=== PATIENT | female | born 1955 | race Caucasian/White ===

== ENCOUNTER 2016-10-09 13:02 | Emergency (ER) | payer MEDICARE, MEDICAID ==
[2016-10-09 13:54] VITALS: BP 120/84
--- NOTE | 2016-10-09 14:07 | RAD ---
HISTORY: Left middle finger pain, trauma COMPARISONS: None VIEWS: 3, Frontal, lateral, and oblique views of the third digit of the left hand FINDINGS: BONE DENSITY: Normal. BONES: There is no displaced fracture. 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 SOFT TISSUES: Unremarkable. OTHER FINDINGS: None. IMPRESSION: NO ACUTE OSSEOUS INJURY. IF SYMPTOMS PERSIST, RECOMMEND REPEAT IMAGING.
--- NOTE | 2016-10-09 15:47 | UC ---
Upper Extremity HPI - HPI Summary HPI Summary: 61 y/o female with c/o L middle finger swelling, decreased movement since sat/ sun. Patient states woke up with finger swelling, redness. concerned about dislocation, patient denies ever losing ROM. seen in wound care for non- healing wound R foot. Patient also states dropped pruning lina on L foot, + bleeding (on plavix) with subsequent bruising. No other complaints. multiple medications listed in chart, multiple co-morbidities including DM II - History of Current Complaint Chief Complaint: UCLowerExtremity Stated Complaint: LEFT MIDDLE FINGER PAIN Time Seen by Provider: 10/09/16 13:41 Hx Obtained From: Patient Hx Last Menstrual Period: menapause Onset/Duration: Sudden Onset, Lasting Days Severity Initially: Mild Severity Currently: Moderate Pain Intensity: 6 Pain Scale Used: 0-10 Numeric Location Of Pain: Is Discrete @ - L middle finger, base of L great toe Aggravating Factor(s): Movement, Flexion, Extension Alleviating Factor(s): Rest Associated Signs And Symptoms: Positive: Swelling, Redness, Bruising - Allergies/Home Medications Allergies/Adverse Reactions: Allergies Allergy/AdvReac Type Severity Reaction Status Date / Time Rosuvastatin [From Crestor] Allergy Muscle Ache Verified 10/09/16 13:54 PMH/Surg Hx/FS Hx/Imm Hx Previously Healthy: No - DM, multiple co-morbidities - Surgical History Surgical History: Yes Surgery Procedure, Year, and Place: CORNEA TRANSPLANT,C SECTION, BILATERAL CARPAL TUNNEL AND TRIGGER FINGER RELEASE,HEART CATH - Family History Known Family History: Positive: Diabetes - Social History Alcohol Use: None Substance Use Type: Prescribed Substance Use Comment - Amount & Last Used: currently using vicoden Smoking Status (MU): Never Smoked Tobacco - Immunization History Most Recent Influenza Vaccination: utd Most Recent Tetanus Shot: utd Review of Systems Skin: Rash Musculoskeletal: Arthralgia, Decreased ROM, Edema, Myalgia All Other Systems Reviewed And Are Negative: Yes Physical Exam Triage Information Reviewed: Yes Appearance: Well-Appearing, No Pain Distress, Well-Nourished Vital Signs: Initial Vital Signs Temp 98.4 F 10/09/16 13:44 Pulse 97 10/09/16 13:44 Resp 16 10/09/16 13:44 BP 120/84 10/09/16 13:44 Pulse Ox 98 10/09/16 13:44 Eye Exam: Normal Musculoskeletal: Positive: ROM Limited @ - decreased ROM due to diffuse mild swelling in L middle finger, full ROM DIP joint, decreased ROM PIP, MCP due to swelling, no pain with AROM, PROM of any finger joint. small laceration noted dorsal apsect of middle finger between MCP, PIP joint., Edema @ - L finger, minimal., Other: - L great toe with 1cm superficial healing laceration. no active bleeding minimal ecchymosis noted at great toe. Neurological Exam: Normal - sensation grossly intact L hand Skin: Positive: Other - mild to minimal erythema at base of L middle finger no lymphangitic spread noted. Upper Extremity Course/Dx - Course Course Of Treatment: x-ray negative, finger, toe wounds cleansed, dressing with anitibiotic ointment applied, ABX rx given, patient to follow up at wound care center on or sooner if symptoms worsen or redness spreads. - Differential Dx/Diagnosis Differential Diagnosis/HQI/PQRI: Bursitis, Laceration, Strain, Sprain Provider Diagnoses: cellulitis L middle finger Discharge - Discharge Plan Condition: Good Disposition: HOME Prescriptions: Cephalexin CAP* [Keflex CAP*] 500 mg PO QID #28 cap Fluconazole [Diflucan 150 MG (NF)] 150 mg PO ONCE #1 tab Patient Education Materials: Cephalexin (By mouth), Cellulitis (ED) Referrals: Christy Westbrook MD [Primary Care Provider] - Additional Instructions: - Follow up with primary physician for evaluation within 3-5 days - Take antibiotics as directed - Return for fever, chills, increasing redness - Motrin/ Tylenol as needed for pain
== END 2016-10-09 14:37 | disposition home or self-care (01) ==
LOC: UCCORT 13:02
DX: L03.012 Cellulitis of left finger (principal); E11.9 Type 2 diabetes mellitus without complications
CPT/HCPCS: 73140; 99212; G0463

== ENCOUNTER → 2018-01-03 13:17 | Emergency (ER) | payer MEDICARE, MEDICAID ==
--- OUTSIDE RECORDS SUMMARY | 2018-01-03 13:48 | XMS REPORT ---
:1955 External Reference #:[id number] Author Organization [facility] Address [address] [place] [address] Phone [phone] Care Team Providers Name Role Phone Sage Miles MD Care Team Information Reuse Technician Unavailable Janelle Farrell MD Primary Care Physician Unavailable Payers Type Date Identification Numbers Payment Provider Subscriber Medicare Primary Policy Number: [id number] Medicare Di Carvalho PayID: [id number] [address] [place] [address] Medigap Part B Policy Number: [id number] Medicaid Di Carvalho PayID: [id number] [address] [place] [address] Problems Date Description Provider Status Onset: 07/09/2016 Multiple complications of type 1 Arley Chi MD, Active diabetes mellitus [facility] Onset: 09/13/2010 Type 1 diabetes mellitus Naomi Willis M.D., FACP Active Onset: 11/08/2013 Diabetic renal disease Janelle Farrell M.D. Active Onset: 12/06/2014 Coronary arteriosclerosis in Monique Salvador M.D. 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 Onset: 09/13/2010 Glaucoma Naomi Willis M.D., FACP Active Onset: 06/22/2014 Benign essential hypertension Monique Salvador M.D. Active Onset: 09/13/2010 Anemia Naomi Willis M.D., FACP Active Onset: 07/05/2014 Depressive disorder hCristy Westbrook M.D. Active Onset: 07/05/2014 Chronic anxiety Christy Westbrook M.D. Active Onset: 09/14/2016 Tension-type headache Abbi Barrios MD Active Onset: 10/12/2015 Status migrainosus Abbi Barrios MD Active Onset: 03/08/2016 Mixed hyperlipidemia Monique Salvador M.D. Active Onset: Acid reflux Active Note: diagnosed by Dr. Alberto Onset: 12/05/2015 Oropharyngeal dysphagia Abbi Barrios MD Active Onset: Sleep disorder Active Note: Velia alberto referred for sleep study Onset: 01/16/2017 Chronic intractable migraine without Abbi Barrios MD Active aura Onset: 01/16/2017 Neurological disorder associated Abbi Barrios MD Active with type 1 diabetes mellitus Onset: 05/13/2017 Abnormal gait Abbi Barrios MD Active Onset: 05/13/2017 Oth symptoms and signs w cognitive Abbi Barrios MD Active functions and awareness Onset: 05/22/2017 Expressive language disorder Abbi Barrios MD Active Onset: 11/27/2017 Intermittent claudication due to Mateo Mancia M.D. Active atherosclerosis of [place] artery of limb Onset: 06/22/2014 Old myocardial infarction Monique Salvador M.D. 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 day Zyrtec Allergy Active Tablets 10mg 30tabs 1 by Janelle 018 mouth Cotton, once M.D. daily as needed ( duplicate d) Depend Active Misc 60units For use R32 Janelle Silhouette 018 twice Cotton, Briefs For daily Dx M.D. Women S/M R32 Maximum Absorb B Complex Active Tablets 180tabs 2 PO qd E10.40 Janelle 018 Cotton, M.D. Multivitamin Active Tablets 90tabs 1 by E10.40 Janelle Adult 018 mouth Cotton, every day M.D. ( Takes only Tab marifer) R60.0 ALL Day Allergy 06/10/2017 Active Tablets 10mg 90tabs take 1 tablet Janelle by mouth once Cotton, daily if needed M.D. Mupirocin Calcium 04/11/2017 Active Cream 2% 30gm apply twice a Janelle day Bud MBharathi Nitrostat 03/21/2017 Active Tablets Sub 0.4mg 25tabs one sl q5min up Monique to 3 doses as [place], needed call 911 M.D. for CP no relieved after 3 NTG Ondansetron HCL 09/12/2016 Active Tablets 8mg 180tabs every 8 hours Janelle by mouth as Cotton, needed M.D. Levothyroxine 08/12/2016 Active Tablets 25mcg 1 by mouth Alberto, Sodium every day Am MD Santana Lovaza 07/20/2016 Active Capsules 1gm 90caps take 1 capsule Monique by mouth once a [place], day M.D. Cilostazol 07/19/2016 Active Tablets 50mg 180tabs 1 by mouth I Marcis T. twice a day 7 Sodums, 3 , FACC, . FSCAI 9 Ibuprofen 04/18/2016 Active Tablets 600mg 30tabs 1 tab by mouth Christy 2 times a day [place], as needed M.D. Praluent 04/02/2016 Active Solution 75mg/ 4ml 1 injection sc Monique Pen-Inject ml every 2 weeks Robin Salvador Fluticasone 09/12/2015 Active Suspension 50mcg 1units 2 sprays both Alberto, Propionate /Act nostrils every MD Santana day [place] 09/02/2014 Active Tablets 10-32 130tabs 1 tablet by Janelle 5mg mouth every 4- Cotton, 6 hours as M.D. needed for pain Restasis 09/01/2014 Active Emulsion 0.05% instill one Unknown drop in each eye two times a day Lotemax 09/01/2014 Active Suspension 0.5% 1 gtt right eye Unknown once daily Zioptan 09/01/2014 Active Solution 0.001 1 gtt right eye Unknown 5% Cosopt PF 09/01/2014 Active Solution 22.3- 1 drop both Unknown 6.8mg eyes daily /ml Tab-A-Marifer 10/14/2012 Active Tablets 90tabs take 1 tablet Janelle by mouth once Cotton, daily M.DLara Novolin R Pump 09/13/2010 Active Solution 100Un used Naomi it/ML continously Robin Willis, FACP Ra B-Complex 08/27/2010 Active Tablets 180tabs take 2 tablets Naomi daily Robin Willis, FACP Bupropion HCL ER Active Tablets ER 150mg 60tabs 2 by mouth Unknown (SR) 12HR daily Aspirin Active Tablets 325mg 1/2 by mouth Unknown every day PM Refresh Plus Active Solution 0.5% instill 1 drop Unknown into both eye 6 Times A Day Trazodone HCL Active Tablets 50mg take 2 tablet Unknown by mouth at bedtime Budesonide Active Caps DR 3mg 2 cap po daily Unknown Part Calcitriol Active Capsules 0.25m take 1 capsule Unknown cg by mouth once daily Parvin Contour Next Active Strips Unknown Blood Glucose Test Ketostix Active Strips Unknown Codeine Sulfate Active Tablets 30mg 2 po qd prn Unknown Diazepam Active Tablets 5mg take 1 tablet Unknown by mouth a day if needed (patient almost never takes) Lidocaine Active Patches 5% apply patch up Unknown to 12 hours once a day as needed Clopidogrel Active Tablets 75mg 90tabs take 1 tablet Marcis T. Bisulfate by mouth once Sodums, daily at night , FACC, [facility] Gabapentin Active Tablets 600mg 1 tablet po Unknown daily at night Acyclovir Active Tablets 400mg 1 by mouth po Unknown daily Fluoxetine HCL Active Capsules 20mg 1 by mouth Unknown every day Alprazolam Active Tablets 0.25m 1 PO bid as Member, g angela Pickett MD Eszopiclone Active Tablets 2mg 1/2 tablet po Member, every night MD Piyush Imodium A-D Active Capsules 2mg 2 cap as needed Unknown Adderall Active Tablets 30mg 1 by mouth Unknown twice a day Botox Active Solution 100Un Every 3 months Unknown Rec it Olopatadine HCL Active Solution 0.1% 1 drop in eyes Unknown twice a day Almaz 128 Active Ointment 5% at bed time Unknown Demadex Active Tablets 20mg 90tabs 1/2 tablet po Unknown daily ( Last taken 12/20/17, stop taking) Meloxicam Active Tablets 7.5mg as needed Rafael Payne MD Losartan Potassium 09/30/2017 Hx Tablets 25mg 60tabs 1 by mouth Oj - twice a day. Gracia Cash, 09/26/2017 MBharathi Valsartan 04/30/2017 Hx Tablets 40mg 135tabs 1/2 tab but I Monique - mouth in the in 1 [place], 09/30/2017 the morning and 0 M.D. 1 tab by mouth at night Ramipril 10/26/2016 Hx Capsules 2.5mg 90caps 1 by mouth Monique - every day [place], 04/15/2017 M.DLara Vitamin C 09/12/2016 Hx Chewtabs 500mg 3 by mouth Christy - every day Pietro, 05/12/2017 MBharathi Propranolol HCL ER 07/03/2016 Hx Caps ER 60mg 90caps 1 by mouth Taylor Lius - 24HR daily 4 Cotton, 10/27/2017 3 M.D. . 9 0 1 Ra Cetirizine 05/20/2016 Hx Tablets 10mg 90tabs 1 by mouth Christy - daily [place], 06/10/2017 M.D. Omeprazole 04/11/[address] 20mg 120tabs 1 by mouth Christy - twice a day [place], 05/02/2016 M.D. Coreg 03/08/2016 Hx Tablets 6.25m 60tabs 1 tablet by William Amaya - g mouth twice a 1 [place], 05/02/2016 day 0 M.D. Prilosec 02/28/[address] 20mg 90caps 1 by mouth Christy - twice a day [place], 04/11/2016 M.D. Ranitidine 150 02/28/2016 Hx Tablets 150mg 60tabs 1 po at Noon Christy Maximum Strength - (not taking) Pietro, 09/11/2016 M.D. Amlodipine 02/28/2016 Hx Tablets 10mg 90tabs 1 by mouth I Christy Besylate - every day ( has 1 [place], 08/02/2016 continue taking 0 M.D. since Rx was given) Ramipril 02/28/2016 Hx Capsules 10mg 180caps take one Christy - capsule qpm [place], 10/26/2016 only M.D. Ibuprofen 02/21/2016 Hx Tablets 600mg 30tabs 1 tab by mouth 7 Christy - as needed for 8 [place], 02/28/2016 severe 4 M.D. headaches . 0 Ferrous Fumarate 01/30/2016 Hx Tablets 324(1 60tabs 1 by mouth bid Christy - 06Fe) [place], 02/06/2016 mg M.D. Ferrous Sulfate 01/23/2016 Hx Tablets 325(6 180tabs take 1 tablet Star Carlotta Barajas 5Fe) by mouth twice Elo, 12/09/2016 mg a day M.D. Biotene Dry Mouth 12/22/2015 Hx Liquid 1units as needed Christy - Pietro, 05/02/2016 M.D. Colace 12/22/2015 Hx Capsules 100mg 60caps take one Christy - capsule by Pietro, 03/28/2016 mouth three M.D. times a day as needed for constipation Codeine Sulfate 12/22/2015 Hx Tablets 15mg 14tabs once a day as Christy - needed for [place], 01/18/2016 diarrhea M.D. Ondansetron HCL 12/10/2015 Hx Tablets 8mg 24tabs every 8 hours Christy - by mouth as [place], 12/10/2016 needed M.D. Ondansetron 12/08/2015 Hx Tablets 4mg 20tabs dissolve one Christy - Dispers tablet orally [place], 12/10/2015 every 12 hours M.D. as needed for nausea. Propranolol HCL 12/05/2015 Hx Tablets 10mg 180tabs 2 in the Am and G Abbi - 3 in the PM x1 4 MD Sophie 07/03/2016 week then 3 3 twice a day . 9 0 1 Buspirone HCL 03/01/2015 Hx Tablets 10mg 90tabs 1 by mouth Christy - three times a [place], 05/02/2016 day M.D. Diazepam 11/22/2014 Hx Tablets 2mg 10tabs 1-2 tab at Christy - night for , 05/31/2015 muscle spasms M.D. Cetirizine HCL 11/11/2014 Hx Chewtabs 10mg 90units 1 by mouth Christy - daily prn , 11/11/2014 M.D. Cyclobenzaprine 11/11/2014 Hx Tablets 5mg 10tabs take one tablet Christy HCL - by mouth at [place], 05/31/2015 night for M.D. spasms Crystal Allergy 11/11/2014 Hx Tablets 180mg 30tabs 1 by mouth J Hcristy - every day for 3 , 10/11/2015 allergies 0 M.D. . 9 Ra Vitamin D-3 10/10/2014 Hx Tablets 1000U 90tabs 1 by mouth Christy - nit every day otc 12/22/2015 M.D. Prochlorperazine 08/11/2014 Hx Tablets 5mg 30tabs 1 tab every 8 Christy Maleate - hrs as needed [place], 11/11/2014 M.D. Aspirin 08/09/2014 Hx Chewtabs 81mg 1 by mouth Christy - every day [place], 10/12/2015 M.D. Ibuprofen 08/09/2014 Hx Tablets 600mg 30tabs 1 tab by mouth 7 Christy - as needed for 8 , 05/31/2015 severe 4 M.D. headaches . 0 Ondansetron HCL 08/09/2014 Hx Tablets 8mg 30tabs take 1 by mouth 7 Christy - as needed for 8 , 09/01/2014 nausea every 12 7 M.D. hrs . 0 2 Propranolol HCL 08/09/2014 Hx Tablets 10mg 60tabs 1 by mouth 7 Christy - every day 8 , 09/01/2014 4 M.D. . 0 Sumatriptan 08/09/2014 Hx Tablets 25mg 30tabs 1 tab at the 7 Christy Succinate - onset of the 8 , 10/11/2015 headache , can 4 M.D. repeat it once . in 24 hours 0 Lisinopril 08/02/2014 Hx Tablets 5mg 1 by mouth 4 Christy - every day 0 [place], 08/02/2014 1 M.D. . 1 Lisinopril 08/02/2014 Hx Tablets 5mg 90tabs take 1 tablet Christy - by mouth once [place], 05/02/2016 daily M.D. Cyanocobalamin 07/15/2014 Hx Tablets Sub 2500m 90tabs once a day Christy - cg , 11/11/2014 M.D. Ferrous Gluconate 07/15/2014 Hx Tablets 324(3 60tabs 1 by mouth Christy - 8Fe) twice a day , 12/22/2015 mg M.D. Lunesta 07/13/2014 Hx Tablets 2mg 2 mg by mouth Christy - at bedtime as 12/31/2016 needed M.D. Atorvastatin 07/13/2014 Hx Tablets 10mg 90tabs 1 by mouth E Christy Calcium - every day 7 [place], 07/21/2015 8 M.D. . 5 Lisinopril 06/22/2014 Hx Tablets 2.5mg 90tabs 2 by mouth 4 Monique - every day 0 [place], 08/02/2014 1 M.D. . 1 Vitamin D 06/10/2014 Hx Capsules 97550 8caps once a week 2 Christy (Ergocalciferol) - Unit 6 11/11/2014 8 M.D. . 9 Vicodin HP 05/06/2014 Hx Tablets 10-30 60tabs 1 tablet by Janelle - 0mg mouth every 12 Cotton, 11/11/2014 hours as needed M.D. pain Niacin ER 03/30/2013 Hx Tablets ER 500mg 90tabs take 1 tablet Christy (Antihyperlipidemi - every evening. uriel Westbrook) 06/21/2014 M.D. Ramipril 03/26/2013 Hx Capsules 10mg 90caps 1 po qd Monique - [place], 11/05/2013 M.D. Simvastatin 10/14/2012 Hx Tablets 10mg 90tabs take 1 tablet Liv - by mouth at Varn, N.P. 06/21/2014 bedtime Lovaza 07/04/2012 Hx Capsules 1gm 180caps take 1 capsule Naomi - twice a day Alba, 03/27/2013 M.D., FACP Metoclopramide HCL 06/07/2012 Hx Tablets 5mg 120tabs Take 1 Tablet Naomi - By Mouth 4 Alba, 11/05/2013 Times A Day 30 M.D., FACP Minutes Before Meals as Needed Crestor 04/21/2012 Hx Tablets 5mg 45tabs 1/2 tab by 2 Monique - mouth 3 times 5 , 03/29/2013 per week 0 M.D. . 6 3 Zetia 04/16/2012 Hx Tablets 10mg 90tabs 1 tab by mouth Monique - every day (on , 07/13/2014 hold as of M.D. 06/28) Ipratropium 04/10/2012 Hx Solution 0.03% 30ml instill 2 4 Naomi [place] - sprays in each 7 Alba, 03/27/2013 nostril twice a 7 M.D., FACP day . 9 Calcium High 04/02/2012 Hx Tablets 600-2 180tabs take 1 tablet Naomi Potency + Vitamin - 00mg- twice a day Alba, D 11/05/2013 Unit M.D., FACP Ramipril 02/14/2012 Hx Capsules 5mg 90caps 1 po qd Monique - [place], 03/26/2013 M.D. Lovaza 10/06/2011 Hx Capsules 1gm 180caps take 1 capsule Naomi - twice a day Alba, 04/10/2012 M.D., FACP Loperamide HCL 09/24/2011 Hx Capsules 2mg 180caps 2 take by mouth 7 Namoi - capsules prn 8 Alba, 02/19/2012 diarrhea 7 M.D., FACP . 9 1 Codeine Sulfate 09/24/2011 Hx Tablets 30mg 180tabs take 2 tablest Naomi - three times Alba, 03/27/2013 daily as needed M.D., FACP for diarrhea Calcium/Vitamin D 09/03/2011 Hx Tablets 600-4 180tabs take 1 tablet Naomi - 00mg- twice a day Alba, 04/02/2012 Unit M.D., FACP Cetirizine HCL 08/27/2011 Hx Chewtabs 10mg 90units 1 by mouth Naomi - daily prn Alba, 03/27/2013 M.D., FACP Reglan 05/15/2011 Hx Tablets 5mg 270tabs qac prn 5 Naomi - 6 Alba, 02/19/2012 4 M.D., FACP . 5 Codeine Sulfate 05/01/2011 Hx Tablets 15mg 270tabs 2 by mouth tid Naomi - as needed for Alba, 09/24/2011 diarrhea M.D., FACP Vicodin HP 05/01/2011 Hx Tablets 10-66 60tabs 1-2 days as Liv - 0mg needed for pain Varn, N.P. 05/06/2014 Ramipril 11/24/2010 Hx Capsules 10mg 90caps 1 po qd Naomi - [place], 02/14/2012 M.D., FACP Abilify 11/14/2010 Hx Tablets 3mg 30tabs 1 po qpm Naomi - [place], 05/15/2011 M.D., FACP Ramipril 11/14/2010 Hx Capsules 5mg 90caps 1 po qd Naomi - [place], 11/24/2010 M.D., FACP Co Q-10 Maximum 11/14/2010 Hx Capsules 400mg 90caps 1 po qd 2 Naomi Strength - 5 Alba, 05/15/2011 0 M.D., FACP . 6 3 Caltrate 600+D 09/19/2010 Hx Chewtabs 600-4 180unit 1 po bid Naomi - 00mg- s Alba, 09/03/2011 Unit M.D., FACP Daily Marifer 09/18/2010 Hx Tablets 90tabs 1 po qd Naomi - [place], 10/14/2012 M.D., FACP Citrical 600MG 09/18/2010 Hx 180unit take one tablet Naomi Calcium, 400 Iu - s two times daily Alba, Vit D, One bid 09/19/2010 M.D., FACP Vitamin C 09/18/2010 Hx Chewtabs 250mg 270unit chew and Naomi - s swallow 3 Alba, 03/27/2013 tablets daily M.D., FACP Niaspan 09/18/2010 Hx Tablets ER 500mg 90tabs Take 1 Tablet Naomi - Every Evening. Alba, 03/30/2013 M.D., FACP Reglan 09/13/2010 Hx Tablets 5mg 60tabs qac prn Naomi - [place], 05/15/2011 M.D., FACP Lasix 09/13/2010 Hx Tablets 40mg 90tabs 1 po qd Naomi - [place], 05/15/2011 M.D., FACP [place]-3 Fish Oil 09/13/2010 Hx Capsules 1000m 180caps 1 by mouth Naomi - g twice a day Al[place], 11/05/2013 M.D., FACP Prozac 09/13/2010 Hx Capsules 40mg 1 po qd Naomi - [place], 11/14/2010 M.D., FACP Vitamin C TR/Aniyah 09/13/2010 Hx Tablets ER 1500m 90tabs 1 qd Naomi Hips - g Al[place], 03/27/2013 M.D., FACP Acyclovir 09/13/2010 Hx Tablets 800mg 30tabs 1/2 tablet Naomi - daily Al[place], 08/01/2016 M.D., FACP Methazolamide 09/13/2010 Hx Tablets 50mg po tid Naomi - [place], 11/05/2013 M.D., FACP Aspirin 09/13/[address] 325mg 1 po qd Naomi - [place], 08/09/2014 M.D., FACP Altace 09/13/2010 Hx Capsules 10mg 30caps 1 po qd Naomi - [place], 11/14/2010 M.D., FACP Lunesta 09/13/2010 Hx Tablets 1mg 20tabs 1 po qhs prn Naomi - [place], 06/21/2014 M.D., FACP Trazodone HCL 09/13/2010 Hx Tablets 50mg 90tabs 1 tablet po at Naomi - bedtime Alba, 11/10/2015 M.D., FACP Calcium & 09/13/2010 Hx Tablets 750-4 1 po qd Naomi Magnesium - 65mg Alba, 11/05/2013 M.D., FACP Abilify 09/13/2010 Hx Tablets 2mg 30tabs 1 po qpm Naomi - [place], 11/14/2010 M.D., FACP Niacin Flush Free 09/13/2010 Hx Capsules 500mg 90caps 1 by mouth 2 Naomi - every night 5 Alba, 09/18/2010 0 M.D., FACP . 6 3 Hydrochlorothiazid 09/13/2010 Hx Tablets 25mg 90tabs Take 1 Tablet Naomi e - By Mouth Daily Al[place], 05/15/2011 In The Morning M.D., FACP Simvastatin 09/13/2010 Hx Tablets 10mg 90tabs take 1 tablet 2 Naomi - daily at 5 Alba, 04/21/2012 bedtime 0 M.D., FACP . 6 3 Omeprazole 08/14/[address] 20mg 180caps Take 1-2 Christy - Capsules By Pietro, 02/27/2016 Mouth Daily as M.D. Needed Procrit 05/11/2010 Hx Solution 82627 3bottle 1 cc. Naomi - Unit/ s subcutaneously Alba, 06/10/2014 ML every three M.D., FACP weeks. Folic Acid 04/25/2010 Hx Tablets 1mg 90tabs take 1 tablet 1 Christy - times a day. Pietro, 02/27/2016 M.D. Poly-Iron 150 03/26/2010 Hx Capsules 150-2 270caps take 3 capsules Liv Forte - 5-1mg every day Varn, N.P. 08/09/2014 -mcg- mg Boniva 03/09/2010 Hx Tabs 150mg 3tabs Take 1 Tablet Naomi - Once A Month Alba, 03/17/2014 M.D., FACP B Complex With B12 11/22/2009 Hx 135unit take 1 1/2 Naomi - s tablets Daily Alba, 09/13/2010 M.D., FACP Zetia 10/18/2009 Hx Tablets 10mg 30tabs Take 1 Tablet Naomi - AT Bedtime. Alba, 09/13/2010 M.D., FACP Zetia 10/18/2009 Hx Tablets 10mg 90tabs Take 1 Tablet Naomi - Nightly AT Alba, 02/19/2012 Bedtime M.D., FACP Neurontin Hx Capsules 600 90caps 1 tablet po Unknown - b.i.d Clara 07/13/2014 Roger Metoclopramide HCL Hx Tablets 5mg 120tabs Take 1 Tablet Naomi - By Mouth 4 Alba, 05/15/2011 Times A Day 30 M.D., FACP Minutes Before Meals as Needed Viibryd Hx Tablets 40mg Unknown - 08/29/2011 Vyvanse Hx Capsules 40mg 1 po qd Unknown - 03/27/2013 Paxil Hx Tablets 30mg 90tabs one q am Unknown - 10/07/2012 Entocort Ec Hx Caps ER 3mg 2 po qd Unknown - 24HR 03/27/2013 Reglan Hx Tablets 5mg 1 po tid Unknown - 06/07/2012 Celexa Hx Tablets 40mg 30tabs 1 tablet po Unknown - daily 11/28/2014 Furosemide Hx Tablet 20mg 1 po qd Unknown - 11/05/2013 Codeine Sulfate Hx Tablets 30mg 1 tab po tid Unknown - prn 06/10/2014 Lunesta Hx Tablets 3mg hs Unknown - 07/13/2014 Gabapentin Hx Tablets 800mg 1 po qd Unknown - 08/01/2016 Zyrtec Allergy Hx Capsules 10mg 1 by mouth Unknown - every day as 05/20/2016 needed Cyanocobalamin Hx Tablets Sub 2500m once a day Unknown - cg 12/05/2014 Mirtazapine Hx Tablets 15mg once at bedtime Unknown - 12/07/2015 Citalopram Hx Tablets 10mg 1 by mouth Unknown Hydrobromide - every day 05/28/2017 Vyvanse Hx Capsules 70mg 1 tab po wd Unknown - 12/10/2015 Dicyclomine HCL Hx Capsules 10mg Unknown - 12/22/2015 Hyoscyamine Hx Tablets ER 0.375 Unknown Sulfate ER - 12HR mg 12/07/2015 Amphetamine-Dextro Hx Caps ER 20mg 1 by mouth Unknown amphet ER - 24HR daily 05/02/2016 Vyvanse Hx Capsules 70mg 1 tab po wd Unknown - 12/22/2015 Fluconazole Hx Tablets 150mg 2tabs once a day Chirsty [place], 02/22/2016 M.DLara Cephalexin Hx Capsules 500mg take 1 capsule Unknown - three times a 02/22/2016 day Metoprolol Hx Tablets ER 50mg take 1 tablet I Unknown Succinate ER - 24HR by mouth once 1 03/08/2016 daily 0 Ramipril Hx Capsules 10mg Unknown - 02/28/2016 Trifluridine Hx Solution 1% instill 1 drop Unknown - into right eye 09/14/2016 five times a day for 5 days then 1 drop (not taking) Olopatadine HCL Hx Solution 0.1% Unknown - 05/02/2016 Ranitidine HCL Hx Tablets 150mg take 1 tablet Unknown - by mouth daily 05/02/2016 In The Afternoon Polymyxin B Hx Solution 89671 gtt bid Oltz, Sulfate/Trimethopr - -0.1U Lindsey, im Sulfate 12/09/2016 nit/M L-% Novolog Hx Solution 100Un Unknown - it/ML 06/09/2016 Erythromycin Hx Ointment 5mg/G applied to [facility] - M right eye 3 , [place], 12/09/2016 times per day Trazodone HCL Hx Tablets 50mg Member, Karl Pickett, 05/02/2016 Dicyclomine HCL Hx Capsules 10mg Unknown - 05/02/2016 Fluconazole Hx Tablets 150mg take 1 tablet Unknown - by mouth as a 05/02/2016 single dose Cephalexin Hx Capsules 500mg take 1 capsule Unknown - three times a 02/28/2016 day Amphetamine-Dextro Hx Tablets 20mg one tab in the Member, amphetamine - am as directed Piyush, 08/01/2016 MD Muse 128 Hx Ointment 5% Unknown - 05/02/2016 Ondansetron Hx Tablets 4mg Dissolve One Unknown - Dispers Tablet Orally 11/09/2015 Every 12 Hours as Needed For Nausea Hyoscyamine Hx Tablets ER 0.375 Unknown Sulfate ER - 12HR mg 05/02/2016 Lidocaine Viscous Hx Solution 2% Karl Alberto MD 06/09/2016 Ferrous Gluconate Hx Tablets 324(3 Unknown - 8Fe) 05/02/2016 mg Refresh Optive Hx Solution 0.5-0 Drop 1 Drop In Unknown Sensitive - .9% Both Eyes Four 05/02/2016 Times A Day Cephalexin Hx Capsules 250mg Imtiaz, - Stacey, 05/02/2016 DPM Mirtazapine Hx Tablets 15mg Unknown - 05/02/2016 Ra Vitamin D-3 Hx Tablets 1000U Unknown - nit 06/09/2016 Sumatriptan Hx Tablets 25mg Unknown Succinate - 05/02/2016 Atorvastatin Hx Tablets 10mg Unknown Calcium - 05/02/2016 Vyvanse Hx Capsules 20mg 1 by mouth Unknown - every day 05/02/2016 Xanax Hx Tablets 0.25m one by mouth Unknown - g daily as needed 06/09/2016 for anxiety Lasix Hx Tablets 40mg 1 by mouth Unknown - every day 05/02/2016 Erythromycin 0.5% Hx Ointment 3 times per day Unknown - eye 06/09/2016 Metoprolol Hx Tablets ER 50mg take 1 tablet Unknown Succinate ER - 24HR by mouth once 06/09/2016 daily Prilosec OTC Hx Tablets DR 20mg 30tabs 1 tablet in the Christy - morning and 1 [place], 08/01/2017 tablet at night M.D. (on hold) Santyl Hx Ointment 250Un Unknown - it/GM 06/09/2016 Carvedilol Hx Tablets 6.25m 180tabs 1 by mouth Monique - g twice a day [place], 12/13/2017 M.D. Furosemide Hx Tablets 20mg 90tabs 1 daily. you Monique - may take an [place], 08/27/2017 extra 20mg up M.D. to 2x week for > than a 3lb weight gain. Gabapentin Hx Capsules 300mg 1 cap po daily Unknown - ( taken along 12/10/2016 with 600mg tablet to make a [id number]) Amphetamine-Dextro Hx Tablets 30mg 2 tabs daily as Member, amphetamine - directed Piyush, 05/28/2017 Novalog Insulin Hx as needed Unknown Pump - 08/01/2016 Amphetamine-Dextro Hx Tablets 30mg Member, amphetamine - Piyush, 12/31/2016 Myrbetriq Hx Tablets ER 25mg 1 by mouth Unknown - 24HR every day 04/19/2017 Vesicare Hx Tablets 10mg 1 by mouth Unknown - every day 04/14/2017 Plavix Hx Tablets 75mg 1 by mouth Unknown - every day 05/28/2017 Medications Administered in Office Medication Date Status Form Strength Qnty SIG Indications Ordering Provider Inj, Administered Injection Chano Alberto Regadenoson, 017 Rolan, 0.1 MG Robin, SUMMER, FASREY Technetium TC Administered Injection Chano Alberto 99M 017 Rolan TetrofRobin pérez, SUMMER, Per Unit Dose FASNC Up To 40 Millicuries Depomedrol Administered Injection Kita 40MG Kendell Gonsalez M.D. Depomedrol 11/08/2 Administered Injection Kita 40MG Kendell Gonsalez M.D. Immunizations CPT Code Status Date Vaccine Lot # [id number] Given 09/12/2016 Tdap - Tetanus/Diptheria/Acellular Pertussis [id number] Given 12/07/2015 Influenza Virus Vaccine, Quadrivalent, Split [id number] Virus, Im Use [id number] Given 11/16/2014 Influenza Virus Vaccine, Quadrivalent, Split, Preservative Free 22872 Given 07/13/2014 Pneumococcal Conjugate Vaccine 13 Valent For [id number] Intramuscular Use Q2035 Given 01/29/2014 Afluria Vaccine [id number] Given 12/04/2012 Afluria Vaccine 38052 Given 08/29/2011 Zoster (Zostavax) [id number] Q2035 Given 11/14/2010 Afluria Vaccine [id number] 80859 Given 12/23/2008 Influenza Virus 3Yrs & Over 09562 Given 12/11/2007 Influenza Virus 3Yrs & Over 46551 Given 12/11/2007 Influenza Virus 3Yrs & Over 19032 Given 01/03/2006 Influenza Virus 3Yrs & Over 91918 Given 01/03/2006 Influenza Virus 3Yrs & Over Vital Signs Date Vital Result Comment 12/23/2017 Height 66.5 inches 5'6.50" Weight 138.00 lb with shoes Heart Rate 77 /min BP Systolic Sitting 110 mmHg Lue reg cuff BP Diastolic Sitting 75 mmHg Lue reg cuff BP Systolic Standing 110 mmHg Lue reg cuff BP Diastolic Standing 70 mmHg Lue reg cuff Respiratory Rate 15 /min BMI (Body Mass Index) 21.9 kg/m2 Ejection Fraction 55-60% date 03/01/17 ECHO 11/27/2017 Height 66.5 inches 5'6.50" Weight 137.00 lb Heart Rate 72 /min BP Systolic Sitting 124 mmHg BP Diastolic Sitting 70 mmHg Respiratory Rate 18 /min BMI (Body Mass Index) 21.8 kg/m2 09/26/2017 Height 66.5 inches 5'6.50" Weight 139.00 lb Heart Rate 72 /min BP Systolic Sitting 141 mmHg BP Diastolic Sitting 81 mmHg O2 % BldC Oximetry 97 % BMI (Body Mass Index) 22.1 kg/m2 08/16/2017 Height 66.5 inches 5'6.50" Weight 135.00 lb with shoes Heart Rate 70 /min BP Systolic Sitting 140 mmHg Rue reg cuff BP Diastolic Sitting 80 mmHg Rue reg cuff BP Systolic Standing 122 mmHg Rue reg cuff BP Diastolic Standing 70 mmHg Rue reg cuff Respiratory Rate 16 /min BMI (Body Mass Index) 21.5 kg/m2 Ejection Fraction 55-60% date 03/01/17 ECHO 08/02/2017 Height 66.5 inches 5'6.50" Weight 130.00 lb Heart Rate 74 /min BP Systolic Sitting 111 mmHg BP Diastolic Sitting 69 mmHg O2 % BldC Oximetry 99 % BMI (Body Mass Index) 20.7 kg/m2 05/30/2017 Height 66.5 inches 5'6.50" Weight 130.00 lb with shoes Heart Rate 72 /min BP Systolic Sitting 144 mmHg Lue reg cuff BP Diastolic Sitting 76 mmHg Lue reg cuff BP Systolic Standing 132 mmHg Lue reg cuff BP Diastolic Standing 80 mmHg Lue reg cuff Respiratory Rate 16 /min BMI (Body Mass Index) 20.7 kg/m2 Ejection Fraction 55-60% 03/01/2017-echo 05/22/2017 Height 66.5 inches 5'6.50" Weight 124.00 lb Heart Rate 66 /min BP Systolic 100 mmHg BP Diastolic 64 mmHg BMI (Body Mass Index) 19.7 kg/m2 05/13/2017 Height 66.5 inches 5'6.50" Weight 125.00 lb Heart Rate 80 /min BP Systolic Sitting 126 mmHg BP Diastolic Sitting 80 mmHg BMI (Body Mass Index) 19.9 kg/m2 04/15/2017 Height 66.5 inches 5'6.50" Weight 127.38 lb without shoes Heart Rate 68 /min BP Systolic Sitting 110 mmHg Lue reg cuff BP Diastolic Sitting 60 mmHg Lue reg cuff BP Systolic Standing 110 mmHg Lue reg cuff BP Diastolic Standing 62 mmHg Lue reg cuff Respiratory Rate 16 /min BMI (Body Mass Index) 20.2 kg/m2 Ejection Fraction 55-60% date 03/01/17 ECHO 04/04/2017 Height 66.5 inches 5'6.50" Weight 126.00 lb w/ boots, pt states 129.6 at lopes 2 days ago Heart Rate 70 /min BP Systolic Sitting 132 mmHg lue reg cuff BP Diastolic Sitting 74 mmHg lue reg cuff Respiratory Rate 18 /min BMI (Body Mass Index) 20.0 kg/m2 Ejection Fraction 49% stress test 02/12/17 02/18/2017 Height 66.5 inches 5'6.50" Weight 127.00 lb with a boot and ortho shoe Heart Rate 73 /min BP Systolic 130 mmHg BP Diastolic 72 mmHg O2 % BldC Oximetry 94 % BMI (Body Mass Index) 20.2 kg/m2 01/21/2017 Height 66.5 inches 5'6.50" Weight 127.00 lb w/ shoes Heart Rate 70 /min BP Systolic Sitting 122 mmHg lue reg cuff BP Diastolic Sitting 72 mmHg lue reg cuff Respiratory Rate 18 /min BMI (Body Mass Index) 20.2 kg/m2 01/16/2017 Height 66.5 inches 5'6.50" Weight 128.00 lb Heart Rate 78 /min BP Systolic Sitting 122 mmHg BP Diastolic Sitting 80 mmHg BMI (Body Mass Index) 20.3 kg/m2 01/09/2017 Height 66.5 inches 5'6.50" Weight 131.00 lb Heart Rate 73 /min BP Systolic 149 mmHg BP Diastolic 80 mmHg Body Temperature 97.6 F BMI (Body Mass Index) 20.8 kg/m2 01/01/2017 Height 66 inches 5'6" Weight 132.00 lb Heart Rate 68 /min BP Systolic Sitting 144 mmHg Rue reg cuff BP Diastolic Sitting 76 mmHg Rue reg cuff BP Systolic Standing 138 mmHg Rue reg cuff BP Diastolic Standing 78 mmHg Rue reg cuff Respiratory Rate 15 /min BMI (Body Mass Index) 21.3 kg/m2 Ejection Fraction 64% 02/06/2011-echo 12/31/2016 Weight 132.00 lb Heart Rate 74 /min BP Systolic Sitting 142 mmHg BP Diastolic Sitting 66 mmHg 12/11/2016 Height 66 inches 5'6" Weight 131.00 lb Heart Rate 62 /min BP Systolic Sitting 116 mmHg BP Diastolic Sitting 68 mmHg Respiratory Rate 16 /min BMI (Body Mass Index) 21.1 kg/m2 12/10/2016 Height 66 inches 5'6" Weight 131.00 lb w shoes and boot Heart Rate 66 /min BP Systolic Sitting 110 mmHg lue reg cuff BP Diastolic Sitting 72 mmHg lue reg cuff Respiratory Rate 18 /min BMI (Body Mass Index) 21.1 kg/m2 Ejection Fraction 64% echo 02/06/11 11/02/2016 Height 66 inches 5'6" Weight 133.38 lb with shoes & boot Heart Rate 66 /min BP Systolic Sitting 132 mmHg Ra reg cuff BP Diastolic Sitting 72 mmHg Ra reg cuff BP Systolic Standing 130 mmHg Ra reg cuff BP Diastolic Standing 70 mmHg Ra reg cuff BMI (Body Mass Index) 21.5 kg/m2 Ejection Fraction 64% echo 02/06/11 10/01/2016 Height 66 inches 5'6" Weight 135.12 lb Heart Rate 70 /min BP Systolic Sitting 136 mmHg LA reg cuff BP Diastolic Sitting 78 mmHg LA reg cuff BMI (Body Mass Index) 21.8 kg/m2 Ejection Fraction 64% echo 02/06/11 09/14/2016 Height 66 inches 5'6" Weight 135.00 lb Heart Rate 78 /min BP Systolic Sitting 116 mmHg BP Diastolic Sitting 66 mmHg Respiratory Rate 14 /min BMI (Body Mass Index) 21.8 kg/m2 09/13/2016 Height 66 inches 5'6" Weight 136.00 lb with shoes Heart Rate 64 /min BP Systolic Sitting 122 mmHg Lue reg cuff BP Diastolic Sitting 72 mmHg Lue reg cuff BP Systolic Standing 118 mmHg Lue reg cuff BP Diastolic Standing 72 mmHg Lue reg cuff BP Systolic Lying Down 130 mmHg Rue reg cuff BP Diastolic Lying Down 70 mmHg Rue reg cuff Respiratory Rate 16 /min BMI (Body Mass Index) 21.9 kg/m2 Ejection Fraction 64% date 02/06/11 ECHO 09/12/2016 Height 66 inches 5'6" Weight 134.12 lb Heart Rate 110 /min BP Systolic 110 mmHg BP Diastolic 70 mmHg Body Temperature 97.5 F O2 % BldC Oximetry 99 % BMI (Body Mass Index) 21.6 kg/m2 09/06/2016 Height 67 inches 5'7" Weight 131.00 lb w/ shoes Heart Rate 64 /min reg BP Systolic Sitting 112 mmHg Lue BP Diastolic Sitting 64 mmHg Lue Respiratory Rate 16 /min BMI (Body Mass Index) 20.5 kg/m2 09/03/2016 Height 67 inches 5'7" Weight 133.00 lb Heart Rate 64 /min left, reg; 60 right, reg BP Systolic 144 mmHg Rue, reg cuff BP Diastolic 84 mmHg Rue, reg cuff BP Systolic Sitting 150 mmHg Lue, reg cuff BP Diastolic Sitting 90 mmHg Lue, reg cuff Respiratory Rate 16 /min BMI (Body Mass Index) 20.8 kg/m2 08/09/2016 Height 67 inches 5'7" Weight 135.00 lb w/ shoes Heart Rate 60 /min reg BP Systolic Sitting 132 mmHg Rue, reg cuff BP Diastolic Sitting 84 mmHg Rue, reg cuff Respiratory Rate 16 /min BMI (Body Mass Index) 21.1 kg/m2 08/02/2016 Height 67 inches 5'7" Weight 135.00 lb with shoes Heart Rate 76 /min BP Systolic Sitting 110 mmHg Lue reg cuff BP Diastolic Sitting 70 mmHg Lue reg cuff BP Systolic Standing 110 mmHg Lue reg cuff BP Diastolic Standing 72 mmHg Lue reg cuff Respiratory Rate 16 /min BMI (Body Mass Index) 21.1 kg/m2 07/26/2016 Height 67 inches 5'7" Weight 135.00 lb w/ shoes Heart Rate 76 /min reg BP Systolic Sitting 120 mmHg Rue, reg cuff BP Diastolic Sitting 70 mmHg Rue, reg cuff Respiratory Rate 16 /min BMI (Body Mass Index) 21.1 kg/m2 07/19/2016 Height 67 inches 5'7" Weight 134.00 lb w/ shoes Heart Rate 66 /min reg BP Systolic Sitting 114 mmHg Lue, reg cuff BP Diastolic Sitting 70 mmHg Lue, reg cuff Respiratory Rate 16 /min BMI (Body Mass Index) 21.0 kg/m2 07/09/2016 Height 67 inches 5'7" Weight 139.00 lb per pt Heart Rate 72 /min reg BP Systolic Sitting 140 mmHg Lue, reg cuff BP Diastolic Sitting 70 mmHg Lue, reg cuff Respiratory Rate 16 /min BMI (Body Mass Index) 21.8 kg/m2 05/14/2016 Height 67 inches 5'7" Weight 138.00 lb Heart Rate 74 /min BP Systolic Sitting 122 mmHg BP Diastolic Sitting 58 mmHg Respiratory Rate 17 /min BMI (Body Mass Index) 21.6 kg/m2 03/28/2016 Weight 144.00 lb Heart Rate 80 /min BP Systolic 140 mmHg BP Diastolic 82 mmHg Body Temperature 97.8 F O2 % BldC Oximetry 97 % 03/08/2016 Weight 143.00 lb Heart Rate 76 /min BP Systolic Sitting 152 mmHg Ra reg cuff BP Diastolic Sitting 76 mmHg Ra reg cuff BP Systolic Standing 134 mmHg Ra BP Diastolic Standing 74 mmHg Ra Respiratory Rate 14 /min Ejection Fraction 64% 02/06/11 02/28/2016 Weight 145.50 lb Heart Rate 73 /min BP Systolic 150 mmHg her machine 179/82 BP Diastolic 82 mmHg her machine 179/82 Body Temperature 98.0 F O2 % BldC Oximetry 98 % 12/22/2015 Weight 153.00 lb Heart Rate 80 /min BP Systolic Sitting 136 mmHg BP Diastolic Sitting 88 mmHg Body Temperature 97.7 F O2 % BldC Oximetry 97 % 12/07/2015 Weight 153.00 lb Heart Rate 83 /min BP Systolic Sitting 128 mmHg BP Diastolic Sitting 80 mmHg Body Temperature 98.3 F O2 % BldC Oximetry 98 % 12/05/2015 Height 67 inches 5'7" Weight 150.00 lb Heart Rate 76 /min BP Systolic Sitting 118 mmHg BP Diastolic Sitting 88 mmHg Respiratory Rate 14 /min BMI (Body Mass Index) 23.5 kg/m2 10/12/2015 Height 67 inches 5'7" Weight 150.00 lb Heart Rate 75 /min BP Systolic Sitting 130 mmHg BP Diastolic Sitting 80 mmHg Respiratory Rate 18 /min O2 % BldC Oximetry 97 % BMI (Body Mass Index) 23.5 kg/m2 05/31/2015 Weight 142.00 lb Heart Rate 82 /min BP Systolic Sitting 158 mmHg BP Diastolic Sitting 90 mmHg Respiratory Rate 18 /min Body Temperature 98.1 F O2 % BldC Oximetry 97 % 01/17/2015 Height 67 inches 5'7" Weight 129.00 lb Heart Rate 76 /min BP Systolic Sitting 148 mmHg BP Diastolic Sitting 84 mmHg Respiratory Rate 16 /min BMI (Body Mass Index) 20.2 kg/m2 12/06/2014 Height 67 inches 5'7" Weight 129.00 lb with shoes Heart Rate 84 /min BP Systolic Sitting 132 mmHg LA, reg cuff BP Diastolic Sitting 80 mmHg LA, reg cuff BP Systolic Standing 128 mmHg LA BP Diastolic Standing 80 mmHg LA Respiratory Rate 16 /min BMI (Body Mass Index) 20.2 kg/m2 Ejection Fraction 64% 02/06/2011 11/29/2014 Height 67 inches 5'7" Weight 132.00 lb Heart Rate 72 /min BP Systolic Sitting 130 mmHg BP Diastolic Sitting 80 mmHg Respiratory Rate 16 /min BMI (Body Mass Index) 20.7 kg/m2 11/11/2014 Weight 134.00 lb Heart Rate 69 /min BP Systolic Sitting 140 mmHg BP Diastolic Sitting 77 mmHg Body Temperature 97.5 F 09/02/2014 Height 67 inches 5'7" Weight 138.25 lb Heart Rate 69 /min BP Systolic Sitting 134 mmHg BP Diastolic Sitting 72 mmHg Respiratory Rate 20 /min Body Temperature 98.0 F O2 % BldC Oximetry 97 % BMI (Body Mass Index) 21.7 kg/m2 Neck Circumference in inches 14.25 08/09/2014 Height 68 inches 5'8" Weight 144.00 lb Heart Rate 68 /min BP Systolic 151 mmHg BP Diastolic 84 mmHg Body Temperature 98.1 F BMI (Body Mass Index) 21.9 kg/m2 07/13/2014 Height 68 inches 5'8" Weight 144.00 lb Heart Rate 72 /min BP Systolic 144 mmHg BP Diastolic 73 mmHg Body Temperature 99.2 F BMI (Body Mass Index) 21.9 kg/m2 06/22/2014 Height 68 inches 5'8" Weight 140.00 lb with shoes Heart Rate 70 /min BP Systolic Sitting 170 mmHg Ra reg cuff BP Diastolic Sitting 80 mmHg Ra reg cuff BP Systolic Standing 164 mmHg Ra reg cuff BP Diastolic Standing 86 mmHg Ra reg cuff Respiratory Rate 17 /min BMI (Body Mass Index) 21.3 kg/m2 06/22/2014 Height 68 inches 5'8" 06/10/2014 Height 68 inches 5'8" Weight 143.75 lb Heart Rate 84 /min BP Systolic Sitting 142 mmHg BP Diastolic Sitting 70 mmHg Body Temperature 98.6 F O2 % BldC Oximetry 96 % BMI (Body Mass Index) 21.9 kg/m2 03/17/2014 Height 68 inches 5'8" Weight 139.00 lb Heart Rate 72 /min BP Systolic 146 mmHg BP Diastolic 90 mmHg BP Systolic Recheck 138 mmHg BP Diastolic Recheck 88 mmHg Body Temperature 97.4 F BMI (Body Mass Index) 21.1 kg/m2 11/06/2013 Height 68 inches 5'8" Weight 124.00 lb with sandals Heart Rate 80 /min BP Systolic Sitting 146 mmHg Ra reg cuff BP Diastolic Sitting 90 mmHg Ra reg cuff BP Systolic Standing 128 mmHg Ra reg cuf BP Diastolic Standing 90 mmHg Ra reg cuf Respiratory Rate 17 /min BMI (Body Mass Index) 18.9 kg/m2 03/30/2013 Height 67 inches 5'7" Weight 148.00 lb without shoes Heart Rate 76 /min sit and reg BP Systolic Sitting 136 mmHg L arm reg cuff BP Diastolic Sitting 100 mmHg L arm reg cuff BP Systolic Standing 134 mmHg L arm reg cuff BP Diastolic Standing 92 mmHg L arm reg cuff Respiratory Rate 17 /min BMI (Body Mass Index) 23.2 kg/m2 10/07/2012 Weight 142.00 lb Heart Rate 68 /min BP Systolic Sitting 126 mmHg BP Diastolic Sitting 60 mmHg 04/10/2012 Height 66.75 inches 5'6.75" Weight 120.00 lb Heart Rate 76 /min BP Systolic Sitting 124 mmHg BP Diastolic Sitting 78 mmHg BMI (Body Mass Index) 18.9 kg/m2 02/19/2012 Height 66.75 inches 5'6.75" Weight 121.50 lb Heart Rate 68 /min BP Systolic Sitting 120 mmHg BP Diastolic Sitting 60 mmHg BMI (Body Mass Index) 19.2 kg/m2 09/24/2011 Height 66.75 inches 5'6.75" Weight 135.75 lb Heart Rate 78 /min BP Systolic Sitting 122 mmHg BP Diastolic Sitting 60 mmHg Body Temperature 98.5 F BMI (Body Mass Index) 21.4 kg/m2 08/29/2011 Height 66.75 inches 5'6.75" Weight 133.00 lb Heart Rate 76 /min BP Systolic Sitting 120 mmHg BP Diastolic Sitting 58 mmHg BMI (Body Mass Index) 21.0 kg/m2 05/15/2011 Height 66.75 inches 5'6.75" Weight 142.00 lb Heart Rate 72 /min BP Systolic Sitting 120 mmHg BP Diastolic Sitting 60 mmHg BMI (Body Mass Index) 22.4 kg/m2 11/14/2010 Height 66.75 inches 5'6.75" Weight 153.00 lb Heart Rate 76 /min BP Systolic Sitting 130 mmHg BP Diastolic Sitting 52 mmHg BMI (Body Mass Index) 24.1 kg/m2 09/13/2010 Height 66.75 inches 5'6.75" Weight 152.00 lb Heart Rate 64 /min BP Systolic Sitting 130 mmHg BP Diastolic Sitting 60 mmHg BMI (Body Mass Index) 24.0 kg/m2 Results Test Date Test Result H/L Range Note Laboratory test finding 09/25/2017 Hemoglobin A1c 8.3 Comp Metabolic Panel 08/23/2017 Sodium 136 mmol/L 135-145 Potassium 4.4 mmol/L 3.5-5.0 Chloride 100 mmol/L Low 101-111 Co2 Carbon Dioxide 29 mmol/L 22-32 Anion Gap 7 mmol/L 2-11 Glucose 306 mg/dL High 70-100 Blood Urea Nitrogen 24 mg/dL 6-24 Creatinine 1.13 mg/dL High 0.51-0.95 BUN/Creatinine Ratio 21.2 High 8-20 Calcium 9.0 mg/dL 8.6-10.3 Total Protein 5.7 g/dL Low 6.4-8.9 Albumin 3.5 g/dL 3.2-5.2 Globulin 2.2 g/dL 2-4 Albumin/Globulin Ratio 1.6 1-3 Total Bilirubin 0.40 mg/dL 0.2-1.0 Alkaline Phosphatase 50 U/L 34-104 Alt 55 U/L High 7-52 Ast 55 U/L High 13-39 Egfr Non- 49.1 >60 Egfr 59.4 >60 1 Lipid Profile (Trig/Chol/HDL) 08/16/2017 Triglycerides 74 mg/dL 2 Cholesterol 163 mg/dL 3 HDL Cholesterol 97.0 mg/dL 4 LDL Cholesterol 51 mg/dL 5 Laboratory test finding 04/28/2017 Hemoglobin A1c 9.0 Lipid Profile (Trig/Chol/HDL) 04/18/2017 Triglycerides 119 mg/dL 6 Cholesterol 156 mg/dL 7 HDL Cholesterol 86.7 mg/dL 8 LDL Cholesterol 46 mg/dL 9 Comp Metabolic Panel 02/28/2017 Sodium 135 mmol/L 133-145 Potassium 4.4 mmol/L 3.5-5.0 Chloride 102 mmol/L 101-111 Co2 Carbon Dioxide 30 mmol/L 22-32 Anion Gap 3 mmol/L 2-11 Glucose 171 mg/dL High 70-100 Blood Urea Nitrogen 21 mg/dL 6-24 Creatinine 0.96 mg/dL High 0.51-0.95 BUN/Creatinine Ratio 21.9 High 8-20 Calcium 8.8 mg/dL 8.6-10.3 Total Protein 5.4 g/dL Low 6.4-8.9 Albumin 3.4 g/dL 3.2-5.2 Globulin 2.0 g/dL 2-4 Albumin/Globulin Ratio 1.7 1-3 Total Bilirubin 0.30 mg/dL 0.2-1.0 Alkaline Phosphatase 38 U/L 34-104 Alt 32 U/L 7-52 Ast 27 U/L 13-39 Egfr Non- 59.3 >60 Egfr 76.2 >60 10 CBC Auto Diff 02/04/2017 White Blood Count 7.7 10^3/uL 3.5-10.8 Red Blood Count 3.60 10^6/uL Low 4.0-5.4 Hemoglobin 11.1 g/dL Low 12.0-16.0 Hematocrit 34 % Low 35-47 Mean Corpuscular Volume 93 fL 80-97 Mean Corpuscular Hemoglobin 31 pg 27-31 Mean Corpuscular HGB Conc 33 g/dL 31-36 Red Cell Distribution Width 13 % 10.5-15 Platelet Count 326 10^3/uL 150-450 Mean Platelet Volume 7 um3 Low 7.4-10.4 Abs Neutrophils 5.4 10^3/uL 1.5-7.7 Abs Lymphocytes 1.4 10^3/uL 1.0-4.8 Abs Monocytes 0.6 10^3/uL 0-0.8 Abs Eosinophils 0.2 10^3/uL 0-0.6 Abs Basophils 0.1 10^3/uL 0-0.2 Abs Nucleated RBC 0 10^3/uL Granulocyte % 70.4 % 38-83 Lymphocyte % 18.3 % Low 25-47 Monocyte % 8.1 % 1-9 Eosinophil % 2.4 % 0-6 Basophil % 0.8 % 0-2 Nucleated Red Blood Cells % 0 Laboratory test finding 02/04/2017 TSH (Thyroid Stim Horm) 1.66 mcIU/mL 0.34-5.60 Ferritin 151.1 ng/mL 11-307 Iron & Iron Binding Capacity 02/04/2017 Iron 84 g/dL 50-212 Unsaturated Iron Binding 213 g/dL Total Iron Binding Capacity 297 g/dL 250-450 % Iron Saturation 28 % 15-55 Urine Microalbumin Random 12/31/2016 Ur Microalbumin (mg/L) 293.1 mg/L Urine Creatinine 119.35 mg/dL Urine Microalbumin/Creatinine 245.5 ug/mg High <31 Ua Routine 12/31/2016 Ua Specific [place] 1.000 Ua PH 5 Ua Color YELLOW Ua Appera CLEAR Ua WBC NEG Ua Protein + Ua Glucose NORM Ua Ketones NEG Ua Bilirubin NEG Ua Urobilinogen NEG Ua Nitrite NEG Ua Occult Blood NEG Laboratory test finding 10/29/2016 LDL Cholesterol Direct 40 mg/dL 11 Laboratory test finding 09/12/2016 Cytology SEE RESULT BELOW 12 HPV Rna Ww/Reflex Genotype Negative Negative 13 Creatinine 08/03/2016 Creatinine 1.13 mg/dL High 0.51-0.95 Egfr Non- 49.3 >60 Egfr 63.4 >60 14 Laboratory test finding 08/03/2016 Prealbumin 27 mg/dL 18-38 CBC Auto Diff 08/03/2016 White Blood Count 7.1 10^3/uL 3.5-10.8 Red Blood Count 3.80 10^6/uL Low 4.0-5.4 Hemoglobin 11.8 g/dL Low 12.0-16.0 Hematocrit 37 % 35-47 Mean Corpuscular Volume 97 fL 80-97 Mean Corpuscular Hemoglobin 31 pg 27-31 Mean Corpuscular HGB Conc 32 g/dL 31-36 Red Cell Distribution Width 13 % 10.5-15 Platelet Count 291 10^3/uL 150-450 Mean Platelet Volume 8 um3 7.4-10.4 Abs Neutrophils 4.9 10^3/uL 1.5-7.7 Abs Lymphocytes 1.7 10^3/uL 1.0-4.8 Abs Monocytes 0.5 10^3/uL 0-0.8 Abs Eosinophils 0.1 10^3/uL 0-0.6 Abs Basophils 0 10^3/uL 0-0.2 Abs Nucleated RBC 0 10^3/uL Granulocyte % 68.2 % 38-83 Lymphocyte % 23.4 % Low 25-47 Monocyte % 6.4 % 1-9 Eosinophil % 1.4 % 0-6 Basophil % 0.6 % 0-2 Nucleated Red Blood Cells % 0 Laboratory test finding 08/03/2016 Erythrocyte Sed Rate 14 mm/Hr 0-30 Protein Electrophoresis 07/26/2016 Total Protein(Pep) 6.4 g/dL 6.3 - 7.9 Albumin 3.6 g/dL 3.4-4.7 Alpha-1 Globulin 0.3 g/dL 0.1-0.3 Alpha-2 Globulin 1.0 g/dL 0.6-1.0 Beta Globulin 0.9 g/dL 0.7-1.2 Gamma Globulin 0.7 g/dL 0.6-1.6 Albumin/Globulin Ratio 1.29 Impression See Comment 15 Iron & Iron Binding Capacity 07/26/2016 Iron 53 g/dL 50-212 Unsaturated Iron Binding 244 g/dL Total Iron Binding Capacity 297 g/dL 250-450 % Iron Saturation 18 % 15-55 Laboratory test finding 07/26/2016 Ferritin 146.1 ng/mL 11-307 Comp Metabolic Panel 07/26/2016 Sodium 135 mmol/L 133-145 Potassium 4.3 mmol/L 3.5-5.0 Chloride 100 mmol/L Low 101-111 Co2 Carbon Dioxide 27 mmol/L 22-32 Anion Gap 8 mmol/L 2-11 Glucose 158 mg/dL High 70-100 Blood Urea Nitrogen 20 mg/dL 6-24 Creatinine 1.27 mg/dL High 0.51-0.95 BUN/Creatinine Ratio 15.7 8-20 Calcium 9.0 mg/dL 8.6-10.3 Total Protein 6.0 g/dL Low 6.4-8.9 Albumin 3.9 g/dL 3.2-5.2 Globulin 2.1 g/dL 2-4 Albumin/Globulin Ratio 1.9 1-3 Total Bilirubin 0.50 mg/dL 0.2-1.0 Alkaline Phosphatase 52 U/L 34-104 Alt 33 U/L 7-52 Ast 29 U/L 13-39 Egfr Non- 43.1 >60 Egfr 55.4 >60 16 Lipid Profile (Trig/Chol/HDL) 07/26/2016 Triglycerides 98 mg/dL 17 Cholesterol 147 mg/dL 18 HDL Cholesterol 78.4 mg/dL 19 LDL Cholesterol 49 mg/dL 20 Laboratory test finding 07/26/2016 Vitamin B12 505 pg/mL 180-914 21 Laboratory test finding 07/26/2016 TSH (Thyroid Stim < 0.03 mcIU/mL Low 0.34-5.60 Horm) Erythropoietin 9.8 mIU/mL 2.6 - 18.5 22 LDH 239 U/L 140-271 Basic Metabolic Panel 07/17/2016 Sodium 135 mmol/L 133-145 Potassium 4.0 mmol/L 3.5-5.0 Chloride 98 mmol/L Low 101-111 Co2 Carbon Dioxide 32 mmol/L 22-32 Anion Gap 5 mmol/L 2-11 Glucose 208 mg/dL High 70-100 Blood Urea Nitrogen 24 mg/dL 6-24 Creatinine 1.18 mg/dL High 0.51-0.95 BUN/Creatinine Ratio 20.3 High 8-20 Calcium 9.5 mg/dL 8.6-10.3 Egfr Non- 46.9 >60 Egfr 60.3 >60 23 Laboratory test finding 07/11/2016 Point of Care Glucose 68 mg/dL Low 74- 106 24 Laboratory test finding 07/11/2016 Point of Care Glucose 135 mg/dL High 74 -106 25 Laboratory test finding 07/11/2016 Point of Care Glucose 184 mg/dL High 74 -106 26 Basic Metabolic Panel 07/09/2016 Sodium 134 mmol/L 133-145 Potassium 4.6 mmol/L 3.5-5.0 Chloride 98 mmol/L Low 101-111 Co2 Carbon Dioxide 31 mmol/L 22-32 Anion Gap 5 mmol/L 2-11 Glucose 350 mg/dL High 70-100 Blood Urea Nitrogen 24 mg/dL 6-24 Creatinine 1.22 mg/dL High 0.51-0.95 BUN/Creatinine Ratio 19.7 8-20 Calcium 9.2 mg/dL 8.6-10.3 Egfr Non- 45.1 >60 Egfr 58.0 >60 27 CBC Auto Diff 07/09/2016 White Blood Count 7.1 10^3/uL 3.5-10.8 Red Blood Count 3.32 10^6/uL Low 4.0-5.4 Hemoglobin 10.4 g/dL Low 12.0-16.0 Hematocrit 32 % Low 35-47 Mean Corpuscular Volume 95 fL 80-97 Mean Corpuscular Hemoglobin 31 pg 27-31 Mean Corpuscular HGB Conc 33 g/dL 31-36 Red Cell Distribution Width 13 % 10.5-15 Platelet Count 259 10^3/uL 150-450 Mean Platelet Volume 9 um3 7.4-10.4 Abs Neutrophils 4.8 10^3/uL 1.5-7.7 Abs Lymphocytes 1.7 10^3/uL 1.0-4.8 Abs Monocytes 0.5 10^3/uL 0-0.8 Abs Eosinophils 0 10^3/uL 0-0.6 Abs Basophils 0 10^3/uL 0-0.2 Abs Nucleated RBC 0 10^3/uL Granulocyte % 68.4 % 38-83 Lymphocyte % 23.5 % Low 25-47 Monocyte % 6.8 % 1-9 Eosinophil % 0.6 % 0-6 Basophil % 0.7 % 0-2 Nucleated Red Blood Cells % 0.1 Laboratory test 05/28/2016 Hemoglobin A1c 8.8 % High Less than 6.0 28 finding (Glyco HGB) Basic Metabolic Panel 05/28/2016 Sodium 134 mmol/L 133-145 Potassium 5.0 mmol/L 3.5-5.0 Chloride 99 mmol/L Low 101-111 Co2 Carbon Dioxide 31 mmol/L 22-32 Anion Gap 4 mmol/L 2-11 Glucose 200 mg/dL High 70-100 Blood Urea Nitrogen 31 mg/dL High 6-24 Creatinine 1.40 mg/dL High 0.51-0.95 BUN/Creatinine Ratio 22.1 High 8-20 Calcium 9.1 mg/dL 8.6-10.3 Egfr Non- 38.5 >60 Egfr 49.5 >60 29 Comp Metabolic Panel 03/12/2016 Sodium 133 mmol/L 133-145 Potassium 4.2 mmol/L 3.5-5.0 Chloride 97 mmol/L Low 101-111 Co2 Carbon Dioxide 32 mmol/L 22-32 Anion Gap 4 mmol/L 2-11 Calcium 9.2 mg/dL 8.6-10.3 Albumin 3.7 g/dL 3.2-5.2 Alkaline Phosphatase 59 U/L 34-104 Alt 44 U/L 7-52 Ast 30 U/L 13-39 Glucose 225 mg/dL High 70-100 Blood Urea Nitrogen 9 mg/dL 6-24 Creatinine 1.00 mg/dL High 0.51-0.95 BUN/Creatinine Ratio 9.0 8-20 Total Protein 5.4 g/dL Low 6.4-8.9 Globulin 1.7 g/dL Low 2-4 Albumin/Globulin Ratio 2.2 1-3 Total Bilirubin 0.40 mg/dL 0.2-1.0 Egfr Non- 56.7 >60 Egfr 73.0 >60 30 Laboratory test finding 2016 Lyme Disease Serology Negative Negative 31 Laboratory test finding 12/13/2015 Erythropoietin 26.7 mIU/mL 2.6 - 18.5 32 Ferritin 119.6 ng/mL 11-307 Iron & Iron Binding Capacity 12/13/2015 Iron 50 g/dL 50-212 Unsaturated Iron Binding 203 g/dL Total Iron Binding Capacity 253 g/dL 250-450 % Iron Saturation 20 % 15-55 Hemoglobin/Hematocrit 12/13/2015 Hemoglobin 11.9 g/dL Low 12.0-16.0 Hematocrit 36 % 35-47 Myastehnia Gravis (), 12/05/2015 MG Lambert-[place] Interpret See Comment 33 Adult Acetylcholine Receptor Binding 0.00 nmol/L <=0.02 34 Acetylcholine Recept Mod Ab 0 % 35 Anti-Striated Muscle Antibody Negative titer <1:120 36 Laboratory test finding 10/20/2014 Ast (Sgot) 23 U/L 13-39 37 Alt (SGPT) 19 U/L 7-52 38 Vitamin B12 995 pg/mL High 180-914 39 Methylmalonic Acid Mma 0.14 nmol/mL <=0.40 40 Ferritin 190.8 ng/mL 11-307 41 Mitochondrial AB AMA M2 Igg <0.1 U 42 Ceruloplasmin 16.9 mg/dL 43 Laboratory test finding 08/26/2014 Point of Care Glucose 78 mg/dL 74-106 44 Laboratory test finding 08/26/2014 Point of Care Glucose 81 mg/dL 74-106 45 Laboratory test finding 08/26/2014 Clotest SEE RESULT BELOW 46 Laboratory test finding 08/26/2014 Point of Care Glucose 79 mg/dL 74-106 47 Laboratory test finding 08/26/2014 Surgical Pathology SEE RESULT BELOW 48 Laboratory test finding 06/25/2014 Alt 44 U/L 7-52 Ast 38 U/L 13-39 Laboratory test finding 06/25/2014 TSH (Thyroid Stimulating 2.69 IU/mL 0.34-5.60 Horm) HIV 1 2 AB Self Referred Nonreactive Nonreactive 49 Lyme Disease Serology Negative Negative 50 Paz (Anti-Nuclear AB) Screen Negative Negative Hepatitis B Surface Antigen Nonreactive Nonreactive Hepatitis C Antibody Nonreactive Nonreactive Lipid Profile (Trig/Chol/HDL) 06/25/2014 Triglycerides 91 mg/dL 51 Cholesterol 191 mg/dL 52 HDL Cholesterol 79.2 mg/dL 53 LDL Cholesterol 94 mg/dL 54 Laboratory test finding 03/17/2014 TSH (Thyroid Stimulating 3.12 IU/mL 0.34-5.60 Horm) Hemoglobin A1c 9.2 % High Less than 6.0 55 Iron & Iron Binding Capacity 03/17/2014 Iron 106 g/dL 50-212 Unsaturated Iron Binding 160 g/dL Total Iron Binding Capacity 266 g/dL 250-450 % Iron Saturation 40 % 15-55 CBC Auto Diff 03/17/2014 White Blood Count 5.8 10^3/uL 4.8-10.8 Red Blood Count 3.81 10^6/uL Low 4.0-5.4 Hemoglobin 12.5 g/dL 12.0-16.0 Hematocrit 37 % 35-47 Mean Corpuscular Volume 96 fL 80-97 Mean Corpuscular Hemoglobin 33 pg High 27-31 Mean Corpuscular HGB Conc 34 g/dL 31-36 Red Cell Distribution Width 12 % 10.5-15 Platelet Count 246 10^3/uL 150-450 Mean Platelet Volume 8 um3 7.4-10.4 Abs Neutrophils 3.4 10^3/uL 1.5-7.7 Abs Lymphocytes 1.7 10^3/uL 1.0-4.8 Abs Monocytes 0.4 10^3/uL 0-0.8 Abs Eosinophils 0.2 10^3/uL 0-0.6 Abs Basophils 0.1 10^3/uL 0-0.2 Abs Nucleated RBC 0 10^3/uL Granulocyte % 58.9 % 38-83 Lymphocyte % 29.9 % 25-47 Monocyte % 7.7 % 1-9 Eosinophil % 2.6 % 0-6 Basophil % 0.9 % 0-2 Nucleated Red Blood Cells % 0 Comp Metabolic Panel 03/17/2014 Sodium 134 mmol/L 133-145 Potassium 4.5 mmol/L 3.5-5.0 Chloride 100 mmol/L Low 101-111 Co2 Carbon Dioxide 29 mmol/L 22-32 Anion Gap 5 mmol/L 2-11 Glucose 143 mg/dL High 70-100 Blood Urea Nitrogen 25 mg/dL High 6-24 Creatinine 1.13 mg/dL High 0.51-0.95 BUN/Creatinine Ratio 22.1 High 8-20 Calcium 9.1 mg/dL 8.6-10.3 Total Protein 5.7 g/dL Low 6.4-8.9 Albumin 4.0 g/dL 3.2-5.2 Globulin 1.7 g/dL Low 2-4 Albumin/Globulin Ratio 2.4 1-3 Total Bilirubin 0.40 mg/dL 0.2-1.0 Alkaline Phosphatase 49 U/L 34-104 Alt 94 U/L High 7-52 Ast 53 U/L High 13-39 Egfr Non- 49.6 >60 Egfr 63.8 >60 56 Comp Metabolic Panel 11/06/2013 Sodium 138 mmol/L 133-145 57 Potassium 4.1 mmol/L 3.7-5.6 57 Chloride 104 mmol/L 101-111 57 Co2 Carbon Dioxide 29 mmol/L 22-32 57 Anion Gap 5 mmol/L 2-11 57 Glucose 98 mg/dL 70-100 57 Blood Urea Nitrogen 7 mg/dL 6-24 57 Creatinine 1.12 mg/dL High 0.51-0.95 57 BUN/Creatinine Ratio 6.3 Low 8-20 57 Calcium 9.7 mg/dL 8.6-10.3 57 Total Protein 6.0 g/dL Low 6.4-8.9 57 Albumin 4.0 g/dL 3.2-5.2 57 Globulin 2.0 g/dL 2-4 57 Albumin/Globulin Ratio 2.0 1-3 57 Total Bilirubin 0.50 mg/dL 0.2-1.0 57 Alkaline Phosphatase 51 U/L 34-104 57 Alt 118 U/L High 7-52 57 Ast 78 U/L High 13-39 57 Egfr Non- 50.3 >60 57 Egfr 64.7 >60 57, 58 Laboratory test 11/06/2013 TSH (Thyroid 1.61 IU/mL 0.34-5.60 57, 59 finding Stimulating Horm) Lipase 8 U/L Low 11.0-82.0 57, 60 Laboratory test finding 03/20/2013 Creatine Kinase 219 U/L High 0-200 Lipid Profile (Trig/Chol/HDL) 03/20/2013 Triglycerides 37 mg/dL Low 40- 200 Cholesterol 215 mg/dL High Less than 200 HDL Cholesterol 125 mg/dL High 40-60 61 Cholesterol/HDL Ratio 1.7 Average 1-4.44 LDL Cholesterol 82.6 Less Than 100 62 CBC Auto Diff 03/20/2013 White Blood Count 6.5 10^3/uL 4.8-10.8 Red Blood Count 3.73 10^6/uL Low 4.0-5.4 Hemoglobin 12.6 g/dL 12.0-16.0 Hematocrit 37 % 35-47 Mean Corpuscular Volume 99 fL High 80-97 Mean Corpuscular Hemoglobin 34 pg High 27-31 Mean Corpuscular HGB Conc 34 g/dL 31-36 Red Cell Distribution Width 15 % 10.5-15 Platelet Count 238 10^3/uL 150-450 Mean Platelet Volume 9 um3 7.4-10.4 Abs Neutrophils 3.8 10^3/uL 1.5-7.7 Abs Lymphocytes 2.0 10^3/uL 1.0-4.8 Abs Monocytes 0.5 10^3/uL 0-0.8 Abs Eosinophils 0.1 10^3/uL 0-0.6 Abs Basophils 0.1 10^3/uL 0-0.2 Abs Nucleated RBC 0 10^3/uL Granulocyte % 57.8 % 38-83 Lymphocyte % 30.6 % 25-47 Monocyte % 8.4 % 1-9 Eosinophil % 2.2 % 0-6 Basophil % 1.0 % 0-2 Nucleated Red Blood Cells % 0 Hemoglobin/Hematacrit 11/07/2012 Hemoglobin 11.2 g/dL Low 12.0-16.0 Hematocrit 32 % Low 35-47 Laboratory test finding 10/07/2012 Hemoglobin A1c 7.8 High 5-7 CBC Auto Diff 06/24/2012 White Blood Count 7.2 10^3/uL 4.8-10.8 Red Blood Count 3.30 10^6/uL Low 4.0-5.4 Hemoglobin 11.1 g/dL Low 12.0-16.0 Hematocrit 33 % Low 35-47 Mean Corpuscular Volume 99 fL High 80-97 Mean Corpuscular Hemoglobin 34 pg High 27-31 Mean Corpuscular HGB Conc 34 g/dL 31-36 Red Cell Distribution Width 13 % 10.5-15 Platelet Count 246 10^3/uL 150-450 Mean Platelet Volume 8 um3 7.4-10.4 Abs Neutrophils 4.2 10^3/uL 1.5-7.7 Abs Lymphocytes 2.3 10^3/uL 1.0-4.8 Abs Monocytes 0.4 10^3/uL 0-0.8 Abs Eosinophils 0.1 10^3/uL 0-0.6 Abs Basophils 0.1 10^3/uL 0-0.2 Abs Nucleated RBC 0 10^3/uL Granulocyte % 59.2 % 38-83 Lymphocyte % 32.0 % 25-47 Monocyte % 6.0 % 1-9 Eosinophil % 1.7 % 0-6 Basophil % 1.1 % 0-2 Nucleated Red Blood Cells % 0 Comp Metabolic Panel 06/24/2012 Sodium 139 mmol/L 133-145 Potassium 4.2 mmol/L 3.5-5.0 Chloride 105 mmol/L 101-111 Co2 Carbon Dioxide 31.0 mmol/L 22-32 Anion Gap 3.0 mmol/L 2-11 Glucose 146 mg/dL High 70-100 Blood Urea Nitrogen 23 mg/dL 6-24 Creatinine 1.10 mg/dL 0.50-1.40 One Over Creatinine 0.90 BUN/Creatinine Ratio 20.9 High 8-20 Calcium 9.2 mg/dL 8.1-9.9 Total Protein 5.6 g/dL Low 6.2-8.1 Albumin 3.1 g/dL Low 3.6-5.4 Globulin 2.5 g/dL 2-4 Albumin/Globulin Ratio 1.2 1-3 Total Bilirubin 0.5 mg/dL 0.4-1.5 Alkaline Phosphatase 32 U/L 30-110 Alt 93 U/L High 14-54 Ast 80 U/L High 12-42 Egfr Non- 51.6 >60 Egfr 66.3 >60 63 Creatinine Clearance 06/24/2012 Urine Random Creatinine 60.8 mg/dL Creatinine 1.1 mg/dL 0.5-1.4 Creatinine Clearance 84 mL/min 80-125 Urine Collection Time 24 Urine Total Volume 2200 mL Total Protein 24HR Urine 06/24/2012 Urine Random Total Protein 8 mg/dL Urine Total Protein/24HR 176 mg/24Hr High 0-165 Hemoglobin/Hematacrit 04/18/2012 Hemoglobin 10.5 g/dL Low 12.0-16.0 Hematocrit 32 % Low 35-47 Laboratory test finding 04/18/2012 Creatine Kinase 190 U/L 0-200 CBC With Manual Diff 04/10/2012 White Blood Count 6.7 10^3/uL 4.8-10.8 Red Blood Count 3.17 10^6/uL Low 4.0-5.4 Hemoglobin 10.9 g/dL Low 12.0-16.0 Hematocrit 33 % Low 35-47 Mean Corpuscular Volume 103 fL High 80-97 Mean Corpuscular Hemoglobin 34 pg High 27-31 Mean Corpuscular HGB Conc 34 g/dL 31-36 Red Cell Distribution Width 14 % 10.5-15 Platelet Count 184 10^3/uL 150-450 Mean Platelet Volume 9 um3 7.4-10.4 Abs Neutrophils 5.0 10^3/uL 1.5-7.7 Abs Lymphocytes 1.3 10^3/uL 1.0-4.8 Abs Monocytes 0.4 10^3/uL 0-0.8 Abs Eosinophils 0 10^3/uL 0-0.6 Abs Basophils 0 10^3/uL 0-0.2 Abs Nucleated RBC 0 10^3/uL Neutrophil % 65 % 38-83 Band % 1 % 0-8 Lymphocytes % 24 % Low 25-47 Monocytes % 7 % 0-13 Eosinophils % 1 % 0-6 Reactive Lymph % 2 % 0-6 Hypochromasia 1+ Basic Metabolic Panel 04/10/2012 Sodium 134 mmol/L 133-145 Potassium 4.3 mmol/L 3.5-5.0 Chloride 107 mmol/L 101-111 Co2 Carbon Dioxide 23.0 mmol/L 22-32 Anion Gap 4.0 mmol/L 2-11 Glucose 264 mg/dL High 70-100 Blood Urea Nitrogen 22 mg/dL 6-24 Creatinine 1.40 mg/dL 0.50-1.40 BUN/Creatinine Ratio 15.7 8-20 Calcium 9.1 mg/dL 8.1-9.9 Egfr Non- 39.0 >60 Egfr 50.2 >60 64 Laboratory test finding 02/19/2012 Hemoglobin A1c 7.1 High 5-7 CBC With Manual Diff 02/19/2012 White Blood Count 10.6 10^3/uL 4.8-10.8 Red Blood Count 3.45 10^6/uL Low 4.0-5.4 Hemoglobin 11.3 g/dL Low 12.0-16.0 Hematocrit 35 % 35-47 Mean Corpuscular Volume 101 fL High 80-97 65 Mean Corpuscular Hemoglobin 33 pg High 27-31 Mean Corpuscular HGB Conc 33 g/dL 31-36 Red Cell Distribution Width 14 % 10.5-15 Platelet Count 184 10^3/uL 150-450 Mean Platelet Volume 10 um3 7.4-10.4 Abs Neutrophils 7.9 10^3/uL High 1.5-7.7 Abs Lymphocytes 2.1 10^3/uL 1.0-4.8 Abs Monocytes 0.4 10^3/uL 0-0.8 Abs Eosinophils 0.1 10^3/uL 0-0.6 Abs Basophils 0.1 10^3/uL 0-0.2 Abs Nucleated RBC 0 10^3/uL Neutrophil % 69.0 % 38-83 Band % 1.0 % 0-8 Lymphocytes % 24.0 % Low 25-47 Monocytes % 5.0 % 0-13 Eosinophils % 1.0 % 0-6 Basophil % 0 % 0-2 Reactive Lymph % 0 % 0-6 Metamyelocytes % 0 % 0-2 Myelocytes % 0 % 0-1 Promyelocytes % 0 % Blast % 0 % Microcytosis 1+ Elliptocyte 1+ Laboratory test finding 02/19/2012 Prealbumin 37.1 mg/dL 18-38 Creatine Kinase 219 U/L High 0-200 Vitamin D, 25 Hydroxy 02/19/2012 25-Hydroxy Vitamin D2 <4.0 ng/mL 25-Hydroxy Vitamin D3 39 ng/mL 25-Hydroxy Vitamin D Total 39 ng/mL 66 Vitamin D 1,25 And 02/19/2012 Vitamin D 1,25-Dihydroxy 20 pg/mL 18-78 67 Vitamin D,2 Laboratory test 02/19/2012 TSH (Thyroid Stimulating 1.33 miu/mL 0.34- 5.60 finding Horm) Comp Metabolic Panel 02/19/2012 Sodium 134 mmol/L 133-145 Potassium 4.2 mmol/L 3.5-5.0 Chloride 102 mmol/L 101-111 Co2 Carbon Dioxide 26.0 mmol/L 22-32 Anion Gap 6.0 mmol/L 2-11 Glucose 206 mg/dL High 70-100 Blood Urea Nitrogen 24 mg/dL 6-24 Creatinine 1.40 mg/dL 0.50-1.40 BUN/Creatinine Ratio 17.1 8-20 Calcium 9.7 mg/dL 8.1-9.9 Total Protein 6.1 g/dL Low 6.2-8.1 Albumin 3.8 g/dL 3.6-5.4 Globulin 2.3 g/dL 2-4 Albumin/Globulin Ratio 1.7 1-3 Total Bilirubin 0.8 mg/dL 0.4-1.5 Alkaline Phosphatase 34 U/L 30-110 Alt 24 U/L 14-54 Ast 38 U/L 12-42 Egfr Non- 39.0 >60 Egfr 50.2 >60 68 Hemoglobin/Hematacrit 01/15/2012 Hemoglobin 11.7 g/dL Low 12.0-16.0 Hematocrit 35 % 35-47 Pthi 01/15/2012 PTH Intact 1.6 PMOL/L 1.3-9.0 Calcium (PTH Intact) 9.5 mg/dL 8.1-9.9 CBC Auto Diff 12/27/2011 White Blood Count 6.4 10^3/uL 4.8-10.8 Red Blood Count 3.56 10^6/uL Low 4.0-5.4 Hemoglobin 11.8 g/dL Low 12.0-16.0 Hematocrit 35 % 35-47 Mean Corpuscular Volume 99 fL High 80-97 Mean Corpuscular Hemoglobin 33 pg High 27-31 Mean Corpuscular HGB Conc 33 g/dL 31-36 Red Cell Distribution Width 14 % 10.5-15 Platelet Count 224 10^3/uL 150-450 Mean Platelet Volume 9 um3 7.4-10.4 Abs Neutrophils 4.0 10^3/uL 1.5-7.7 Abs Lymphocytes 1.6 10^3/uL 1.0-4.8 Abs Monocytes 0.5 10^3/uL 0-0.8 Abs Eosinophils 0.3 10^3/uL 0-0.6 Abs Basophils 0 10^3/uL 0-0.2 Abs Nucleated RBC 0 10^3/uL Granulocyte % 62.0 % 38-83 Lymphocyte % 25.0 % 25-47 Monocyte % 8.5 % 1-9 Eosinophil % 3.9 % 0-6 Basophil % 0.6 % 0-2 Nucleated Red Blood Cells % 0 Comp Metabolic Panel 12/27/2011 Sodium 136 mmol/L 133-145 Potassium 4.2 mmol/L 3.5-5.0 Chloride 106 mmol/L 101-111 Co2 Carbon Dioxide 25.0 mmol/L 22-32 Anion Gap 5.0 mmol/L 2-11 Glucose 81 mg/dL 70-100 Blood Urea Nitrogen 19 mg/dL 6-24 Creatinine 1.40 mg/dL 0.50-1.40 BUN/Creatinine Ratio 13.6 8-20 Calcium 8.8 mg/dL 8.1-9.9 Total Protein 5.4 GM/DL Low 6.2-8.1 Albumin 3.5 GM/DL Low 3.6-5.4 Globulin 1.9 GM/DL Low 2-4 Albumin/Globulin Ratio 1.8 1-3 Total Bilirubin 0.6 mg/dL 0.1-1.0 69 Alkaline Phosphatase 31 U/L 30-110 Alt 16 U/L 14-54 Ast 25 U/L 12-42 Egfr Non- 39.2 >60 Egfr 50.4 >60 70 Lipid Profile (Trig/Chol/HDL) 12/27/2011 Triglycerides 35 mg/dL Low 40- 200 Cholesterol 143 mg/dL Less than 200 71 HDL Cholesterol 98 mg/dL High 40-60 72 Cholesterol/HDL Ratio 1.5 AVERAGE 1-4.44 LDL Cholesterol 38.0 mg/dL Less Than 100 Liver Function Panel 12/27/2011 Direct Bilirubin 0.1 mg/dL 0.1-0.5 Indirect Bilirubin 0.5 mg/dL 0.3-1.0 Creatinine Clearance 12/27/2011 Urine Random Creatinine 110.0 mg/dL Creatinine 1.4 mg/dL 0.5-1.4 Creatinine Clearance 52 mL/min Low 80-125 Urine Collection Time 24 Urine Total Volume 950 ML Total Protein 24HR Urine 12/27/2011 Urine Random Total Protein 7 mg/dL Urine Total Protein/24HR 66 MG/24HR 0-165 Surgical Pathology 11/06/2011 Surgical Pathology <SEE 73 NOTE> Laboratory test 10/05/2011 Stool Culture <SEE 74 finding NOTE> Urine Microalbumin 08/29/2011 Microalbumin (MG/L) < 2.0 mg/L Random Urine Creatinine 136.6 mg/dL 75 Laboratory test finding 08/29/2011 Hemoglobin A1c 8.4 High 5-7 Creatinine Clearance 06/12/2011 Creatinine Random Urine 74.2 mg/dL Creat Clearance 58 mL/min Low 80-125 Hours Of Collection 24 HR 24- Urine Volume Measurement 1700 ML CBC Auto Diff 06/12/2011 White Blood Count 6.1 CUMM 4.8-10.8 Red Cell Count 3.84 CUMM Low 4.2-5.4 Hemoglobin 12.7 g/dL 12.0-16.0 Hematocrit 37 % 35-47 Mean Corpuscular Volume 97 um3 79-97 Mean Corpuscular Hemoglob 33 pg High 27-31 Mean Corpuscular HGB Cone 34 g/dL 32-36 Redcell Distribution WDTH 14 % 10.5-15 Platelet Count 183 CUMM 150-450 Mean Platelet Volume 9.0 um3 7.4-10.4 Gran % 67.2 % 38-83 Lymph % 26.2 % 25-47 Mononuclear % 5.0 % 1-9 Eosinophil % 1.1 % 0-6 Basophil % 0.5 % 0-2 Abs Lymphs 1.6 1.0-4.8 Abs Mononuclear 0.3 0-0.8 Absolute Neutrophil Count 4.1 1.5-7.7 Abs Eosinophils 0.1 0-0.6 Abs Basophils 0 0-0.2 Total Protein 24HR Urine 06/12/2011 Total Protein Random Urine 7 mg/dL Urine Total Protein/24HR 119 MG/24HR High 50-100 Comp Metabolic Panel 06/12/2011 Sodium 129 mmol/L Low 135-145 Potassium 4.2 mmol/L 3.5-5.0 Chloride 98 mmol/L Low 101-111 Co2 (Carbon Dioxide) 24.0 mmol/L 22-32 Anion Gap 7.0 mmol/L 2-11 76 Glucose 365 mg/dL High 70-100 BUN 22 mg/dL 6-24 Creatinine 1.5 mg/dL High 0.50-1.40 One Over Creatinine 0.66 BUN/Creatinine Ratio 14.7 8-20 Calcium 8.9 mg/dL 8.1-9.9 Total Protein 5.6 GM/DL Low 6.2-8.1 Albumin 3.7 GM/DL 3.6-5.4 Globulin 1.9 GM/DL Low 2-4 Albumin/Globulin Ratio 1.9 1-3 Bilirubin Total 0.9 mg/dL 0.4-1.5 77 Alkaline Phosphatase 36 U/L 30-110 Alt (SGPT) 31 U/L 14-54 Ast (Sgot) 41 U/L 12-42 eGFR Non- 36.2 > 60 eGFR 46.5 > 60 78 Lipid Profile (Trig/Chol/HDL) 06/12/2011 Triglyceride 45 mg/dL 40-200 Cholesterol 129 mg/dL Less Than 200 79 High Density Lipoprotein 78 mg/dL High 40-60 80 Cholesterol/HDL Ratio 1.65 AVERAGE 1-4.44 Low Density Lipoprotein 42 mg/dL Less Than 100 81 Liver Function Panel 06/12/2011 Bilirubin Direct 0.2 mg/dL 0.1-0.5 Indirect Bilirubin 0.7 mg/dL 0.3-1.0 82 Laboratory test finding 05/15/2011 Hemoglobin A1c 6.8 5-7 Hemoglobin/Hematacrit 04/03/2011 Hemoglobin 11.2 g/dL Low 12.0-16.0 Hematocrit 32 % Low 35-47 Comp Metabolic Panel 01/18/2011 Sodium 131 mmol/L Low 135-145 Potassium 3.8 mmol/L 3.5-5.0 Chloride 94 mmol/L Low 101-111 Co2 (Carbon Dioxide) 26.0 mmol/L 22-32 Anion Gap 11.0 mmol/L 2-11 83 Glucose 280 mg/dL High 70-100 BUN 28 mg/dL High 6-24 Creatinine 1.5 mg/dL High 0.50-1.40 One Over Creatinine 0.66 BUN/Creatinine Ratio 18.7 8-20 Calcium 8.8 mg/dL 8.1-9.9 Total Protein 6.4 GM/DL 6.2-8.1 Albumin 3.5 GM/DL Low 3.6-5.4 Globulin 2.9 GM/DL 2-4 Albumin/Globulin Ratio 1.2 1-3 Bilirubin Total 0.7 mg/dL 0.4-1.5 84 Alkaline Phosphatase 36 U/L 30-110 Alt (SGPT) 19 U/L 14-54 Ast (Sgot) 30 U/L 12-42 eGFR Non- 36.2 > 60 eGFR 46.5 > 60 85 Lipid Profile (Trig/Chol/HDL) 01/18/2011 Triglyceride 57 mg/dL 40-200 Cholesterol 142 mg/dL Less Than 200 86 High Density Lipoprotein 84 mg/dL High 40-60 87 Cholesterol/HDL Ratio 1.69 AVERAGE 1-4.44 Low Density Lipoprotein 47 mg/dL Less Than 100 88 Liver Function Panel 01/18/2011 Bilirubin Direct 0.1 mg/dL 0.1-0.5 Indirect Bilirubin 0.6 mg/dL 0.3-1.0 89 Creatinine Clearance 01/18/2011 Creatinine Random Urine 71.8 mg/dL Creat Clearance 53 mL/min Low 80-125 Hours Of Collection 24 HR 24- Urine Volume Measurement 1600 ML Total Protein 24HR Urine 01/18/2011 Total Protein Random Urine 3 mg/dL Urine Total Protein/24HR 48 MG/24HR Low 50-100 Urinalysis 01/01/2011 Ua Color YELLOW Yellow Appearance-Urine CLEAR Clear Specific [place]-Ur 1.010 1.010-1.030 Esterase-Urine NEGATIVE Negative Nitrite NEGATIVE Negative [id number] NEGATIVE Negative Protein-Urine NEGATIVE Negative PH-Urine 5.5 5-9 Blood-Urine NEGATIVE Negative Ketones-Urine TRACE Negative Bilirubin-Ur NEGATIVE Negative Glucose-Urine 2+ Negative International Normalized Ratio 01/01/2011 Inr 0.88 0.88-1.13 90 Protime 10.3 SEC 10.3-13.5 91 Laboratory test finding 01/01/2011 PTT (Aptt) 23.6 Low 25.15-38.53 Comp Metabolic Panel 01/01/2011 Sodium 129 mmol/L Low 135-145 Potassium 3.7 mmol/L 3.5-5.0 Chloride 92 mmol/L Low 101-111 Co2 (Carbon Dioxide) 26.0 mmol/L 22-32 Anion Gap 11.0 mmol/L 2-11 92 Glucose 322 mg/dL High 70-100 BUN 36 mg/dL High 6-24 Creatinine 1.6 mg/dL High 0.50-1.40 One Over Creatinine 0.62 BUN/Creatinine Ratio 22.5 High 8-20 Calcium 9.5 mg/dL 8.1-9.9 Total Protein 6.5 GM/DL 6.2-8.1 Albumin 3.9 GM/DL 3.6-5.4 Globulin 2.6 GM/DL 2-4 Albumin/Globulin Ratio 1.5 1-3 Bilirubin Total 0.7 mg/dL 0.4-1.5 93 Alkaline Phosphatase 42 U/L 30-110 Alt (SGPT) 23 U/L 14-54 Ast (Sgot) 37 U/L 12-42 eGFR Non- 33.7 > 60 eGFR 43.4 > 60 94 Laboratory test finding 01/01/2011 Troponin-I 0.01 NG/ML 0-0.06 95 CBC Auto Diff 01/01/2011 White Blood Count 9.5 CUMM 4.8-10.8 Red Cell Count 4.00 CUMM Low 4.2-5.4 Hemoglobin 13.4 g/dL 12.0-16.0 Hematocrit 39 % 35-47 Mean Corpuscular Volume 97 um3 79-97 Mean Corpuscular Hemoglob 34 pg High 27-31 Mean Corpuscular HGB Cone 35 g/dL 32-36 Redcell Distribution WDTH 14 % 10.5-15 Platelet Count 296 CUMM 150-450 Mean Platelet Volume 7.7 um3 7.4-10.4 96 Manual Differential 01/01/2011 Polysegmented Neutrophil 75 % 38-83 Lymphocyte 23 % Low 25-47 Monocyte 1 % 0-13 Basophil 1 % 0-2 Absolute Neutrophil Count 7.1 Anisocytosis SLIGHT Hemoglobin/Hematacrit 12/07/2010 Hemoglobin 13.3 g/dL 12.0-16.0 Hematocrit 39 % 35-47 Laboratory test finding 11/14/2010 Hemoglobin A1c 9.5 High 5-7 Lipid Profile (Trig/Chol/HDL) 11/10/2010 Triglyceride 28 mg/dL Low 40-200 97 Cholesterol 160 mg/dL Less Than 200 97, 98 High Density Lipoprotein 114 mg/dL High 40-60 97, 99 Cholesterol/HDL Ratio 1.40 AVERAGE 1-4.44 97 Low Density Lipoprotein 40 mg/dL Less Than 100 97, 100 Comp Metabolic Panel 11/10/2010 Sodium 134 mmol/L Low 135-145 97 Potassium 3.9 mmol/L 3.5-5.0 97 Chloride 96 mmol/L Low 101-111 97 Co2 (Carbon Dioxide) 28.0 mmol/L 22-32 97 Anion Gap 10.0 mmol/L 2-11 97, 101 Glucose 265 mg/dL High 70-100 97 BUN 50 mg/dL High 6-24 97 Creatinine 1.7 mg/dL High 0.50-1.40 97 One Over Creatinine 0.58 97 BUN/Creatinine Ratio 29.4 High 8-20 97 Calcium 9.0 mg/dL 8.1-9.9 97 Total Protein 6.0 GM/DL Low 6.2-8.1 97 Albumin 3.6 GM/DL 3.6-5.4 97 Globulin 2.4 GM/DL 2-4 97 Albumin/Globulin Ratio 1.5 1-3 97 Bilirubin Total 0.4 mg/dL 0.4-1.5 97, 102 Alkaline Phosphatase 43 U/L 30-110 97 Alt (SGPT) 29 U/L 14-54 97 Ast (Sgot) 45 U/L High 12-42 97 eGFR Non- 31.4 > 60 97 eGFR 40.4 > 60 97, 103 Hemoglobin/Hematacrit 08/28/2010 Hemoglobin 11.5 g/dL Low 12.0-16.0 Hematocrit 34 % Low 35-47 1 Because ethnic data is not always readily available, this report includes an eGFR for both -Americans and non- Americans. The National Kidney Disease Education Program (NKDEP) does not endorse the use of the MDRD equation for patients that are not between the ages of 18 and 70, are , have extremes of body size, muscle mass, or nutritional status, or are non- or non-. According to the National Kidney Foundation, irrespective of diagnosis, the stage of the disease is based on the level of kidney function: Stage Description GFR(mL/min/1.73 m(2)) 1 Kidney damage with normal or decreased GFR 90 2 Kidney damage with mild decrease in GFR 60-89 3 Moderate decrease in GFR 30-59 4 Severe decrease in GFR 15-29 5 Kidney failure <15 (or dialysis) 2 Desirable: <150 Borderline High: 150-199 High: 200-499 Very High: >500 3 Desirable: <200 Borderline High: 200-239 High: >239 4 Low: <40 Desirable: 40-60 High: >60 5 Desirable: <100 Near Optimal: 100-129 Borderline High: 130-159 High: 160-189 Very High: >189 6 Desirable: <150 Borderline High: 150-199 High: 200-499 Very High: >500 7 Desirable: <200 Borderline High: 200-239 High: >239 8 Low: <40 Desirable: 40-60 High: >60 9 Desirable: <100 Near Optimal: 100-129 Borderline High: 130-159 High: 160-189 Very High: >189 10 Because ethnic data is not always readily available, this report includes an eGFR for both -Americans and non- Americans. The National Kidney Disease Education Program (NKDEP) does not endorse the use of the MDRD equation for patients that are not between the ages of 18 and 70, are , have extremes of body size, muscle mass, or nutritional status, or are non- or non-. According to the National Kidney Foundation, irrespective of diagnosis, the stage of the disease is based on the level of kidney function: Stage Description GFR(mL/min/1.73 m(2)) 1 Kidney damage with normal or decreased GFR 90 2 Kidney damage with mild decrease in GFR 60-89 3 Moderate decrease in GFR 30-59 4 Severe decrease in GFR 15-29 5 Kidney failure <15 (or dialysis) 11 Desirable: <100 mg/dL Near Optimal: 100-129 mg/dL Borderline High: 130-159 mg/dL High: 160-189 mg/dL Very High: >189 mg/dL 12 SEE RESULT BELOW Name: DI CARVALHO : [address]: Christy Westbrook MD Acct: [id number] Unit: [id number] AGE: 61 Location: [facility] Re09/12/16 SEX: F Status: REG REF SPEC: [id number] CIARA: 09/12/[address]: Christy Westbrook MD REQ: [id number] RECD: 09/12/16 STATUS: SOUT _ ORDERED: TP IMAGE ANAL, HPV/Thin Prep COMMENTS: [id number] FINAL DIAGNOSIS Negative for Intraepithelial lesion or Malignancy A. Ectocervical/Endocervical Specimen Adequacy: Satisfactory of evaluation Transformation zone component cannot be definitely identified due to presence of atrophy or other hormonal changes Patient Information: HPV: High risk HPV RNA testing regardless of pap results. HPV 16/18 Genotype Reflex Actual Specimen Date: 09/12/16 Post Menopausal?: Y Previous Abnormal Pap Smears?:N Date Time Test Result Flag (u) Normal Range 09/12/16 1645 HPV RNA RFLX GE Negative Negative The high-risk HPV types detected by the assay include: 16, 18, 31, 33, 35, 39, 45, 51, 52, 56, 58, 59, 66, and 68. Signed (signature on file) MORENO Lucas(ASCP) 09/13 1534 This Pap test was evaluated with the assistance of the CerRxPrep Test Imaging System. Due to cytologic findings at the [employer] microscope, comprehensive manual rescreening by a Chief Security Officer may be required. The Pap Smear is a screening test designed to aid in the detection of premalignant and malignant conditions of the uterine cervix. It is not a diagnostic procedure and should not be used as the sole means of detecting cervical cancer. Both false- positive and false- negative reports do occur. Depending on your risk status, a Pap smear should be obtained and evaluated every 1-3 years. END OF REPORT * ML=Testing performed at [facility] DEPARTMENT OF PATHOLOGY, [address] [place] [address] Venkat Dean M.D. Director [facility] # [id number] 13 The high-risk HPV types detected by the assay include: 16, 18, 31, 33, 35, 39, 45, 51, 52, 56, 58, 59, 66, and 68. 14 Because ethnic data is not always readily available, this report includes an eGFR for both -Americans and non- Americans. The National Kidney Disease Education Program (NKDEP) does not endorse the use of the MDRD equation for patients that are not between the ages of 18 and 70, are , have extremes of body size, muscle mass, or nutritional status, or are non- or non-. According to the National Kidney Foundation, irrespective of diagnosis, the stage of the disease is based on the level of kidney function: Stage Description GFR(mL/min/1.73 m(2)) 1 Kidney damage with normal or decreased GFR 90 2 Kidney damage with mild decrease in GFR 60-89 3 Moderate decrease in GFR 30-59 4 Severe decrease in GFR 15-29 5 Kidney failure <15 (or dialysis) 15 RESULT: No apparent monoclonal protein on serum electrophoresis. Test Performed by: [address] [id number] 16 Because ethnic data is not always readily available, this report includes an eGFR for both -Americans and non- Americans. The National Kidney Disease Education Program (NKDEP) does not endorse the use of the MDRD equation for patients that are not between the ages of 18 and 70, are , have extremes of body size, muscle mass, or nutritional status, or are non- or non-. According to the National Kid[employer], irrespective of diagnosis, the stage of the disease is based on the level of kidney function: Stage Description GFR(mL/min/1.73 m(2)) 1 Kidney damage with normal or decreased GFR 90 2 Kidney damage with mild decrease in GFR 60-89 3 Moderate decrease in GFR 30-59 4 Severe decrease in GFR 15-29 5 Kidney failure <15 (or dialysis) 17 Desirable <150 Borderline high 150-199 High 200-499 Very High >500 18 Desirable <200 Borderline high 200-239 High >239 19 Low <40 Desirable: 40-60 High: >60 20 Desirable: <100 mg/dL Near Optimal: 100-129 mg/dL Borderline High: 130-159 mg/dL High: 160-189 mg/dL Very High: >189 mg/dL 21 Normal Range 180 to 914 Indeterminate Range 145 to 180 Deficient Range <145 22 Test Performed by: [facility] [address] [place] [address] 23 Because ethnic data is not always readily available, this report includes an eGFR for both -Americans and non- Americans. The National Kidney Disease Education Program (NKDEP) does not endorse the use of the MDRD equation for patients that are not between the ages of 18 and 70, are , have extremes of body size, muscle mass, or nutritional status, or are non- or non-. According to the National Kidney Foundation, irrespective of diagnosis, the stage of the disease is based on the level of kidney function: Stage Description GFR(mL/min/1.73 m(2)) 1 Kidney damage with normal or decreased GFR 90 2 Kidney damage with mild decrease in GFR 60-89 3 Moderate decrease in GFR 30-59 4 Severe decrease in GFR 15-29 5 Kidney failure <15 (or dialysis) 24 Product Safety Head: [id number] Product Safety Head: [id number] 26 Product Safety Head: [id number] 27 Because ethnic data is not always readily available, this report includes an eGFR for both -Americans and non- Americans. The National Kidney Disease Education Program (NKDEP) does not endorse the use of the MDRD equation for patients that are not between the ages of 18 and 70, are , have extremes of body size, muscle mass, or nutritional status, or are non- or non-. According to the National Kidney Foundation, irrespective of diagnosis, the stage of the disease is based on the level of kidney function: Stage Description GFR(mL/min/1.73 m(2)) 1 Kidney damage with normal or decreased GFR 90 2 Kidney damage with mild decrease in GFR 60-89 3 Moderate decrease in GFR 30-59 4 Severe decrease in GFR 15-29 5 Kidney failure <15 (or dialysis) 28 Therapeutic target for the treatment of diabetes Mellitus patients is <7% HBA1C, and in selective patients <6.0%.Please refer to [place] [employer] Diabetic care guidelines for further information. 29 Because ethnic data is not always readily available, this report includes an eGFR for both -Americans and non- Americans. The National Kidney Disease Education Program (NKDEP) does not endorse the use of the MDRD equation for patients that are not between the ages of 18 and 70, are , have extremes of body size, muscle mass, or nutritional status, or are non- or non-. According to the National Kidney Foundation, irrespective of diagnosis, the stage of the disease is based on the level of kidney function: Stage Description GFR(mL/min/1.73 m(2)) 1 Kidney damage with normal or decreased GFR 90 2 Kidney damage with mild decrease in GFR 60-89 3 Moderate decrease in GFR 30-59 4 Severe decrease in GFR 15-29 5 Kidney failure <15 (or dialysis) 30 Because ethnic data is not always readily available, this report includes an eGFR for both -Americans and non- Americans. The National Kidney Disease Education Program (NKDEP) does not endorse the use of the MDRD equation for patients that are not between the ages of 18 and 70, are , have extremes of body size, muscle mass, or nutritional status, or are non- or non-. According to the National Kidney Foundation, irrespective of diagnosis, the stage of the disease is based on the level of kidney function: Stage Description GFR(mL/min/1.73 m(2)) 1 Kidney damage with normal or decreased GFR 90 2 Kidney damage with mild decrease in GFR 60-89 3 Moderate decrease in GFR 30-59 4 Severe decrease in GFR 15-29 5 Kidney failure <15 (or dialysis) 31 Serologic response to B. burgdorferi infection is not detected, but cannot rule out early infection during which low or undetectable antibody levels to B. burgdorferi may be present. If clinically indicated, a new serum specimen should be submitted in 7-14 days. Test Performed by: [place] [address] Human Resources Advisor: Kayden Camacho II, M.D., Ph.D. 32 Test Performed by: [place] [address] Human Resources Advisor: Kayden Camacho II, M.D., Ph.D. 33 A negative result does not exclude the diagnosis of autoimmune myasthenia gravis. PDF Report available at: [email or web address] 34 ADDITIONAL INFORMATION This test was developed and its performance characteristics determined by [facility] in a manner consistent with CLIA requirements. This test has not been cleared or approved by the U.S. Food and Drug Administration. 35 REFERENCE VALUE 0-20% (reported as _% loss of AChR) ADDITIONAL INFORMATION This test was developed and its performance characteristics determined by [facility] in a manner consistent with CLIA requirements. This test has not been cleared or approved by the U.S. Food and Drug Administration. 36 ADDITIONAL INFORMATION This test was developed and its performance characteristics determined by [facility] in a manner consistent with CLIA requirements. This test has not been cleared or approved by the U.S. Food and Drug Administration. Test Performed by: [place] [address] Human Resources Advisor: Kayden Camacho II, M.D., Ph.D. 37 ORDERED 07/13/14 EXPIRES 01/13/15 38 ORDERED 07/13/14 EXPIRES 01/13/15 39 Normal Range 180 to 914 Indeterminate Range 145 to 180 Deficient Range <145 40 Test Performed by: [place] [address] Human Resources Advisor: Kayden Camacho II, M.D., Ph.D. 41 ORDERED 07/13/14 EXPIRES 01/13/15 42 REFERENCE VALUE <0.1 (Negative) Test Performed by: [place] [address] Human Resources Advisor: Kayden Camacho II, M.D., Ph.D. 43 REFERENCE VALUE 16.0 - 45.0 Test Performed by: [address] [address] Human Resources Advisor: Kayden Camacho II, M.D., Ph.D. 44 Product Safety Head: [id number] KRISTA DEL VALLE 45 Product Safety Head: [id number] [place] 46 SEE RESULT BELOW Name: DI CARVALHO : [address]: Joaquín Chand MD Acct: [id number] Unit: [id number] AGE: 59 Location: [facility] Re08/26/14 SEX: F Status: REG REF SPEC: [id number] CIARA: 08/26/14-1015 [facility] DR: Joaquín Chand MD REQ: [id number] RECD: 08/26/14-1228 STATUS: PHYLLIS ROBLES DR: Christy Westbrook MD _ SOURCE: GAS ANTRUM SPDESC: ORDERED: Clotest Procedure Result Verified Site Clotest Final 08/27/14- 928 ML Clotest Negative * ML - MAIN LAB (PSC1) . END OF REPORT * ML=Testing performed at Main Lab DEPARTMENT OF PATHOLOGY, [address] [place] [address] Venkat Dean M.D. Director [facility] # [id number] 47 Product Safety Head: [id number] TOMMY CERVANTES 48 SEE RESULT BELOW Name: DI CARVALHO : [address]: Joaquín Chand MD Acct: [id number] Unit: [id number] AGE: 59 Location: [facility] Re08/26/14 SEX: F Status: REG REF SPEC: [id number] CIARA: 08/26/14- SUBM DR: Joaquín Chand MD REQ: [id number] RECD: 08/26/14-1248 STATUS: CARMELINA ROBLES DR: Christy Westbrook MD _ ORDERED: LEVEL IV FINAL DIAGNOSIS Duodenum, biopsy: -- Benign duodenal mucosa with no significant pathologic abnormalities. -- No evidence of villous blunting or increased intraepithelial lymphocytes. CLINICAL HISTORY Nausea, diabetes mellitus, gastroparesis POST-OPERATIVE DIAGNOSIS Esophagus - normal; stomach - gastritis, biopsied; duodenum - normal, biopsied GROSS DESCRIPTION The specimen is received in formalin labeled, Duodenum Biopsies, and consists of a 0.5 x 0.5 x 0.2 cm aggregate of multiple park-pink irregular soft tissue fragments, which is submitted entirely in one cassette. Signed (signature on file) Anahy Stout MD 1156 END OF REPORT * ML=Testing performed at [facility] DEPARTMENT OF PATHOLOGY, [address] [place] [address] Venkat Dean M.D. Director [facility] # [id number] 49 It is recognized that currently available assays for the detection of antibodies to HIV-1 and/or HIV-2 may not detect all infected individuals. HIV antibodies may be undetectable in some stages of the infection and in some clinical conditions. The performance of this assay has not been established for populations of infants or children. Assayed by Chemiluminescence Microparticle Immunoassay on the Siemens Advia Centaur CP. Values obtained with different methods or kits cannot be used interchangeably.The diagnostic specificity of the ADVIA Centaur 1/O/2 Enhanced assay in the low risk population was 99.90% (6052/6058) with a 95% confidence interval of 99.78 to 99.96%. 50 Serologic response to B. burgdorferi infection is not detected, but cannot rule out early infection during which low or undetectable antibody levels to B. burgdorferi may be present. If clinically indicated, a new serum specimen should be submitted in 7-14 days. Test Performed by: [place] [address] Human Resources Advisor: Kayden Camacho II, M.D., Ph.D. 51 Desirable <150 Borderline high 150-199 High 200-499 Very High >500 52 Desirable <200 Borderline high 200-239 High >239 53 Low <40 Desirable: 40-60 High: >60 54 Desirable: <100 mg/dL Near Optimal: 100-129 mg/dL Borderline High: 130-159 mg/dL High: 160-189 mg/dL Very High: >189 mg/dL 55 Therapeutic target for the treatment of diabetes Mellitus patients is <7% HBA1C, and in selective patients <6.0%.Please refer to [place] Diabetes Association Diabetic care guidelines for further information. 56 Because ethnic data is not always readily available, this report includes an eGFR for both -Americans and non- Americans. The National Kidney Disease Education Program (NKDEP) does not endorse the use of the MDRD equation for patients that are not between the ages of 18 and 70, are , have extremes of body size, muscle mass, or nutritional status, or are non- or non-. According to the National Kidney Foundation, irrespective of diagnosis, the stage of the disease is based on the level of kidney function: Stage Description GFR(mL/min/1.73 m(2)) 1 Kidney damage with normal or decreased GFR 90 2 Kidney damage with mild decrease in GFR 60-89 3 Moderate decrease in GFR 30-59 4 Severe decrease in GFR 15-29 5 Kidney failure <15 (or dialysis) 57 DM, 24 lb loss of weight. 58 Because ethnic data is not always readily available, this report includes an eGFR for both -Americans and non- Americans. The National Kidney Disease Education Program (NKDEP) does not endorse the use of the MDRD equation for patients that are not between the ages of 18 and 70, are , have extremes of body size, muscle mass, or nutritional status, or are non- or non-. According to the National Kidney Foundation, irrespective of diagnosis, the stage of the disease is based on the level of kidney function: Stage Description GFR(mL/min/1.73 m(2)) 1 Kidney damage with normal or decreased GFR 90 2 Kidney damage with mild decrease in GFR 60-89 3 Moderate decrease in GFR 30-59 4 Severe decrease in GFR 15-29 5 Kidney failure <15 (or dialysis) 59 DM, 24 lb loss of weight. 60 DM, 24 lb loss of weight. 61 HDL Interpretation: Undesirable: High Risk: Less than 40 mg/dL Desirable: Low Risk: Greater than 60 mg/dL 62 LDL Interpretation: Low Risk Optimal Level: LDL Less than 100 mg/dL Near or Above Optimal: LDL 100-129 mg/dL Borderline High Risk: LDL 130-159 mg/dL High Risk: LDL 160-189 mg/dL Very High Risk: LDL Greater than 189 mg/dL 63 Because ethnic data is not always readily available, this report includes an eGFR for both -Americans and non- Americans. The National Kidney Disease Education Program (NKDEP) does not endorse the use of the MDRD equation for patients that are not between the ages of 18 and 70, are , have extremes of body size, muscle mass, or nutritional status, or are non- or non-. According to the National Kidney Foundation, irrespective of diagnosis, the stage of the disease is based on the level of kidney function: Stage Description GFR(mL/min/1.73 m(2)) 1 Kidney damage with normal or decreased GFR 90 2 Kidney damage with mild decrease in GFR 60-89 3 Moderate decrease in GFR 30-59 4 Severe decrease in GFR 15-29 5 Kidney failure <15 (or dialysis) 64 Because ethnic data is not always readily available, this report includes an eGFR for both -Americans and non- Americans. The National Kidney Disease Education Program (NKDEP) does not endorse the use of the MDRD equation for patients that are not between the ages of 18 and 70, are , have extremes of body size, muscle mass, or nutritional status, or are non- or non-. According to the National Kidney Foundation, irrespective of diagnosis, the stage of the disease is based on the level of kidney function: Stage Description GFR(mL/min/1.73 m(2)) 1 Kidney damage with normal or decreased GFR 90 2 Kidney damage with mild decrease in GFR 60-89 3 Moderate decrease in GFR 30-59 4 Severe decrease in GFR 15-29 5 Kidney failure <15 (or dialysis) 65 @consistent with previous results 66 -- REFERENCE VALUE -- 25-HYDROXY D TOTAL (D2+D3) Optimum levels in the normal population are 25-80 Test Performed by: [place] [address] Human Resources Advisor: José Luis Moralze III, M.D. 67 Test Performed by: [place] [address] Human Resources Advisor: José Luis Moralez III, M.D. 68 Because ethnic data is not always readily available, this report includes an eGFR for both -Americans and non- Americans. The National Kidney Disease Education Program (NKDEP) does not endorse the use of the MDRD equation for patients that are not between the ages of 18 and 70, are , have extremes of body size, muscle mass, or nutritional status, or are non- or non-. According to the National Kidney Foundation, irrespective of diagnosis, the stage of the disease is based on the level of kidney function: Stage Description GFR(mL/min/1.73 m(2)) 1 Kidney damage with normal or decreased GFR 90 2 Kidney damage with mild decrease in GFR 60-89 3 Moderate decrease in GFR 30-59 4 Severe decrease in GFR 15-29 5 Kidney failure <15 (or dialysis) 69 A metabolite of Naproxen, O-desmethylnaproxen, has been shown to interfere with the Jendrassik-[place] method for measuring total bilirubin. Samples from patients who have taken Naproxen have shown spurious elevation in total bilirubin levels. 70 Because ethnic data is not always readily available, this report includes an eGFR for both -Americans and non- Americans. The National Kidney Disease Education Program (NKDEP) does not endorse the use of the MDRD equation for patients that are not between the ages of 18 and 70, are , have extremes of body size, muscle mass, or nutritional status, or are non- or non-. According to the National Kidney Foundation, irrespective of diagnosis, the stage of the disease is based on the level of kidney function: Stage Description GFR(mL/min/1.73 m(2)) 1 Kidney damage with normal or decreased GFR 90 2 Kidney damage with mild decrease in GFR 60-89 3 Moderate decrease in GFR 30-59 4 Severe decrease in GFR 15-29 5 Kidney failure <15 (or dialysis) 71 Desirable: Less than 200 MG/DL Borderline-High Risk: 200-239 MG/DL High-Risk: 240 MG/DL and over 72 HDL Interpretation: Undesirable: High Risk: Less than 40 MG/DL Desirable: Low Risk: Greater than 60 MG/DL 73 ---- RUN DATE: 11/07/11 [facility] NMI LIVE PAGE 1 RUN TIME: 1450 Specimen Inquiry RUN USER: INTERFACE -- Name: DI CARVALHO [facility]#: [id number] Status: REG REF Re11/06/11 Age/Sex: 56/F Unit#: [id number] Location: [address] [place] [address]. : 59 -- Specimen: [id number] [id number] Spec Date:11/06/11- Subm Dr: Joaquín lo MD Spec Type: SURGICAL P Received:11/06/11-1340 Copies to: Naomi Willis MD SPECIMEN RANDOM COLON BIOPSIES HISTORY POST-OP DIAGNOSIS: To descending colon, numerous random biopsies CLINICAL INFORMATION: Diarrhea GROSS DESCRIPTION The specimen is received in formalin labelled Di Carvalho, Random Colon Biopsies, and consists of several fragments of pink tissue measuring in aggregate 0.7 x 0.7 x 0.3 cm. Submitted entirely, one cassette. DIAGNOSIS Random, colon, biopsy: Fragments of large bowel mucosa with evidence of lymphocytic colitis. Signed Electronically by: STEVEN GOODE 11/07/11 5370 -- -- DEPARTMENT OF PATHOLOGY, [address] [place] [id number] [facility] Permit #[id number] Robin Samson M.D. Assistant Dir cheo -- 74 RUN DATE: 10/08/11 [facility] NMI LIVE PAGE 1 RUN TIME: 1157 Specimen Inquiry RUN USER: INTERFACE Name: DI CARVALHO [place]#: [id number] Status: REG REF Re10/06/11 Age/Sex: 56/F Unit#: [id number] Location: [facility]O.B. : 59 SPEC #: [id number] CIARA: 10/05/11 STATUS: COMP REQ #: [id number] RECD: 10/06/[address] [facility] [address]: Naomi Willis MD SOURCE: STOOL ENTR: 10/06/[address] [facility] [address]: Doreen Lopez SPDESC: Jagruti QUINN,Joaquín Morales ORDERED: STOOL CULTURE, C. DIFF AMP DNA, STL LACTOFERRIN QUERIES: MEDENT MEDICAL RECORD # MEDENT REQUISITION # [id number] ACT WKST: B 10/08/11 #1 Procedure Result Verified Site > STOOL CULT SENSITIVITY Final 10/08/11- 1157 ML NEGATIVE FOR THE ENTERIC PATHOGENS - SALMONELLA, SHIGELLA, AEROMONAS, PLESIOMONAS AND YERSINIA. VIBRIO AND E. COLI 0157 NOT ROUTINELY TESTED FOR IN A STOOL CULTURE. PLEASE SUBMIT SAMPLE WITH SPECIFIC REQUEST FOR DESIRED ORGANISM(S). > STOOL SPECIMEN DESCRIPTION Final 10/06/11- 1448 ML STOOL COLOR GREENISH BROWN STOOL FORM NONFORMED STOOL CONSISTENCY PASTY > CAMPYLOBACTER CULTURE Final 10/08/11- 1157 ML NO GROWTH OF CAMPYLOBACTER AFTER 48 HOURS > SHIGA TOXIN 1 AND 2 (EHEC) Final 10/08/11- 1058 ML SHIGA TOXIN 1 NEGATIVE BY IMMUNOCHROMATOGRAPHIC ASSAY SHIGA TOXIN 2 NEGATIVE BY IMMUNOCHROMATOGRAPHIC ASSAY > C. DIFFICILE AMPLIFIED DNA Final 10/06/11- 1455 ML C. DIFFICILE AMPLIF DNA NEGATIVE: NO TOXIGENIC C. DIFFICILE DETECTED. TEST LIMITATIONS: Assay does not distinguish between viable and non-viable organisms. Test results are to be used in conjunction with information available from the patient clinical evaluation and other diagnostic procedures. Two distinct groups have been identified that can harbor C. difficile asymptomatically at very high rates. Colonization at rates up to 50% and higher have been reported in infants and rates up to 32% in cystic fibrosis patients. > FECAL LACTOFERRIN (STOOL WBC) Final 10/06/11- 1448 ML DEPARTMENT OF PATHOLOGY, [address] [place] [address] [facility] Permit #[id number] Robin Samson M.D. Drill Hand RUN DATE: 10/08/11 [facility] NMI LIVE PAGE 2 RUN TIME: 1157 Specimen Inquiry RUN USER: INTERFACE Name: DI CARVALHO Status: REG REF Re10/06/11 Age/Sex: 56/F Unit#: [id number] Location: [facility] : 59 -- -- CONTINU ED Procedure Result Verified Site FECAL LACTOFERRIN (STOOL WBC) Final (continued) 10/06/11- 1448 FECAL LACTOFERRIN NEGATIVE BY IMMUNOASSAY TEST LIMITATIONS: Assay detects elevated levels of lactoferrin released from fecal leukocytes as a marker of intestinal inflammation. The test may not be appropriate in immunocompromised persons. Fecal samples from breast fed infants should not be used with this assay. [facility] Permit #[id number] [address] [place] [address] DEPARTMENT OF PATHOLOGY, [address] [place] [address] [facility] Permit #[id number] Venkat Dean M.D. Director Steven Goode M.D. Drill Hand 75 MICROALBUMINURIA IN A RANDOM SAMPLE IS DEFINED : MICROALBUMIN/CREATININE RATIO OF 30-299 ug/mg. . 76 Anion gap measurement may be of limited value in the presence of any alkalosis, especially in a combined acid base disorder. . 77 A metabolite of Naproxen, O-desmethylnaproxen, has been shown to interfere with the Jendrassik-Nidia method for measuring total bilirubin. Samples from patients who have taken Naproxen have shown spurious elevation in total bilirubin levels. 78 Because ethnic data is not always readily available, this report includes an eGFR for both -Americans and non- Americans. The National Kidney Disease Education Program (NKDEP) does not endorse the use of the MDRD equation for patients that are not between the ages of 18 and 70, are , have extremes of body size, muscle mass, or nutritional status, or are non- or non-. According to the National Kidney Foundation, irrespective of diagnosis, the stage of the disease is based on the level of kidney function: Stage Description GFR(mL/min/1.73 m(2)) 1 Kidney damage with normal or decreased GFR 90 2 Kidney damage with mild decrease in GFR 60-89 3 Moderate decrease in GFR 30-59 4 Severe decrease in GFR 15-29 5 Kidney failure <15 (or dialysis) 79 CHOLESTEROL INTERPRETATION: Desirable: Less than 200 MG/DL Borderline-High Risk: 200-239 MG/DL High-Risk: 240 MG/DL and over 80 HDL INTERPRETATION: Undesirable: High Risk: Less than 40 MG/DL Desirable: Low Risk: Greater than 60 MG/DL 81 LDL INTERPRETATION: Low Risk Optimal Level: LDL Less than 100 MG/DL Near or Above Optimal: LDL 100-129 MG/DL Borderline High Risk: LDL 130-159 MG/DL High Risk: LDL 160-189 MG/DL Very High Risk: LDL Greater than 189 MG/DL 82 Please note updated reference range, effective 09/22/09 83 Anion gap measurement may be of limited value in the presence of any alkalosis, especially in a combined acid base disorder. . 84 A metabolite of Naproxen, O-desmethylnaproxen, has been shown to interfere with the Jendrassik-Nidia method for measuring total bilirubin. Samples from patients who have taken Naproxen have shown spurious elevation in total bilirubin levels. 85 Because ethnic data is not always readily available, this report includes an eGFR for both -Americans and non- Americans. The National Kidney Disease Education Program (NKDEP) does not endorse the use of the MDRD equation for patients that are not between the ages of 18 and 70, are , have extremes of body size, muscle mass, or nutritional status, or are non- or non-. According to the National Kidney Foundation, irrespective of diagnosis, the stage of the disease is based on the level of kidney function: Stage Description GFR(mL/min/1.73 m(2)) 1 Kidney damage with normal or decreased GFR 90 2 Kidney damage with mild decrease in GFR 60-89 3 Moderate decrease in GFR 30-59 4 Severe decrease in GFR 15-29 5 Kidney failure <15 (or dialysis) 86 CHOLESTEROL INTERPRETATION: Desirable: Less than 200 MG/DL Borderline-High Risk: 200-239 MG/DL High-Risk: 240 MG/DL and over 87 HDL INTERPRETATION: Undesirable: High Risk: Less than 40 MG/DL Desirable: Low Risk: Greater than 60 MG/DL 88 LDL INTERPRETATION: Low Risk Optimal Level: LDL Less than 100 MG/DL Near or Above Optimal: LDL 100-129 MG/DL Borderline High Risk: LDL 130-159 MG/DL High Risk: LDL 160-189 MG/DL Very High Risk: LDL Greater than 189 MG/DL 89 Please note updated reference range, effective 09/22/09 90 Recommended INR for Patients on Oral Anticoagulants Prophylaxis 2.0 - 3.0 Treatment of thrombosis 2.0 - 3.0 Prevention of embolism 2.0 - 3.0 Prevention of embolism from prosthetic heart valves 2.5 - 3.5 91 DIAGNOSIS,TREATMENT,AND THERAPY MUST BE BASED ON THE INR VALUE ALONE. 92 Anion gap measurement may be of limited value in the presence of any alkalosis, especially in a combined acid base disorder. . 93 A metabolite of Naproxen, O-desmethylnaproxen, has been shown to interfere with the Jendrassik-Nidia method for measuring total bilirubin. Samples from patients who have taken Naproxen have shown spurious elevation in total bilirubin levels. 94 Because ethnic data is not always readily available, this report includes an eGFR for both -Americans and non- Americans. The National Kidney Disease Education Program (NKDEP) does not endorse the use of the MDRD equation for patients that are not between the ages of 18 and 70, are , have extremes of body size, muscle mass, or nutritional status, or are non- or non-. According to the National Kidney Foundation, irrespective of diagnosis, the stage of the disease is based on the level of kidney function: Stage Description GFR(mL/min/1.73 m(2)) 1 Kidney damage with normal or decreased GFR 90 2 Kidney damage with mild decrease in GFR 60-89 3 Moderate decrease in GFR 30-59 4 Severe decrease in GFR 15-29 5 Kidney failure <15 (or dialysis) 95 New Reference Range and Interpretation effective 12/05/2001 TnI (ng/ml) INTERPRETATION Less Than 0.06 ng/mL NOT SUPPORTIVE OF DIAGNOSIS OF DC 0.06 - 0.50 ng/ml INDETERMINATE: SUGGEST SERIAL STUDIES IF CLINICALLY INDICATED. Greater than 0.5 ng/mL CONSISTENT WITH DIAGNOSIS OF DC . 96 Lymphopenia % [address] ANGELIKA SEPULVEDA AT FAX NUMBER [phone] CHOLESTEROL INTERPRETATION: Desirable: Less than 200 MG/DL Borderline-High Risk: 200-239 MG/DL High-Risk: 240 MG/DL and over 99 HDL INTERPRETATION: Undesirable: High Risk: Less than 40 MG/DL Desirable: Low Risk: Greater than 60 MG/DL 100 LDL INTERPRETATION: Low Risk Optimal Level: LDL Less than 100 MG/DL Near or Above Optimal: LDL 100-129 MG/DL Borderline High Risk: LDL 130-159 MG/DL High Risk: LDL 160-189 MG/DL Very High Risk: LDL Greater than 189 MG/DL 101 Anion gap measurement may be of limited value in the presence of any alkalosis, especially in a combined acid base disorder. . 102 A metabolite of Naproxen, O-desmethylnaproxen, has been shown to interfere with the [place] method for measuring total bilirubin. Samples from patients who have taken Naproxen have shown spurious elevation in total bilirubin levels. 103 Because ethnic data is not always readily available, this report includes an eGFR for both -Americans and non- Americans. The National Kidney Disease Education Program (NKDEP) does not endorse the use of the MDRD equation for patients that are not between the ages of 18 and 70, are , have extremes of body size, muscle mass, or nutritional status, or are non- or non-. According to the National Kidney Foundation, irrespective of diagnosis, the stage of the disease is based on the level of kidney function: Stage Description GFR(mL/min/1.73 m(2)) 1 Kidney damage with normal or decreased GFR 90 2 Kidney damage with mild decrease in GFR 60-89 3 Moderate decrease in GFR 30-59 4 Severe decrease in GFR 15-29 5 Kidney failure <15 (or dialysis) Procedures Date CPT Code Description Status Comment 12/23/2017 35665 EKG Tracing & Interpretation Completed 09/25/2017 Diabetic Foot Exam Completed 03/01/2017 56553 ECHO Transthoracic, Real-Time 2D Completed With Doppler And Color Flow 03/01/2017 94854 ECHO Transthoracic, Real-Time 2D Completed With Doppler And Color Flow 02/12/2017 63913 Stress Test Completed 02/12/2017 58894 Myocardial Perfusion Imaging Completed Tomographic (Spect) Multiple Studies 02/06/2017 40926 Destruction Of Benign Lesions Completed Any Method 1-14 lesions 01/28/2017 Mammogram Completed 01/28/2017 Bone Mineral Density Test Completed 01/11/2017 Diabetic Retinal Eye Exam Completed Document: 01/11/17 - Consult Ophthalmology/Dick 01/09/2017 56282 Inject Tendon Sheath Or Ligament Completed Aponeurosis Eg Plantar Fascia 01/09/2017 82481 Inject Tendon Sheath Or Ligament Completed Aponeurosis Eg Plantar Fascia 01/01/2017 89850 EKG Tracing & Interpretation Completed 12/11/2016 09250 Nerve Conduction 07-08 Studies Completed 10/04/2016 59180 Carotid Doppler,Bilateral Completed 09/13/2016 69849 EKG Tracing & Interpretation Completed 08/22/2016 48709 Destruction Of Benign Lesions Completed Any Method 1-14 lesions 08/22/2016 32683 Destruction ALL Benign Or Completed Premalignant Lesion (Other Than [place] 07/26/2016 59513 Removal Devitalization Tissue Completed Wound Less Than Equal 20 Square CM 07/11/2016 96958 Moderate Sedation Services; Same Completed Phys Each Additional 15 Mins 07/11/2016 50379 Moderate Sedation Services; Same Completed Phys Intl 15 Mins; PT >=5 Years 07/11/2016 80164 Gwkzw-Zomublwor-Wkarrjgfaa Completed 07/11/2016 14476 Revascularization,Endovascular Completed W/Transluminal Angioplasty 07/11/2016 26785 Revascularization,Endovascular Completed W/Atherectomy, Inc Angioplasty 03/13/2016 61299 Mobile Cardiovascular Telemetry Completed Over 24 HR Up To 30 Days 03/08/2016 33335 EKG Tracing & Interpretation Completed 02/09/2015 16188 Polysomnography Sleep Staging 4+ Completed Parameters 09/10/2014 Diabetic Retinal Eye Exam Completed 07/06/2014 35262 EEG Recording Awake & Drowsy Completed 06/22/2014 28629 EKG Tracing & Interpretation Completed 12/23/2012 71218 Extremity Studies-Bilateral Completed 11/11/2012 11176 EKG Tracing & Interpretation Completed 04/10/2012 54196 EKG Tracing & Interpretation Completed 11/06/2011 Colonoscopy Completed 08/29/2011 58365 EKG Tracing & Interpretation Completed 01/06/2009 Mammogram Completed 12/23/2008 08027 EKG Tracing & Interpretation Completed 01/09/2007 52007 Destruction Of Benign Lesions Completed Any Method 1-14 lesions 01/09/2007 33820 Destruction Of Benign Lesions Completed Any Method 1-14 lesions 06/11/2006 50487 Destruction Of Benign Lesions Completed Any Method 1-14 lesions 06/12/2005 Bone Mineral Density Test Completed Encounters Type Date Location Provider CPT E/M Dx Office Visit 11/27/2017 [facility] Vascular Medicine Mateo Mancia, 50207 I70.211 2:45p Of Flaquito Kelly Office Visit 08/16/2017 [facility] Blaze Salvador M.D. 52456 I25.10 1:10p [facility] I70.235 E10.8 R60.0 E78.2 I10 Office Visit 08/02/2017 2:00p [facility] Internal Medicine Janelle Farrell, 95234 E10.40 - Funmilayo Kelly R07.89 R32 Office Visit 05/30/2017 1:00p [facility] Of Corinne Rae, 00128 I70.235 [facility] N.P. E78.2 I10 Office Visit 05/22/2017 3:30p [facility] [address] F80.1 R41.89 Office Visit 05/13/2017 2:00p [facility] [address] G43.719 E10.40 R26.81 R41.89 Office Visit 04/15/2017 1:50p [facility] Blaze Salvador M.D. 65910 I70.235 [facility] R05 R19.7 R68.2 E78.2 Office Visit 04/04/2017 1:20p [facility] Of Arley CejaLara Chi, 78879 I70.235 [facility] AT [facility] [place], [facility] Office Visit 03/11/2017 1:00p [facility] Avis German, 02883 D64.9 Of [facility] ELSA Singletary M.D. R13.10 R11.0 G62.9 E11.622 R53.83 Office Visit 02/28/2017 1:00p [facility] Loretta Prince DNP, 21876 E11.621 AT [facility] RN, PUBLIC HEALTH PROFESSOR-BC L97.511 L84 Office Visit 02/18/2017 2:20p [facility] Internal Janelle Farrell, 44897 M85.852 Vu - Funmilayo Kelly R53.83 Office Visit 02/06/2017 2:20p [facility] [place] [address] L85.3 L97.519 B07.8 L53.8 Z78.9 Office Visit 01/21/2017 1:20p [facility] Arley Laguna 66688 I70.235 AT [facility] [place] Alon, FAC, [facility] Office Visit 01/16/2017 2:00p [facility] [address] G43.719 E10.40 R13.13 Office Visit 01/09/2017 1:00p [facility] Kita Gonsalez, 04366 M65.331 Of Nitin Kelly M65.332 Office Visit 01/01/2017 1:15p [facility] Of Monique Salvador M.D. 38791 I25.10 [facility] I70.235 E78.2 Z91.81 R42 E08.40 R06.02 Office Visit 12/31/2016 1:00p [facility] Internal Medicine Janelle Farrell 98313 E10.65 Karl Mello M.D. F41.9 N39.41 M65.331 M54.9 Z12.31 M81.0 Office Visit 12/27/2016 1:30p [facility] Javid Henderson, 12365 E10.621 AT [facility] Robin L97.511 I70.235 E78.2 I10 F17.211 E10.36 E10.40 E10.51 Office Visit 12/10/2016 1:20p [facility] Of Arley Laguna Alon, 09973 I70.235 Data Entry Coordinator AT [facility] [place], FSCAI Office Visit 11/19/2016 1:20p [facility] Avis German, 08513 D64.9 Of [facility] AT [facility] Office Visit 11/02/2016 2:00p [facility] Of LINDSAY Harris 21456 E78.2 [facility] I70.235 R42 I10 Office Visit 11/01/2016 12:30p [facility] Javid Henderson, 66471 E10.621 AT [facility].D L97.511 I70.235 E78.2 I10 F17.211 E10.36 E10.40 E10.51 Office Visit 10/11/2016 1:15p [facility] Javid Henderson, 10983 E10.621 AT [facility].D L97.511 I70.235 E78.2 I10 F17.211 E10.36 E10.40 E10.51 Office Visit 10/01/2016 1:45p [facility] Of Anupawa Chi, 62413 I70.235 Data Entry Coordinator AT [facility] [place], [facility] Office Visit 09/27/2016 1:15p [facility] AT Javid Henderson, 27011 E10.621 [facility] L97.511 I70.235 E78.2 I10 F17.211 E10.36 E10.40 E10.51 Office Visit 09/14/2016 1:00p [facility] [place] [address] G44.201 Services Of [facility] R13.13 E11.42 Office Visit 09/13/2016 3:00p [facility] Of [facility] LINDSAY Harris 82306 R42 I73.9 I25.10 I10 Office Visit 09/06/2016 1:15p [facility] Javid Henderson, 68312 E10.621 [facility] L97.511 I70.235 E78.2 I10 F17.211 E10.36 E10.40 E10.51 Office Visit 09/06/2016 2:40p [facility] Of Arley Chi, 39073 I70.249 Data Entry Coordinator AT [facility] [place], [facility] Office Visit 09/03/2016 2:20p [facility] Of Arley VirginieLara Chi, 37651 I70.249 Data Entry Coordinator AT [facility] [place], FSCAI Office Visit 08/23/2016 12:30p [facility] AT Javid Henderson, 81993 E10.621 [facility] Robin L97.511 I70.235 E78.2 I10 F17.211 E10.36 E10.40 E10.51 Office Visit 08/10/2016 12:30p [facility] oLretta Prince DNP, 21260 E10.621 AT [facility] RN, PUBLIC HEALTH PROFESSOR-BC L97.511 I70.235 E78.2 I10 F17.211 E10.36 E10.40 E10.51 D53.9 Office Visit 08/09/2016 2:40p [facility] Of Arley Chi, 32563 I73.9 Data Entry Coordinator AT [facility] [place], [facility] Office Visit 08/03/2016 12:30p [facility] AT Loretta Prince, 90185 E10.621 [facility] DNP, RN, PUBLIC HEALTH PROFESSOR-BC L97.511 I70.235 E78.2 I10 F17.211 E10.36 E10.40 E10.51 Office Visit 08/02/2016 2:30p [facility] Of Monique Salvador M.D. 16508 I25.10 [facility] I10 I73.9 E78.2 R60.0 E10.40 I49.3 I47.1 Office Visit 07/26/2016 2:40p [facility] Of Arley Chi, 07574 L97.511 Data Entry Coordinator AT [facility] [place], [facility] Office Visit 07/19/2016 4:32p [facility] AT Javid Henderson, 17512 E10.621 [facility] Robin L97.511 Office Visit 07/19/2016 2:15p [facility] Of Arley Chi, 98845 I73.9 Data Entry Coordinator AT [facility] [place], FSCAI N18.3 Office Visit 07/09/2016 1:40p [facility] Of Arley Chi, 85436 E10.621 Data Entry Coordinator AT [facility] [place], FSCAI N18.3 I73.9 Office Visit 07/05/2016 2:40p [facility] Loretta Prince DNP, 76435 L97.511 AT [facility] RN, PUBLIC HEALTH PROFESSOR-BC E10.621 I70.235 Office Visit 06/28/2016 12:57p [facility] Javid Henderson, 76824 L97.511 AT [facility] E10.621 Office Visit 06/14/2016 1:50p [facility] Javid Henderson, 27385 L97.511 AT [facility] Office Visit 06/06/2016 3:00p [place] [address] E10.621 AT [facility] L97.511 E78.2 I10 F17.211 E10.36 E10.40 E10.51 Office Visit 05/29/2016 2:39p [facility] Javid Henderson, 75956 E10.621 AT [facility] L97.511 Office Visit 05/22/2016 11:00a [facility] Javid Henderson, 26787 E10.621 AT [facility] L97.511 Office Visit 05/14/2016 2:30p [place] [place] [address] G44.201 Services Of [facility] R13.13 E10.9 Office Visit 03/28/2016 1:40p [facility] Internal Medicine - Christy Westbrook M.D. 55344 I10 Marley Z12.31 R13.12 Office Visit 03/08/2016 1:00p [facility] Of Monique Salvador M.D. 27502 I25.10 [facility] R00.2 I10 E10.8 E78.2 Office Visit 02/28/2016 11:50a [facility] Internal Medicine - Christy Westbrook M.D. 99445 I10 Arrowesther Z79.899 R00.2 Z91.14 Office Visit 12/22/2015 10:50a [facility] Internal Medicine Christy Westbrook M.D. 70898 R11.0 - Marley R53.83 R40.0 Z79.899 Office Visit 12/07/2015 12:10p [facility] Internal Medicine Christy Westbrook 95422 R13.13 - Marley Kelly G44.201 D64.9 R68.2 Office Visit 12/05/2015 11:30a [place] [address] G43.901 Services Of Data Entry Coordinator R13.13 R53.83 R68.2 Office Visit 10/12/2015 11:00a [place] [address] G43.901 Services Of Data Entry Coordinator Office Visit 05/31/2015 11:50a [facility] Internal Medicine Christy Westbrook, 38619 G44.201 - Funmilayo Kelly Office Visit 01/17/2015 1:00p [place] [facility] Jennifer Ochoa, 25965 F41.9 Services Of [facility] M.D. F33.9 G44.201 Office Visit 12/06/2014 2:45p [facility] Of Monique Salvador M.D. 03968 I25.10 Data Entry Coordinator E78.5 Office Visit 11/29/2014 10:00a [place] [facility] Jennifer Ochoa M.D. 36053 F41.9 Services Of [facility] F33.9 G44.201 R25.1 Office Visit 11/11/2014 2:30p [facility] Internal Medicine Christy Westbrook, 13290 346.92 - Funmilayo Kelly 477.9 847.0 Office Visit 09/02/2014 1:15p Pulmonology And Sleep Van Valadez, 77578 780.53 Services Of Data Entry Coordinator M.D. Office Visit 08/09/2014 10:30a [facility] Internal Medicine - Christy Westbrook 32399 784.0 Funmilayo Kelly 787.02 Office Visit 07/13/2014 2:10p [facility] Internal Medicine Christy Westbrook 83679 780.54 - Funmilayo Kelly 272.4 781.0 V03.82 780.79 571.8 401.1 Office Visit 06/22/2014 2:30p [facility] Monique Salvador M.D. 73409 412 272.4 401.1 780.79 Office Visit 06/10/2014 1:50p [facility] Internal Medicine Chirsty Westbrook M.D. 10035 780.2 - Funmilayo 780.79 790.6 268.9 Office Visit 03/17/2014 1:00p [facility] Internal Medicine Liv Moulton, N.P. 75020 780.79 - [place] 250.00 Office Visit 11/06/2013 2:15p [facility] Monique Salvador M.D. 06030 401.9 [facility] 412 783.21 272.0 780.94 Office Visit 03/30/2013 2:00p [facility] [place] [address] 401.9 Office Visit 11/11/2012 2:00p [facility] Monique Salvador M.D. 82553 412 401.9 272.0 250.01 Office Visit 10/07/2012 1:20p [facility] Internal Medicine Naomi Willis M.D., 65757 250.43 - [place] FACP 300.00 Office Visit 04/10/2012 2:00p [facility] Internal Medicine - Naomi Willis M.D., 42302 365.9 [place] FACP 250.43 414.01 V72.84 477.9 Office Visit 02/19/2012 10:40a [facility] Internal Medicine Naomi Willis M.D., 95826 250.43 - [place] FACP 783.21 787.91 Office Visit 02/12/2012 12:45p [facility] Of Monique Salvador M.D. 30973 780.79 [facility] 780.4 414.01 272.0 Office Visit 09/24/2011 12:00p [facility] Internal Medicine Naomi Willis M.D., 89339 787.91 - [place] FACP 250.43 250.63 Office Visit 08/29/2011 9:20a [facility] Internal Medicine Naomi Willis M.D., 70198 V04.89 - [place] FACP V72.84 371.03 053.21 250.43 Office Visit 05/15/2011 11:00a [facility] Internal Medicine Naomi Willis M.D., 11340 250.00 - [place] FACP 564.5 Office Visit 11/14/2010 11:20a DO Not Use Data Entry Coordinator[facility] Naomi Willis, 57679 250.63 Robin, FACP v04.81 Office Visit 09/13/2010 11:00a DO Not Use Data Entry Coordinator[facility] Naomipiyush Willis, 83723 250.63 M.D., FACP Office Visit 12/23/2008 11:45a DO Not Use Data Entry Coord[facility] Naomipiyush Willis, 87363 V72.84 M.D., FACP 250.01 780.79 V04.81 Office Visit 06/15/2008 4:15p DO Not Use Patria Pang, 67796 709.9 Data Entry Coord[facility] M.D. Office Visit 06/08/2008 11:30a DO Not Use Naomipiyush Willis M.D., 29479 250.02 Data Entry Coordinator[facility] FACP 053.9 Office Visit 04/30/2008 3:00p DO Not Use Data Entry Coord[facility] Naomipiyush Willis, 76013 289.3 M.D., FACP Office Visit 04/29/2008 1:30p DO Not Use Data Entry Coord[facility] Naomi Willis, 01049 250.01 M.D., FACP 285.9 524.60 Office Visit 03/08/2008 4:15p DO Not Use Data Entry Coord[facility] Liv Moulton, 31954 382.9 N.P. 696.1 461.9 757.39 Office Visit 02/12/2008 12:15p DO Not Use Data Entry Coord[facility] Naomi Willis, 64292 682.6 M.D., FACP 787.01 Office Visit 01/12/2008 11:30a DO Not Use Data Entry Coord[facility] Naomi Willis, 73191 690.11 M.D., FACP 250.01 365.9 Office Visit 2008 2:15p DO Not Use Data Entry Coord[facility] Naomipiyush Willis, 42409 368.10 M.D., FACP 250.01 Office Visit 12/11/2007 11:00a DO Not Use Data Entry Coord[facility] Naomi Willis, 19597 780.97 M.D., FACP 250.00 V04.81 Office Visit 12/02/2007 11:15a DO Not Use Data Entry Coord[facility] Naomi Willis, 65254 414.00 M.D., FACP 250.01 Office Visit 11/26/2007 2:15p DO Not Use Data Entry Coordinator[facility] Liv Moulton, 15357 053.9 N.P. 386.11 Office Visit 07/17/2007 2:15p DO Not Use Naomi Willis M.D., 01531 558.9 Data Entry Coordinator[place] FACP Office Visit 05/27/2007 2:15p Neurosurgery Services Ion Watters, 58991 355.9 Of Data Entry Coordinator M.D. Office Visit 03/21/2007 1:45p DO Not Use Liv Moulton, 91057 V72.31 Data Entry Coord[facility] N.P. 272.1 250.01 Office Visit 01/09/2007 11:45a DO Not Use Data Entry Coordinator[facility] Naomi Willis, 19595 250.01 M.D., FACP 401.1 715.90 078.10 Office Visit 11/21/2006 10:45a DO Not Use Data Entry Coord[facility] Naomi Willis, 16740 250.03 M.D., FACP 782.3 Office Visit 06/11/2006 2:45p DO Not Use Data Entry Coord[facility] Naomipiyush Willis, 70025 078.10 M.D., FACP 250.63 719.46 Office Visit 05/07/2006 1:00p DO Not Use Data Entry Coord[facility] Naomipiyush Willis, 47078 250.01 M.D., FACP 285.9 272.0 593.9 Office Visit 03/26/2006 1:30p DO Not Use Data Entry Coordinator[facility] Naomi Willis, 49723 250.63 M.D., FACP Office Visit 02/12/2006 1:00p DO Not Use Data Entry Coordinator[facility] Naomi Alba, 53128 250.63 M.D., FACP 784.0 593.9 Office Visit 01/03/2006 3:45p DO Not Use Data Entry Coord[facility] Naomipiyush Willis, 78629 250.63 M.D., FACP 724.3 V04.81 Office Visit 09/28/2005 1:15p DO Not Use Data Entry Coord[facility] Naomipiyush Willis, 15185 250.03 M.D., FACP 285.9 Plan of Care Future Appointment(s):03/10/2018 1:30 pm - Matt Saenz M.D. at [place] [facility] Of [facility]09/29/2018 1:20 pm - Janelle Farrell M.D. at [facility] Internal Medicine - Dpvrqbuwi12/28/2019 2:20 pm - Janelle Farrell M.D. at [facility] Internal Medicine - Jbmuqyyut91/22/2018 - Monique Salvador M.D.R42 Dizziness and giddinessFollow up:See if nursing know how I order a scale, I can't find in DME list.Recommendations:Tentatively, plan on torsemide weekly. Goal is to get you a scale and use weights to assist with when Torsemide is needed.I70.211 [facility] [place] arteries of extrm w intrmt alan, right legI25.10 [facility] heart disease of [place] coronary artery w/o ang pctrsComments:Your ECG is stable.Follow up:3 months and PRNE10.8 Type 1 diabetes mellitus with unspecified complications
--- OUTSIDE RECORDS SUMMARY | 2018-01-03 13:50 | XMS REPORT ---
:1955 External Reference #:[id number] Author Organization [facility] Address [address] [place] [address] Phone [phone] Care Team Providers Name Role Phone Sage Miles MD Care Team Information Medical Artist Unavailable Janelle Farrell MD Primary Care Physician Unavailable Payers Type Date Identification Numbers Payment Provider Subscriber Medicare Primary Policy Number: [id number] Medicare Di Carvalho PayID: [id number] [address] [place] [address] Medigap Part B Policy Number: [id number] Medicaid Di Carvalho PayID: [id number] [address] [place] [address] Problems Date Description Provider Status Onset: 07/09/2016 Multiple complications of type 1 Arley Chi MD, Active diabetes mellitus [facility], [facility] Onset: 09/13/2010 Type 1 diabetes mellitus Naomi Willis M.D., FACP Active Onset: 11/08/2013 Diabetic renal disease Janelle Farrell M.D. Active Onset: 12/06/2014 Coronary arteriosclerosis in Monique Salvador M.D. 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 Active Onset: 09/13/2010 Anemia Naomi Willis M.D., FACP Active Onset: 07/05/2014 Depressive disorder Christy Westbrook M.D. Active Onset: 07/05/2014 Chronic anxiety [...] to Mateo Mancia M.D. 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 daily as needed Depend Active Misc 60units For use R32 Janelle Silhouette 018 twice Cotton, Briefs For daily Dx M.D. Women S/M R32 Maximum Absorb B Complex Active Tablets 180tabs 2 PO qd E10.40 Janelle 018 Cotton, M.D. Multivitamin Active Tablets 90tabs 1 by E10.40 Janelle Adult 018 mouth Cotton, every day M.D. R60.0 ALL Day Allergy 06/10/2017 Active Tablets 10mg 90tabs take 1 tablet Janelle by mouth once Cotton, daily if needed M.D. Mupirocin Calcium 04/11/2017 Active Cream 2% 30gm apply twice a Janelle day Robin Farrell Nitrostat 03/21/2017 Active Tablets Sub 0.4mg 25tabs one sl q5min up Monique to 3 doses as [place], needed call 911 M.D. for CP no relieved after 3 NTG Ondansetron HCL 09/12/2016 Active Tablets 8mg 180tabs every 8 hours Janelle by mouth as Cotton, needed M.D. Levothyroxine 08/12/2016 Active Tablets 25mcg 1 by mouth Katherine Alberto every day Am MD Santana Lovaza 07/20/2016 Active Capsules 1gm 90caps take 1 capsule Monique by mouth once a [place], day M.D. Cilostazol 07/19/2016 Active Tablets 50mg 180tabs 1 by mouth I Marcis T. twice a day 7 Sodalexus, 3 , [facility], . FSCAI 9 Ibuprofen 04/18/2016 Active Tablets 600mg 30tabs 1 tab by mouth Christy 2 times a day West[place], as needed M.D. Praluent 04/02/2016 Active Solution 75mg/ 4ml 1 injection sc Monique Pen-Inject ml every 2 weeks [place] MBharathi Fluticasone 09/12/2015 Active Suspension 50mcg 1units 2 sprays both Alberto, Propionate /Act nostrils every MD Santana day [place] 09/02/2014 Active Tablets 10-32 130tabs 1 tablet [...] tablet Janelle by mouth once Cotton, daily M.D. Novolin R Pump 09/13/2010 Active Solution 100Un used Naomi it/ML continously Robin Willis, FACP Ra B-Complex 08/27/2010 Active Tablets 180tabs take 2 tablets Naomi daily Robin Willis, FACP Bupropion HCL ER Active Tablets ER 150mg 60tabs 2 by mouth Unknown (SR) 12HR daily Aspirin Active Tablets 81mg 1 by mouth Unknown every day PM ( started taking decrease dose end of February 2017) Refresh Plus Active Solution 0.5% instill 1 drop Unknown into both eye 6 Times A Day Trazodone HCL Active Tablets 50mg take 2 tablet Unknown by mouth at bedtime Budesonide Active Caps DR 3mg 3 cap po daily Unknown Part Calcitriol Active [...] 12 hours once a day as needed Carvedilol Active Tablets 6.25m 180tabs 1 by mouth Monique ca twice a day Robin Salvador Clopidogrel Active Tablets 75mg 90tabs take 1 tablet Marcis T. Bisulfate by mouth once Sodums, daily at night , [facility], [facility] Gabapentin Active Tablets 600mg 1 tablet po Unknown daily at night Acyclovir Active Tablets 400mg 1 by mouth po Unknown daily Fluoxetine HCL Active Capsules 20mg 1 by mouth Unknown every day Alprazolam Active Tablets 0.25m 1 PO bid as Member, g needed MD Piyush Eszopiclone Active Tablets 2mg 1 every night Member, MD Piyush Imodium A-D Active Capsules 2mg 2 cap as needed Unknown Adderall Active Tablets 30mg 1 by mouth Unknown twice a day Botox Active Solution 100Un Every 3 months Unknown Rec it Olopatadine HCL Active Solution 0.1% 1 drop in eyes Unknown twice a day Almaz 128 Active Ointment 5% at bed time Unknown Demadex Active Tablets 20mg 90tabs 1 by mouth Unknown every day Meloxicam Active Tablets 7.5mg Rafael Payne MD Losartan Potassium 09/30/2017 Hx Tablets 25mg 60tabs 1 by mouth Oj - twice a day. FLara Masusanar, 09/26/2017 M.D. Valsartan 04/30/2017 Hx Tablets 40mg 135tabs 1/2 tab but I Monique - mouth in the in 1 [place], 09/30/2017 the morning and 0 M.D. 1 tab by mouth at night Ramipril 10/26/2016 Hx Capsules 2.5mg 90caps 1 by mouth Monique - every day [place], 04/15/2017 M.DLara Vitamin C 09/12/2016 Hx Chewtabs 500mg 3 by mouth Christy - every day Pietro, 05/12/2017 M.D. Propranolol HCL ER 07/03/2016 Hx Caps ER 60mg 90caps 1 by mouth G Janelle - 24HR daily 4 Cotton, 10/27/2017 3 M.D. . 9 0 1 Ra Cetirizine 05/20/2016 Hx Tablets 10mg 90tabs 1 by mouth Christy - daily [place], 06/10/2017 M.D. Omeprazole 04/11/[address] 20mg 120tabs 1 by mouth Christy - twice a day [place], 05/02/2016 M.D. Coreg 03/08/2016 Hx Tablets 6.25m 60tabs 1 tablet by I Monique - g mouth twice a 1 [place], 05/02/2016 day 0 M.D. Prilosec 02/28/[address] 20mg 90caps 1 by mouth Christy - twice a day Pietro, 04/11/2016 M.D. Ranitidine 150 02/28/2016 Hx Tablets 150mg 60tabs 1 po at Noon Christy Maximum Strength - (not taking) Pietro, 09/11/2016 M.D. Amlodipine 02/28/2016 Hx Tablets 10mg 90tabs 1 by mouth I Christy Besylate - every day ( has 1 Pietro, 08/02/2016 continue taking 0 M.D. since Rx [...] Tablets 325(6 180tabs take 1 tablet Star ELara - 5Fe) by mouth twice Elo, 12/09/2016 mg [...] 1-2 tab at Christy - night for [place]brook, 05/31/2015 muscle spasms M.D. Cetirizine HCL 11/11/2014 Hx Chewtabs 10mg 90units 1 by mouth Christy - daily prn [place], 11/11/2014 M.D. Cyclobenzaprine 11/11/2014 Hx Tablets 5mg 10tabs take one tablet Christy HCL - by mouth at [place], 05/31/2015 night for M.D. spasms Crystal Allergy 11/11/2014 Hx Tablets 180mg 30tabs 1 by mouth J Christy - every day for 3 , 10/11/2015 allergies 0 M.D. . 9 Ra Vitamin D-3 10/10/2014 Hx Tablets 1000U 90tabs 1 by mouth Christy - nit every day otc [place], 12/22/2015 M.D. Prochlorperazine 08/11/2014 Hx Tablets 5mg 30tabs 1 tab every 8 Christy Maleate - hrs as needed [place], 11/11/2014 M.D. Aspirin 08/09/2014 Hx Chewtabs 81mg 1 by mouth Christy - every day [place], 10/12/2015 M.D. Ibuprofen 08/09/2014 Hx Tablets 600mg 30tabs 1 tab by mouth 7 Christy - as needed for 8 [place], 05/31/2015 severe 4 M.D. headaches . 0 [...] 7 Christy Succinate - onset of the , 10/11/2015 headache , can 4 M.D. [...] 90tabs once a day Christy - cg [place], 11/11/2014 M.D. Ferrous Gluconate 07/15/2014 Hx Tablets 324(3 60tabs 1 by mouth Christy - 8Fe) twice a day 12/22/2015 mg M.D. Lunesta 07/13/2014 Hx Tablets 2mg 2 mg by mouth Christy - at bedtime as 12/31/2016 needed M.D. Atorvastatin 07/13/2014 Hx Tablets 10mg 90tabs 1 by mouth E Chirsty Calcium - every day 7 [place], 07/21/2015 8 M.D. . 5 Lisinopril 06/22/2014 Hx Tablets 2.5mg 90tabs 2 by mouth 4 Monique - every day 0 [place], 08/02/2014 1 M.D. . 1 Vitamin D 06/10/2014 Hx Capsules 55543 8caps once a week 2 Christy (Ergocalciferol) - Unit 6 [place], 11/11/2014 8 M.D. . 9 Vicodin HP 05/06/2014 Hx Tablets 10-30 60tabs 1 tablet by Janelle - 0mg mouth every 12 Cotton, 11/11/2014 hours as needed M.D. pain Niacin ER 03/30/2013 Hx Tablets ER 500mg 90tabs take 1 tablet Christy (Antihyperlipidemi - every evening. bean Westbrook) 06/21/2014 M.D. Ramipril 03/26/2013 Hx Capsules 10mg 90caps 1 po qd Monique - [place], 11/05/2013 M.D. Simvastatin 10/14/2012 Hx Tablets 10mg [...] 2 Monique - mouth 3 times 5 [place], 03/29/2013 per week 0 M.D. . 6 3 Zetia 04/16/2012 Hx Tablets 10mg 90tabs 1 tab by mouth Monique - every day (on , 07/13/2014 hold as of M.D. 06/28) Ipratropium 04/10/2012 Hx Solution 0.03% 30ml instill 2 4 Naomi Dixon - sprays in each 7 [place], 03/27/2013 nostril twice a 7 M.D., FACP day . 9 Calcium High 04/02/2012 Hx Tablets 600-2 180tabs take 1 tablet Naomi Potency + Vitamin - 00mg- twice a day [place], D 11/05/2013 Unit M.D., FACP Ramipril 02/14/2012 Hx Capsules 5mg 90caps 1 po qd Monique - [place], 03/26/2013 M.D. Lovaza 10/06/2011 Hx Capsules 1gm 180caps take 1 capsule Naomi - twice a day [place], 04/10/2012 M.D., FACP Loperamide HCL 09/24/2011 Hx Capsules 2mg 180caps 2 take by mouth 7 Naomi - capsules prn 8 Alba, 02/19/2012 diarrhea [...] qd Naomi - [place], 05/15/2011 M.D., FACP [place]-3 Fish Oil 09/13/2010 Hx Capsules 1000m 180caps [...] as M.D. Needed Procrit 05/11/2010 Hx Solution 88642 3bottle 1 cc. Naomi - Unit/ s subcutaneously Alba, 06/10/2014 ML every three M.D., FACP weeks. Folic Acid 04/25/2010 Hx Tablets 1mg 90tabs take 1 tablet 1 Christy - times a day. Pietro, 02/27/2016 M.D. Poly-Iron 150 03/26/2010 Hx Capsules 150-2 270caps take 3 capsules Liv Forte - 5-1mg every day Saige, N.P. 08/09/2014 -mcg- mg Boniva 03/09/2010 Hx [...] Hx Tablets 150mg 2tabs once a day Christy Westbrook, 02/22/2016 Robin Cephalexin Hx Capsules 500mg take 1 capsule [...] In The Afternoon Polymyxin B Hx Solution 72909 gtt bid Oltz, Sulfate/Trimethopr - -0.1U Lindsey, im Sulfate 12/09/2016 nit/M L-% Novolog Hx Solution 100Un Unknown - it/ML 06/09/2016 Erythromycin Hx Ointment 5mg/G [facility] , [place], 12/09/2016 times per day Trazodone HCL Hx Tablets 50mg Member, - Piyush, 05/02/2016 Dicyclomine HCL Hx Capsules 10mg Unknown [...] Hx Ointment 250Un Unknown - it/GM 06/09/2016 Furosemide Hx Tablets 20mg 90tabs 1 daily. you Monique - may take an [place], 08/27/2017 extra 20mg up M.D. to 2x week for > than a 3lb weight gain. Gabapentin Hx Capsules 300mg 1 cap po daily Unknown - ( taken along 12/10/2016 with 600mg tablet to make a [id number]) Amphetamine-Dextro Hx Tablets 30mg 2 tabs daily [...] Inj, Administered Injection Chano Alberto Regadenoson, 017 Rolan 0.1 MG Robin, FACBean, FASNC Technetium TC Administered Injection Chano Alberto 99M 017 Nori Gongora M.D., FACC, Per Unit Dose FASNC Up To 40 Millicuries Depomedrol Administered Injection Kita 40MG Kendell Gonsalez M.D. Depomedrol Administered Injection Kita 40MG Kendell Gonsalez M.D. Immunizations CPT Code Status Date Vaccine Lot # [id number] Given 09/12/2016 Tdap - Tetanus/Diptheria/Acellular Pertussis [id number] 09535 Given 12/07/2015 Influenza Virus Vaccine, Quadrivalent, Split [id number] Virus, Im Use 99528 Given 11/16/2014 Influenza Virus Vaccine, Quadrivalent, Split, Preservative Free 34904 Given 07/13/2014 Pneumococcal Conjugate Vaccine 13 Valent For [id number] Intramuscular Use Q2035 Given 01/29/2014 Afluria Vaccine Q2035 Given 12/04/2012 Afluria Vaccine 75719 Given 08/29/2011 Zoster (Zostavax) [id number] Q2035 Given 11/14/2010 Afluria Vaccine [id number] 30133 Given 12/23/2008 Influenza Virus 3Yrs & Over 90838 Given 12/11/2007 Influenza Virus 3Yrs & Over 68379 Given 12/11/2007 Influenza Virus 3Yrs & Over 47626 Given 01/03/2006 Influenza Virus 3Yrs & Over 57851 Given 01/03/2006 Influenza Virus 3Yrs & Over Vital Signs Date Vital Result Comment 11/27/2017 Height 66.5 inches 5'6.50" Weight 137.00 [...] Non- 59.3 >60 Egfr 76.2 >60 10 Iron & Iron Binding Capacity 02/04/2017 Iron 84 g/dL 50-212 Unsaturated Iron Binding 213 g/dL Total Iron Binding Capacity 297 g/dL 250-450 % Iron Saturation 28 % 15-55 Laboratory test finding 02/04/2017 TSH (Thyroid Stim Horm) 1.66 mcIU/mL 0.34-5.60 Ferritin 151.1 ng/mL 11-307 CBC Auto Diff 02/04/2017 White Blood Count [...] 0-2 Nucleated Red Blood Cells % 0 Ua Routine 12/31/2016 Ua Specific Strum 1.000 Ua PH 5 Ua Color YELLOW Ua Appera CLEAR Ua WBC NEG Ua Protein + Ua Glucose NORM Ua Ketones NEG Ua Bilirubin NEG Ua Urobilinogen NEG Ua Nitrite NEG Ua Occult Blood NEG Urine Microalbumin Random 12/31/2016 Ur Microalbumin (mg/L) 293.1 mg/L Urine Creatinine 119.35 mg/dL Urine Microalbumin/Creatinine 245.5 ug/mg High <31 Laboratory test finding 10/29/2016 LDL Cholesterol Direct [...] 08/03/2016 Erythrocyte Sed Rate 14 mm/Hr 0-30 Laboratory test finding 07/26/2016 Ferritin 146.1 ng/mL [...] Egfr Non- 43.1 >60 Egfr 55.4 >60 15 Lipid Profile (Trig/Chol/HDL) 07/26/2016 Triglycerides 98 mg/dL 16 Cholesterol 147 mg/dL 17 HDL Cholesterol 78.4 mg/dL 18 LDL Cholesterol 49 mg/dL 19 Laboratory test finding 07/26/2016 Vitamin B12 505 pg/mL 180-914 20 Protein Electrophoresis 07/26/2016 Total Protein(Pep) 6.4 g/dL 6.3 - 7.9 Albumin 3.6 g/dL 3.4-4.7 Alpha-1 Globulin 0.3 g/dL 0.1-0.3 Alpha-2 Globulin 1.0 g/dL 0.6-1.0 Beta Globulin 0.9 g/dL 0.7-1.2 Gamma Globulin 0.7 g/dL 0.6-1.6 Albumin/Globulin Ratio 1.29 Impression See Comment 21 Iron & Iron Binding Capacity 07/26/2016 Iron 53 g/dL 50-212 Unsaturated Iron Binding 244 g/dL Total Iron Binding Capacity 297 g/dL 250-450 % Iron Saturation 18 % 15-55 Laboratory test finding 07/26/2016 TSH (Thyroid Stim [...] finding 08/29/2011 Hemoglobin A1c 8.4 High 5-7 Liver Function Panel 06/12/2011 Bilirubin Direct 0.2 mg/dL 0.1-0.5 Indirect Bilirubin 0.7 mg/dL 0.3-1.0 76 Lipid Profile (Trig/Chol/HDL) 06/12/2011 Triglyceride 45 mg/dL 40-200 Cholesterol 129 mg/dL Less Than 200 77 High Density Lipoprotein 78 mg/dL High 40-60 78 Cholesterol/HDL Ratio 1.65 AVERAGE 1-4.44 Low Density Lipoprotein 42 mg/dL Less Than 100 79 CBC Auto Diff 06/12/2011 White Blood Count [...] Eosinophils 0.1 0-0.6 Abs Basophils 0 0-0.2 Creatinine Clearance 06/12/2011 Creatinine Random Urine 74.2 mg/dL Creat Clearance 58 mL/min Low 80-125 Hours Of Collection 24 HR 24- Urine Volume Measurement 1700 ML Total Protein 24HR Urine 06/12/2011 Total Protein Random Urine 7 mg/dL Urine Total Protein/24HR 119 MG/24HR High 50-100 Comp Metabolic Panel 06/12/2011 Sodium 129 mmol/L Low 135-145 Potassium 4.2 mmol/L 3.5-5.0 Chloride 98 mmol/L Low 101-111 Co2 (Carbon Dioxide) 24.0 mmol/L 22-32 Anion Gap 7.0 mmol/L 2-11 80 Glucose 365 mg/dL High 70-100 BUN 22 mg/dL 6-24 Creatinine 1.5 mg/dL High 0.50-1.40 One Over Creatinine 0.66 BUN/Creatinine Ratio 14.7 8-20 Calcium 8.9 mg/dL 8.1-9.9 Total Protein 5.6 GM/DL Low 6.2-8.1 Albumin 3.7 GM/DL 3.6-5.4 Globulin 1.9 GM/DL Low 2-4 Albumin/Globulin Ratio 1.9 1-3 Bilirubin Total 0.9 mg/dL 0.4-1.5 81 Alkaline Phosphatase 36 U/L 30-110 Alt (SGPT) 31 U/L 14-54 Ast (Sgot) 41 U/L 12-42 eGFR Non- 36.2 > 60 eGFR 46.5 > 60 82 Laboratory test finding 05/15/2011 Hemoglobin A1c [...] Color YELLOW Yellow Appearance-Urine CLEAR Clear Specific Strum-Ur 1.010 1.010-1.030 Esterase-Urine NEGATIVE Negative Nitrite NEGATIVE Negative Ndsvogtqikfx-Qa-EGD NEGATIVE Negative Protein-Urine NEGATIVE Negative PH-Urine 5.5 [...] [address]: Christy Westbrook MD Acct: [id number] Unit: [id number] AGE: 61 Location: [facility] Re09/12/16 SEX: F Status: REG REF SPEC: [id number] CIARA: 09/12/[address] [facility] [address]: Christy Westbrook MD REQ: [id number] RECD: 09/12/16 STATUS: SOUT _ ORDERED: TP IMAGE ANAL, HPV/Thin Prep COMMENTS: [id number] FINAL DIAGNOSIS Negative for Intraepithelial lesion or [...] Signed (signature on file) MORENO Lucas(ASCP) 09/13 9267 This Pap test was evaluated with the assistance of the [employer] Test Imaging System. Due to cytologic findings at the duct cleaner microscope, comprehensive manual rescreening by a [facility] may be required. The Pap Smear is [...] performed at Main Lab DEPARTMENT OF PATHOLOGY, [address] [place] [address] Venkat Dean M.D. Director [facility] # [id number] 13 The high-risk HPV types detected by [...] 5 Kidney failure <15 (or dialysis) 15 Because ethnic data is not always readily [...] 15-29 5 Kidney failure <15 (or dialysis) 16 Desirable <150 Borderline high 150-199 High 200-499 Very High >500 17 Desirable <200 Borderline high 200-239 High >239 18 Low <40 Desirable: 40-60 High: >60 19 Desirable: <100 mg/dL Near Optimal: 100-129 mg/dL Borderline High: 130-159 mg/dL High: 160-189 mg/dL Very High: >189 mg/dL 20 Normal Range 180 to 914 Indeterminate Range 145 to 180 Deficient Range <145 21 RESULT: No apparent monoclonal protein on serum electrophoresis. Test Performed by: [place] [address] 22 Test Performed by: [place] [address] 23 Because ethnic data is not always [...] 5 Kidney failure <15 (or dialysis) 24 Stem Processing Machine Operator: [id number] 25 Stem Processing Machine Operator: [id number] 26 Stem Processing Machine Operator: [id number] 27 Because ethnic data is not always [...] and in selective patients <6.0%.Please refer to [place] [employer] Diabetic care guidelines for further [...] submitted in 7-14 days. Test Performed by: [place] [address] Escalator Operator: Kayden Camacho II, M.D., Ph.D. 32 Test Performed by: [place] [address] Escalator Operator: Kayden Camacho II, M.D., Ph.D. 33 A negative result does not exclude the diagnosis of autoimmune myasthenia gravis. PDF Report available at: [email or web address] 34 ADDITIONAL INFORMATION This test was developed and its performance characteristics determined by [facility] in a manner consistent with CLIA requirements. This test has not been cleared or approved by the U.S. Food and Drug Administration. 35 REFERENCE VALUE 0-20% (reported as _% loss of AChR) ADDITIONAL INFORMATION This test was developed and its performance characteristics determined by [facility] in a manner consistent with CLIA requirements. This test has not been cleared or approved by the U.S. Food and Drug Administration. 36 ADDITIONAL INFORMATION This test was developed and its performance characteristics determined by [facility] in a manner consistent with CLIA requirements. This test has not been cleared or approved by the U.S. Food and Drug Administration. Test Performed by: [place] [address] Escalator Operator: Kayden Camacho II, M.D., Ph.D. 37 ORDERED 07/13/14 EXPIRES 01/13/15 38 ORDERED 07/13/14 EXPIRES 01/13/15 39 Normal Range 180 to 914 Indeterminate Range 145 to 180 Deficient Range <145 40 Test Performed by: [place] [address] Escalator Operator: Kayden Camacho II, M.D., Ph.D. 41 ORDERED 07/13/14 EXPIRES 01/13/15 42 REFERENCE VALUE <0.1 (Negative) Test Performed by: [place] [address] Escalator Operator: Kayden Camacho II, M.D., Ph.D. 43 REFERENCE VALUE 16.0 - 45.0 Test Performed by: [place] [address] Escalator Operator: Kayden Camacho II, M.D., Ph.D. 44 Stem Processing Machine Operator: MONICA DEL VALLE 45 Stem Processing Machine Operator: MONICA DEL VALLE 46 SEE RESULT BELOW Name: DI CARVALHO : [address]: Joaquín Chand MD Acct: [id number] Unit: [id number] AGE: 59 Location: [facility] Re08/26/14 SEX: F Status: REG REF SPEC: [id number] CIARA: 08/26/14-[address] [facility] [address]: Joaquín Chand MD REQ: [id number] RECD: 08/26/14-1228 STATUS: PHYLLIS ROBLES DR: Christy Westbrook MD _ SOURCE: PORSHA ANTRUM SPDESC: ORDERED: Clotest Procedure Result Verified Site Clotest Final 08/27/14- 928 ML Clotest Negative * ML - MAIN LAB ([facility]) . END OF REPORT * ML=Testing performed at Main Lab DEPARTMENT OF PATHOLOGY, [address] [place] [address] Venkat Dean M.D. Director [facility] # [id number] 47 Stem Processing Machine Operator: [id number] TOMMY CERVANTES 48 SEE RESULT BELOW Name: DI CARVALHO : [address]: Joaquín Chand MD Acct: [id number] Unit: [id number] AGE: 59 Location: [facility] Re08/26/14 SEX: F Status: REG REF SPEC: [id number] CIARA: 08/26/14- SUBM DR: Joaquín Chand MD REQ: [id number] RECD: 08/26/141248 STATUS: CARMELINA ROBLES DR: Christy Westbrook MD [...] performed at Main Lab DEPARTMENT OF PATHOLOGY, [address] [place] [address] Venkat Dean M.D. Director [facility] # [id number] 49 It is recognized that currently available [...] submitted in 7-14 days. Test Performed by: [address] [place] [address] Escalator Operator: Kayden Camacho II, M.D., Ph.D. 51 Desirable [...] and in selective patients <6.0%.Please refer to [place] Diabetes [employer] Diabetic care guidelines for further [...] normal population are 25-80 Test Performed by: [place] [id number] Escalator Operator: José Luis Moralez III, M.D. 67 Test Performed by: [place] [address] Escalator Operator: José Luis Moralez III, M.D. 68 Because [...] has been shown to interfere with the Jendrassik-[place] method for measuring total bilirubin. Samples from [...] 60 MG/DL 73 ---- RUN DATE: 11/07/11 [facility] NMI LIVE PAGE 1 RUN TIME: 1450 Specimen Inquiry RUN USER: INTERFACE -- Name: TRESDI Oskar Accvirginie#: [id number] Status: REG REF Re11/06/11 Age/Sex: 56/F Unit#: [id number] Location: [place] : 59 -- Specimen: [id number] SOUT Spec Date:11/06/11- Sarah Dr: Joaquín lo MD Spec Type: SURGICAL P Received:11/06/11-8124 Copies to: Naomi Willis MD SPECIMEN RANDOM [...] colitis. Signed Electronically by: STEVEN GOODE 11/07/11 0100 -- -- DEPARTMENT OF PATHOLOGY, [address] [place] [address] [facility] Permit #[id number] Venkat Dean M.D. Director Steven Goode M.D. Assembler Production Line cheo -- 74 RUN DATE: 10/08/11 [facility] NMI LIVE PAGE 1 RUN TIME: 1157 Specimen Inquiry RUN USER: INTERFACE Name: DI CARVALHO Status: REG REF Re10/06/11 Age/Sex: 56/F Unit#: [id number] Location: [facility] : 59 SPEC #: [id number] CIARA: 10/05/11 STATUS: COMP REQ #: [id number] RECD: 10/06/[address]: Naomi Willis MD SOURCE: STOOL ENTR: 10/06/[address]: Doreen Lopez SPDESC: Jagruti QUINN,Joaquín Morales ORDERED: STOOL CULTURE, C. DIFF AMP DNA, STL LACTOFERRIN QUERIES: MEDENT MEDICAL RECORD # MEDENT REQUISITION # [id number] ACT WKST: B 10/08/11 #1 Procedure Result [...] Final 10/06/11- 1448 ML DEPARTMENT OF PATHOLOGY, [address] [place] [address] [facility] Permit #[id number] Robin Samson M.D. It Service Manager RUN DATE: 10/08/11 [facility] NMI LIVE PAGE 2 RUN TIME: 1157 Specimen Inquiry RUN USER: INTERFACE Name: DI CARVALHO Accvirginie#: [id number] Status: REG REF Re10/06/11 Age/Sex: 56/F Unit#: [id number] Location: [facility] : 59 -- -- CONTINU ED Procedure Result Verified Site FECAL LACTOFERRIN (STOOL WBC) Final (continued) 10/06/11- 1448 FECAL LACTOFERRIN NEGATIVE BY IMMUNOASSAY TEST LIMITATIONS: Assay detects elevated levels of lactoferrin released from fecal leukocytes as a marker of intestinal inflammation. The test may not be appropriate in immunocompromised persons. Fecal samples from breast fed infants should not be used with this assay. [facility] Permit #[id number] [address] [place] [address] DEPARTMENT OF PATHOLOGY, [address] [place] [address] [facility] Permit #[id number] Venkat Dean M.D. Director Steven Goode M.D. It Service Manager 75 MICROALBUMINURIA IN A RANDOM SAMPLE IS DEFINED : MICROALBUMIN/CREATININE RATIO OF 30-299 ug/mg. . 76 Please note updated reference range, effective 09/22/09 77 CHOLESTEROL INTERPRETATION: Desirable: Less than 200 MG/DL Borderline-High Risk: 200-239 MG/DL High-Risk: 240 MG/DL and over 78 HDL INTERPRETATION: Undesirable: High Risk: Less than 40 MG/DL Desirable: Low Risk: Greater than 60 MG/DL 79 LDL INTERPRETATION: Low Risk Optimal Level: LDL Less than 100 MG/DL Near or Above Optimal: LDL 100-129 MG/DL Borderline High Risk: LDL 130-159 MG/DL High Risk: LDL 160-189 MG/DL Very High Risk: LDL Greater than 189 MG/DL 80 Anion gap measurement may be of limited value in the presence of any alkalosis, especially in a combined acid base disorder. . 81 A metabolite of Naproxen, O-desmethylnaproxen, has been shown to interfere with the Guy- method for measuring total bilirubin. Samples from patients who have taken Naproxen have shown spurious elevation in total bilirubin levels. 82 Because ethnic data is not always readily [...] 15-29 5 Kidney failure <15 (or dialysis) 83 Anion gap measurement may be of [...] 0.06 ng/mL NOT SUPPORTIVE OF DIAGNOSIS OF SD 0.06 - 0.50 ng/ml INDETERMINATE: SUGGEST SERIAL STUDIES IF CLINICALLY INDICATED. Greater than 0.5 ng/mL CONSISTENT WITH DIAGNOSIS OF SD . 96 Lymphopenia % [address] ANGELIKA SEPULVEDA AT FAX NUMBER [phone] CHOLESTEROL INTERPRETATION: Desirable: Less than 200 [...] has been shown to interfere with the [place] method for measuring total bilirubin. Samples from [...] Procedures Date CPT Code Description Status Comment 09/25/2017 Diabetic Foot Exam Completed 03/01/2017 64500 ECHO Transthoracic, Real-Time 2D Completed With Doppler And Color Flow 03/01/2017 83402 ECHO Transthoracic, Real-Time 2D Completed With Doppler And Color Flow 02/12/2017 89380 Stress Test Completed 02/12/2017 06911 Myocardial Perfusion Imaging Completed Tomographic (Spect) Multiple Studies 02/06/2017 62435 Destruction Of Benign Lesions Completed Any Method 1-14 lesions 01/28/2017 Mammogram Completed 01/28/2017 Bone Mineral Density Test Completed 01/11/2017 Diabetic Retinal Eye Exam Completed Document: 01/11/17 - Consult Ophthalmology/Dick 01/09/2017 69412 Inject Tendon Sheath Or Ligament Completed Aponeurosis Eg Plantar Fascia 01/09/2017 32467 Inject Tendon Sheath Or Ligament Completed Aponeurosis Eg Plantar Fascia 01/01/2017 27761 EKG Tracing & Interpretation Completed 12/11/2016 55057 Nerve Conduction 07-08 Studies Completed 10/04/2016 04644 Carotid Doppler,Bilateral Completed 09/13/2016 95468 EKG Tracing & Interpretation Completed 08/22/2016 29567 Destruction Of Benign Lesions Completed Any Method 1-14 lesions 08/22/2016 47409 Destruction ALL Benign Or Completed Premalignant Lesion (Other Than [place] 07/26/2016 77239 Removal Devitalization Tissue Completed Wound Less Than Equal 20 Square CM 07/11/2016 55000 Moderate Sedation Services; Same Completed Phys Each Additional 15 Mins 07/11/2016 82782 Moderate Sedation Services; Same Completed Phys Intl 15 Mins; PT >=5 Years 07/11/2016 87908 Pitye-Uualigrlo-Rjszqyhicw Completed 07/11/2016 38674 Revascularization,Endovascular Completed W/Transluminal Angioplasty 07/11/2016 64077 Revascularization,Endovascular Completed W/Atherectomy, Inc Angioplasty 03/13/2016 98387 Mobile Cardiovascular Telemetry Completed Over 24 HR Up To 30 Days 03/08/2016 56807 EKG Tracing & Interpretation Completed 02/09/2015 17675 Polysomnography Sleep Staging 4+ Completed Parameters 09/10/2014 Diabetic Retinal Eye Exam Completed 07/06/2014 60164 EEG Recording Awake & Drowsy Completed 06/22/2014 18254 EKG Tracing & Interpretation Completed 12/23/2012 59792 Extremity Studies-Bilateral Completed 11/11/2012 09109 EKG Tracing & Interpretation Completed 04/10/2012 02551 EKG Tracing & Interpretation Completed 11/06/2011 Colonoscopy Completed 08/29/2011 31155 EKG Tracing & Interpretation Completed 01/06/2009 Mammogram Completed 12/23/2008 87629 EKG Tracing & Interpretation Completed 01/09/2007 16958 Destruction Of Benign Lesions Completed Any Method 1-14 lesions 01/09/2007 18636 Destruction Of Benign Lesions Completed Any Method 1-14 lesions 06/11/2006 45996 Destruction Of Benign Lesions Completed Any Method 1-14 lesions 06/12/2005 Bone Mineral Density Test Completed Encounters Type Date Location Provider CPT E/M Dx Office Visit 08/16/2017 [facility] Blaze Salvador M.D. 15579 I25.10 1:10p [facility] I70.235 E10.8 R60.0 E78.2 I10 Office Visit 08/02/2017 2:00p [facility] Internal Medicine Janelle Farrell 03726 E10.40 - Funmilayo Kelly R07.89 R32 Office Visit 05/30/2017 1:00p [facility] Of Corinne Mary AnneLara Rae, 47147 I70.235 [facility] N.PLara E78.2 I10 Office Visit 05/22/2017 3:30p [facility] [address] F80.1 R41.89 Office Visit 05/13/2017 2:00p [facility] [address] G43.719 E10.40 R26.81 R41.89 Office Visit 04/15/2017 1:50p [facility] Of Monique Salvador M.D. 60312 I70.235 [facility] R05 R19.7 R68.2 E78.2 Office Visit 04/04/2017 1:20p [facility] Of Arley CejaLara Chi, 53445 I70.235 [facility] AT [facility] MD, FACC, FSCAI Office Visit 03/11/2017 1:00p [facility] Avis German, 58465 D64.9 Of [facility] Director ELSA Singletary M.D. R13.10 R11.0 G62.9 E11.622 R53.83 Office Visit 02/28/2017 1:00p [facility] Loretta Prince DNP, [address] [facility] RN, WAFER ABRADING MACHINE TENDER-BC L97.511 L84 Office Visit 02/18/2017 2:20p [facility] Internal Janelle Farrell 74204 M85.852 Medicine - Funmilayo Kelly R53.83 Office Visit 02/06/2017 2:20p [facility] [place] [address] L85.3 L97.519 B07.8 L53.8 Z78.9 Office Visit 01/21/2017 1:20p [facility] Of [facility] Arley Laguna [address] [facility] MD Alon, FAC, [facility] Office Visit 01/16/2017 2:00p [facility] [address] G43.719 E10.40 R13.13 Office Visit 01/09/2017 1:00p [facility] Kita Gonsalez, 23475 M65.331 Of Nitin Kelly M65.332 Office Visit 01/01/2017 1:15p [facility] Of Monique Salvador M.D. 71313 I25.10 [facility] I70.235 E78.2 Z91.81 R42 E08.40 R06.02 Office Visit 12/31/2016 1:00p [facility] Internal Medicine Janelle Farrell 24710 E10.65 Funmilayo Kelly F41.9 N39.41 M65.331 M54.9 Z12.31 M81.0 Office Visit 12/27/2016 1:30p [facility] Javid Henderson, 08911 E10.621 [facility] L97.511 I70.235 E78.2 I10 F17.211 E10.36 E10.40 E10.51 Office Visit 12/10/2016 1:20p [facility] Of Arley Chi, 17577 I70.[address] [facility] [address] [facility] , FAC, [facility] Office Visit 11/19/2016 1:20p [facility] Avis German, 57823 D64.9 Of [facility] ELSA Singletary M.D. Office Visit 11/02/2016 2:00p [facility] Of LINDSAY Harris 28385 E78.2 [facility] I70.235 R42 I10 Office Visit 11/01/2016 12:30p [facility] Javid Hendesron, 68836 E10.621 [facility] L97.511 I70.235 E78.2 I10 F17.211 E10.36 E10.40 E10.51 Office Visit 10/11/2016 1:15p [facility] Javid Henderson, 57302 E10.621 [facility] L97.511 I70.235 E78.2 I10 F17.211 E10.36 E10.40 E10.51 Office Visit 10/01/2016 1:45p [facility] Of Arley Chi, 80543 I70.235 [facility] Director AT [facility] , [place], [facility] Office Visit 09/27/2016 1:15p [facility] AT Javid Henderson, [address] [facility] Robin L97.511 I70.235 E78.2 I10 F17.211 E10.36 E10.40 E10.51 Office Visit 09/14/2016 1:00p [facility] [place] [address] G44.201 Services Of [facility] R13.13 E11.42 Office Visit 09/13/2016 3:00p [facility] Of [facility] LINDSAY Harris 62210 R42 I73.9 I25.10 I10 Office Visit 09/06/2016 1:15p [facility] Javid Henderson, [address] [facility] Robin L97.511 I70.235 E78.2 I10 F17.211 E10.36 E10.40 E10.51 Office Visit 09/06/2016 2:40p [facility] Of Arley Chi, 65319 I70.249 [facility] Director AT [facility] [place], [facility] Office Visit 09/03/2016 2:20p [facility] Of Arley Chi, 10409 I70.249 [facility] Director AT [facility] [place], [facility] Office Visit 08/23/2016 12:30p [facility] AT Javid Henderson, [address] [facility] Robin L97.511 I70.235 E78.2 I10 F17.211 E10.36 E10.40 E10.51 Office Visit 08/10/2016 12:30p [facility] Loretta Prince DNP, [address] [facility] RN, WAFER ABRADING MACHINE TENDER-BC L97.511 I70.235 E78.2 I10 F17.211 E10.36 E10.40 E10.51 D53.9 Office Visit 08/09/2016 2:40p [facility] Of Arley Chi, 80222 I73.9 [facility] Director AT [facility], [facility] Office Visit 08/03/2016 12:30p [facility] AT Loretta Prince, [address] [facility] SAGE, RN, [facility] L97.511 I70.235 E78.2 I10 F17.211 E10.36 E10.40 E10.51 Office Visit 08/02/2016 2:30p [facility] Of Monique Salvador M.D. 26193 I25.10 [facility] Director I10 I73.9 E78.2 R60.0 E10.40 I49.3 I47.1 Office Visit 07/26/2016 2:40p [facility] Of Arley Chi, 11532 L97.511 [facility] Director AT [facility], [facility] Office Visit 07/19/2016 4:32p [facility] AT Javid Henderson, [address] [facility] Robin L97.511 Office Visit 07/19/2016 2:15p [facility] Of Arley Chi, 08773 I73.9 [facility] Director AT [facility], [facility] N18.3 Office Visit 07/09/2016 1:40p [facility] Of Arley Chi, 08521 E10.621 [facility] Director AT [facility], [facility] N18.3 I73.9 Office Visit 07/05/2016 2:40p [facility] Loretta Prince DNP, [address] [facility] RN, [facility] E10.621 I70.235 Office Visit 06/28/2016 12:57p [facility] Javid Henderson, [address] [facility] Robin E10.621 Office Visit 06/14/2016 1:50p [facility] Javid Henderson [address] [facility] MBharathi Office Visit 06/06/2016 3:00p [place] [place] [address] [facility] L97.511 E78.2 I10 F17.211 E10.36 E10.40 E10.51 Office Visit 05/29/2016 2:39p [facility] Javid Henderson, [address] [facility] Robin L97.511 Office Visit 05/22/2016 11:00a [facility] Javid Henderson, [address] [facility] Robin L97.511 Office Visit 05/14/2016 2:30p [facility] [address] G44.201 Services Of [facility] R13.13 E10.9 Office Visit 03/28/2016 1:40p [facility] Internal Medicine - Christy Westbrook M.D. 52034 I10 [place] Z12.31 R13.12 Office Visit 03/08/2016 1:00p [facility] Of Monique Salvador M.D. 71119 I25.10 [facility] R00.2 I10 E10.8 E78.2 Office Visit 02/28/2016 11:50a [facility] Internal Medicine Karl Westbrook M.D. 50672 I10 [place] Z79.899 R00.2 Z91.14 Office Visit 12/22/2015 10:50a [facility] Internal Medicine Christy Westbrook M.D. 05085 R11.0 - Marley R53.83 R40.0 Z79.899 Office Visit 12/07/2015 12:10p [facility] Internal Medicine Christy Westbrook 77677 R13.13 - Marley Kelly G44.201 D64.9 R68.2 Office Visit 12/05/2015 11:30a [facility] [address] G43.901 Services Of [facility] R13.13 R53.83 R68.2 Office Visit 10/12/2015 11:00a [place] [address] G43.901 Services Of [facility] Office Visit 05/31/2015 11:50a [facility] Internal Medicine Christy Westbrook 78750 G44.201 - Funmilayo Kelly Office Visit 01/17/2015 1:00p [facility] Jennifer Ochoa, 51001 F41.9 Services Of [place] Kelly F33.9 G44.201 Office Visit 12/06/2014 2:45p [facility] Of Monique Salvador M.D. 03724 I25.10 [facility] E78.5 Office Visit 11/29/2014 10:00a [facility] Jennifer Ochoa M.D. 74011 F41.9 Services Of [facility] F33.9 G44.201 R25.1 Office Visit 11/11/2014 2:30p [facility] Internal Medicine Christy Westbrook, 35067 346.92 - Clydesimon Kelly 477.9 847.0 Office Visit 09/02/2014 1:15p Pulmonology And Sleep Van Valadez, 21048 780.53 Services Of [facility] M.DLara Office Visit 08/09/2014 10:30a [facility] Internal Medicine - Christy Westbrook, 34709 784.0 Funmilayo Kelly 787.02 Office Visit 07/13/2014 2:10p [facility] Internal Medicine Christy Westbrook 16874 780.54 - Funmilayo Kelly 272.4 781.0 V03.82 780.79 571.8 401.1 Office Visit 06/22/2014 2:30p [facility] Monique Salvador M.D. 13685 412 272.4 401.1 780.79 Office Visit 06/10/2014 1:50p [facility] Internal Medicine Christy Westbrook M.D. 68558 780.2 - Clyde 780.79 790.6 268.9 Office Visit 03/17/2014 1:00p [facility] Internal Medicine Liv Moulton N.P. 86180 780.79 - [place] 250.00 Office Visit 11/06/2013 2:15p [facility] Monique Salvador M.D. 08103 401.9 [facility] 412 783.21 272.0 780.94 Office Visit 03/30/2013 2:00p [facility] [place] [address] 401.9 Office Visit 11/11/2012 2:00p [facility] Monique Salvador M.D. 93296 412 401.9 272.0 250.01 Office Visit 10/07/2012 1:20p [facility] Internal Medicine Naomi Willis M.D., 44026 250.43 - [place] FACP 300.00 Office Visit 04/10/2012 2:00p [facility] Internal Medicine - Naomi Willis M.D., 73085 365.9 [place] FACP 250.43 414.01 V72.84 477.9 Office Visit 02/19/2012 10:40a [facility] Internal Medicine Naomi Willis M.D., 57323 250.43 - [place]de FACP 783.21 787.91 Office Visit 02/12/2012 12:45p [facility] Of Monique Salvador M.D. 07164 780.79 [facility] Director 780.4 414.01 272.0 Office Visit 09/24/2011 12:00p [facility] Internal Medicine Naomi Willis M.D., 14181 787.91 - [place]de FACP 250.43 250.63 Office Visit 08/29/2011 9:20a [facility] Internal Medicine Naomi Willis M.D., 49278 V04.89 - [place] FACP V72.84 371.03 053.21 250.43 Office Visit 05/15/2011 11:00a [facility] Internal Medicine Naomi Willis M.D., 03235 250.00 - [place] FACP 564.5 Office Visit 11/14/2010 11:20a DO Not Use [facility] Director-[place] Naomi Willis, 25285 250.63 M.D., FACP v04.81 Office Visit 09/13/2010 11:00a DO Not Use [facility] Director[facility] Naomi Willis, 12807 250.63 M.D., FACP Office Visit 12/23/2008 11:45a DO Not Use [facility] Director[facility] Naomi Willis, 76760 V72.84 M.D., FACP 250.01 780.79 V04.81 Office Visit 06/15/2008 4:15p DO Not Use Patria Pang, 00712 709.9 [facility] Director-[place] M.D. Office Visit 06/08/2008 11:30a DO Not Use Naomi Willis M.D., 92818 250.02 [facility] Director-[place] FACP 053.9 Office Visit 04/30/2008 3:00p DO Not Use [facility] Director[facility] Naomi Willis 98802 289.3 M.D., FACP Office Visit 04/29/2008 1:30p DO Not Use [facility] Naomi Willis 45815 250.01 M.D., FACP 285.9 524.60 Office Visit 03/08/2008 4:15p DO Not Use [facility] Director[facility] Liv Moulton, 08058 382.9 N.P. 696.1 461.9 757.39 Office Visit 02/12/2008 12:15p DO Not Use [facility] Director[facility] Naomipiyush Willis, 53560 682.6 M.D., FACP 787.01 Office Visit 01/12/2008 11:30a DO Not Use [facility] Naomipiyush Willis, 25565 690.11 M.D., FACP 250.01 365.9 Office Visit 2008 2:15p DO Not Use [facility] Director[facility] Naomipiyush Willis, 50278 368.10 M.D., FACP 250.01 Office Visit 12/11/2007 11:00a DO Not Use [facility] Director[facility] Naomipiyush Willis, 05542 780.97 M.D., FACP 250.00 V04.81 Office Visit 12/02/2007 11:15a DO Not Use [facility] Director[facility] Namoi Willis, 38956 414.00 M.D., FACP 250.01 Office Visit 11/26/2007 2:15p DO Not Use [facility] Director[facility] Liv Moulton, 26915 053.9 N.P. 386.11 Office Visit 07/17/2007 2:15p DO Not Use Naomi Willis M.D., 94425 558.9 [facility] Director-[place] FACP Office Visit 05/27/2007 2:15p Neurosurgery Services Ion Watters, 67380 355.9 Of [facility] Director M.D. Office Visit 03/21/2007 1:45p DO Not Use Liv Moulton, 59276 V72.31 [facility] Director-[place] N.P. 272.1 250.01 Office Visit 01/09/2007 11:45a DO Not Use [facility] Naomipiyush Willis, 55523 250.01 M.D., FACP 401.1 715.90 078.10 Office Visit 11/21/2006 10:45a DO Not Use [facility] Naomi Alba, 93067 250.03 M.D., FACP 782.3 Office Visit 06/11/2006 2:45p DO Not Use [facility] Naomi Alba, 56146 078.10 M.D., FACP 250.63 719.46 Office Visit 05/07/2006 1:00p DO Not Use [facility] Director[facility] Naomi Alba, 01761 250.01 M.D., FACP 285.9 272.0 593.9 Office Visit 03/26/2006 1:30p DO Not Use [facility] Director[facility] Naomi Alba, 54236 250.63 M.D., FACP Office Visit 02/12/2006 1:00p DO Not Use [facility] Director[facility] Naomi Alba, 35116 250.63 M.D., FACP 784.0 593.9 Office Visit 01/03/2006 3:45p DO Not Use [facility] Director[facility] Naomi Alba, 57517 250.63 M.D., FACP 724.3 V04.81 Office Visit 09/28/2005 1:15p DO Not Use [facility] Director[facility] Naomi Alba, 46934 250.03 M.D., FACP 285.9 Plan of Care Future Appointment(s):12/23/2017 2:10 pm - Monique Salvador M.D. at [facility]09/29/2018 1:20 pm - Janelle Farrell M.D. at [facility] Internal Medicine [facility]03/31/2018 2:20 pm - Janelle Farrell M.D. at [facility] Internal Medicine [facility]12/09/2017 2:15 pm - Matt Saenz M.D. at [facility]11/27/2017 - Mateo Mancia M.D.I70.211 [facility] alan, right legComments:The following was discussed with Mrs. Carvalho at the time of consultation:It is unclear to me why chose to come to the interventional radiology clinic 6 days after angiography and right SFA angioplasty with Dr. Miles at [facility]. She reports having less right leg pain since the procedure and it appears that her distal lower leg and feet wounds have healed.I advised thepatient to follow-up with Dr. Miles per his protocol. We called his clinic and according to his child and youth program assistant she is scheduled for a clinic appointment at 1200 hrs. on Wednesday, November 29, 2017.
[2018-01-03 17:40] LABS: ABS Basophils 0 10^3/ul (0-0.2); ABS Eosinophils 0 10^3/ul (0-0.6); ABS Lymphocytes 1.3 10^3/ul (1.0-4.8); ABS Monocytes 0.5 10^3/ul (0-0.8); ABS Neutrophils 6.7 10^3/ul (1.5-7.7); ABS Nucleated RBC 0 10^3/ul; Eosinophil % 0.3 % (0-6); Hematocrit 33 % (35-47); Hemoglobin 10.9 g/dl (12.0-16.0); Mean Corpuscular HGB Conc 33 g/dl (31-36); Mean Corpuscular Hemoglobin 31 pg (27-31); Mean Corpuscular Volume 94 fL (80-97); Mean Platelet Volume 7.4 fL (7.4-10.4); Nucleated Red Blood Cells % 0; Platelet Count 272 10^3/ul (150-450); Red Blood Count 3.47 10^6/ul (4.00-5.40); Red Cell Distribution Width 13 % (10.5-15); White Blood Count 8.5 10^3/ul (3.5-10.8)
[2018-01-03 17:50] LABS: EGFR Non-African American 40.6 (>60)
[2018-01-03 17:57] LABS: INR 0.84 (0.77-1.02)
--- NOTE | 2018-01-03 18:21 | ED ---
Lower Extremity - HPI Summary HPI Summary: Patient is a 63 y/o F w/ c/o right leg numbness and sore on left great toe. She states numbness onset last night. Patient reports that she had recent angiogram and balloon at her right leg behind the knee. She states pain is better when moving around, worse when staying still. On triage, pain is rated 7/10, nothing is noted to aggravate/alleviate Sx. Home medications and allergies are reviewed. - History of Current Complaint Chief Complaint: EDExtremityLower Stated Complaint: RT LEG PAIN Time Seen by Provider: 01/03/18 16:54 Hx Obtained From: Patient Hx Last Menstrual Period: menapause Mechanism Of Injury: Other - no mechanism of injury Onset of Pain: Days - numbness onset last night, Prior to Arrival Onset/Duration: Days Pain Intensity: 7 Pain Scale Used: 0-10 Numeric - 7/10 Timing: Constant Location: Is Discrete @ - RLE numbness, left great toe sore Associated Signs And Symptoms: Positive: Other - RLE numbness, great left toe sore Aggravating Factor(s): Other - staying still Alleviating Factor(s): Other - movement - Allergies/Home Medications Allergies/Adverse Reactions: Allergies Allergy/AdvReac Type Severity Reaction Status Date / Time [id number] Reductase Allergy Muscle Ache Verified 01/03/18 13:22 Inhibitor rosuvastatin [From Crestor] AdvReac Muscle Ache Verified 10/31/17 13:36 PMH/Surg Hx/FS Hx/Imm Hx Endocrine/Hematology History: Reports: Hx Diabetes - TYPE 1, Hx Thyroid Disease , Hx Anemia Cardiovascular History: Reports: Hx Hypertension Denies: Hx Pacemaker/ICD Respiratory History: Reports: Hx Sleep Apnea Denies: Hx Asthma GI History: Reports: Hx Gastroesophageal Reflux Disease History: Reports: Hx Chronic Renal Failure, Hx Renal Disease Musculoskeletal History: Reports: Hx Arthritis, Hx Back Problems, Hx Osteoporosis Sensory History: Reports: Hx Cataracts, Hx Glaucoma, Hx Vision Problem Denies: Hx Hearing Aid Opthamlomology History: Reports: Hx Cataracts, Hx Glaucoma, Hx Vision Problem Neurological History: Reports: Hx Migraine Psychiatric History: Reports: Hx Anxiety, Hx Depression Denies: Hx Panic Disorder - Cancer History Hx Chemotherapy: No Hx Radiation Therapy: No - Surgical History Surgery Procedure, Year, and Place: RIGHT EYE CORNEA TRANSPLANT;. BILAT CARPAL TUNNEL;. BILAT TRIGGER RELEASE;. HEART CATH (NO STENTS);. ;. RIGHT EYE CATARACT;. MINI - MED INSULIN PUMP. *DEXCOM SYSTEM PLACED. PT WILL TAKE ALL PARTS INCLUDING UNDER SKIN PIECE FOR MRI. PT CHANGES IT OUT EVERY 7 DAYS* Infectious Disease History: No Infectious Disease History: Reports: Hx Shingles - currently in cornea transplant Denies: Hx Clostridium Difficile, Hx of Known/Suspected MRSA, Hx Tuberculosis , Hx Known/Suspected VRSA, Traveled Outside the [place] in Last 30 Days - Family History Known Family History: Positive: Diabetes - Social History Alcohol Use: None Substance Use Type: Reports: None Substance Use Comment - Amount & Last Used: currently using vicoden Smoking Status (MU): Former Smoker Have You Smoked in the Last Year: No Review of Systems Negative: Fever - on vitals, temp is 99.3 F Positive: Other - sore at left great toe Positive: Numbness - RLE All Other Systems Reviewed And Are Negative: Yes Physical Exam - Summary Physical Exam Summary: Appearance: dishevelled, no pain distress; insulin pump on right ankle Skin: warm, dry, reflects adequate perfusion; both feet are warm and pink, hard calculus on dorsum of left great toe Head/face: normal Eyes: EOMI, NELLY ENT: mucous membranes moist Neck: supple, non-tender Respiratory: CTA, breath sounds present Cardiovascular: RRR, pulses symmetrical Abdomen: non-tender, soft Bowel Sounds: present Musculoskeletal: strength/ROM intact; 2+ dorsal pedis pulse at left foot, 1+ at right foot. Neuro: normal, sensory motor intact, A&Ox3 Triage Information Reviewed: Yes Vital Signs On Initial Exam: Initial Vitals Temp Pulse Resp BP Pulse Ox 99.3 F 81 16 154/77 98 01/03/18 13:21 01/03/18 13:21 01/03/18 13:21 01/03/18 13:21 01/03/18 13:21 Vital Signs Reviewed: Yes Diagnostics - Vital Signs Vital Signs Temp Pulse Resp BP Pulse Ox 01/03/18 13:21 99.3 F 81 16 154/77 98 - Laboratory Lab Results: Lab Results 01/03/18 01/03/18 01/03/18 Range/Units 17:28 17:28 17:28 WBC 8.5 (3.5-10.8) 10^3/ul RBC 3.47 L (4.00-5.40) 10^6/ul Hgb 10.9 L (12.0-16.0) g/dl Hct 33 L (35-47) % MCV 94 (80-97) fL MCH 31 (27-31) pg MCHC 33 (31-36) g/dl RDW 13 (10.5-15) % Plt Count 272 (150-450) 10^3/ul MPV 7.4 (7.4-10.4) fL Neut % (Auto) 78.4 (38-83) % Lymph % (Auto) 15.0 L (25-47) % Alfalfa % (Auto) 5.8 (0-7) % Eos % (Auto) 0.3 (0-6) % Baso % (Auto) 0.5 (0-2) % Absolute Neuts (auto) 6.7 (1.5-7.7) 10^3/ul Absolute Lymphs (auto) 1.3 (1.0-4.8) 10^3/ul Absolute Monos (auto) 0.5 (0-0.8) 10^3/ul Absolute Eos (auto) 0 (0-0.6) 10^3/ul Absolute Basos (auto) 0 (0-0.2) 10^3/ul Absolute Nucleated RBC 0 10^3/ul Nucleated RBC % 0 INR (Anticoag Therapy) 0.84 (0.77-1.02) APTT 29.2 (26.0-36.3) seconds Sodium 134 L (135-145) mmol/L Potassium 4.2 (3.5-5.0) mmol/L Chloride 100 L (101-111) mmol/L Carbon Dioxide 29 (22-32) mmol/L Anion Gap 5 (2-11) mmol/L BUN 25 H (6-24) mg/dL Creatinine 1.33 H (0.51-0.95) mg/dL Est GFR ( Amer) 49.1 (>60) Est GFR (Non-Af Amer) 40.6 (>60) BUN/Creatinine Ratio 18.8 (8-20) Glucose 300 H (70-100) mg/dL Calcium 8.9 (8.6-10.3) mg/dL Result Diagrams: 01/03/18 17:28 01/03/18 17:28 Lab Statement: Any lab studies that have been ordered have been reviewed, and results considered in the medical decision making process. Re-Evaluation - Re-Evaluation First Eval Re-Evaluation Time: 18:00 Change: Improved Comment: Patient has good pulses, she will be discharged Lower Extremity Course/Dx - Course Course Of Treatment: Patient with long-standing severe peripheral artery disease who presents with a variety of symptoms in both legs. She has readily palpable and dopplerable pulses in her feet which are both pink and warm. She has a callus on her great toe that may be a developing wound on the left. She was demanding an angiogram with runoff however this does not seem inappropriate this time. She does not appear to have acute worsening. I discussed the case with Dr. Mancia from interventional radiology who is familiar with the patient and he agrees -- patient will follow-up with her vascular surgeon on Saturday as scheduled. There is no pain or claudication symptoms when the patient is walking about the ER. She was informed of her blood sugar of 300 and will make changes to her insulin pump. - Diagnoses Differential Diagnosis/HQI/PQRI: Positive: Other - Acute arterial occlusion, cervical stenosis, chronic peripheral artery disease Provider Diagnoses: Peripheral arterial disease, Hyperglycemia, Diabetic ulcer of left great toe - Physician Notifications Discussed Care Of Patient With: Mateo Mancia Time Discussed With Above Provider: 17:40 Instructed by Provider To: Other - [id number] - Discussed patient's case with Dr. Mancia, he states patient can be discharged and keep her appointment with vascular surgeon next week Discharge - Sign-Out/Discharge Documenting (check all that apply): Patient Departure - discharge - Discharge Plan Condition: Improved Disposition: HOME Patient Education Materials: Peripheral Artery Disease (ED), Diabetic Hyperglycemia (ED) Referrals: Janelle Farrell MD [Primary Care Provider] - Additional Instructions: Follow-up with vascular surgery on Saturday as scheduled. Call on Saturday if you desire a sooner appointment. Recheck your left toe every day. Your blood sugar today is 300. Adjust your insulin regimen to treat this. - Billing Disposition and Condition Condition: IMPROVED Disposition: Home - Attestation Statements Document Initiated by Scribe: Yes Documenting Scribe: Flako Dunham Provider For Whom Scribe is Documenting (Include Credential): Cheri Sanchez MD Scribe Attestation: I, Flako Dunham , scribed for Cheri Sanchez MD on 01/03/18 at 1906. Scribe Documentation Reviewed: Yes Provider Attestation: The documentation as recorded by the scribe, Flako Dunham accurately reflects the service I personally performed and the decisions made by me, Cheri Sanchez MD
[2018-01-03 18:34] VITALS: BP 0/0
== END | disposition home or self-care (01) ==
LOC: ED 13:17
DX: E11.51 Type 2 diabetes mellitus with diabetic peripheral angiopathy without gangrene (principal); E11.65 Type 2 diabetes mellitus with hyperglycemia; E11.621 Type 2 diabetes mellitus with foot ulcer; L97.529 Non-pressure chronic ulcer of other part of left foot with unspecified severity; R20.0 Anesthesia of skin; I10 Essential (primary) hypertension; Z79.4 Long term (current) use of insulin
CPT/HCPCS: 36415; 80048; 85025; 85610; 85730; 99282

== ENCOUNTER 2018-04-29 12:37 | Emergency (ER) | payer MEDICARE, MEDICAID ==
--- OUTSIDE RECORDS SUMMARY | 2018-04-29 13:29 | XMS REPORT | Continuity of Care Document ---
:1955 External Reference #:[id number] Author Name Jo Corbett Care Team Providers Name Role Phone Sage Miles MD Care Team Information Cna Instructor Unavailable Janelle Farrell MD Primary Care Physician Unavailable Payers Date Identification Numbers Payment Provider Subscriber Policy Number: [id number] Medicare Di Carvalho PayID: [id number] [address] [place] [address] Policy Number: [id number] Medicaid Di Carvalho PayID: [id number] [address] [place] [address] Advance Directives Description No Information Available Problems Date Description Provider Status Onset: 07/09/2016 Multiple complications of type 1 [facility] Active diabetes mellitus FSCAI Onset: 09/13/2010 Type 1 diabetes mellitus Naomi Willis M.D., FACP Active Onset: 11/08/2013 Diabetic renal disease Janelle Farrell M.D. Active Onset: Diabetic gastroparesis associated Active with type 1 diabetes mellitus Onset: Peripheral vascular disease Active Onset: 12/10/2016 Atherosclerosis of [place] [facility]ley Chi MD, [facility], Active arteries of right leg with FSCAI ulceration of other part of foot Onset: 09/13/2010 Glaucoma Naomi Willis M.D., SHANIQUEP Active Onset: 06/22/2014 Benign essential hypertension Monique Salvador M.D. Active Onset: 09/13/2010 Anemia Naomi Willis M.D., GILA Active Onset: 07/05/2014 Depressive disorder Christy Westbrook M.D. Active Onset: 07/05/2014 Chronic anxiety Christy Westbrook M.D. Active Onset: 09/14/2016 Tension-type headache Abbi Barrios MD Active Onset: 03/08/2016 Mixed hyperlipidemia Monique Salvador M.D. Active Onset: Acid reflux Active Note: diagnosed by Dr. Alberto Onset: 12/05/2015 Oropharyngeal dysphagia Abbi Barrios MD Active Onset: Sleep disorder Active Note: Velia alberto referred for sleep study Onset: 01/16/2017 Chronic intractable migraine Abbi Barrios MD Active without aura Onset: 01/16/2017 Neurological disorder with type 1 Abbi Barrios MD Active diabetes mellitus Onset: 05/13/2017 Other symptoms and signs involving Abbi Barrios MD Active cognitive functions and awareness Onset: 05/22/2017 Expressive language disorder Abbi Barrios MD Active Onset: 11/27/2017 Intermittent claudication due to Mateo Mancia M.D. Active atherosclerosis of [place] artery of limb Onset: 03/10/2018 Refractory migraine without aura Matt Saenz M.D. Active Onset: 03/10/2018 Dizziness and giddiness Matt Saenz M.D. Active Onset: 03/10/2018 Abnormal gait Matt Saenz M.D. Active Onset: 03/10/2018 Polyneuropathy Matt Saenz M.D. Active Onset: 06/22/2014 Old myocardial infarction Monique Salvador M.D. 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 [place] Tobacco Use Start: Unknown not smoking Tobacco Use Start: Unknown Quit in Smoking Status Reviewed: 04/28/18 Quit in ETOH Use Denies alcohol use Tobacco Use Start: Unknown End: Patient is a former Unknown smoker Recreational Drug Use Denies Drug Use Exercise Type/Frequency Does not exercise Allergies, Adverse Reactions, Alerts Date Description Reaction Status Severity Comments 03/30/2013 Crestor muscle aches Active 09/13/2010 NKDA Inactive Medications Medication Date Status Form Strength Qnty SIG Indications Ordering Provider Mupirocin 04/18 Active Ointment 2% 44gm apply once daily to Bud, rash Robin Metrogel 03/31 Active Gel 1% 55gm Apply twice L71.8 daily for jus Farrell M.D. Digital Scale 12/23 Active Misc weight q day Robin Salvador Carvedilol 12/13 Active Tablets 3.125mg 180ta 1 by mouth bs twice a day Robin Salvador Zyrtec Allergy 10/01 Active Tablets 10mg 30tab 1 by mouth s once daily Cotton, as needed ( M.DLara duplicated) Depend 08/02 Active Misc 60uni For use R32 Janelle Silhou ts twice daily Bud Briefs For Dx R32 MLaraDLara Women S/M Maximum Absorb B Complex 08/02 Active Tablets 180ta 2 PO qd E10.40 bs Robin Farrell Mupirocin 04/11 Active Cream 2% 30gm apply twice a day Robin Farrell Nitrostat 03/21 Active Tablets Sub 0.4mg 25tab one sl q5min s up to 3 Carbon, doses as M.D. needed call 911 for CP no relieved after 3 NTG Ondansetron 09/12 Active Tablets 8mg 180ta every 8 bs hours by Cotton, mouth as M.D. needed Levothyroxine 08/12 Active Tablets 25mcg 1 by mouth Remy every day Am MD Santana Lovaza 07/20 Active Capsules 1gm 90cap take 1 Nik S. s capsule by Shalom, DO mouth once a [facility] day Cilostazol 07/19 Active Tablets 50mg 180ta 1 by mouth I73.9 Marcis T. bs twice a day MD Alon, FAC, [facility] [place] Praluent 04/02 Active Solution 75mg/ml 4ml 1 injection Pen-Inject sc every 2 Carbon, weeks M.D. Fluticasone 09/11 Active Suspension 50mcg/Act 1unit 2 sprays Hiren Alberto s both MD Santana nostrils every day [place] 09/02 Active Tablets 10-325mg 130ta 1 tablet by Janelle bs mouth every Cotton, 4- 6 hours M.D. as needed for pain Restasis 09/01 Active Emulsion 0.05% instill one drop in each eye two times a day Lotemax 09/01 Active Suspension 0.5% 1 gtt right eye once daily Zioptan 09/01 Active Solution 0.0015% 1 gtt right eye Cosopt PF 09/01 Active Solution 22.3-6.8m 1 drop both g/ml eyes daily Tab-A-Marifer 10/14 Active Tablets 90tab Take One s Tablet By Cotton, Mouth Every M.D. Day Novolin R Pump 09/13 Active Solution 100Unit/M used Sultana Willis M.D., FACP Aspirin Active Tablets 325mg 1/2 by mouth Unknown every day PM Refresh Plus Active Solution 0.5% instill 1 drop into both eye 6 Times A Day Trazodone HCL Active Tablets 50mg take 3 Member, tablet by evangelina Pickett at bedtime Calcitriol Active Capsules 0.25mcg 90cap take 1 Janelle /0000 s capsule by Cotton, mouth once M.D. daily Parvin Contour Active Strips Unknown Next Blood Glucose Test Ketostix Active Strips Codeine Active Tablets 30mg 2 po qd prn Unknown Sulfate Lidocaine Active Patches 5% 180un apply 1- 2 Janelle /0000 its patches up Cotton, to 12 hours M.D. once a day as needed for back pain - mylan deicer tester only Clopidogrel Active Tablets 75mg 90tab take 1 Monique Bisulfate /0000 s tablet by Carbon, mouth once M.D. daily at night Gabapentin Active Tablets 600mg 3 tablet po Unknown 0000 daily at night Acyclovir Active Tablets 400mg 1 by mouth Unknown po daily Fluoxetine HCL Active Capsules 20mg 1 by mouth Unknown every day Eszopiclone Active Tablets 2mg 1/2 tablet Member, po every Piyush, ginette UQINN Imodium A-D Active Capsules 2mg 2 cap as Unknown needed Adderall Active Tablets 30mg 1 by mouth Member, twice a day MD Piyush Botox Active Solution 100Unit Every 3 Unknown Rec months Olopatadine Active Solution 0.1% 1 drop in Unknown HCL eyes twice a day Almaz 128 Active Ointment 5% at bed time Demadex Active Tablets 20mg 90tab 1-2 t by Monique / s mouth as Carbon, needed and M.D. directed for swelling in the legs Doxycycline Active Tablets 10mg Weisenthal Hyclate , MD Arcadio Dexilant Active Capsules DR 60mg once daily Remy, MD Santana Losartan 09/30 Hx Tablets 25mg 60tab 1 by mouth Oj Potassium s twice a F. Shreya, - day. M.D. 09/26 Multivitamin 08/02 Hx Tablets 90tab 1 by mouth E10.40 Janelle s every day ( Cotton, - Takes only M.D. 04/27 Tab marifer) R60.0 ALL Day Allergy 06/10/2017 - Hx Tablets 10mg 90tabs take 1 tablet Janelle 04/27/2018 by mouth once Cotton, daily if needed M.D. Valsartan 04/30/2017 - Hx Tablets 40mg 135tabs 1/2 tab but I Monique 09/30/2017 mouth in the in 1 Carbon, the morning and 0 M.D. 1 tab by mouth at night Ramipril 10/26/2016 - Hx Capsules 2.5mg 90caps 1 by mouth Monique 04/15/2017 every day Robin Salvador Vitamin C 09/12/2016 - Hx Chewtabs 500mg 3 by mouth Christy 05/12/2017 every day Robin Westbrook Propranolol HCL ER 07/03/2016 - Hx Caps ER 60mg 90caps 1 by mouth G Janelle 10/27/2017 24HR daily 4 Cotton, 3 M.D. . 9 0 1 Ra Cetirizine 05/20/2016 - Hx Tablets 10mg 90tabs 1 by mouth Christy 06/10/2017 daily Robin Westbrook Ibuprofen 04/18/2016 - Hx Tablets 600mg 30tabs 1 tab by mouth Christy 03/06/2018 2 times a day Pitero, as needed M.D. Omeprazole 04/11/2016 - Hx Tablets DR 20mg 120tabs 1 by mouth Christy 05/02/2016 twice a day Robin Westbrook Coreg 03/08/2016 - Hx Tablets 6.25mg 60tabs 1 tablet by William Amaya 05/02/2016 mouth twice a 1 Carbon, day 0 M.D. Prilosec 02/28/2016 - Hx Capsules 20mg 90caps 1 by mouth Christy 04/11/2016 twice a day Robin Westbrook Ranitidine 150 02/28/2016 - Hx Tablets 150mg 60tabs 1 po at Noon [facility] Maximum Strength 09/11/2016 (not taking) Robin Westbrook Amlodipine Besylate 02/28/2016 - Hx Tablets 10mg 90tabs 1 by mouth I Christy 08/02/2016 every day ( has 1 Pietro, continue taking 0 M.D. since Rx was given) Ramipril 02/28/2016 - Hx Capsules 10mg 180caps take one [facility] 10/26/2016 capsule qpm cinthya Westbrook MLaraDLara Ibuprofen 02/21/2016 - Hx Tablets 600mg 30tabs 1 tab by mouth 7 Christy 02/28/2016 as needed for 8 Westbrook, severe 4 M.D. headaches . 0 Ferrous Fumarate 01/30/2016 - Hx Tablets 324(10 60tabs 1 by mouth bid Christy 02/06/2016 6Fe) Westbrook, mg M.D. Ferrous Sulfate 01/23/2016 - Hx Tablets 325(65 180tabs take 1 tablet Star E. 12/09/2016 Fe) mg by mouth twice Elo, a day M.D. Biotene Dry Mouth 12/22/2015 - Hx Liquid 1units as needed [facility] 05/02/2016 Robin Westbrook Colace 12/22/2015 - Hx Capsules 100mg 60caps take one [facility] 03/28/2016 capsule by Pietro, mouth three M.D. times a day as needed for constipation Codeine Sulfate 12/22/2015 - Hx Tablets 15mg 14tabs once a day as Christy 01/18/2016 needed for Pietro, diarrhea M.D. Ondansetron HCL 12/10/2015 - Hx Tablets 8mg 24tabs every 8 hours Christy 12/10/2016 by mouth as Pietro needed M.D. Ondansetron 12/08/2015 - Hx Tablets 4mg 20tabs dissolve one [facility] 12/10/2015 Dispers tablet orally Westbrook, every 12 hours M.D. as needed for nausea. Propranolol HCL 12/05/2015 - Hx Tablets 10mg 180tabs 2 in the Am and G Abbi 07/03/2016 3 in the PM x1 4 MD Sophie week then 3 3 twice a day . 9 0 1 Buspirone HCL 03/01/2015 - Hx Tablets 10mg 90tabs 1 by mouth Christy 05/02/2016 three times a Westbrook, day M.D. Diazepam 11/22/2014 - Hx Tablets 2mg 10tabs 1-2 tab at [facility] 05/31/2015 night for Pietro, muscle spasms M.D. Cetirizine HCL 11/11/2014 - Hx Chewtabs 10mg 90units 1 by mouth [facility] 11/11/2014 daily prn Robin Westbrook Cyclobenzaprine HCL 11/11/2014 - Hx Tablets 5mg 10tabs take one tablet Christy 05/31/2015 by mouth at [facility], night for M.D. spasms Crystal Allergy 11/11/2014 - Hx Tablets 180mg 30tabs 1 by mouth J [facility] 10/11/2015 every day for 3 Westbrook, allergies 0 M.D. . 9 Ra Vitamin D-3 10/10/2014 - Hx Tablets 1000Un 90tabs 1 by mouth Christy 12/22/2015 it every day otc Robin Westbrook Prochlorperazine 08/11/2014 - Hx Tablets 5mg 30tabs 1 tab every 8 Christy Maleate 11/11/2014 hrs as needed Robin Westbrook Aspirin 08/09/2014 - Hx Chewtabs 81mg 1 by mouth Christy 10/12/2015 every day Robin Westbrook Ibuprofen 08/09/2014 - Hx Tablets 600mg 30tabs 1 tab by mouth 7 Christy 05/31/2015 as needed for 8 Westbrook, severe 4 M.D. headaches . 0 Ondansetron HCL 08/09/2014 - Hx Tablets 8mg 30tabs take 1 by mouth 7 Christy 09/01/2014 as needed for 8 Westbrook, nausea every 12 7 M.D. hrs . 0 2 Propranolol HCL 08/09/2014 - Hx Tablets 10mg 60tabs 1 by mouth 7 Christy 09/01/2014 every day 8 Westbrook, 4 M.D. . 0 Sumatriptan Succinate 08/09/2014 - Hx Tablets 25mg 30tabs 1 tab at the 7 Christy 10/11/2015 onset of the 8 Pietro, headache , can 4 M.D. repeat it once . in 24 hours 0 Lisinopril 08/02/2014 - Hx Tablets 5mg 1 by mouth 4 Christy 08/02/2014 every day 0 Westbrook, 1 M.D. . 1 Lisinopril 08/02/2014 - Hx Tablets 5mg 90tabs take 1 tablet Christy 05/02/2016 by mouth once Pietro daily M.DLara Cyanocobalamin 07/15/2014 - Hx Tablets 2500mc 90tabs once a day [facility] 11/11/2014 Sub g Robin Westbrook Ferrous Gluconate 07/15/2014 - Hx Tablets 324(38 60tabs 1 by mouth Christy 12/22/2015 Fe) mg twice a day Robin Westbrook Lunesta 07/13/2014 - Hx Tablets 2mg 2 mg by mouth Christy 12/31/2016 at bedtime as Pietro needed M.DLara Atorvastatin Calcium 07/13/2014 - Hx Tablets 10mg 90tabs 1 by mouth E Christy 07/21/2015 every day 1 Pietro, 0 M.D. . 8 Lisinopril 06/22/2014 - Hx Tablets 2.5mg 90tabs 2 by mouth 4 Monique 08/02/2014 every day 0 Carbon, 1 M.D. . 1 Vitamin D 06/10/2014 - Hx Capsules [id number] 8caps once a week 2 Christy (Ergocalciferol) 11/11/2014 nit 6 Pietro, 8 M.D. . 9 Vicodin HP 05/06/2014 - Hx Tablets 10-300 60tabs 1 tablet by Janelle 11/11/2014 mg mouth every 12 Cotton, hours as needed M.D. pain Niacin ER 03/30/2013 - Hx Tablets ER 500mg 90tabs take 1 tablet Christy (Antihyperlipidemic) 06/21/2014 every evening. Robin Westbrook Ramipril 03/26/2013 - Hx Capsules 10mg 90caps 1 po qd Monique 11/05/2013 Chase SalvadorDLara Simvastatin 10/14/2012 - Hx Tablets 10mg 90tabs take 1 tablet Liv 06/21/2014 by mouth at [facility] bedtime Lovaza 07/04/2012 - Hx Capsules 1gm 180caps take 1 capsule Naomi 03/27/2013 twice a day Alba, M.D., FACP Metoclopramide HCL 06/07/2012 - Hx Tablets 5mg 120tabs Take 1 Tablet Naomi 11/05/2013 By Mouth 4 Alba, Times A Day 30 M.D., FACP Minutes Before Meals as Needed Crestor 04/21/2012 - Hx Tablets 5mg 45tabs 1/2 tab by 2 Monique 03/29/2013 mouth 3 times 5 Carbon, per week 0 M.D. . 6 3 Zetia 04/16/2012 - Hx Tablets 10mg 90tabs 1 tab by mouth Monique 07/13/2014 every day (on Carbon, hold as of M.D. 06/28) Ipratropium Jet 04/10/2012 - Hx Solution 0.03% 30ml instill 2 4 Naomi 03/27/2013 sprays in each 7 Alba, nostril twice a 7 M.D., FACP day . 9 Calcium High Potency 04/02/2012 - Hx Tablets 600-20 180tabs take 1 tablet Naomi + Vitamin D 11/05/2013 0mg-Un twice a day Alba, it M.D., FACP Ramipril 02/14/2012 - Hx Capsules 5mg 90caps 1 po qd Monique 03/26/2013 Robin Salvador Lovaza 10/06/2011 - Hx Capsules 1gm 180caps take 1 capsule Naomi 04/10/2012 twice a day Robin Willis, FACP Loperamide HCL 09/24/2011 - Hx Capsules 2mg 180caps 2 take by mouth 7 Naomi 02/19/2012 capsules prn 8 Alba, diarrhea 7 M.D., FACP . 9 1 Codeine Sulfate 09/24/2011 - Hx Tablets 30mg 180tabs take 2 tablest Naomi 03/27/2013 three times Alba, daily as needed M.D., FACP for diarrhea Calcium/Vitamin D 09/03/2011 - Hx Tablets 600-40 180tabs take 1 tablet Naomi 04/02/2012 0mg-Un twice a day Alba, it MLaraD., FACP Cetirizine HCL 08/27/2011 - Hx Chewtabs 10mg 90units 1 by mouth Naomi 03/27/2013 daily prn Robin Willis, FACP Reglan 05/15/2011 - Hx Tablets 5mg 270tabs qac prn 5 Naomi 02/19/2012 6 Alba, 4 M.D., FACP . 5 Codeine Sulfate 05/01/2011 - Hx Tablets 15mg 270tabs 2 by mouth tid Naomi 09/24/2011 as needed for Alba, diarrhea M.D., FACP Vicodin HP 05/01/2011 - Hx Tablets 10-660 60tabs 1-2 days as Liv 05/06/2014 mg needed for pain Varn, N.P. Ramipril 11/24/2010 - Hx Capsules 10mg 90caps 1 po qd Naomi 02/14/2012 Robin Willis, FACP Abilify 11/14/2010 - Hx Tablets 3mg 30tabs 1 po qpm Naomi 05/15/2011 Robin Willis, FACP Ramipril 11/14/2010 - Hx Capsules 5mg 90caps 1 po qd Naomi 11/24/2010 Robin Willis, FACP Co Q-10 Maximum 11/14/2010 - Hx Capsules 400mg 90caps 1 po qd 2 Naomi Strength 05/15/2011 5 Alba, 0 M.D., FACP . 6 3 Caltrate 600+D 09/19/2010 - Hx Chewtabs 600-40 180unit 1 po bid Naomi 09/03/2011 0mg-Un s Alba it Robin, FACP Daily Marifer 09/18/2010 - Hx Tablets 90tabs 1 po qd Naomi 10/14/2012 Robin Willis, FACP Citrical 600MG 09/18/2010 - Hx 180unit take one tablet Naomi Calcium, 400 Iu Vit 09/19/2010 s two times daily Alba, D, One bid M.D., FACP Vitamin C 09/18/2010 - Hx Chewtabs 250mg 270unit chew and Naomi 03/27/2013 s swallow 3 Alba, tablets daily M.D., FACP Niaspan 09/18/2010 - Hx Tablets ER 500mg 90tabs Take 1 Tablet Naomi 03/30/2013 Every Evening. Robin Willis, FACP Reglan 09/13/2010 - Hx Tablets 5mg 60tabs qac prn Naomi 05/15/2011 Robin Willis, FACP Lasix 09/13/2010 - Hx Tablets 40mg 90tabs 1 po qd Naomi 05/15/2011 Robin Willis, FACP Stearns-3 Fish Oil 09/13/2010 - Hx Capsules 1000mg 180caps 1 by mouth Naomi 11/05/2013 twice a day Robin Willis, FACP Prozac 09/13/2010 - Hx Capsules 40mg 1 po qd Naomi 11/14/2010 Robin Willis, FACP Vitamin C TR/Aniyah 09/13/2010 - Hx Tablets ER 1500mg 90tabs 1 qd Naomi Hips 03/27/2013 Robin Willis, FACP Acyclovir 09/13/2010 - Hx Tablets 800mg 30tabs 1/2 tablet Naomi 08/01/2016 daily Robin Willis, FACP Methazolamide 09/13/2010 - Hx Tablets 50mg po tid Naomi 11/05/2013 Robin Willis, FACP Aspirin 09/13/2010 - Hx Tablets DR 325mg 1 po qd Naomi 08/09/2014 Robin Willis, FACP Altace 09/13/2010 - Hx Capsules 10mg 30caps 1 po qd Naomi 11/14/2010 Robin Willis, FACP Lunesta 09/13/2010 - Hx Tablets 1mg 20tabs 1 po qhs prn Naomi 06/21/2014 Robin Willis, FACP Trazodone HCL 09/13/2010 - Hx Tablets 50mg 90tabs 1 tablet po at Naomi 11/10/2015 bedtime Robin Willis, FACP Calcium & Magnesium 09/13/2010 - Hx Tablets 750-46 1 po qd Naomi 11/05/2013 5mg Robin Willis, FACP Abilify 09/13/2010 - Hx Tablets 2mg 30tabs 1 po qpm Naomi 11/14/2010 Robin Willis, FACP Niacin Flush Free 09/13/2010 - Hx Capsules 500mg 90caps 1 by mouth 2 Naomi 09/18/2010 every night 5 Alba, 0 M.D., FACP . 6 3 Hydrochlorothiazide 09/13/2010 - Hx Tablets 25mg 90tabs Take 1 Tablet Naomi 05/15/2011 By Mouth Daily Alba, In The Morning M.D., FACP Simvastatin 09/13/2010 - Hx Tablets 10mg 90tabs take 1 tablet 2 Naomi 04/21/2012 daily at 5 Alba, bedtime 0 M.D., FACP . 6 3 Ra B-Complex 08/27/2010 - Hx Tablets 180tabs take 2 tablets Naomi 04/27/2018 daily Robin Willis, FACP Omeprazole 08/14/2010 - Hx Capsules 20mg 180caps Take 1-2 Christy 02/27/2016 DR Capsules By Pietro, Mouth Daily as M.D. Needed Procrit 05/11/2010 - Hx Solution 20016Z 3bottle 1 cc. Naomi 06/10/2014 nit/ML s subcutaneously Alba, every three M.D., FACP weeks. Folic Acid 04/25/2010 - Hx Tablets 1mg 90tabs take 1 tablet 1 Christy 02/27/2016 times a day. Robin Westbrook Poly-Iron 150 Forte 03/26/2010 - Hx Capsules 150-25 270caps take 3 capsules Liv 08/09/2014 -1mg-m every day Brayden Moulton. cg-mg Boniva 03/09/2010 - Hx Tabs 150mg 3tabs Take 1 Tablet Naomi 03/17/2014 Once A Month Robin Willis, FACP B Complex With B12 11/22/2009 - Hx 135unit take 1 1/2 Naomi 09/13/2010 s tablets Daily Robin Willis, FACP Zetia 10/18/2009 - Hx Tablets 10mg 30tabs Take 1 Tablet Naomi 09/13/2010 AT Bedtime. Robin Willis, FACP Zetia 10/18/2009 - Hx Tablets 10mg 90tabs Take 1 Tablet Naomi 02/19/2012 Nightly AT Alba, Bedtime Robin, FACP Neurontin - Hx Capsules 600 90caps 1 tablet po Unknown 07/13/2014 b.i.d Clara Duran Metoclopramide HCL - Hx Tablets 5mg 120tabs Take 1 Tablet Naomi 05/15/2011 By Mouth 4 Alba, Times A Day 30 M.D., FACP Minutes Before Meals as Needed Viibryd - Hx Tablets 40mg Unknown 08/29/2011 Vyvanse - Hx Capsules 40mg 1 po qd Unknown 03/27/2013 Paxil - Hx Tablets 30mg 90tabs one q am Unknown 10/07/2012 Entocort Ec - Hx Caps ER 3mg 2 po qd Unknown 03/27/2013 24HR Reglan - Hx Tablets 5mg 1 po tid Unknown 06/07/2012 Celexa - Hx Tablets 40mg 30tabs 1 tablet po Unknown 11/28/2014 daily Furosemide - Hx Tablet 20mg 1 po qd Unknown 11/05/2013 Codeine Sulfate - Hx Tablets 30mg 1 tab po tid Unknown 06/10/2014 prn Bupropion HCL ER (SR) - Hx Tablets ER 150mg 60tabs 2 by mouth Unknown 04/27/2018 12HR daily Lunesta - Hx Tablets 3mg hs Unknown 07/13/2014 Gabapentin - Hx Tablets 800mg 1 po qd Unknown 08/01/2016 Zyrtec Allergy - Hx Capsules 10mg 1 by mouth Unknown 05/20/2016 every day as needed Cyanocobalamin - Hx Tablets 2500mc once a day Unknown 12/05/2014 Sub g Mirtazapine - Hx Tablets 15mg once at bedtime Unknown 12/07/2015 Citalopram - Hx Tablets 10mg 1 by mouth Unknown Hydrobromide 05/28/2017 every day Vyvanse - Hx Capsules 70mg 1 tab po wd Unknown 12/10/2015 Dicyclomine HCL - Hx Capsules 10mg Unknown 12/22/2015 Hyoscyamine Sulfate - Hx Tablets ER 0.375m Unknown ER 12/07/2015 12HR g Amphetamine-Dextroamp - Hx Caps ER 20mg 1 by mouth Unknown het ER 05/02/2016 24HR daily Vyvanse - Hx Capsules 70mg 1 tab po wd Unknown 12/22/2015 Budesonide - Hx Caps DR 3mg 2 cap po daily Unknown 03/06/2018 Part Fluconazole - Hx Tablets 150mg 2tabs once a day Christy 02/22/2016 Robin Westbrook Cephalexin - Hx Capsules 500mg take 1 capsule Unknown 02/22/2016 three times a day Metoprolol Succinate - Hx Tablets ER 50mg take 1 tablet I Unknown ER 03/08/2016 24HR by mouth once 1 daily 0 Ramipril - Hx Capsules 10mg Unknown 02/28/2016 Trifluridine - Hx Solution 1% instill 1 drop Unknown 09/14/2016 into right eye five times a day for 5 days then 1 drop (not taking) Olopatadine HCL - Hx Solution 0.1% Unknown 05/02/2016 Ranitidine HCL - Hx Tablets 150mg take 1 tablet Unknown 05/02/2016 by mouth daily In The Afternoon Polymyxin B - Hx Solution [id number] bid Oltz, Sulfate/Trimethoprim 12/09/2016 0.1Uni Lindsey, Sulfate t/ML-% Novolog - Hx Solution 100Uni Unknown 06/09/2016 t/ML Erythromycin - Hx Ointment 5mg/GM applied to Weisenthal 12/09/2016 right eye 3 , Arcadio, times per day Trazodone HCL - Hx Tablets 50mg Member, 05/02/2016 MD Piyush Dicyclomine HCL - Hx Capsules 10mg Unknown 05/02/2016 Fluconazole - Hx Tablets 150mg take 1 tablet Unknown 05/02/2016 by mouth as a single dose Cephalexin - Hx Capsules 500mg take 1 capsule Unknown 02/28/2016 three times a day Amphetamine-Dextroamp - Hx Tablets 20mg one tab in the Member, hetamine 08/01/2016 am as directed MD Piyush Almaz 128 - Hx Ointment 5% Unknown 05/02/2016 Ondansetron - Hx Tablets 4mg Dissolve One Unknown 11/09/2015 Dispers Tablet Orally Every 12 Hours as Needed For Nausea Diazepam - Hx Tablets 5mg take 1 tablet Unknown 03/06/2018 by mouth a day if needed (patient almost never takes) Hyoscyamine Sulfate - Hx Tablets ER 0.375m Unknown ER 05/02/2016 12HR g Lidocaine Viscous - Hx Solution 2% Remy, 06/09/2016 MD Santana Ferrous Gluconate - Hx Tablets 324(38 Unknown 05/02/2016 Fe) mg Refresh Optive - Hx Solution 0.5-0. Drop 1 Drop In Unknown Sensitive 05/02/2016 9% Both Eyes Four Times A Day Cephalexin - Hx Capsules 250mg Imtiaz, 05/02/2016 HUMZA Ibarra Mirtazapine - Hx Tablets 15mg Unknown 05/02/2016 Ra Vitamin D-3 - Hx Tablets 1000Un Unknown 06/09/2016 it Sumatriptan Succinate - Hx Tablets 25mg Unknown 05/02/2016 Atorvastatin Calcium - Hx Tablets 10mg Unknown 05/02/2016 Vyvanse - Hx Capsules 20mg 1 by mouth Unknown 05/02/2016 every day Xanax - Hx Tablets 0.25mg one by mouth Unknown 06/09/2016 daily as needed for anxiety Lasix - Hx Tablets 40mg 1 by mouth Unknown 05/02/2016 every day Erythromycin 0.5% - Hx Ointment 3 times per day Unknown 06/09/2016 eye Metoprolol Succinate - Hx Tablets ER 50mg take 1 tablet Unknown ER 06/09/2016 24HR by mouth once daily Prilosec OTC - Hx Tablets DR 20mg 30tabs 1 tablet in the Christy 08/01/2017 morning and 1 Westbrook, tablet at night M.D. (on hold) Santyl - Hx Ointment 250Uni Unknown 06/09/2016 t/GM Carvedilol - Hx Tablets 6.25mg 180tabs 1 by mouth Monique 12/13/2017 twice a day Robin Salvador Furosemide - Hx Tablets 20mg 90tabs 1 daily. you Monique 08/27/2017 may take an [place], extra 20mg up M.D. to 2x week for > than a 3lb weight gain. Gabapentin - Hx Capsules 300mg 1 cap po daily Unknown 12/10/2016 ( taken along with 600mg tablet to make a [id number]) Amphetamine-Dextroamp - Hx Tablets 30mg 2 tabs daily as Member, hetamine 05/28/2017 directed MD Piyush Novalog Insulin Pump - Hx as needed Unknown 08/01/2016 Alprazolam - Hx Tablets 0.25mg 1 PO bid as Member, 03/06/2018 needed MD Piyush Amphetamine-Dextroamp - Hx Tablets 30mg Member, hetamine 12/31/2016 MD Piyush Myrbetriq - Hx Tablets ER 25mg 1 by mouth Unknown 04/19/2017 24HR every day Vesicare - Hx Tablets 10mg 1 by mouth Unknown 04/14/2017 every day Plavix - Hx Tablets 75mg 1 by mouth Unknown 05/28/2017 every day Meloxicam - Hx Tablets 7.5mg as needed Kerry, 03/30/2018 MD Rafael Medications Administered in Office Medication Date Status Form Strength Qnty SIG Indications Ordering Provider Injection 04/28 Administered Injection Christophgurdeep Onabotulinumtoxi /2018 Robin Saenz n A, 1 Unit Injection 04/28 Administered Injection Christopher Onabotulinumtoxi Robin Saenz n A, 1 Unit Inj, 02/12 Administered Injection Chanovirginie Alberto Regadenoson, 0. Robin Gongora, MG FACC, FASNC Technetium TC 02/12 Administered Injection Chano Alberto 99M Tetrofosmin Robin Gongora, Per Unit Dose Up FACC, FASNC To 40 Millicuries Depomedrol 40MG 01/09 Administered Injection Kita /2017 Robin Gonsalez Depomedrol 40MG 01/09 Administered Injection Kita /2017 Robin Gonsalez Immunizations CPT Code Status Date Vaccine Lot # [id number] Given 01/10/2018 Influenza Virus Vaccine, Quadrivalent, Split, Preservative Free [id number] Given 09/12/2016 Tdap - Tetanus/Diptheria/Acellular Pertussis [id number] 17229 Given 12/07/2015 Influ Virus Vaccine, Quadrivalent, Split Virus, [id number] [address] Given 11/16/2014 Influenza Virus Vaccine, Quadrivalent, Split, Preservative Free 04947 Given 07/13/2014 Pneumococcal Conjugate Vaccine 13 Valent For [id number] Intramuscular Use Q2035 Given 01/29/2014 Afluria Vaccine [id number] Given 12/04/2012 Afluria Vaccine 61059 Given 08/29/2011 Zoster (Zostavax) [id number] Q2035 Given 11/14/2010 Afluria Vaccine [id number] 24160 Given 12/23/2008 Influenza Virus 3Yrs & Over 03823 Given 12/11/2007 Influenza Virus 3Yrs & Over 89889 Given 12/11/2007 Influenza Virus 3Yrs & Over 37450 Given 01/03/2006 Influenza Virus 3Yrs & Over 87626 Given 01/03/2006 Influenza Virus 3Yrs & Over Vital Signs Date Vital Result Comment 04/28/2018 12:55pm Height 66.5 inches 5'6.50" Heart Rate 84 /min BP Systolic 136 mmHg BP Diastolic 78 mmHg 03/31/2018 2:23pm Height 66.5 inches 5'6.50" Weight 143.00 lb Heart Rate 79 /min BP Systolic Sitting 139 mmHg BP Diastolic Sitting 78 mmHg O2 % BldC Oximetry 97 % BMI (Body Mass Index) 22.7 kg/m2 03/10/2018 1:49pm Height 66.5 inches 5'6.50" Weight 144.00 lb Heart Rate 80 /min BP Systolic Sitting 142 mmHg BP Diastolic Sitting 60 mmHg O2 % BldC Oximetry 87 % at rest on room air BMI (Body Mass Index) 22.9 kg/m2 12/23/2017 2:22pm Height 66.5 inches 5'6.50" Weight 138.00 lb with shoes Heart Rate 77 /min BP Systolic Sitting 110 mmHg Lue reg cuff BP Diastolic Sitting 75 mmHg Lue reg cuff BP Systolic Standing 110 mmHg Lue reg cuff BP Diastolic Standing 70 mmHg Lue reg cuff Respiratory Rate 15 /min BMI (Body Mass Index) 21.9 kg/m2 Ejection Fraction 55-60% date 03/01/17 ECHO 11/27/2017 2:30pm Height 66.5 inches 5'6.50" Weight 137.00 lb Heart Rate 72 /min BP Systolic Sitting 124 mmHg BP Diastolic Sitting 70 mmHg Respiratory Rate 18 /min BMI (Body Mass Index) 21.8 kg/m2 09/26/2017 1:26pm Height 66.5 inches 5'6.50" Weight 139.00 lb Heart Rate 72 /min BP Systolic Sitting 141 mmHg BP Diastolic Sitting 81 mmHg O2 % BldC Oximetry 97 % BMI (Body Mass Index) 22.1 kg/m2 08/16/2017 12:54pm Height 66.5 inches 5'6.50" Weight 135.00 lb with shoes Heart Rate 70 /min BP Systolic Sitting 140 mmHg Rue reg cuff BP Diastolic Sitting 80 mmHg Rue reg cuff BP Systolic Standing 122 mmHg Rue reg cuff BP Diastolic Standing 70 mmHg Rue reg cuff Respiratory Rate 16 /min BMI (Body Mass Index) 21.5 kg/m2 Ejection Fraction 55-60% date 03/01/17 ECHO 08/02/2017 2:14pm Height 66.5 inches 5'6.50" Weight 130.00 lb Heart Rate 74 /min BP Systolic Sitting 111 mmHg BP Diastolic Sitting 69 mmHg O2 % BldC Oximetry 99 % BMI (Body Mass Index) 20.7 kg/m2 05/30/2017 12:45pm Height 66.5 inches 5'6.50" Weight 130.00 lb with shoes Heart Rate 72 /min BP Systolic Sitting 144 mmHg Lue reg cuff BP Diastolic Sitting 76 mmHg Lue reg cuff BP Systolic Standing 132 mmHg Lue reg cuff BP Diastolic Standing 80 mmHg Lue reg cuff Respiratory Rate 16 /min BMI (Body Mass Index) 20.7 kg/m2 Ejection Fraction 55-60% 03/01/2017-echo 05/22/2017 3:48pm Height 66.5 inches 5'6.50" Weight 124.00 lb Heart Rate 66 /min BP Systolic 100 mmHg BP Diastolic 64 mmHg BMI (Body Mass Index) 19.7 kg/m2 05/13/2017 2:09pm Height 66.5 inches 5'6.50" Weight 125.00 lb Heart Rate 80 /min BP Systolic Sitting 126 mmHg BP Diastolic Sitting 80 mmHg BMI (Body Mass Index) 19.9 kg/m2 04/15/2017 1:42pm Height 66.5 inches 5'6.50" Weight 127.38 lb without shoes Heart Rate 68 /min BP Systolic Sitting 110 mmHg Lue reg cuff BP Diastolic Sitting 60 mmHg Lue reg cuff BP Systolic Standing 110 mmHg Lue reg cuff BP Diastolic Standing 62 mmHg Lue reg cuff Respiratory Rate 16 /min BMI (Body Mass Index) 20.2 kg/m2 Ejection Fraction 55-60% date 03/01/17 ECHO 04/04/2017 1:20pm Height 66.5 inches 5'6.50" Weight 126.00 lb w/ boots, pt states 129.6 at lopes 2 days ago Heart Rate 70 /min BP Systolic Sitting 132 mmHg lue reg cuff BP Diastolic Sitting 74 mmHg lue reg cuff Respiratory Rate 18 /min BMI (Body Mass Index) 20.0 kg/m2 Ejection Fraction 49% stress test 02/12/17 02/18/2017 2:40pm Height 66.5 inches 5'6.50" Weight 127.00 lb with a boot and ortho shoe Heart Rate 73 /min BP Systolic 130 mmHg BP Diastolic 72 mmHg O2 % BldC Oximetry 94 % BMI (Body Mass Index) 20.2 kg/m2 01/21/2017 1:19pm Height 66.5 inches 5'6.50" Weight 127.00 lb w/ shoes Heart Rate 70 /min BP Systolic Sitting 122 mmHg lue reg cuff BP Diastolic Sitting 72 mmHg lue reg cuff Respiratory Rate 18 /min BMI (Body Mass Index) 20.2 kg/m2 01/16/2017 1:55pm Height 66.5 inches 5'6.50" Weight 128.00 lb Heart Rate 78 /min BP Systolic Sitting 122 mmHg BP Diastolic Sitting 80 mmHg BMI (Body Mass Index) 20.3 kg/m2 01/09/2017 1:04pm Height 66.5 inches 5'6.50" Weight 131.00 lb Heart Rate 73 /min BP Systolic 149 mmHg BP Diastolic 80 mmHg Body Temperature 97.6 F BMI (Body Mass Index) 20.8 kg/m2 01/01/2017 1:12pm Height 66 inches 5'6" Weight 132.00 lb Heart Rate 68 /min BP Systolic Sitting 144 mmHg Rue reg cuff BP Diastolic Sitting 76 mmHg Rue reg cuff BP Systolic Standing 138 mmHg Rue reg cuff BP Diastolic Standing 78 mmHg Rue reg cuff Respiratory Rate 15 /min BMI (Body Mass Index) 21.3 kg/m2 Ejection Fraction 64% 02/06/2011-echo 12/31/2016 12:59pm Weight 132.00 lb Heart Rate 74 /min BP Systolic Sitting 142 mmHg BP Diastolic Sitting 66 mmHg 12/11/2016 1:05pm Height 66 inches 5'6" Weight 131.00 lb Heart Rate 62 /min BP Systolic Sitting 116 mmHg BP Diastolic Sitting 68 mmHg Respiratory Rate 16 /min BMI (Body Mass Index) 21.1 kg/m2 12/10/2016 1:13pm Height 66 inches 5'6" Weight 131.00 lb w shoes and boot Heart Rate 66 /min BP Systolic Sitting 110 mmHg lue reg cuff BP Diastolic Sitting 72 mmHg lue reg cuff Respiratory Rate 18 /min BMI (Body Mass Index) 21.1 kg/m2 Ejection Fraction 64% echo 02/06/11 11/02/2016 1:39pm Height 66 inches 5'6" Weight 133.38 lb with shoes & boot Heart Rate 66 /min BP Systolic Sitting 132 mmHg Ra reg cuff BP Diastolic Sitting 72 mmHg Ra reg cuff BP Systolic Standing 130 mmHg Ra reg cuff BP Diastolic Standing 70 mmHg Ra reg cuff BMI (Body Mass Index) 21.5 kg/m2 Ejection Fraction 64% echo 02/06/11 10/01/2016 1:43pm Height 66 inches 5'6" Weight 135.12 lb Heart Rate 70 /min BP Systolic Sitting 136 mmHg LA reg cuff BP Diastolic Sitting 78 mmHg LA reg cuff BMI (Body Mass Index) 21.8 kg/m2 Ejection Fraction 64% echo 02/06/11 09/14/2016 1:09pm Height 66 inches 5'6" Weight 135.00 lb Heart Rate 78 /min BP Systolic Sitting 116 mmHg BP Diastolic Sitting 66 mmHg Respiratory Rate 14 /min BMI (Body Mass Index) 21.8 kg/m2 09/13/2016 2:51pm Height 66 inches 5'6" Weight 136.00 lb [...] Ejection Fraction 64% date 02/06/11 ECHO 09/12/2016 1:29pm Height 66 inches 5'6" Weight 134.12 lb Heart Rate 110 /min BP Systolic 110 mmHg BP Diastolic 70 mmHg Body Temperature 97.5 F O2 % BldC Oximetry 99 % BMI (Body Mass Index) 21.6 kg/m2 09/06/2016 2:39pm Height 67 inches 5'7" Weight 131.00 lb w/ shoes Heart Rate 64 /min reg BP Systolic Sitting 112 mmHg Lue BP Diastolic Sitting 64 mmHg Lue Respiratory Rate 16 /min BMI (Body Mass Index) 20.5 kg/m2 09/03/2016 1:45pm Height 67 inches 5'7" Weight 133.00 lb Heart Rate 64 /min left, reg; 60 right, reg BP Systolic 144 mmHg Rue, reg cuff BP Diastolic 84 mmHg Rue, reg cuff BP Systolic Sitting 150 mmHg Lue, reg cuff BP Diastolic Sitting 90 mmHg Lue, reg cuff Respiratory Rate 16 /min BMI (Body Mass Index) 20.8 kg/m2 08/09/2016 2:11pm Height 67 inches 5'7" Weight 135.00 lb w/ shoes Heart Rate 60 /min reg BP Systolic Sitting 132 mmHg Rue, reg cuff BP Diastolic Sitting 84 mmHg Rue, reg cuff Respiratory Rate 16 /min BMI (Body Mass Index) 21.1 kg/m2 08/02/2016 2:18pm Height 67 inches 5'7" Weight 135.00 lb with shoes Heart Rate 76 /min BP Systolic Sitting 110 mmHg Lue reg cuff BP Diastolic Sitting 70 mmHg Lue reg cuff BP Systolic Standing 110 mmHg Lue reg cuff BP Diastolic Standing 72 mmHg Lue reg cuff Respiratory Rate 16 /min BMI (Body Mass Index) 21.1 kg/m2 07/26/2016 2:33pm Height 67 inches 5'7" Weight 135.00 lb w/ shoes Heart Rate 76 /min reg BP Systolic Sitting 120 mmHg Rue, reg cuff BP Diastolic Sitting 70 mmHg Rue, reg cuff Respiratory Rate 16 /min BMI (Body Mass Index) 21.1 kg/m2 07/19/2016 1:53pm Height 67 inches 5'7" Weight 134.00 lb w/ shoes Heart Rate 66 /min reg BP Systolic Sitting 114 mmHg Lue, reg cuff BP Diastolic Sitting 70 mmHg Lue, reg cuff Respiratory Rate 16 /min BMI (Body Mass Index) 21.0 kg/m2 07/09/2016 1:13pm Height 67 inches 5'7" Weight 139.00 lb per pt Heart Rate 72 /min reg BP Systolic Sitting 140 mmHg Lue, reg cuff BP Diastolic Sitting 70 mmHg Lue, reg cuff Respiratory Rate 16 /min BMI (Body Mass Index) 21.8 kg/m2 05/14/2016 2:39pm Height 67 inches 5'7" Weight 138.00 lb Heart Rate 74 /min BP Systolic Sitting 122 mmHg BP Diastolic Sitting 58 mmHg Respiratory Rate 17 /min BMI (Body Mass Index) 21.6 kg/m2 03/28/2016 1:37pm Weight 144.00 lb Heart Rate 80 /min BP Systolic 140 mmHg BP Diastolic 82 mmHg Body Temperature 97.8 F O2 % BldC Oximetry 97 % 03/08/2016 12:52pm Weight 143.00 lb Heart Rate 76 /min BP Systolic Sitting 152 mmHg Ra reg cuff BP Diastolic Sitting 76 mmHg Ra reg cuff BP Systolic Standing 134 mmHg Ra BP Diastolic Standing 74 mmHg Ra Respiratory Rate 14 /min Ejection Fraction 64% 02/06/11 02/28/2016 11:49am Weight 145.50 lb Heart Rate 73 /min BP Systolic 150 mmHg her machine 179/82 BP Diastolic 82 mmHg her machine 179/82 Body Temperature 98.0 F O2 % BldC Oximetry 98 % 12/22/2015 10:50am Weight 153.00 lb Heart Rate 80 /min BP Systolic Sitting 136 mmHg BP Diastolic Sitting 88 mmHg Body Temperature 97.7 F O2 % BldC Oximetry 97 % 12/07/2015 12:30pm Weight 153.00 lb Heart Rate 83 /min BP Systolic Sitting 128 mmHg BP Diastolic Sitting 80 mmHg Body Temperature 98.3 F O2 % BldC Oximetry 98 % 12/05/2015 11:36am Height 67 inches 5'7" Weight 150.00 lb Heart Rate 76 /min BP Systolic Sitting 118 mmHg BP Diastolic Sitting 88 mmHg Respiratory Rate 14 /min BMI (Body Mass Index) 23.5 kg/m2 10/12/2015 11:01am Height 67 inches 5'7" Weight 150.00 lb Heart Rate 75 /min BP Systolic Sitting 130 mmHg BP Diastolic Sitting 80 mmHg Respiratory Rate 18 /min O2 % BldC Oximetry 97 % BMI (Body Mass Index) 23.5 kg/m2 05/31/2015 11:52am Weight 142.00 lb Heart Rate 82 /min BP Systolic Sitting 158 mmHg BP Diastolic Sitting 90 mmHg Respiratory Rate 18 /min Body Temperature 98.1 F O2 % BldC Oximetry 97 % 01/17/2015 12:54pm Height 67 inches 5'7" Weight 129.00 lb Heart Rate 76 /min BP Systolic Sitting 148 mmHg BP Diastolic Sitting 84 mmHg Respiratory Rate 16 /min BMI (Body Mass Index) 20.2 kg/m2 12/06/2014 2:38pm Height 67 inches 5'7" Weight 129.00 lb with shoes Heart Rate 84 /min BP Systolic Sitting 132 mmHg LA, reg cuff BP Diastolic Sitting 80 mmHg LA, reg cuff BP Systolic Standing 128 mmHg LA BP Diastolic Standing 80 mmHg LA Respiratory Rate 16 /min BMI (Body Mass Index) 20.2 kg/m2 Ejection Fraction 64% 02/06/2011 11/29/2014 9:51am Height 67 inches 5'7" Weight 132.00 lb Heart Rate 72 /min BP Systolic Sitting 130 mmHg BP Diastolic Sitting 80 mmHg Respiratory Rate 16 /min BMI (Body Mass Index) 20.7 kg/m2 11/11/2014 2:30pm Weight 134.00 lb Heart Rate 69 /min BP Systolic Sitting 140 mmHg BP Diastolic Sitting 77 mmHg Body Temperature 97.5 F 09/02/2014 1:05pm Height 67 inches 5'7" Weight 138.25 lb Heart Rate 69 /min BP Systolic Sitting 134 mmHg BP Diastolic Sitting 72 mmHg Respiratory Rate 20 /min Body Temperature 98.0 F O2 % BldC Oximetry 97 % BMI (Body Mass Index) 21.7 kg/m2 Neck Circumference in inches 14.25 08/09/2014 10:27am Height 68 inches 5'8" Weight 144.00 lb Heart Rate 68 /min BP Systolic 151 mmHg BP Diastolic 84 mmHg Body Temperature 98.1 F BMI (Body Mass Index) 21.9 kg/m2 07/13/2014 2:06pm Height 68 inches 5'8" Weight 144.00 lb Heart Rate 72 /min BP Systolic 144 mmHg BP Diastolic 73 mmHg Body Temperature 99.2 F BMI (Body Mass Index) 21.9 kg/m2 06/22/2014 2:25pm Height 68 inches 5'8" Weight 140.00 lb with shoes Heart Rate 70 /min BP Systolic Sitting 170 mmHg Ra reg cuff BP Diastolic Sitting 80 mmHg Ra reg cuff BP Systolic Standing 164 mmHg Ra reg cuff BP Diastolic Standing 86 mmHg Ra reg cuff Respiratory Rate 17 /min BMI (Body Mass Index) 21.3 kg/m2 06/22/2014 2:17pm Height 68 inches 5'8" 06/10/2014 1:58pm Height 68 inches 5'8" Weight 143.75 lb Heart Rate 84 /min BP Systolic Sitting 142 mmHg BP Diastolic Sitting 70 mmHg Body Temperature 98.6 F O2 % BldC Oximetry 96 % BMI (Body Mass Index) 21.9 kg/m2 03/17/2014 12:59pm Height 68 inches 5'8" Weight 139.00 lb Heart Rate 72 /min BP Systolic 146 mmHg BP Diastolic 90 mmHg BP Systolic Recheck 138 mmHg BP Diastolic Recheck 88 mmHg Body Temperature 97.4 F BMI (Body Mass Index) 21.1 kg/m2 11/06/2013 2:26pm Height 68 inches 5'8" Weight 124.00 lb with sandals Heart Rate 80 /min BP Systolic Sitting 146 mmHg Ra reg cuff BP Diastolic Sitting 90 mmHg Ra reg cuff BP Systolic Standing 128 mmHg Ra reg cuf BP Diastolic Standing 90 mmHg Ra reg cuf Respiratory Rate 17 /min BMI (Body Mass Index) 18.9 kg/m2 03/30/2013 2:01pm Height 67 inches 5'7" Weight 148.00 lb without shoes Heart Rate 76 /min sit and reg BP Systolic Sitting 136 mmHg L arm reg cuff BP Diastolic Sitting 100 mmHg L arm reg cuff BP Systolic Standing 134 mmHg L arm reg cuff BP Diastolic Standing 92 mmHg L arm reg cuff Respiratory Rate 17 /min BMI (Body Mass Index) 23.2 kg/m2 10/07/2012 1:22pm Weight 142.00 lb Heart Rate 68 /min BP Systolic Sitting 126 mmHg BP Diastolic Sitting 60 mmHg 04/10/2012 2:03pm Height 66.75 inches 5'6.75" Weight 120.00 lb Heart Rate 76 /min BP Systolic Sitting 124 mmHg BP Diastolic Sitting 78 mmHg BMI (Body Mass Index) 18.9 kg/m2 02/19/2012 10:46am Height 66.75 inches 5'6.75" Weight 121.50 lb Heart Rate 68 /min BP Systolic Sitting 120 mmHg BP Diastolic Sitting 60 mmHg BMI (Body Mass Index) 19.2 kg/m2 09/24/2011 11:56am Height 66.75 inches 5'6.75" Weight 135.75 lb Heart Rate 78 /min BP Systolic Sitting 122 mmHg BP Diastolic Sitting 60 mmHg Body Temperature 98.5 F BMI (Body Mass Index) 21.4 kg/m2 08/29/2011 9:12am Height 66.75 inches 5'6.75" Weight 133.00 lb Heart Rate 76 /min BP Systolic Sitting 120 mmHg BP Diastolic Sitting 58 mmHg BMI (Body Mass Index) 21.0 kg/m2 05/15/2011 11:13am Height 66.75 inches 5'6.75" Weight 142.00 lb Heart Rate 72 /min BP Systolic Sitting 120 mmHg BP Diastolic Sitting 60 mmHg BMI (Body Mass Index) 22.4 kg/m2 11/14/2010 11:10am Height 66.75 inches 5'6.75" Weight 153.00 lb Heart Rate 76 /min BP Systolic Sitting 130 mmHg BP Diastolic Sitting 52 mmHg BMI (Body Mass Index) 24.1 kg/m2 09/13/2010 10:58am Height 66.75 inches 5'6.75" Weight 152.00 lb Heart Rate 64 /min BP Systolic Sitting 130 mmHg BP Diastolic Sitting 60 mmHg BMI (Body Mass Index) 24.0 kg/m2 Results Test Date Facility Test Result H/L Range Note Drug Abuse [facility] Urine Presumptive Posi Abnormal 1 20 Urine [address] Amphetamine <SEE NOTE> ng/[place] [address] [phone] Urine Barbiturates Negative ng/mL 2 Urine Benzodiazepines Presumptive Posi <SEE NOTE> Abnormal 3 ng/mL Urine Cocaine Negative ng/mL 4 Urine Phencyclidine Negative ng/mL Cutoff: 25 Urine Tetrahydrocannabinol Negative ng/mL Cutoff: 50 5 Creatinine, Urine 64.1 mg/dL Specific [place] 1.010 pH 7.2 Oxidants Negative 6 Adulterants Comment Normal Codeine, Ur Not Detected ng/mL Cutoff: 25 7 Zbjnqtq-0-wgzq-glucuronide, Ur Not Detected ng/mL 8 Morphine, Ur Not Detected ng/mL Cutoff: 25 9 Nmkflfpl-3-evyq-glucuronide, U Not Detected ng/mL 10 6-monoacetylmorphine, Ur Not Detected ng/mL Cutoff: 25 11 Hydrocodone, Ur Present ng/mL Abnormal Cutoff: 25 12 Norhydrocodone, Ur Present ng/mL Abnormal Cutoff: 25 13 Dihydrocodeine, Ur Present ng/mL Abnormal Cutoff: 25 14 Hydromorphone, Ur Not Detected ng/mL Cutoff: 25 15 Qrxrqraxwwyug2ffcwcebrollnntu Present ng/mL Abnormal 16 Oxycodone, Ur Not Detected ng/mL Cutoff: 25 17 Noroxycodone, Ur Not Detected ng/mL Cutoff: 25 18 Oxymorphone, Ur Not Detected ng/mL Cutoff: 25 19 Heywovgeikv-9-sywb-glucuronide Not Detected ng/mL 20 Noroxymorphone, Ur Not Detected ng/mL Cutoff: 25 21 Fentanyl, Ur Not Detected ng/mL Cutoff: 2 22 Norfentanyl, Ur Not Detected ng/mL Cutoff: 2 23 Meperidine, Ur Not Detected ng/mL Cutoff: 25 24 Normeperidine, Ur Not Detected ng/mL Cutoff: 25 25 Naloxone, Ur Not Detected ng/mL Cutoff: 25 26 Lmjsoqxv-6-stpv-glucuronide, U Not Detected ng/mL 27 Methadone, Ur Not Detected ng/mL Cutoff: 25 28 Eddp, Ur Not Detected ng/mL Cutoff: 25 29 Propoxyphene, Ur Not Detected ng/mL Cutoff: 25 30 Norpropoxyphene, Ur Not Detected ng/mL Cutoff: 25 31 Tramadol, Ur Not Detected ng/mL Cutoff: 25 32 O-desmethyltramadol, Ur Not Detected ng/mL Cutoff: 25 33 Tapentadol, Ur Not Detected ng/mL Cutoff: 25 34 N-desmethyltapentadol, Ur Not Detected ng/mL Cutoff: 50 35 Aexbmafmdf-jehx-xwzlrjyhcxv, U Not Detected ng/mL 36 Buprenorphine, Ur Not Detected ng/mL Cutoff: 5 37 Norbuprenorphine, Ur Not Detected ng/mL Cutoff: 5 38 Norbuprenorphine glucuronide Not Detected ng/mL Cutoff: 20 39 Opioid Interpretation See Comment 40 Urine 03/31/2018 [facility] Urine [address] Cutoff: [address] Amphetamine by ng/[place] [address] GC/MS [phone] Urine Methamphetamine by GC/MS Negative ng/mL Cutoff: 25 Phentermine-by GC/MS Negative ng/mL Cutoff: 25 Pseudoephedrine/Ephedr GC/MS Negative ng/mL Cutoff: 25 Mda(Ecstacy metabolite) GC/MS Negative ng/mL Cutoff: 25 Mdma(Ecstacy)-by GC/MS Negative ng/mL Cutoff: 25 Urine Amphetamines Interp Positive. 41 Urine Benzodiazepines 03/31/2018 [facility] Urine Negative [address] Lorazepam ng/[place] [address] GC/MS [phone] Urine Nordiazepam GC/MS Negative ng/mL 43 Urine Oxazepam GC/MS See Comment ng/mL 44 Urine Temazepam GC/MS 295 ng/mL 45 Ur Oh Ethyl Flurazepam GC/MS Negative ng/mL 46 Ur 7 [place] Clonazepam GC/MS Negative ng/mL 47 Ur 7 [place] Flunitrazepam GC/MS Negative ng/mL Cutoff: 50 Ur Alpha Oh Alprazolam GC/MS Negative ng/mL 48 Ur Alpha Oh Triazolam GC/MS Negative ng/mL 49 Ur Benzodiazepine Interp Positive. 50 Laboratory test 01/08/2018 Other Rendering Hemoglobin A1c 8.2 finding CBC Auto Diff 01/03/2018 [facility] White Blood Count 8.5 N 3.5-10. [address] 10^3/uL 8 [place] [address] [phone] Red Blood Count 3.47 10^6/uL Low 4.00-5.40 Hemoglobin 10.9 g/dL Low 12.0-16.0 Hematocrit 33 % Low 35-47 Mean Corpuscular Volume 94 fL N 80-97 Mean Corpuscular Hemoglobin 31 pg N 27-31 Mean Corpuscular HGB Conc 33 g/dL N 31-36 Red Cell Distribution Width 13 % N 10.5-15 Platelet Count 272 10^3/uL N 150-450 Mean Platelet Volume 7.4 fL N 7.4-10.4 Abs Neutrophils 6.7 10^3/uL N 1.5-7.7 Abs Lymphocytes 1.3 10^3/uL N 1.0-4.8 Abs Monocytes 0.5 10^3/uL N 0-0.8 Abs Eosinophils 0 10^3/uL N 0-0.6 Abs Basophils 0 10^3/uL N 0-0.2 Abs Nucleated RBC 0 10^3/uL Granulocyte % 78.4 % N 38-83 Lymphocyte % 15.0 % Low 25-47 Monocyte % 5.8 % N 0-7 Eosinophil % 0.3 % N 0-6 Basophil % 0.5 % N 0-2 Nucleated Red Blood Cells % 0 Inr/Protime 01/03/2018 [facility] Inr 0.84 N 0.77-1.[address] [place] [address] [phone] Laboratory test 01/03/2018 [facility] Partial 29.2 N 26.0- 36.[address] [address] PTT [phone] Basic Metabolic 01/03/2018 [facility] Sodium 134 mmol/L Low 135-[address] [place] [address] [phone] Potassium 4.2 mmol/L N 3.5-5.0 Chloride 100 mmol/L Low 101-111 Co2 Carbon Dioxide 29 mmol/L N 22-32 Anion Gap 5 mmol/L N 2-11 Glucose 300 mg/dL High 70-100 Blood Urea Nitrogen 25 mg/dL High 6-24 Creatinine 1.33 mg/dL High 0.51-0.95 BUN/Creatinine Ratio 18.8 N 8-20 Calcium 8.9 mg/dL N 8.6-10.3 Egfr Non- 40.6 >60 Egfr 49.1 >60 51 Laboratory test 09/25/2017 Other R[facility] Hemoglobin A1c 8.3 finding Comp Metabolic 08/23/2017 [facility] Sodium 136 mmol/L N 135- 145 Panel [address] [place] [address] [phone] Potassium 4.4 mmol/L N 3.5-5.0 Chloride 100 mmol/L Low 101-111 Co2 Carbon Dioxide 29 mmol/L N 22-32 Anion Gap 7 mmol/L N 2-11 Glucose 306 mg/dL High 70-100 Blood Urea Nitrogen 24 mg/dL N 6-24 Creatinine 1.13 mg/dL High 0.51-0.95 BUN/Creatinine Ratio 21.2 High 8-20 Calcium 9.0 mg/dL N 8.6-10.3 Total Protein 5.7 g/dL Low 6.4-8.9 Albumin 3.5 g/dL N 3.2-5.2 Globulin 2.2 g/dL N 2-4 Albumin/Globulin Ratio 1.6 N 1-3 Total Bilirubin 0.40 mg/dL N 0.2-1.0 Alkaline Phosphatase 50 U/L N 34-104 Alt 55 U/L High 7-52 Ast 55 U/L High 13-39 Egfr Non- 49.1 >60 Egfr 59.4 >60 52 Lipid Profile 08/16/2017 [facility] Triglycerides 74 mg/dL 53 (Trig/Chol/HDL) [address] [place] [address] [phone] Cholesterol 163 mg/dL 54 HDL Cholesterol 97.0 mg/dL 55 LDL Cholesterol 51 mg/dL 56 Laboratory test 04/28/2017 Other R[facility] Hemoglobin A1c 9.0 finding Lipid Profile 04/18/2017 [facility] Triglycerides 119 mg/dL 57 (Trig/Chol/HDL) [address] [place] [address] [phone] Cholesterol 156 mg/dL 58 HDL Cholesterol 86.7 mg/dL 59 LDL Cholesterol 46 mg/dL 60 Comp Metabolic Panel 02/28/2017 [facility] Sodium 135 mmol/L N 133-[address] [place] [address] [phone] Potassium 4.4 mmol/L N 3.5-5.0 Chloride 102 mmol/L N 101-111 Co2 Carbon Dioxide 30 mmol/L N 22-32 Anion Gap 3 mmol/L N 2-11 Glucose 171 mg/dL High 70-100 Blood Urea Nitrogen 21 mg/dL N 6-24 Creatinine 0.96 mg/dL High 0.51-0.95 BUN/Creatinine Ratio 21.9 High 8-20 Calcium 8.8 mg/dL N 8.6-10.3 Total Protein 5.4 g/dL Low 6.4-8.9 Albumin 3.4 g/dL N 3.2-5.2 Globulin 2.0 g/dL N 2-4 Albumin/Globulin Ratio 1.7 N 1-3 Total Bilirubin 0.30 mg/dL N 0.2-1.0 Alkaline Phosphatase 38 U/L N 34-104 Alt 32 U/L N 7-52 Ast 27 U/L N 13-39 Egfr Non- 59.3 >60 Egfr 76.2 >60 61 CBC Auto Diff 02/04/2017 [facility] White Blood 7.7 10^3/uL N 3.5-10.[address] [place] [address] [phone] Red Blood Count 3.60 10^6/uL Low 4.0-5.4 Hemoglobin 11.1 g/dL Low 12.0-16.0 Hematocrit 34 % Low 35-47 Mean Corpuscular Volume 93 fL N 80-97 Mean Corpuscular Hemoglobin 31 pg N 27-31 Mean Corpuscular HGB Conc 33 g/dL N 31-36 Red Cell Distribution Width 13 % N 10.5-15 Platelet Count 326 10^3/uL N 150-450 Mean Platelet Volume 7 um3 Low 7.4-10.4 Abs Neutrophils 5.4 10^3/uL N 1.5-7.7 Abs Lymphocytes 1.4 10^3/uL N 1.0-4.8 Abs Monocytes 0.6 10^3/uL N 0-0.8 Abs Eosinophils 0.2 10^3/uL N 0-0.6 Abs Basophils 0.1 10^3/uL N 0-0.2 Abs Nucleated RBC 0 10^3/uL Granulocyte % 70.4 % N 38-83 Lymphocyte % 18.3 % Low 25-47 Monocyte % 8.1 % N 1-9 Eosinophil % 2.4 % N 0-6 Basophil % 0.8 % N 0-2 Nucleated Red Blood Cells % 0 Laboratory test 02/04/2017 [facility] TSH (Thyroid 1.66 mcIU/mL N 0.34-5.[address] Stim [place]orm) [place] [address] [phone] Ferritin 151.1 ng/mL N 11-307 Iron & Iron Binding 02/04/2017 [facility] Iron 84 g/dL N 50- [address] [place] [address] [phone] Unsaturated Iron Binding 213 g/dL Total Iron Binding Capacity 297 g/dL N 250-450 % Iron Saturation 28 % N 15-55 Urine Microalbumin 12/31/2016 [facility] Ur Microalbumin 293.1 mg/L N Random [address] (mg/L) [place] [address] [phone] Urine Creatinine 119.35 mg/dL N Urine Microalbumin/Creatinine 245.5 ug/mg High <31 Ua Routine 12/31/2016 [facility] House Ua Specific [place] 1.000 Ua PH 5 Ua Color YELLOW Ua Appera CLEAR Ua WBC NEG Ua Protein + Ua Glucose NORM Ua Ketones NEG Ua Bilirubin NEG Ua Urobilinogen NEG Ua Nitrite NEG Ua Occult Blood NEG Laboratory test 10/29/2016 [facility] LDL Cholesterol 40 mg/dL N [address] [place] [address] [phone] Laboratory test 09/12/2016 [facility] Cytology SEE RESULT [address] [place] [address] [phone] HPV Rna Ww/Reflex Genotype Negative N Negative 64 Creatinine 08/03/2016 [facility] Creatinine 1.13 mg/dL High 0.51-0.[address] [place] [address] [phone] Egfr Non- 49.3 N >60 Egfr 63.4 N >60 65 Laboratory test 08/03/2016 [facility] Prealbumin 27 mg/dL N 18 -[address] [place] [address] [phone] CBC Auto Diff 08/03/2016 [facility] White Blood 7.1 N 3.5- 10.[address] Count 10^3/[place] [address] [phone] Red Blood Count 3.80 10^6/uL Low 4.0-5.4 Hemoglobin 11.8 g/dL Low 12.0-16.0 Hematocrit 37 % N 35-47 Mean Corpuscular Volume 97 fL N 80-97 Mean Corpuscular Hemoglobin 31 pg N 27-31 Mean Corpuscular HGB Conc 32 g/dL N 31-36 Red Cell Distribution Width 13 % N 10.5-15 Platelet Count 291 10^3/uL N 150-450 Mean Platelet Volume 8 um3 N 7.4-10.4 Abs Neutrophils 4.9 10^3/uL N 1.5-7.7 Abs Lymphocytes 1.7 10^3/uL N 1.0-4.8 Abs Monocytes 0.5 10^3/uL N 0-0.8 Abs Eosinophils 0.1 10^3/uL N 0-0.6 Abs Basophils 0 10^3/uL N 0-0.2 Abs Nucleated RBC 0 10^3/uL N Granulocyte % 68.2 % N 38-83 Lymphocyte % 23.4 % Low 25-47 Monocyte % 6.4 % N 1-9 Eosinophil % 1.4 % N 0-6 Basophil % 0.6 % N 0-2 Nucleated Red Blood Cells % 0 N Laboratory test 08/03/2016 [facility] Erythrocyte Sed 14 mm/Hr N 0-[address] [place] [address] [phone] Laboratory test 07/26/2016 [facility] Ferritin 146.1 N 11-[address] ng/[place] [address] [phone] Comp Metabolic 07/26/2016 [facility] Sodium 135 mmol/L N 133- [address] [place] [address] [phone] Potassium 4.3 mmol/L N 3.5-5.0 Chloride 100 mmol/L Low 101-111 Co2 Carbon Dioxide 27 mmol/L N 22-32 Anion Gap 8 mmol/L N 2-11 Glucose 158 mg/dL High 70-100 Blood Urea Nitrogen 20 mg/dL N 6-24 Creatinine 1.27 mg/dL High 0.51-0.95 BUN/Creatinine Ratio 15.7 N 8-20 Calcium 9.0 mg/dL N 8.6-10.3 Total Protein 6.0 g/dL Low 6.4-8.9 Albumin 3.9 g/dL N 3.2-5.2 Globulin 2.1 g/dL N 2-4 Albumin/Globulin Ratio 1.9 N 1-3 Total Bilirubin 0.50 mg/dL N 0.2-1.0 Alkaline Phosphatase 52 U/L N 34-104 Alt 33 U/L N 7-52 Ast 29 U/L N 13-39 Egfr Non- 43.1 N >60 Egfr 55.4 N >60 66 Lipid Profile 07/26/2016 [facility] Triglycerides 98 mg/dL N 67 (Trig/Chol/HDL) [address] [place] [address] [phone] Cholesterol 147 mg/dL N 68 HDL Cholesterol 78.4 mg/dL N 69 LDL Cholesterol 49 mg/dL N 70 Laboratory test 07/26/2016 [facility] Vitamin B12 505 pg/mL N 180-914 71 finding [address] [place] [address] [phone] Protein 07/26/2016 [facility] Total 6.4 g/dL N 6.3 - 7.9 Electrophoresis [address] [facility] Protein([place] [address] ) [phone] Albumin 3.6 g/dL N 3.4-4.7 Alpha-1 Globulin 0.3 g/dL N 0.1-0.3 Alpha-2 Globulin 1.0 g/dL N 0.6-1.0 Beta Globulin 0.9 g/dL N 0.7-1.2 Gamma Globulin 0.7 g/dL N 0.6-1.6 Albumin/Globulin Ratio 1.29 N Impression See Comment N 72 Iron & Iron Binding 07/26/2016 [facility] Iron 53 g/dL N 50- 212 [address]acity [address] [place] [address] [phone] Unsaturated Iron Binding 244 g/dL N Total Iron Binding Capacity 297 g/dL N 250-450 % Iron Saturation 18 % N 15-55 Laboratory test 07/26/2016 [facility] TSH (Thyroid < 0.03 Low 0.34-5.60 finding [address] [facility] Stim Horm) mcIU/[place] [address] [phone] Erythropoietin 9.8 mIU/mL N 2.6 - 18.5 73 LDH 239 U/L N 140-271 Basic Metabolic Panel 07/17/2016 [facility] Sodium 135 mmol/L N 133-[address] [place] [address] [phone] Potassium 4.0 mmol/L N 3.5-5.0 Chloride 98 mmol/L Low 101-111 Co2 Carbon Dioxide 32 mmol/L N 22-32 Anion Gap 5 mmol/L N 2-11 Glucose 208 mg/dL High 70-100 Blood Urea Nitrogen 24 mg/dL N 6-24 Creatinine 1.18 mg/dL High 0.51-0.95 BUN/Creatinine Ratio 20.3 High 8-20 Calcium 9.5 mg/dL N 8.6-10.3 Egfr Non- 46.9 N >60 Egfr 60.3 N >60 74 Laboratory test 07/11/2016 [facility] Point of 68 mg/dL Low 74 -106 75 finding 101 [facility] [place] [place] [address] [phone] Laboratory test 07/11/2016 [facility] Point of 135 mg/dL High 74-106 76 finding 101 [facility] [place] [address] [phone] Laboratory test 07/11/2016 [facility] Point of 184 mg/dL High 74-[address] [place] [place] [address] [phone] CBC Auto Diff 07/09/2016 [facility] White Blood 7.1 N 3.5- 10.8 101 [facility] Count 10^3/[place] [address] [phone] Red Blood Count 3.32 10^6/uL Low 4.0-5.4 Hemoglobin 10.4 g/dL Low 12.0-16.0 Hematocrit 32 % Low 35-47 Mean Corpuscular Volume 95 fL N 80-97 Mean Corpuscular Hemoglobin 31 pg N 27-31 Mean Corpuscular HGB Conc 33 g/dL N 31-36 Red Cell Distribution Width 13 % N 10.5-15 Platelet Count 259 10^3/uL N 150-450 Mean Platelet Volume 9 um3 N 7.4-10.4 Abs Neutrophils 4.8 10^3/uL N 1.5-7.7 Abs Lymphocytes 1.7 10^3/uL N 1.0-4.8 Abs Monocytes 0.5 10^3/uL N 0-0.8 Abs Eosinophils 0 10^3/uL N 0-0.6 Abs Basophils 0 10^3/uL N 0-0.2 Abs Nucleated RBC 0 10^3/uL N Granulocyte % 68.4 % N 38-83 Lymphocyte % 23.5 % Low 25-47 Monocyte % 6.8 % N 1-9 Eosinophil % 0.6 % N 0-6 Basophil % 0.7 % N 0-2 Nucleated Red Blood Cells % 0.1 N Basic Metabolic Panel 07/09/2016 [facility] Sodium 134 mmol/L N 133-145 [address] [place] [address] [phone] Potassium 4.6 mmol/L N 3.5-5.0 Chloride 98 mmol/L Low 101-111 Co2 Carbon Dioxide 31 mmol/L N 22-32 Anion Gap 5 mmol/L N 2-11 Glucose 350 mg/dL High 70-100 Blood Urea Nitrogen 24 mg/dL N 6-24 Creatinine 1.22 mg/dL High 0.51-0.95 BUN/Creatinine Ratio 19.7 N 8-20 Calcium 9.2 mg/dL N 8.6-10.3 Egfr Non- 45.1 N >60 Egfr 58.0 N >60 78 Basic Metabolic Panel 05/28/2016 [facility] Sodium 134 mmol/L N 133-145 [address] [place] [address] [phone] Potassium 5.0 mmol/L N 3.5-5.0 Chloride 99 mmol/L Low 101-111 Co2 Carbon Dioxide 31 mmol/L N 22-32 Anion Gap 4 mmol/L N 2-11 Glucose 200 mg/dL High 70-100 Blood Urea Nitrogen 31 mg/dL High 6-24 Creatinine 1.40 mg/dL High 0.51-0.95 BUN/Creatinine Ratio 22.1 High 8-20 Calcium 9.1 mg/dL N 8.6-10.3 Egfr Non- 38.5 N >60 Egfr 49.5 N >60 79 Laboratory test 05/28/2016 [facility] Hemoglobin A1c 8.8 % High Less than [address] (Glyco HGB) 6.0 [place] [address] [phone] Comp Metabolic 03/12/2016 [facility] Sodium 133 N 133-[address] mmol/[place] [address] [phone] Potassium 4.2 mmol/L N 3.5-5.0 Chloride 97 mmol/L Low 101-111 Co2 Carbon Dioxide 32 mmol/L N 22-32 Anion Gap 4 mmol/L N 2-11 Calcium 9.2 mg/dL N 8.6-10.3 Albumin 3.7 g/dL N 3.2-5.2 Alkaline Phosphatase 59 U/L N 34-104 Alt 44 U/L N 7-52 Ast 30 U/L N 13-39 Glucose 225 mg/dL High 70-100 Blood Urea Nitrogen 9 mg/dL N 6-24 Creatinine 1.00 mg/dL High 0.51-0.95 BUN/Creatinine Ratio 9.0 N 8-20 Total Protein 5.4 g/dL Low 6.4-8.9 Globulin 1.7 g/dL Low 2-4 Albumin/Globulin Ratio 2.2 N 1-3 Total Bilirubin 0.40 mg/dL N 0.2-1.0 Egfr Non- 56.7 N >60 Egfr 73.0 N >60 81 Laboratory test 2016 [facility] Lyme Disease Negative N Negative [address] [place] [address] [phone] Hemoglobin/Jamie 12/13/2015 [facility] Hemoglobin 11.9 g/dL Low 12.0-16.[address] [place] [address] [phone] Hematocrit 36 % N 35-47 Iron & Iron Binding 12/13/2015 [facility] Iron 50 g/dL N 50- [address] [place] [address] [phone] Unsaturated Iron Binding 203 g/dL N Total Iron Binding Capacity 253 g/dL N 250-450 % Iron Saturation 20 % N 15-55 Laboratory 12/13/2015 [facility] Erythropoietin 26.7 Abnormal 2.6 - 83 test finding [address] mIU/mL 18.5 [place] [address] [phone] Ferritin 119.6 ng/mL N 11-307 Myastehnia 12/05/2015 [facility] MG Lambert-Eaton See Comment N [address] (), [address] [place] [address] [phone] Acetylcholine Receptor Binding 0.00 nmol/L N <=0.02 85 Acetylcholine Recept Mod Ab 0 % N 86 Anti-Striated Muscle Antibody Negative titer N <1:120 87 Laboratory test finding 10/20/2014 [facility] Ast (Sgot) 23 U/L N 13-[address] [place] [address] [phone] Alt (SGPT) 19 U/L N 7-52 89 Vitamin B12 995 pg/mL High 180-914 90 Methylmalonic Acid Mma 0.14 nmol/mL N <=0.40 91 Ferritin 190.8 ng/mL N 11-307 92 Mitochondrial AB AMA M2 Igg <0.1 U N 93 Ceruloplasmin 16.9 mg/dL N 94 Laboratory test 08/26/2014 [facility] Point of Care 78 mg/dL N 74-106 [address] [place] [address] [phone] Laboratory test 08/26/2014 [facility] Point of Care 81 mg/dL N 74-106 [address] [place] [address] [phone] Laboratory test 08/26/2014 [facility] Clotest SEE RESULT [address] [place] [address] [phone] Laboratory test 08/26/2014 [facility] Point of Care 79 mg/dL N 74-106 [address] [place] [address] [phone] Laboratory test 08/26/2014 [facility] Surgical SEE RESULT [address] [place] [address] [phone] Laboratory test 06/25/2014 [facility] Alt 44 U/L N 7-[address] [place] [address] [phone] Ast 38 U/L N 13-39 Laboratory test 06/25/2014 [facility] TSH (Thyroid 2.69 IU/mL N 0.34-5.[address] [place] [address] Horm) [phone] HIV 1 2 AB Self Referred Nonreactive N Nonreactive 100 Lyme Disease Serology Negative N Negative 101 [facility] (Anti-Nuclear AB) Screen Negative N Negative Hepatitis B Surface Antigen Nonreactive N Nonreactive Hepatitis C Antibody Nonreactive N Nonreactive Lipid Profile 06/25/2014 [facility] Triglycerides 91 mg/dL N 102 (Trig/Chol/HDL) [address] [place] [address] [phone] Cholesterol 191 mg/dL N 103 HDL Cholesterol 79.2 mg/dL N 104 LDL Cholesterol 94 mg/dL N 105 Laboratory test finding 03/17/2014 TSH (Thyroid Stimulating 3.12 IU/mL N 0.34-5.60 Horm) Hemoglobin A1c 9.2 % High Less than 6.0 106 Iron & Iron Binding Capacity 03/17/2014 Iron 106 g/dL N 50-212 Unsaturated Iron Binding 160 g/dL N Total Iron Binding Capacity 266 g/dL N 250-450 % Iron Saturation 40 % N 15-55 CBC Auto Diff 03/17/2014 White Blood Count 5.8 10^3/uL N 4.8-10.8 Red Blood Count 3.81 10^6/uL Low 4.0-5.4 Hemoglobin 12.5 g/dL N 12.0-16.0 Hematocrit 37 % N 35-47 Mean Corpuscular Volume 96 fL N 80-97 Mean Corpuscular Hemoglobin 33 pg High 27-31 Mean Corpuscular HGB Conc 34 g/dL N 31-36 Red Cell Distribution Width 12 % N 10.5-15 Platelet Count 246 10^3/uL N 150-450 Mean Platelet Volume 8 um3 N 7.4-10.4 Abs Neutrophils 3.4 10^3/uL N 1.5-7.7 Abs Lymphocytes 1.7 10^3/uL N 1.0-4.8 Abs Monocytes 0.4 10^3/uL N 0-0.8 Abs Eosinophils 0.2 10^3/uL N 0-0.6 Abs Basophils 0.1 10^3/uL N 0-0.2 Abs Nucleated RBC 0 10^3/uL N Granulocyte % 58.9 % N 38-83 Lymphocyte % 29.9 % N 25-47 Monocyte % 7.7 % N 1-9 Eosinophil % 2.6 % N 0-6 Basophil % 0.9 % N 0-2 Nucleated Red Blood Cells % 0 N Comp Metabolic Panel 03/17/2014 Sodium 134 mmol/L N 133-145 Potassium 4.5 mmol/L N 3.5-5.0 Chloride 100 mmol/L Low 101-111 Co2 Carbon Dioxide 29 mmol/L N 22-32 Anion Gap 5 mmol/L N 2-11 Glucose 143 mg/dL High 70-100 Blood Urea Nitrogen 25 mg/dL High 6-24 Creatinine 1.13 mg/dL High 0.51-0.95 BUN/Creatinine Ratio 22.1 High 8-20 Calcium 9.1 mg/dL N 8.6-10.3 Total Protein 5.7 g/dL Low 6.4-8.9 Albumin 4.0 g/dL N 3.2-5.2 Globulin 1.7 g/dL Low 2-4 Albumin/Globulin Ratio 2.4 N 1-3 Total Bilirubin 0.40 mg/dL N 0.2-1.0 Alkaline Phosphatase 49 U/L N 34-104 Alt 94 U/L High 7-52 Ast 53 U/L High 13-39 Egfr Non- 49.6 N >60 Egfr 63.8 N >60 107 Comp Metabolic Panel 11/06/2013 [facility] Sodium 138 mmol/L N 133-145 108 [address] [place] [id number] [phone] Potassium 4.1 mmol/L N 3.7-5.6 Chloride 104 mmol/L N 101-111 Co2 Carbon Dioxide 29 mmol/L N 22-32 Anion Gap 5 mmol/L N 2-11 Glucose 98 mg/dL N 70-100 Blood Urea Nitrogen 7 mg/dL N 6-24 Creatinine 1.12 mg/dL High 0.51-0.95 BUN/Creatinine Ratio 6.3 Low 8-20 Calcium 9.7 mg/dL N 8.6-10.3 Total Protein 6.0 g/dL Low 6.4-8.9 Albumin 4.0 g/dL N 3.2-5.2 Globulin 2.0 g/dL N 2-4 Albumin/Globulin Ratio 2.0 N 1-3 Total Bilirubin 0.50 mg/dL N 0.2-1.0 Alkaline Phosphatase 51 U/L N 34-104 Alt 118 U/L High 7-52 Ast 78 U/L High 13-39 Egfr Non- 50.3 N >60 Egfr 64.7 N >60 109 Laboratory test 11/06/2013 [facility] TSH (Thyroid 1.61 N 0.34 -5.60 [address] Stimulating IU/[place] [address] Horm) [phone] Lipase 8 U/L Low 11.0-82.0 111 Laboratory test 03/20/2013 [facility] Creatine Kinase 219 U/L High 0-[address] [place] [address] [phone] Lipid Profile 03/20/2013 [facility] Triglycerides 37 mg/dL Low 40-200 (Trig/Chol/HDL) [address] [place] [address] [phone] Cholesterol 215 mg/dL High Less than 200 HDL Cholesterol 125 mg/dL High 40-60 112 Cholesterol/HDL Ratio 1.7 Average 1-4.44 LDL Cholesterol 82.6 Less Than 100 113 CBC Auto Diff 03/20/2013 [facility] White Blood 6.5 10^3/uL 4.8-10.[address] [place] [address] [phone] Red Blood Count 3.73 10^6/uL Low 4.0-5.4 [...] Red Blood Cells % 0 Hemoglobin/Hematacrit 11/07/2012 [facility] Hemoglobin 11.2 Low 12.0-16.[address] g/[place] [address] [phone] Hematocrit 32 % Low 35-47 Laboratory test 10/07/2012 [facility] Hemoglobin A1c 7.8 High 5-7 finding CBC Auto Diff 06/24/2012 [facility] White Blood Count 7.2 4.8 -10.[address] 10^3/[place] [address] [phone] Red Blood Count 3.30 10^6/uL Low 4.0-5.4 [...] Cells % 0 Comp Metabolic Panel 06/24/2012 [facility] Sodium 139 mmol/L 133-[address] [place] [address] [phone] Potassium 4.2 mmol/L 3.5-5.0 Chloride 105 mmol/L [...] Egfr Non- 51.6 >60 Egfr 66.3 >60 114 Creatinine 06/24/2012 [facility] Urine Random 60.8 mg/dL Clearance [address] [place] [address] [phone] Creatinine 1.1 mg/dL 0.5-1.4 Creatinine Clearance 84 mL/min 80-125 Urine Collection Time 24 Urine Total Volume 2200 mL Total Protein 24HR 06/24/2012 [facility] Urine Random Total 8 mg /dL Urine [address] [place] [address] [phone] Urine Total Protein/24HR 176 mg/24Hr High 0-165 Hemoglobin/Hematacrit 04/18/2012 [facility] Hemoglobin 10.5 Low 12.0-16.[address] g/[place] [address] [phone] Hematocrit 32 % Low 35-47 Laboratory test 04/18/2012 [facility] Creatine Kinase 190 U/L 0-[address] [place] [address] [phone] Basic Metabolic 04/10/2012 [facility] Sodium 134 133-[address] mmol/[place] [address] [phone] Potassium 4.3 mmol/L 3.5-5.0 Chloride 107 mmol/L 101-111 Co2 Carbon Dioxide 23.0 mmol/L 22-32 Anion Gap 4.0 mmol/L 2-11 Glucose 264 mg/dL High 70-100 Blood Urea Nitrogen 22 mg/dL 6-24 Creatinine 1.40 mg/dL 0.50-1.40 BUN/Creatinine Ratio 15.7 8-20 Calcium 9.1 mg/dL 8.1-9.9 Egfr Non- 39.0 >60 Egfr 50.2 >60 115 CBC With 04/10/2012 [facility] White Blood 6.7 10^3/uL 4.8- 10.8 Manual Diff [address] [place] [address] [phone] Red Blood Count 3.17 10^6/uL Low 4.0-5.4 [...] Lymph % 2 % 0-6 Hypochromasia 1+ Comp Metabolic Panel 02/19/2012 [facility] Sodium 134 mmol/L 133-[address] [place] [address] [phone] Potassium 4.2 mmol/L 3.5-5.0 Chloride 102 mmol/L [...] Egfr Non- 39.0 >60 Egfr 50.2 >60 116 Laboratory test 02/19/2012 [facility] TSH (Thyroid 1.33 0.34- 5.[address] Stimulating miu/[place] [address] [facility]) [phone] Vitamin D 1,25 02/19/2012 [facility] Vitamin D 20 pg/mL 18- 78 117 And Vitamin D,[address] 1,[place] [address] [phone] Vitamin D, 25 02/19/2012 [facility] 25-Hydroxy <4.0 ng/mL Hydroxy [address] Vitamin [place]2 [place] [address] [phone] 25-Hydroxy Vitamin D3 39 ng/mL 25-Hydroxy Vitamin D Total 39 ng/mL 118 Laboratory test 02/19/2012 [facility] Prealbumin 37.1 mg/dL 18-[address] [place] [address] [phone] Creatine Kinase 219 U/L High 0-200 CBC With 02/19/2012 [facility] White Blood 10.6 10^3/uL 4.8- 10.8 Manual Diff [address] [place] [address] [phone] Red Blood Count 3.45 10^6/uL Low 4.0-5.4 Hemoglobin 11.3 g/dL Low 12.0-16.0 Hematocrit 35 % 35-47 Mean Corpuscular Volume 101 fL High 80-97 119 Mean Corpuscular Hemoglobin 33 pg High 27-31 [...] % Microcytosis 1+ Elliptocyte 1+ Laboratory test 02/19/2012 [facility] Hemoglobin A1c 7.1 High 5-7 finding Pthi 01/15/2012 [facility] PTH Intact 1.6 PMOL/L 1.3-9.[address] [place] [address] [phone] Calcium (PTH Intact) 9.5 mg/dL 8.1-9.9 Hemoglobin/Hematacrit 01/15/2012 [facility] Hemoglobin 11.7 Low 12.0-16.[address] g/dL [place], [place] [id number] [phone] Hematocrit 35 % 35-47 CBC Auto Diff 12/27/2011 [facility] White Blood 6.4 10^3/uL 4.8-10.[address] [place] [address] [phone] Red Blood Count 3.56 10^6/uL Low 4.0-5.4 [...] Cells % 0 Comp Metabolic Panel 12/27/2011 [facility] Sodium 136 mmol/L 133-[address] [place] [address] [phone] Potassium 4.2 mmol/L 3.5-5.0 Chloride 106 mmol/L [...] 1.8 1-3 Total Bilirubin 0.6 mg/dL 0.1-1.0 120 Alkaline Phosphatase 31 U/L 30-110 Alt 16 U/L 14-54 Ast 25 U/L 12-42 Egfr Non- 39.2 >60 Egfr 50.4 >60 121 Lipid Profile 12/27/2011 [facility] Triglycerides 35 mg/dL Low 40-200 (Trig/Chol/HDL) [address] [place] [address] [phone] Cholesterol 143 mg/dL Less than 200 122 HDL Cholesterol 98 mg/dL High 40-60 123 Cholesterol/HDL Ratio 1.5 AVERAGE 1-4.44 LDL Cholesterol 38.0 mg/dL Less Than 100 Liver Function 12/27/2011 [facility] Direct Bilirubin 0.1 mg/dL 0.1-0.[address] [place] [address] [phone] Indirect Bilirubin 0.5 mg/dL 0.3-1.0 Creatinine 12/27/2011 [facility] Urine Random 110.0 mg/dL Clearance [address] [place] [address] [phone] Creatinine 1.4 mg/dL 0.5-1.4 Creatinine Clearance 52 mL/min Low 80-125 Urine Collection Time 24 Urine Total Volume 950 ML Total Protein 24HR 12/27/2011 [facility] Urine Random Total 7 mg /dL Urine [address] [place] [address] [phone] Urine Total Protein/24HR 66 MG/24HR 0-165 Surgical 11/06/2011 [facility] Surgical [address] Pathology <SEE NOTE> [place] [address] [phone] Laboratory test 10/05/2011 [facility] Stool Culture ---- [address] <SEE NOTE> [place] [address] [phone] Laboratory test 08/29/2011 [facility] Hemoglobin A1c 8.4 High 5- finding 7 Urine 08/29/2011 [facility] Microalbumin < 2.0 mg/L Microalbumin [address] (MG/L) [place] [address] [phone] Urine Creatinine 136.6 mg/dL 126 CBC Auto Diff 06/12/2011 [facility] White Blood 6.1 CUMM 4.8- 10.[address] [place] [address] [phone] Red Cell Count 3.84 CUMM Low 4.2-5.4 [...] 0.1 0-0.6 Abs Basophils 0 0-0.2 Creatinine 06/12/2011 [facility] Creatinine Random 74.2 mg/dL Clearance [address] [place] [address] [phone] Creat Clearance 58 mL/min Low 80-125 Hours Of Collection 24 HR 24- Urine Volume Measurement 1700 ML Total Protein 24HR 06/12/2011 [facility] Total Protein 7 mg/dL Urine [address] [place] [address] [phone] Urine Total Protein/24HR 119 MG/24HR High 50-100 Comp Metabolic Panel 06/12/2011 [facility] Sodium 129 mmol/L Low 135-[address] [place] [address] [phone] Potassium 4.2 mmol/L 3.5-5.0 Chloride 98 mmol/L Low 101-111 Co2 (Carbon Dioxide) 24.0 mmol/L 22-32 Anion Gap 7.0 mmol/L 2-11 127 Glucose 365 mg/dL High 70-100 BUN 22 mg/dL 6-24 Creatinine 1.5 mg/dL High 0.50-1.40 One Over Creatinine 0.66 BUN/Creatinine Ratio 14.7 8-20 Calcium 8.9 mg/dL 8.1-9.9 Total Protein 5.6 GM/DL Low 6.2-8.1 Albumin 3.7 GM/DL 3.6-5.4 Globulin 1.9 GM/DL Low 2-4 Albumin/Globulin Ratio 1.9 1-3 Bilirubin Total 0.9 mg/dL 0.4-1.5 128 Alkaline Phosphatase 36 U/L 30-110 Alt (SGPT) 31 U/L 14-54 Ast (Sgot) 41 U/L 12-42 eGFR Non- 36.2 > 60 eGFR 46.5 > 60 129 Lipid Profile 06/12/2011 [facility] Triglyceride 45 mg/dL 40- 200 (Trig/Chol/HDL) [address] [place] [address] [phone] Cholesterol 129 mg/dL Less Than 200 130 High Density Lipoprotein 78 mg/dL High 40-60 131 Cholesterol/HDL Ratio 1.65 AVERAGE 1-4.44 Low Density Lipoprotein 42 mg/dL Less Than 100 132 Liver Function 06/12/2011 [facility] Bilirubin Direct 0.2 mg/dL 0.1-0.5 Panel [address] [place] [address] [phone] Indirect Bilirubin 0.7 mg/dL 0.3-1.0 133 Laboratory test 05/15/2011 [facility] Hemoglobin A1c 6.8 5-7 finding Hemoglobin/Hematac 04/03/2011 [facility] Hemoglobin 11.2 g/dL Low 12.0-16.0 rit [address] [place] [address] [phone] Hematocrit 32 % Low 35-47 Comp Metabolic Panel 01/18/2011 [facility] Sodium 131 mmol/L Low 135-145 [address] [place] [address] [phone] Potassium 3.8 mmol/L 3.5-5.0 Chloride 94 mmol/L Low 101-111 Co2 (Carbon Dioxide) 26.0 mmol/L 22-32 Anion Gap 11.0 mmol/L 2-11 134 Glucose 280 mg/dL High 70-100 BUN 28 mg/dL High 6-24 Creatinine 1.5 mg/dL High 0.50-1.40 One Over Creatinine 0.66 BUN/Creatinine Ratio 18.7 8-20 Calcium 8.8 mg/dL 8.1-9.9 Total Protein 6.4 GM/DL 6.2-8.1 Albumin 3.5 GM/DL Low 3.6-5.4 Globulin 2.9 GM/DL 2-4 Albumin/Globulin Ratio 1.2 1-3 Bilirubin Total 0.7 mg/dL 0.4-1.5 135 Alkaline Phosphatase 36 U/L 30-110 Alt (SGPT) 19 U/L 14-54 Ast (Sgot) 30 U/L 12-42 eGFR Non- 36.2 > 60 eGFR 46.5 > 60 136 Lipid Profile 01/18/2011 [facility] Triglyceride 57 mg/dL 40- 200 (Trig/Chol/HDL) [address] [facility] [place] [id number] [phone] Cholesterol 142 mg/dL Less Than 200 137 High Density Lipoprotein 84 mg/dL High 40-60 138 Cholesterol/HDL Ratio 1.69 AVERAGE 1-4.44 Low Density Lipoprotein 47 mg/dL Less Than 100 139 Liver Function 01/18/2011 [facility] Bilirubin Direct 0.1 mg/dL 0.1-0.5 Panel [address] [place] [address] [phone] Indirect Bilirubin 0.6 mg/dL 0.3-1.0 140 Creatinine 01/18/2011 [facility] Creatinine Random 71.8 mg/dL Clearance [address] [place] [address] [phone] Creat Clearance 53 mL/min Low 80-125 Hours Of Collection 24 HR 24- Urine Volume Measurement 1600 ML Total Protein 24HR 01/18/2011 [facility] Total Protein 3 mg/dL Urine [address] [place] [address] [phone] Urine Total Protein/24HR 48 MG/24HR Low 50-100 Urinalysis 01/01/2011 [facility] Ua Color YELLOW Yellow [address] [place] [address] [phone] Appearance-Urine CLEAR Clear Specific [place]-Ur 1.010 1.010-1.030 Esterase-Urine NEGATIVE Negative Nitrite NEGATIVE Negative [id number] NEGATIVE Negative Protein-Urine NEGATIVE Negative PH-Urine 5.5 5-9 Blood-Urine NEGATIVE Negative Ketones-Urine TRACE Abnormal Negative Bilirubin-Ur NEGATIVE Negative Glucose-Urine 2+ Abnormal Negative International Normalized 01/01/2011 [facility] Inr 0.88 0.88- 1.13 141 Ratio [address] [place] [address] [phone] Protime 10.3 SEC 10.3-13.5 142 Laboratory test 01/01/2011 [facility] PTT (Aptt) 23.6 Low 25.15-38.53 finding [address] [place] [address] [phone] Comp Metabolic 01/01/2011 [facility] Sodium 129 Low 135-145 Panel 101 [facility] mmol/[place] [address] [phone] Potassium 3.7 mmol/L 3.5-5.0 Chloride 92 mmol/L Low 101-111 Co2 (Carbon Dioxide) 26.0 mmol/L 22-32 Anion Gap 11.0 mmol/L 2-11 143 Glucose 322 mg/dL High 70-100 BUN 36 mg/dL High 6-24 Creatinine 1.6 mg/dL High 0.50-1.40 One Over Creatinine 0.62 BUN/Creatinine Ratio 22.5 High 8-20 Calcium 9.5 mg/dL 8.1-9.9 Total Protein 6.5 GM/DL 6.2-8.1 Albumin 3.9 GM/DL 3.6-5.4 Globulin 2.6 GM/DL 2-4 Albumin/Globulin Ratio 1.5 1-3 Bilirubin Total 0.7 mg/dL 0.4-1.5 144 Alkaline Phosphatase 42 U/L 30-110 Alt (SGPT) 23 U/L 14-54 Ast (Sgot) 37 U/L 12-42 eGFR Non- 33.7 > 60 eGFR 43.4 > 60 145 Laboratory test 01/01/2011 [facility] Troponin-I 0.01 NG/ML 0 -0.06 [address] [place] [address] [phone] CBC Auto Diff 01/01/2011 [facility] White Blood 9.5 CUMM 4.8- 10.[address] [place] [address] [phone] Red Cell Count 4.00 CUMM Low 4.2-5.4 Hemoglobin 13.4 g/dL 12.0-16.0 Hematocrit 39 % 35-47 Mean Corpuscular Volume 97 um3 79-97 Mean Corpuscular Hemoglob 34 pg High 27-31 Mean Corpuscular HGB Cone 35 g/dL 32-36 Redcell Distribution WDTH 14 % 10.5-15 Platelet Count 296 CUMM 150-450 Mean Platelet Volume 7.7 um3 7.4-10.4 147 Manual Differential 01/01/2011 [facility] Polysegmented 75 % 38-[address] [place] [address] [phone] Lymphocyte 23 % Low 25-47 Monocyte 1 % 0-13 Basophil 1 % 0-2 Absolute Neutrophil Count 7.1 Anisocytosis SLIGHT Hemoglobin/Hematacrit 12/07/2010 [facility] Hemoglobin 13.3 12.0-16.[address] g/[place] [address] [phone] Hematocrit 39 % 35-47 Laboratory test 11/14/2010 [facility] Hemoglobin A1c 9.5 High 5-7 finding Comp Metabolic 11/10/2010 [facility] Sodium 134 mmol/L Low 135 -[address] [place] [address] [phone] Potassium 3.9 mmol/L 3.5-5.0 Chloride 96 mmol/L Low 101-111 Co2 (Carbon Dioxide) 28.0 mmol/L 22-32 Anion Gap 10.0 mmol/L 2-11 149 Glucose 265 mg/dL High 70-100 BUN 50 mg/dL High 6-24 Creatinine 1.7 mg/dL High 0.50-1.40 One Over Creatinine 0.58 BUN/Creatinine Ratio 29.4 High 8-20 Calcium 9.0 mg/dL 8.1-9.9 Total Protein 6.0 GM/DL Low 6.2-8.1 Albumin 3.6 GM/DL 3.6-5.4 Globulin 2.4 GM/DL 2-4 Albumin/Globulin Ratio 1.5 1-3 Bilirubin Total 0.4 mg/dL 0.4-1.5 150 Alkaline Phosphatase 43 U/L 30-110 Alt (SGPT) 29 U/L 14-54 Ast (Sgot) 45 U/L High 12-42 eGFR Non- 31.4 > 60 eGFR 40.4 > 60 151 Lipid Profile 11/10/2010 [facility] Triglyceride 28 mg/dL Low 40-200 (Trig/Chol/HDL) [address] [place] [address] [phone] Cholesterol 160 mg/dL Less Than 200 152 High Density Lipoprotein 114 mg/dL High 40-60 153 Cholesterol/HDL Ratio 1.40 AVERAGE 1-4.44 Low Density Lipoprotein 40 mg/dL Less Than 100 154 Hemoglobin/Hematacrit 08/28/2010 [facility] Hemoglobin 11.5 Low 12.0-16.[address] g/[place] [address] [phone] Hematocrit 34 % Low 35-47 1 Presumptive Positive Drug confirmation to follow. Presumptive Positive means that the screening method is positive, but the test needs to be run by a confirmatory method before being finalized. REFERENCE VALUE Cutoff: 500 2 REFERENCE VALUE Cutoff: 200 3 Presumptive Positive Drug confirmation to follow. Presumptive Positive means that the screening method is positive, but the test needs to be run by a confirmatory method before being finalized. REFERENCE VALUE Cutoff: 100 4 REFERENCE VALUE Cutoff: 150 5 ADDITIONAL INFORMATION This report is intended for use in clinical monitoring or management of patients. It is not intended for use in employment-related testing. 6 REFERENCE VALUE Cutoff: 200 mg/L 7 Tylenol 3 8 Metabolite of codeine REFERENCE VALUE Cutoff: 100 9 Fiordaliza Cam, MS Contin; Also a minor metabolite (10%) of codeine and can be seen in low concentrations (<2,000 ng/mL) with poppy seed ingestion. 10 Metabolite of morphine REFERENCE VALUE Cutoff: 100 11 Metabolite of heroin 12 Lortab, [place], Vicodin; Also a very minor metabolite of codeine and impurity (<1%) of oxycodone. 13 Metabolite of hydrocodone 14 Metabolite of hydrocodone 15 Dilaudid, Exalgo; Also a metabolite of hydrocodone and a minor (<5%) metabolite of morphine. 16 Metabolite of hydromorphone REFERENCE VALUE Cutoff: 100 17 Endocet, Percocet, Oxycontin 18 Metabolite of oxycodone 19 Numorphan, Opana; Also a metabolite of oxycodone. 20 Metabolite of oxymorphone REFERENCE VALUE Cutoff: 100 21 Metabolite of oxymorphone 22 Actiq, Duragesic, Fentora 23 Metabolite of fentanyl 24 Demerol 25 Metabolite of meperidine 26 Narcan 27 Metabolite of naloxone REFERENCE VALUE Cutoff: 100 28 Dolophine 29 Metabolite of methadone 30 Darvon, Darvocet 31 Metabolite of propoxyphene 32 Tradol, Ultram, Ultracet 33 Metabolite of tramadol 34 Nucynta 35 Metabolite of tapentadol 36 Metabolite of tapentadol REFERENCE VALUE Cutoff: 100 37 Buprenex, Suboxone 38 Metabolite of buprenorphine 39 Metabolite of buprenorphine 40 Test detected the presence of hydrocodone, two of its metabolites (norhydrocodone and dihydrocodeine), and qrxtixytlgxay-7-pqud-glucuronide (metabolite of hydromorphone). Suspect use of hydrocodone and/or hydromorphone within the past three days. Trace amounts of hydrocodone can also be found as an impurity in hydromorphone. ADDITIONAL INFORMATION This test was developed and its performance characteristics determined by [facility] in a manner consistent with CLIA requirements. This test has not been cleared or approved by the U.S. Food and Drug Administration. Test Performed by: [facility] [email or web address] [address] [place] [id number] ADDITIONAL INFORMATION This report is intended for use in clinical monitoring and management of patients. It is not intended for use in employment-related testing. This test was developed and its performance characteristics determined by [facility] in a manner consistent with CLIA requirements. This test has not been cleared or approved by the U.S. Food and Drug Administration. Test Performed by: [facility] - [address] [address] 42 REFERENCE VALUE Cutoff: 100 43 REFERENCE VALUE Cutoff: 100 44 Unknown interfering substance present; unable to obtain results. REFERENCE VALUE Cutoff: 100 45 REFERENCE VALUE Cutoff: 100 46 REFERENCE VALUE Cutoff: 100 47 REFERENCE VALUE Cutoff: 100 48 REFERENCE VALUE Cutoff: 100 49 REFERENCE VALUE Cutoff: 100 50 ADDITIONAL INFORMATION This report is intended for use in clinical monitoring and management of patients. It is not intended for use in employment-related testing. This test was developed and its performance characteristics determined by [facility] in a manner consistent with CLIA requirements. This test has not been cleared or approved by the U.S. Food and Drug Administration. Test Performed by: [facility] [address] [place] [address] 51 Because ethnic data is not always readily [...] 15-29 5 Kidney failure <15 (or dialysis) 52 Because ethnic data is not always readily [...] 15-29 5 Kidney failure <15 (or dialysis) 53 Desirable: <150 Borderline High: 150-199 High: 200-499 Very High: >500 54 Desirable: <200 Borderline High: 200-239 High: >239 55 Low: <40 Desirable: 40-60 High: >60 56 Desirable: <100 Near Optimal: 100-129 Borderline High: 130-159 High: 160-189 Very High: >189 57 Desirable: <150 Borderline High: 150-199 High: 200-499 Very High: >500 58 Desirable: <200 Borderline High: 200-239 High: >239 59 Low: <40 Desirable: 40-60 High: >60 60 Desirable: <100 Near Optimal: 100-129 Borderline High: 130-159 High: 160-189 Very High: >189 61 Because ethnic data is not always readily [...] 15-29 5 Kidney failure <15 (or dialysis) 62 Desirable: <100 mg/dL Near Optimal: 100-129 mg/dL Borderline High: 130-159 mg/dL High: 160-189 mg/dL Very High: >189 mg/dL 63 SEE RESULT BELOW Name: DI CARVALHO : [address]: Christy Westbrook MD Acct: [id number] Unit: [id number] AGE: 61 Location: [facility] Re09/12/16 SEX: F Status: REG REF SPEC: [id number] CIARA: 09/12/16 [facility] DR: Christy Westbrook MD REQ: [id number] RECD: 09/12/16 STATUS: SOUT _ ORDERED: TP IMAGE ANAL, HPV/Thin Prep COMMENTS: [id number] FINAL DIAGNOSIS Negative for Intraepithelial lesion or [...] was evaluated with the assistance of the [employer] Test Imaging System. Due to cytologic findings at the extruder operator microscope, comprehensive manual rescreening by a Cutting Machine Fixer may be required. The Pap Smear is [...] performed at Main Lab DEPARTMENT OF PATHOLOGY, [address] [place] [address] Venkat Dean M.D. Director [facility] # [id number] 64 The high-risk HPV types detected by the assay include: 16, 18, 31, 33, 35, 39, 45, 51, 52, 56, 58, 59, 66, and 68. 65 Because ethnic data is not always readily [...] 15-29 5 Kidney failure <15 (or dialysis) 66 Because ethnic data is not always readily [...] 15-29 5 Kidney failure <15 (or dialysis) 67 Desirable <150 Borderline high 150-199 High 200-499 Very High >500 68 Desirable <200 Borderline high 200-239 High >239 69 Low <40 Desirable: 40-60 High: >60 70 Desirable: <100 mg/dL Near Optimal: 100-129 mg/dL Borderline High: 130-159 mg/dL High: 160-189 mg/dL Very High: >189 mg/dL 71 Normal Range 180 to 914 Indeterminate Range 145 to 180 Deficient Range <145 72 RESULT: No apparent monoclonal protein on serum electrophoresis. Test Performed by: [facility] [address] [place] [address] 73 Test Performed by: [facility] [address] [place] [address] 74 Because ethnic data is not always readily [...] 15-29 5 Kidney failure <15 (or dialysis) 75 Neon Glass Bender: [id number] 76 Neon Glass Bender: [id number] 77 Neon Glass Bender: [id number] 78 Because ethnic data is not always [...] 5 Kidney failure <15 (or dialysis) 79 Because ethnic data is not always readily [...] 15-29 5 Kidney failure <15 (or dialysis) 80 Therapeutic target for the treatment of diabetes Mellitus patients is <7% HBA1C, and in selective patients <6.0%.Please refer to [place] [employer] Diabetic care guidelines for further information. 81 Because ethnic data is not always readily [...] 15-29 5 Kidney failure <15 (or dialysis) 82 Serologic response to B. burgdorferi infection is not detected, but cannot rule out early infection during which low or undetectable antibody levels to B. burgdorferi may be present. If clinically indicated, a new serum specimen should be submitted in 7-14 days. Test Performed by: [address] [address] Pediatric Critical Care Nurse: Kayden Camacho II, M.D., Ph.D. 83 Test Performed by: [facility] [place] [address] Pediatric Critical Care Nurse: Kayden Camacho II, M.D., Ph.D. 84 A negative result does not exclude the diagnosis of autoimmune myasthenia gravis. PDF Report available at: [email or web address] ADDITIONAL INFORMATION This test was developed and its performance characteristics determined by [facility] in a manner consistent with CLIA requirements. This test has not been cleared or approved by the U.S. Food and Drug Administration. 86 REFERENCE VALUE 0-20% (reported as _% loss of AChR) ADDITIONAL INFORMATION This test was developed and its performance characteristics determined by [facility] in a manner consistent with CLIA requirements. This test has not been cleared or approved by the U.S. Food and Drug Administration. 87 ADDITIONAL INFORMATION This test was developed and its performance characteristics determined by [facility] in a manner consistent with CLIA requirements. This test has not been cleared or approved by the U.S. Food and Drug Administration. Test Performed by: [place] [address] Pediatric Critical Care Nurse: Kayden Camacho II, M.D., Ph.D. 88 ORDERED 07/13/14 EXPIRES 01/13/15 89 ORDERED 07/13/14 EXPIRES 01/13/15 90 Normal Range 180 to 914 Indeterminate Range 145 to 180 Deficient Range <145 91 Test Performed by: [facility] [place] [id number] Pediatric Critical Care Nurse: Kayden Camacho II, M.D., Ph.D. 92 ORDERED 07/13/14 EXPIRES 01/13/15 93 REFERENCE VALUE <0.1 (Negative) Test Performed by: [place] [address] Pediatric Critical Care Nurse: Kayden Camacho II, M.D., Ph.D. 94 REFERENCE VALUE 16.0 - 45.0 Test Performed by: [place] [address] Pediatric Critical Care Nurse: Kayden Camacho II, M.D., Ph.D. 95 Neon Glass Bender: [id number] DEL VALLE 96 Neon Glass Bender: MONICA DEL VALLE 97 SEE RESULT BELOW Name: DI CARVALHO : [address]: Joaquín Chand MD Acct: [id number] Unit: [id number] AGE: 59 Location: [facility] Re08/26/14 SEX: F Status: REG REF SPEC: [id number] CIARA: 08/26/14-1015 [facility] DR: Joaquín Chand MD REQ: [id number] RECD: 08/26/148 STATUS: PHYLLIS ROBLES DR: Christy Westbrook MD _ SOURCE: GAS ANTRUM SPDESC: ORDERED: Clotest Procedure Result Verified Site Clotest Final 08/27/14- 928 ML Clotest Negative * ML - MAIN LAB (PSC1) . END OF REPORT * ML=Testing performed at Main Lab DEPARTMENT OF PATHOLOGY, [address] [place] [address] Venkat Dean M.D. Director [facility] # [id number] 98 Neon Glass Bender: [id number] TOMMY CERVANTES 99 SEE RESULT BELOW Name: DI CARVALHO : [address]: Joaquín Chand MD Acct: [id number] Unit: [id number] AGE: 59 Location: [facility] Re08/26/14 SEX: F Status: REG REF SPEC: [id number] CIARA: 08/26/14- [facility] DR: Joaquín Chand MD REQ: [id number] RECD: 08/26/141248 STATUS: CARMELINA ROBLES DR: Christy [...] performed at Main Lab DEPARTMENT OF PATHOLOGY, [address] [place] [address] Venkat Dean M.D. Director [facility] # [id number] 100 It is recognized that currently available assays [...] 95% confidence interval of 99.78 to 99.96%. 101 Serologic response to B. burgdorferi infection is not detected, but cannot rule out early infection during which low or undetectable antibody levels to B. burgdorferi may be present. If clinically indicated, a new serum specimen should be submitted in 7-14 days. Test Performed by: [place] [address] Pediatric Critical Care Nurse: Kayden Camacho II, M.D., Ph.D. 102 Desirable <150 Borderline high 150-199 High 200-499 Very High >500 103 Desirable <200 Borderline high 200-239 High >239 104 Low <40 Desirable: 40-60 High: >60 105 Desirable: <100 mg/dL Near Optimal: 100-129 mg/dL Borderline High: 130-159 mg/dL High: 160-189 mg/dL Very High: >189 mg/dL 106 Therapeutic target for the treatment of diabetes Mellitus patients is <7% HBA1C, and in selective patients <6.0%.Please refer to [place] [employer] Diabetic care guidelines for further information. 107 Because ethnic data is not always readily [...] 15-29 5 Kidney failure <15 (or dialysis) 108 DM, 24 lb loss of weight. 109 Because ethnic data is not always readily [...] 15-29 5 Kidney failure <15 (or dialysis) 110 DM, 24 lb loss of weight. 111 DM, 24 lb loss of weight. 112 HDL Interpretation: Undesirable: High Risk: Less than 40 mg/dL Desirable: Low Risk: Greater than 60 mg/dL 113 LDL Interpretation: Low Risk Optimal Level: LDL Less than 100 mg/dL Near or Above Optimal: LDL 100-129 mg/dL Borderline High Risk: LDL 130-159 mg/dL High Risk: LDL 160-189 mg/dL Very High Risk: LDL Greater than 189 mg/dL 114 Because ethnic data is not always readily [...] 15-29 5 Kidney failure <15 (or dialysis) 115 Because ethnic data is not always readily [...] 15-29 5 Kidney failure <15 (or dialysis) 116 Because ethnic data is not always readily [...] 15-29 5 Kidney failure <15 (or dialysis) 117 Test Performed by: [place] [id number] Pediatric Critical Care Nurse: José Luis Moralez III, M.D. 118 -- REFERENCE VALUE -- 25-HYDROXY D TOTAL (D2+D3) Optimum levels in the normal population are 25-80 Test Performed by: [facility] [place] [address] Pediatric Critical Care Nurse: José Luis Moralez III, M.D. 119 @consistent with previous results 120 A metabolite of Naproxen, O-desmethylnaproxen, has been shown to interfere with the Jendrkalebik-Grayslake method for measuring total bilirubin. Samples from patients who have taken Naproxen have shown spurious elevation in total bilirubin levels. 121 Because ethnic data is not always readily [...] 15-29 5 Kidney failure <15 (or dialysis) 122 Desirable: Less than 200 MG/DL Borderline-High Risk: 200-239 MG/DL High-Risk: 240 MG/DL and over 123 HDL Interpretation: Undesirable: High Risk: Less than 40 MG/DL Desirable: Low Risk: Greater than 60 MG/DL 124 ----- RUN DATE: 11/07/11 [facility] NMI LIVE PAGE 1 RUN TIME: 1450 Specimen Inquiry RUN USER: INTERFACE -- Name: TRESJOMARÓscar Schmitt Status: REG REF Re11/06/11 Age/Sex: 56/F Unit#: [id number] Location: [address] [place] [address].O.B. : 59 -- Specimen: [id number] SOUT Spec Date:11/06/11- [facility] Dr: Joaquín lo MD Spec Type: SURGICAL [...] colitis. Signed Electronically by: STEVEN GOODE 11/07/11 1450 -- -- DEPARTMENT OF PATHOLOGY, [address] [place] [address] [facility] Permit #[id number] Robin Samson M.D. Assistant Dir cheo -- 125 RUN DATE: 10/08/11 [facility] NMI LIVE PAGE 1 RUN TIME: 1157 Specimen Inquiry RUN USER: INTERFACE Name: DI CARVALHO Status: REG REF Re10/06/11 Age/Sex: 56/F Unit#: [id number] Location: [facility] : 59 SPEC #: [id number] CIARA: 10/05/11 STATUS: COMP REQ #: [id number] RECD: 10/06/11 [facility] DR: Alba QUINN,Naomi SOURCE: STOOL ENTR: 10/06/[address] [facility] [address]: Doreen Lopez SPDESC: Jagruti QUINN,Joaquín Morales ORDERED: STOOL CULTURE, C. DIFF AMP DNA, STL LACTOFERRIN QUERIES: MEDAktino MEDICAL RECORD # MEDENT REQUISITION # [id number] ACT WKST: B 10/08/11 #1 Procedure Result [...] Final 10/06/11- 1448 ML DEPARTMENT OF PATHOLOGY, [address] [place] [address] [facility] Permit #[id number] Venkat Dean M.D. Director Steven Goode M.D. Urban Redevelopment Specialist RUN DATE: 10/08/11 [facility] NMI LIVE PAGE 2 RUN TIME: 1157 Specimen Inquiry RUN USER: INTERFACE Name: DI CARVALHO Status: REG REF Re10/06/11 Age/Sex: 56/F Unit#: [id number] Location: [facility]. : 59 -- -- CONTINU ED Procedure Result Verified Site FECAL LACTOFERRIN (STOOL WBC) Final (continued) 10/06/11- 1447 FECAL LACTOFERRIN NEGATIVE BY IMMUNOASSAY TEST LIMITATIONS: Assay detects elevated levels of lactoferrin released from fecal leukocytes as a marker of intestinal inflammation. The test may not be appropriate in immunocompromised persons. Fecal samples from breast fed infants should not be used with this assay. - [facility] Permit #[id number] [facility] [place] [address] DEPARTMENT OF PATHOLOGY, [facility] [address], [place] [address] [facility] Permit #[id number] Robin Samson M.D. Urban Redevelopment Specialist 126 MICROALBUMINURIA IN A RANDOM SAMPLE IS DEFINED : MICROALBUMIN/CREATININE RATIO OF 30-299 ug/mg. . 127 Anion gap measurement may be of limited value in the presence of any alkalosis, especially in a combined acid base disorder. . 128 A metabolite of Naproxen, O-desmethylnaproxen, has been shown to interfere with the Jendrassik-Nidia method for measuring total bilirubin. Samples from patients who have taken Naproxen have shown spurious elevation in total bilirubin levels. 129 Because ethnic data is not always readily [...] 15-29 5 Kidney failure <15 (or dialysis) 130 CHOLESTEROL INTERPRETATION: Desirable: Less than 200 MG/DL Borderline-High Risk: 200-239 MG/DL High-Risk: 240 MG/DL and over 131 HDL INTERPRETATION: Undesirable: High Risk: Less than 40 MG/DL Desirable: Low Risk: Greater than 60 MG/DL 132 LDL INTERPRETATION: Low Risk Optimal Level: LDL Less than 100 MG/DL Near or Above Optimal: LDL 100-129 MG/DL Borderline High Risk: LDL 130-159 MG/DL High Risk: LDL 160-189 MG/DL Very High Risk: LDL Greater than 189 MG/DL 133 Please note updated reference range, effective 09/22/09 134 Anion gap measurement may be of limited value in the presence of any alkalosis, especially in a combined acid base disorder. . 135 A metabolite of Naproxen, O-desmethylnaproxen, has been shown to interfere with the Jendrassik-Nidia method for measuring total bilirubin. Samples from patients who have taken Naproxen have shown spurious elevation in total bilirubin levels. 136 Because ethnic data is not always readily [...] 15-29 5 Kidney failure <15 (or dialysis) 137 CHOLESTEROL INTERPRETATION: Desirable: Less than 200 MG/DL Borderline-High Risk: 200-239 MG/DL High-Risk: 240 MG/DL and over 138 HDL INTERPRETATION: Undesirable: High Risk: Less than 40 MG/DL Desirable: Low Risk: Greater than 60 MG/DL 139 LDL INTERPRETATION: Low Risk Optimal Level: LDL Less than 100 MG/DL Near or Above Optimal: LDL 100-129 MG/DL Borderline High Risk: LDL 130-159 MG/DL High Risk: LDL 160-189 MG/DL Very High Risk: LDL Greater than 189 MG/DL 140 Please note updated reference range, effective 09/22/09 141 Recommended INR for Patients on Oral Anticoagulants Prophylaxis 2.0 - 3.0 Treatment of thrombosis 2.0 - 3.0 Prevention of embolism 2.0 - 3.0 Prevention of embolism from prosthetic heart valves 2.5 - 3.5 142 DIAGNOSIS,TREATMENT,AND THERAPY MUST BE BASED ON THE INR VALUE ALONE. 143 Anion gap measurement may be of limited value in the presence of any alkalosis, especially in a combined acid base disorder. . 144 A metabolite of Naproxen, O-desmethylnaproxen, has been shown to interfere with the Jendrassik-Nidia method for measuring total bilirubin. Samples from patients who have taken Naproxen have shown spurious elevation in total bilirubin levels. 145 Because ethnic data is not always readily [...] 15-29 5 Kidney failure <15 (or dialysis) 146 New Reference Range and Interpretation effective 12/05/2001 TnI (ng/ml) INTERPRETATION Less Than 0.06 ng/mL NOT SUPPORTIVE OF DIAGNOSIS OF [place] 0.06 - 0.50 ng/ml INDETERMINATE: SUGGEST SERIAL STUDIES IF CLINICALLY INDICATED. Greater than 0.5 ng/mL CONSISTENT WITH DIAGNOSIS OF NH . 147 Lymphopenia % [address] ANGELIKA SEPULVEDA AT FAX NUMBER [phone] 149 Anion gap measurement may be of limited value in the presence of any alkalosis, especially in a combined acid base disorder. . 150 A metabolite of Naproxen, O-desmethylnaproxen, has been shown to interfere with the Jendrassik-Grayslake method for measuring total bilirubin. Samples from patients who have taken Naproxen have shown spurious elevation in total bilirubin levels. 151 Because ethnic data is not always readily [...] 15-29 5 Kidney failure <15 (or dialysis) 152 CHOLESTEROL INTERPRETATION: Desirable: Less than 200 MG/DL Borderline-High Risk: 200-239 MG/DL High-Risk: 240 MG/DL and over 153 HDL INTERPRETATION: Undesirable: High Risk: Less than 40 MG/DL Desirable: Low Risk: Greater than 60 MG/DL 154 LDL INTERPRETATION: Low Risk Optimal Level: LDL Less than 100 MG/DL Near or Above Optimal: LDL 100-129 MG/DL Borderline High Risk: LDL 130-159 MG/DL High Risk: LDL 160-189 MG/DL Very High Risk: LDL Greater than 189 MG/DL Procedures Date Code Description Status 04/28/2018 60908 Chemodenervation Of Muscles Innervated By Facial Completed Nerves, Bilat 04/01/2018 21735 Nerve Conduction 07-08 Studies Completed 04/01/2018 60903 Needle Electromyography Each Extremity W/Related Completed Paraspinal Areas 02/14/2018 [id number] Diabetic Retinal Eye Exam Completed 01/08/2018 [id number] Diabetic Foot Exam Completed 12/23/2017 59463 EKG Tracing & Interpretation Completed 09/25/2017 [id number] Diabetic Foot Exam Completed 03/01/2017 48887 ECHO Transthoracic, Real-Time 2D With Doppler And Completed Color Flow 03/01/2017 03188 ECHO Transthoracic, Real-Time 2D With Doppler And Completed Color Flow 02/12/2017 99173 Stress Test Completed 02/12/2017 88567 Myocardial Perfusion Imaging Tomographic (Spect) Completed Multiple Studies 02/06/2017 43643 Destruction Of Benign Lesions Any Method 1-14 lesions Completed 01/28/2017 [id number] Mammogram Completed 01/28/2017 [id number] Bone Mineral Density Test Completed 01/09/2017 32070 Inject Tendon Sheath Or Ligament Aponeurosis Eg Completed Plantar Fascia 01/09/2017 81908 Inject Tendon Sheath Or Ligament Aponeurosis Eg Completed Plantar Fascia 01/01/2017 91666 EKG Tracing & Interpretation Completed 12/11/2016 22355 Nerve Conduction 07-08 Studies Completed 10/04/2016 95705 Carotid Doppler,Bilateral Completed 09/13/2016 62094 EKG Tracing & Interpretation Completed 08/22/2016 15425 Destruction Of Benign Lesions Any Method 1-14 lesions Completed 08/22/2016 51005 Destruction ALL Benign Or Premalignant Lesion (Other Completed Than [place] 07/26/2016 73080 Removal Devitalization Tissue Wound Less Than Equal 20 Completed Square CM 07/11/2016 18074 Moderate Sedation Services; Same Phys Each Additional Completed 15 Mins 07/11/2016 35222 Moderate Sedation Services; Same Phys Intl 15 Mins; PT Completed >=5 Years 07/11/2016 12687 Tmsuz-Vbyomdpjg-Gogdzkmyqj Completed 07/11/2016 50181 Revascularization,Endovascular W/Transluminal Completed Angioplasty 07/11/2016 00499 Revascularization,Endovascular W/Atherectomy, Inc Completed Angioplasty 03/13/2016 89475 Mobile Cardiovascular Telemetry Over 24 HR Up To 30 Completed Days 03/08/2016 47371 EKG Tracing & Interpretation Completed 02/09/2015 52235 Polysomnography Sleep Staging 4+ Parameters Completed 09/10/2014 [id number] Diabetic Retinal Eye Exam Completed 07/06/2014 56677 EEG Recording Awake & Drowsy Completed 06/22/2014 81505 EKG Tracing & Interpretation Completed 12/23/2012 39857 Extremity Studies-Bilateral Completed 11/11/2012 62413 EKG Tracing & Interpretation Completed 04/10/2012 44496 EKG Tracing & Interpretation Completed 11/06/2011 [id number] Colonoscopy Completed 08/29/2011 68475 EKG Tracing & Interpretation Completed 01/06/2009 [id number] Mammogram Completed 12/23/2008 29141 EKG Tracing & Interpretation Completed 01/09/2007 45039 Destruction Of Benign Lesions Any Method 1-14 lesions Completed 01/09/2007 98781 Destruction Of Benign Lesions Any Method 1-14 lesions Completed 06/11/2006 66842 Destruction Of Benign Lesions Any Method 1-14 lesions Completed 06/12/2005 [id number] Bone Mineral Density Test Completed Encounters Type Date Location Provider Dx Diagnosis Office Visit 03/31/2018 [facility] Internal Janelle Farrell, E10.8 Type 1 diabetes 2:20p Medicine - M.D. 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 E10.8 Type 1 diabetes mellitus with unspecified complications R60.0 Localized edema Office Visit 11/27/2017 2:45p [facility] Charu Love I70.211 [place] [facility] Robin Mancia arteries of extrm w intrmt alan, right leg Office Visit 08/16/2017 1:10p [facility] Monique Salvador, 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 I70.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 I70.235 [place] [facility] Dylan Rae.Kalyn arteries of right leg w ulcer oth prt foot E78.2 Mixed hyperlipidemia I10 Essential (primary) hypertension Office Visit 05/22/2017 Neurohospitalist Abbi Barrios, F80.1 Expressive 3:30p Clinic language disorder R41.89 Oth symptoms and signs w cognitive functions and awareness Office Visit 05/13/2017 Neurohospitalist Abbi G43.719 Chronic migraine 2:00p Clinic MD Sophie w/o aura, intractable, w/o stat migr E10.40 Type 1 diabetes mellitus with diabetic neuropathy, unsp R26.81 Unsteadiness on feet R41.89 Oth symptoms and signs w cognitive functions and awareness Office Visit 04/15/2017 1:50p [facility] Monique Salvador, I70.235 [place] [facility] Robin arteries of right leg w ulcer oth prt foot R05 Cough R19.7 Diarrhea, unspecified R68.2 Dry mouth, unspecified E78.2 Mixed hyperlipidemia Office Visit 04/04/2017 1:20p [facility] Arley Laguna I70.235 [place] [facility] [place] Alon, arteries of right [facility], [facility] leg w ulcer oth prt foot Office Visit 03/11/2017 1:00p [place] [facility] Avis D64.9 Anemia, [facility] AT [place], unspecified Hayder Kelly R13.10 Dysphagia, unspecified R11.0 Nausea G62.9 Polyneuropathy, unspecified E11.622 Type 2 diabetes mellitus with other skin ulcer R53.83 Other fatigue Office Visit 02/28/2017 1:00p Wound Care Loretta Prince, E11.621 Type 2 diabetes Center AT [facility] SAGE RN, FRUIT HARVESTER-BC mellitus with foot ulcer L97.511 Non-prs chronic ulcer oth prt r foot limited to brkdwn skin L84 Corns and callosities Office Visit 02/18/2017 2:20p [facility] Internal Janelle M85.852 Ot disrd of Medicine - Robin Farrell bone density and [place] structure, left thigh R53.83 Other fatigue Office Visit 02/06/2017 2:20p [facility] Dermatology Amaury Benitez MD L85.3 Xerosis cutis L97.519 Non-prs chronic ulcer oth prt right foot w unsp severity B07.8 Other viral warts L53.8 Other specified erythematous conditions Z78.9 Other specified health status Office Visit 01/21/2017 [facility] Herb Laguna I70.235 [place] 1:20p G[facility] Analyst AT [facility] [place] Alon, arteries of [facility] right leg w ulcer oth prt foot Office Visit 01/16/2017 Neurohospitalist Abbi Barrios, G43.719 Chronic 2:00p Clinic migraine w/o aura, intractable, w/o stat migr E10.40 Type 1 diabetes mellitus with diabetic neuropathy, unsp R13.13 Dysphagia, pharyngeal phase Office Visit 01/09/2017 1:00p Orthopedic Kita Gonsalez, M65.331 Trigger Services Of M.D. finger, right C.M.A. 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 mellitus with [place] hyperglycemia F41.9 Anxiety disorder, unspecified N39.41 Urge incontinence M65.331 Trigger finger, right middle finger M54.9 Dorsalgia, unspecified Z12.31 Encntr screen mammogram for malignant neoplasm of breast M81.0 Age-related osteoporosis w/o current pathological fracture Office Visit 12/27/2016 1:30p Wound Care Javid Fagan E10.621 Type 1 diabetes Center AT [facility] Robin Henderson mellitus with foot ulcer L97.511 Non-prs chronic ulcer oth prt r foot limited to brkdwn skin I70.235 [place] arteries of right leg w ulcer oth prt foot E78.2 Mixed hyperlipidemia I10 Essential (primary) hypertension F17.211 Nicotine dependence, cigarettes, in remission 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 Office Visit 11/02/2016 [facility] Era Vásquez, E78.2 Mixed hyperlipidemia 2:00p Cardiology Of [facility] I70.235 [place] arteries of right leg w ulcer oth prt foot R42 Dizziness and giddiness I10 Essential (primary) hypertension Office Visit 11/01/2016 12:30p Wound Care Javid Fagan E10.621 Type 1 diabetes Center AT [facility] Robin Henderson mellitus with foot ulcer L97.511 Non-prs chronic ulcer oth prt r foot limited to brkdwn skin I70.235 [place] arteries of right leg w ulcer oth prt foot E78.2 Mixed hyperlipidemia I10 Essential (primary) hypertension F17.211 Nicotine dependence, cigarettes, in remission 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 E10.40 Type 1 diabetes mellitus with diabetic neuropathy, unsp E10.51 Type 1 diabetes w diabetic peripheral angiopath w/o gangrene Office Visit 10/11/2016 1:15p Wound Care Javid Fagan E10.621 Type 1 diabetes Center AT [facility] Robin Henderson mellitus with foot ulcer L97.511 Non-prs chronic ulcer oth prt r foot limited to brkdwn skin I70.235 [place] arteries of right leg w ulcer oth prt foot E78.2 Mixed hyperlipidemia I10 Essential (primary) hypertension F17.211 Nicotine dependence, cigarettes, in remission 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 E10.40 Type 1 diabetes mellitus with diabetic neuropathy, unsp E10.51 Type 1 diabetes w diabetic peripheral angiopath w/o gangrene Office Visit 10/01/2016 1:45p [facility] Arley Laguna I70.235 [place] [facility] AT [facility] MD Alon, arteries of [facility] right leg w ulcer oth prt foot Office Visit 09/27/2016 1:15p Wound Care Center Javid Fagan E10.621 Type 1 diabetes AT [facility] Robin Henderson mellitus with foot ulcer L97.511 Non-prs chronic ulcer oth prt r foot limited to brkdwn skin I70.235 [place] arteries of right leg w ulcer oth prt foot E78.2 Mixed hyperlipidemia I10 Essential (primary) hypertension F17.211 Nicotine dependence, cigarettes, in remission 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 E10.40 Type 1 diabetes mellitus with diabetic neuropathy, unsp E10.51 Type 1 diabetes w diabetic peripheral angiopath w/o gangrene Office Visit 09/14/2016 1:00p [place] Neurologic Abbi Barrios, G44.201 Tension-type Services [facility] headache, unspecified, intractable R13.13 Dysphagia, pharyngeal phase E11.42 Type 2 diabetes mellitus with diabetic polyneuropathy Office Visit 09/13/2016 3:00p [facility] LINDSAY Harris R42 Dizziness and Of [facility] giddiness I73.9 Peripheral vascular disease, unspecified I25.10 Athscl heart disease of [place] coronary artery w/o ang pctrs I10 Essential (primary) hypertension Office Visit 09/06/2016 1:15p Wound Care Javid Fagan E10.621 Type 1 diabetes Center AT [facility] Robin Henderson mellitus with foot ulcer L97.511 Non-prs chronic ulcer oth prt r foot limited to brkdwn skin I70.235 [place] arteries of right leg w ulcer oth prt foot E78.2 Mixed hyperlipidemia I10 Essential (primary) hypertension F17.211 Nicotine dependence, cigarettes, in remission 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 I70.249 [place] Of Gis Analyst AT [facility] MD Alon, arteries of left FACC, [facility] leg w ulceration of unsp site Office Visit 09/03/2016 2:20p [facility] Arley T. 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 E10.40 Type 1 diabetes mellitus with diabetic neuropathy, unsp E10.51 Type 1 diabetes w diabetic peripheral angiopath w/o gangrene Office Visit 08/10/2016 12:30p Wound Care Loretta Prince, E10.621 Type 1 diabetes Center AT [facility] SAGE, RN, [place]-BC mellitus with foot ulcer L97.511 Non-prs chronic ulcer oth prt r foot limited to brkdwn skin I70.235 [place] arteries of right leg w ulcer oth prt foot E78.2 Mixed hyperlipidemia I10 Essential (primary) hypertension F17.211 Nicotine dependence, cigarettes, in remission 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 E10.40 Type 1 diabetes mellitus with diabetic neuropathy, unsp E10.51 Type 1 diabetes w diabetic peripheral angiopath w/o gangrene D53.9 Nutritional anemia, unspecified Office Visit 08/09/2016 [facility] Arley Laguna I73.9 Peripheral 2:40p Cardiology Of MD Alon, vascular disease, Gis Analyst AT [facility], FSCAI unspecified Office Visit 08/03/2016 Wound Care Loretta E10.621 Type 1 diabetes 12:30p Center AT [facility] SAGE Prince, RN, mellitus with FRUIT HARVE[place]-BC foot ulcer L97.511 Non-prs chronic ulcer oth prt r foot limited to brkdwn skin I70.235 [place] arteries of right leg w ulcer oth prt foot E78.2 Mixed hyperlipidemia I10 Essential (primary) hypertension F17.211 Nicotine dependence, cigarettes, in remission 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 E10.40 Type 1 diabetes mellitus with diabetic neuropathy, unsp E10.51 Type 1 diabetes w diabetic peripheral angiopath w/o gangrene Office Visit 08/02/2016 2:30p [facility] Monique Salvador, 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 I10 Essential (primary) hypertension I73.9 Peripheral vascular disease, unspecified E78.2 Mixed hyperlipidemia R60.0 Localized edema E10.40 Type 1 diabetes mellitus with diabetic neuropathy, unsp I49.3 Ventricular premature depolarization I47.1 Supraventricular tachycardia Office Visit 07/26/2016 2:40p [facility] Arley Laguna L97.511 Non- prs chronic Of Gis Analyst AT [facility] MD Alon, ulcer oth prt r FACC, FSCAI foot limited to brkdwn skin Office Visit 07/19/2016 2:15p [facility] Arley Laguna I73.9 Peripheral Of Gis Analyst AT [facility] MD Alon, vascular disease, FACC, [facility] [place] unspecified N18.3 Chronic kidney disease, stage 3 (moderate) Office Visit 07/19/2016 4:32p Wound Care Javid Fagan E10.621 Type 1 diabetes Center AT [facility] Robin Henderson mellitus with foot ulcer L97.511 Non-prs chronic ulcer oth prt r foot limited to brkdwn skin Office Visit 07/09/2016 1:40p [facility] Arley Laguna E10.621 Type 1 diabetes Of Gis Analyst AT [facility] MD Alon, mellitus with FACC, FSCAI foot ulcer N18.3 Chronic kidney disease, stage 3 (moderate) I73.9 Peripheral vascular disease, unspecified Office Visit 07/05/2016 2:40p Wound Care Loretta Prince L97.511 Non- prs chronic Center AT [facility] SAGE, RN, [facility]- ulcer oth prt r foot limited to brkdwn skin E10.621 Type 1 diabetes mellitus with foot ulcer I70.235 [place] arteries of right leg w ulcer oth prt foot Office Visit 06/28/2016 12:57p Wound Care Javid Fagan L97.511 Non-prs chronic Center AT [facility] Robin Henderson ulcer oth prt r foot limited to brkdwn skin E10.621 Type 1 diabetes mellitus with foot ulcer Office Visit 06/14/2016 1:50p Wound Care Javid Fagan L97.511 Non-prs chronic Center AT [facility] Robin Henderson ulcer oth prt r foot limited to brkdwn skin Office Visit 06/06/2016 3:00p Wound Care Destiney Rae E10.621 Type 1 diabetes Center AT [facility] MD mellitus with foot ulcer L97.511 Non-prs chronic ulcer oth prt r foot limited to brkdwn skin E78.2 Mixed hyperlipidemia I10 Essential (primary) hypertension F17.211 Nicotine dependence, cigarettes, in remission 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 E10.40 Type 1 diabetes mellitus with diabetic neuropathy, unsp E10.51 Type 1 diabetes w diabetic peripheral angiopath w/o gangrene Office Visit 05/29/2016 2:39p Wound Care Javid Fagan E10.621 Type 1 diabetes Center AT [facility] Robin Henderson mellitus with foot ulcer L97.511 Non-prs chronic ulcer oth prt r foot limited to brkdwn skin Office Visit 05/22/2016 11:00a Wound Care Javid Fagan E10.621 Type 1 diabetes Center AT [facility] Robin Henderson mellitus with foot ulcer L97.511 Non-prs chronic ulcer oth prt r foot limited to brkdwn skin Office Visit 05/14/2016 2:30p [place] Neu[facility]ic Abbi Barrios, G44.201 Tension-type Services [facility] headache, unspecified, intractable R13.13 Dysphagia, pharyngeal phase E10.9 Type 1 diabetes mellitus without complications Office Visit 03/28/2016 1:40p [facility] Internal Christy I10 Essential (primary ) Medicine Karl Westbrook M.D. 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 hypertension [place] Z79.899 Other penitentiary (current) drug therapy R00.2 Palpitations Z91.14 Patient's other noncompliance with medication regimen Office Visit 12/22/2015 10:50a [facility] Internal Medicine Christy Westbrook, R11.0 Nausea - Marley Kelly R53.83 Other fatigue R40.0 Somnolence Z79.899 Other penitentiary (current) drug therapy Office Visit 12/07/2015 12:10p [facility] Internal Christy R13.13 Dysphagia, Vu Westbrook M.D. pharyngeal phase [place] G44.201 Tension-type headache, unspecified, intractable D64.9 Anemia, unspecified R68.2 Dry mouth, unspecified Office Visit 12/05/2015 11:30a [place] Neu[facility]ic Abbi Barrios, G43.901 Migraine, unsp, [facility] MD not intractable, with status migrainosus R13.13 Dysphagia, pharyngeal phase R53.83 Other fatigue R68.2 Dry mouth, unspecified Office Visit 10/12/2015 11:00a [place] Abbi Barrios, G43.901 Migraine, unsp, Neurologic MD not intractable, [facility] with status migrainosus Office Visit 05/31/2015 11:50a [facility] Internal Christy G44.201 Tension-type Vu Westbrook M.D. headache, [place] unspecified, intractable Office Visit 01/17/2015 1:00p [place] Jennifer F41.9 Anxiety disorder, Neurologic Robin Ochoa unspecified [facility] F33.9 Major depressive disorder, recurrent, unspecified G44.201 Tension-type headache, unspecified, intractable Office Visit 12/06/2014 2:45p [facility] Monique Salvador, I25.10 Athscl heart Of [facility] Robin disease of [place] coronary artery w/o ang pctrs E78.5 Hyperlipidemia, unspecified Office Visit 11/29/2014 10:00a [place] Nay Ochoa F41.9 Anxiety disorder, Services Of [place] unspecified F33.9 Major depressive disorder, recurrent, unspecified G44.201 Tension-type headache, unspecified, intractable R25.1 Tremor, unspecified Office Visit 11/11/2014 2:30p [facility] Internal Christy 346.92 Migraine Vu Westbrook M.D. Unspecified, W/Out [place] Mention Intractable Migraine 477.9 Rhinitis Allergic Cause Unspec 847.0 Sprains & Strains Neck Office Visit 09/02/2014 1:15p Pulmonology And Van PERES. 780.53 Hypersomnia W/ Sleep Services Of Robin Valadez Sleep Apnea [facility] Unspecified Office Visit 08/09/2014 10:30a [facility] Internal Christy 784.0 Headache Medicine Karl Westbrook, M.D. [place] 787.02 Nausea Alone Office Visit 07/13/2014 2:10p [facility] Internal Christy 780.54 Hypersomnia Vu Westbrook M.D. Unspecified [place] 272.4 Hyperlipidemia Other Unspec 781.0 Abnormal Involuntary Movements V03.82 Streptococcus Pneumoniae Vaccination Spec Other 780.79 Malaise And Fatigue Other 571.8 Liver Disease Chronic Nonalcoholic Other 401.1 Hypertension Benign Office Visit 06/22/2014 2:30p [facility] Monique Salvador, 412 Myocardial Of [facility] M.D. Infarction Old 272.4 Hyperlipidemia Other Unspec 401.1 Hypertension Benign 780.79 Malaise And Fatigue Other Office Visit 06/10/2014 1:50p [facility] Internal Christy Westbrook, 780.2 Syncope & Medicine - Robin Collapse [place] 780.79 Malaise And Fatigue Other 790.6 Abnormal Blood Chemistry Other 268.9 Vitamin D Deficiency Unspec Office Visit 03/17/2014 1:00p [facility] Internal Liv Moulton, 780.79 Malaise And Medicine - N.P. Fatigue Other [place] 250.00 Diabetes Mellitus W/O Compl Type II Or Unspec Controlled Office Visit 11/06/2013 2:15p [facility] Monique Salvador, 401.9 Hypertension Of [facility] M.D. Unspec 412 Myocardial Infarction Old 783.21 Loss Of Weight 272.0 Hypercholesterolemia Pure 780.94 Early Satiety Office Visit 03/30/2013 2:00p [facility] Nurse Visit 401.9 Hypertension Unspec Of [facility] IC Office Visit 11/11/2012 2:00p [facility] Monique 412 Myocardial Of [facility] [place], Infarction Old M.D. 401.9 Hypertension Unspec 272.0 Hypercholesterolemia Pure 250.01 Diabetes Mellitus W/O Compl Type I Juvenile Controlled Office Visit 10/07/2012 1:20p [facility] Internal Naomi Alba, 250.43 Diabetes W / Renal Medicine - M.D., FACP Manifestations Type [place] I Juvenile Uncontrol 300.00 Anxiety State Unspec Office Visit 04/10/2012 2:00p [facility] Internal Naomi Alba, 365.9 Glaucoma Unspec Medicine - M.D., FACP [place] 250.43 Diabetes W/ Renal Manifestations Type I Juvenile Uncontrol 414.01 Coronary Atherosclerosis Ruby V72.84 Examination Preoperative Unspec 477.9 Rhinitis Allergic Cause Unspec Office Visit 02/19/2012 10:40a [facility] Internal Naomi Alba, 250.43 Diabetes W / Renal Medicine - M.D., FACP Manifestations Type [place] I Juvenile Uncontrol 783.21 Loss Of Weight 787.91 Diarrhea Office Visit 02/12/2012 12:45p [facility] Monique Salvador, 780.79 Malaise And Of Gis Analyst M.DLara Fatigue Other 780.4 Dizziness & Giddiness 414.01 Coronary Atherosclerosis Ruby 272.0 Hypercholesterolemia Pure Office Visit 09/24/2011 12:00p [facility] Internal Medicine Naomi Willis, 787.91 Diarrhea - Funmilayo Kelly, FACP 250.43 Diabetes W/ Renal Manifestations Type I Juvenile Uncontrol 250.63 Diabetes W/ Neurological Manifestations Type I Uncontrolled Office Visit 08/29/2011 9:20a [facility] Internal Naomipiyush Willis, V04.89 Need For Medicine - M.DLara, FACP Prophylactic [place] Vaccination & Inoculation Other Virus V72.84 Examination Preoperative Unspec 371.03 Corneal Opacity Central 053.21 Herpes Zoster Keratoconjunctivitis 250.43 Diabetes W/ Renal Manifestations Type I Juvenile Uncontrol Office Visit 05/15/2011 11:00a [facility] Internal Naomi Willis, 250.00 Diabetes Mellitus Medicine - M.DLara, FACP W/O Compl Type II [place] Or Unspec Controlled 564.5 Diarrhea Functional Office Visit 11/14/2010 DO Not Use Naomi Alba, 250.63 Diabetes W/ 11:20a Preet Kelly, FACP Neurological Manifestations Type I Uncontrolled v04.81 Need For Prophylactic Vaccination & Inoculation/Influenza Office Visit 09/13/2010 DO Not Use Naomi Alba, 250.63 Diabetes W/ 11:00a Preet Kelly, FACP Neurological Manifestations Type I Uncontrolled Office Visit 12/23/2008 DO Not Use Naomipiyush Willis, V72.84 Examination 11:45a Preet Kelly, FACP Preoperative Unspec 250.01 Diabetes Mellitus W/O Compl Type I Juvenile Controlled 780.79 Malaise And Fatigue Other V04.81 Need For Prophylactic Vaccination & Inoculation/Influenza Office Visit 06/15/2008 DO Not Use Poly, 709.9 Skin & 4:15p Preet España M.D. Subcutaneous Tissue Disorders Unspec Office Visit 06/08/2008 DO Not Use Naomi Alba, 250.02 Diabetes Mellitus 11:30a Preet Kelly, FACP W/O Compl Type II Or Unspec Type Uncontrol 053.9 Herpes Zoster W/O Complication Office Visit 04/30/2008 DO Not Use Naomi Alba, 289.3 Lymphadenitis 3:00p Preet Kelly, FACP Unspec Except Mesenteric Office Visit 04/29/2008 DO Not Use Naomi Alba, 250.01 Diabetes Mellitus 1:30p Preet Kelly, FACP W/O Compl Type I Juvenile Controlled 285.9 Anemia Unspec 524.60 Temporomandibular Joint Disorders Unspec Office Visit 03/08/2008 4:15p DO Not Use Liv Varn, 382.9 Otitis Media Preet N.P. 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 Office Visit 02/12/2008 12:15p DO Not Use Naomipiyush Willis, 682.6 Cellulitis & Preet Kelly, FACP Abscess Leg Except Foot 787.01 Nausea W/ Vomiting Office Visit 01/12/2008 11:30a DO Not Use Naomipiyush Willis, 690.11 Seborrhea Preet Kelly, FACP Capitis 250.01 Diabetes Mellitus W/O Compl Type I Juvenile Controlled 365.9 Glaucoma Unspec Office Visit 2008 2:15p DO Not Use Naomipiyush Willis, 368.10 Visual Preet Kelly, FACP Disturbance Subjective Unspec 250.01 Diabetes Mellitus W/O Compl Type I Juvenile Controlled Office Visit 12/11/2007 11:00a DO Not Use Naomipiyush Willis, 780.97 Altered Mental Preet Kelly, FACP Status 250.00 Diabetes Mellitus W/O Compl Type II Or Unspec Controlled V04.81 Need For Prophylactic Vaccination & Inoculation/Influenza Office Visit 12/02/2007 DO Not Use Naomi 414.00 Coronary 11:15a Preet Willis M.D., Atherosclerosis FACP Unspec Type Vessel Ruby/Graft 250.01 Diabetes Mellitus W/O Compl Type I Juvenile Controlled Office Visit 11/26/2007 DO Not Use Liv Moulton, 053.9 Herpes Zoster W/O 2:15p Flaquito-Funmilayo N.P. Complication 386.11 Vertigo Benign Paroxysmal Position Office Visit 07/17/2007 DO Not Use Naomipiyush Willis, 558.9 Gastroenteritis & 2:15p Preet Kelly, FACP Colitis Noninfectious Other Office Visit 05/27/2007 Neurosurgery Ion Stone 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 Examination 272.1 Hypertriglyceridemia Pure 250.01 Diabetes Mellitus W/O Compl Type I Juvenile Controlled Office Visit 01/09/2007 11:45a DO Not Use Naomi Alba, 250.01 Diabetes Preet Kelly, FACP Mellitus W/O Compl Type I Juvenile Controlled 401.1 Hypertension Benign 715.90 Osteoarthrosis Unspec Genlzd Or Localized Site Unspec 078.10 Viral Warts Unspec Office Visit 11/21/2006 DO Not Use Naomi Alba, 250.03 Diabetes Mellitus 10:45a Preet Kelly, FACP W/O Compl Type I Juvenile Uncontrolled 782.3 Edema Office Visit 06/11/2006 2:45p DO Not Use Naomi Alba, 078.10 Viral Warts Preet Kelly, FACP Unspec 250.63 Diabetes W/ Neurological Manifestations Type I Uncontrolled 719.46 Pain Joint Lower Leg Office Visit 05/07/2006 1:00p DO Not Use Naomi Alba, 250.01 Diabetes Preet Kelly, FACP Mellitus W/O Compl Type I Juvenile Controlled 285.9 Anemia Unspec 272.0 Hypercholesterolemia Pure 593.9 Kidney & Ureter Disorders Unspec Office Visit 03/26/2006 DO Not Use Naomi Alba, 250.63 Diabetes W/ 1:30p Preet Kelly, FACP Neurological Manifestations Type I Uncontrolled Office Visit 02/12/2006 DO Not Use Naomi Alba, 250.63 Diabetes W/ 1:00p Preet Kelly, FACP Neurological Manifestations Type I Uncontrolled 784.0 Headache 593.9 Kidney & Ureter Disorders Unspec Office Visit 01/03/2006 DO Not Use Naomi Willis, 250.63 Diabetes W/ 3:45p Preet Kelly, [facility] Neurological Manifestations Type I Uncontrolled 724.3 Sciatica V04.81 Need For Prophylactic Vaccination & Inoculation/Influenza Office Visit 09/28/2005 DO Not Use Naomipiyush Willis, 250.03 Diabetes Mellitus 1:15p Preet Kelly, FACP W/O Compl Type I Juvenile Uncontrolled 285.9 Anemia Unspec Plan of Treatment Future Appointment(s):11/17/2018 1:30 pm - Matt Saenz M.D. at [facility]08/15/2018 1:30 pm - Matt Saenz M.D. at [facility]05/13/2018 2:20 pm - Janelle Farrell M.D. at [facility] Internal Medicine [facility]05/08/2018 2:30 pm - Darlene Kang MD at [facility] Pmfdtuxthcy91/29/2019 1:20 pm - Janelle Farrell M.D. at [facility] Internal Medicine - Txiiqweus31/01/2018 - Arley Chi MD, [facility], YNMVNU65.235 Atherosclerosis of [place] arteries of right leg with ulceration of other part of footFollow up:PRN wound recurrence
--- OUTSIDE RECORDS SUMMARY | 2018-04-29 13:29 | XMS REPORT | Continuity of Care Document ---
:1955 External Reference #:[id number] Author Name Arcadio Hampton M.D. Address [address] [place] [address] Care Team Providers Name Role Phone Maxwell Dick M.D. Care Team Information Geriatric Social Worker Unavailable Janelle Farrell M.D. Primary Care Physician Unavailable Payers Date Identification Numbers Payment Provider Subscriber Policy Number: [id number] Medicare/National Gov SVC Di Carvalho PayID: [id number] [address] [place] [address] Policy Number: [id number] Medicare Dme/Health Now Di Carvalho PayID: [id number] [address] [place] [address] Policy Number: [id number] Medicaid Di Carvalho PayID: [id number] [address] [place] [address] Advance Directives Description No Information Available Problems Date Description Provider Status Onset: 02/20/2016 Superficial punctate keratitis Johnson Aggarwal M.D. Onset: 02/20/2016 Herpes simplex keratitis Johnson Aggarwal M.D. Onset: 02/20/2016 Open-angle glaucoma - borderline Johnson Aggarwal M.D. Onset: 01/15/2013 Tear film insufficiency Johnson Aggarwal M.D. Onset: 01/15/2013 Blepharitis Johnson Aggarwal M.D. Onset: 12/24/2012 Lens Replaced By Other Means Johnson Aggarwal M.D. Onset: 12/24/2012 Nonproliferative diabetic Johnson Aggarwal M.D. Onset: 12/24/2012 After-cataract with vision obscured Johnson Aggarwal M.D. Onset: 04/09/2012 Mechanical complication due to Johnson Aggarwal corneal graft Robin Onset: 02/06/2012 Open angle with borderline findings Johnson Aggarwal M.D. 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 Onset: 01/30/2012 Ocular hypertension Johnson Aggarwal M.D. Onset: 01/30/2012 Type 2 diabetes mellitus Johnson Aggarwal M.D. Onset: 09/26/2011 Corneal transplant Johnson Aggarwal M.D. Onset: 08/01/2011 Corneal neovascularization Johnson Aggarwal M.D. Onset: 08/01/2011 Corneal opacity Johnson Aggarwal M.D. Family History Date Family Member(s) Observation Comments Mother Cataracts First Brother Glaucoma Social History Type Date Description Comments Sex Unknown Marital Status Single Work Status Disabled Drive Patient drives Tobacco Use Start: Unknown End: Unknown Former Cigarette Smoker ETOH Use Rarely consumes alcohol Tobacco Use Start: Unknown End: Unknown Patient is a former smoker Allergies, Adverse Reactions, Alerts Date Description Reaction Status Severity Comments 03/28/2016 Seasonal Runny nose, eye irratation Active 02/17/2018 Lovaza Active 02/17/2018 Fluoxetine Active 08/23/2008 NKDA Inactive Medications Medication Date Status Form Strength Qnty SIG Indications Ordering Provider Refresh Optive 04/07/ Active Solution 0.5-1-0.5 90uni 1 drop T86.841 Arcadio Kimble Grehard-3 2019 % ts both eyes Jermainesentha 4 xday Robin hernandez Doxycycline 02/19/ Active Tablets 50mg 180ta 1 tablet H04.123 Arcadio Kimble Hyclate 2018 bs by mouth Weisentha twice Robin hernandez daily for 2 weeks, taper to once daily. Disp 90 day supply Humidifier 02/19/ Active Misc 2Gallon 1unit H04.123 Arcadio Lara 2018 s Sujatha hernandez M.D. Almaz 128 08/19/ Active [facility] 5[facility], Weisenleoncio both eyes. Robin hernandez Erythromycin 08/19/ Active Ointment 5mg/GM 3.5un apply to Arcadio W. 2018 its lid Weisentha margins l MLaraD. both eyes every night at bedtime as needed Olopatadine HCL 08/19/ Active Solution 0.1% 15ml 1 drop Arcadio WLara 2018 both eyes Weisentha as needed l M.DLara for itching Cosopt PF 09/09/ Active Solution 22.3-6.8m 1 drop H40.013 Arcadio WLara 2016 g/ml both eyes Weisentha 2 xday Gabe hernandez. Propranolol HCL 08/05/ Active Tablets 10mg Unknown 2016 Diazepam 08/05/ Active Tablets 5mg 1 tablet Unknown 2016 every 3 hours as needed for anxiety Ibuprofen 08/05/ Active Tablets 600mg Unknown 2016 Adderall 08/05/ Active Tablets 20mg Unknown 2016 Sodium Chloride 04/22/ Active Ointment 5% 7gm apply at Arcadio WLara (Hypertonic) 2017 bedtime Weisentha both eyes. Gabe hernandez. Acyclovir 02/18/ Active Tablets 400mg 90tab 1 tablet Z94.7 Chapin Perkins 2016 s by mouth Sveen once daily M.D. Refresh Plus 01/20/ Active Solution 0.5% 70uni instill 1 Z94.7 Arcadio WLara 2015 ts drop in Weisentha both eyes Chase hernandezDLara 6 times a day Restasis 04/27/ Active Emulsion 0.05% 180un 1 drop H04.123 Arcadio Kimble 2014 its both eyes Weisentha twice l, MLaraD. daily. Zioptan 12/24/ Active Solution 0.0015% 1 drop H40.013 Arcadio Kimble 2013 both eyes Weisentha 1 xday Gabe hernandez. Lotemax 02/05/ Active Suspension 0.5% 10ml instill 1 Z94.7 Arcadio WLara 2012 drop into Weisentha right eye lChaseDLara 4 xday. B Vitamins 00/00/ Active Unknown 0000 Daily Vitamins 00/00/ Active Tablets Unknown 0000 Aspirin 0000/ Active Tablets 325mg Unknown 0000 Lunesta 00/ Active Tablets 1mg Unknown 0000 Trazodone HCL 0000/ Active Unknown 0000 Novolog 00/ Active Solution 100Unit/M insulin Unknown 0000 L pump Art Tears / Active both eyes Arcadio WLara 0000 4x day Weisentha lOskar.D. Celexa 00/ Active Tablets 10mg Unknown 0000 Ramipril / Active Capsules 10mg 2 Unknown 0000 Budesonide / Active Caps DR Part 3mg 2 Unknown 0000 Carvedilol / Active Tablets 6.25mg 2 Unknown 0000 Calcitriol / Active Capsules 0.25mcg 1 Unknown 0000 Gabapentin / Active Tablets 600mg 1 Unknown 0000 Hydrocodone-Cholo / Active Tablets 10-325mg 2 Unknown taminophen 0000 Minimed 530G 00/ Active Device all day Unknown Insulin 0000 Pump/300ML [place] Ondansetron / Active Tablets 8mg 1 X 2 Unknown 0000 Dispers Dexcom System / Active tests Unknown 0000 blood sugar sending results to her reciever. Botox Cosmetic / Active Solution Rec 50Unit for Unknown 0000 migraines Parvin Contour / Active Unknown 0000 Wellbutrin XL / Active Unknown 0000 Cilostazol / Active Unknown 0000 Plavix / Active Unknown 0000 Levothyroxine / Active Unknown Sodium 0000 Lasix / Active Unknown 0000 Prozac / Active Unknown 0000 Valsartan / Active Unknown 0000 Zyrtec Allergy / Active Unknown 0000 Dexilant / Active Unknown 0000 Nitrostat / Active Unknown 0000 Ciprofloxacin 09/09/ Hx Solution 0.2% 10ml 1 drop Arcadio NORIEGA 2017 - right eye Jermainesentha 10/30/ 4x daily Robin hernandez 2017 Erythromycin 09/09/ Hx Ointment 5mg/GM right eye Arcadio Kimble Ophjuliana Ointment 2017 - bedtime Sujatha 10/30/ Robin hernandez 2017 Erythromycin 04/22/ Hx Ointment 5mg/GM 3.500 apply to Arcadio Kimble 2017 - gm eyelid Jermainesentha 08/05/ margins Robin hernandez 2017 right eye at bedtime Trifluridine 02/18/ Hx Solution 1% 7.500 1 drop Arcadio Kimble 2016 - ml right eye Weisentha 08/05/ 5 times Robin hernandez 2017 daily. Acyclovir 02/18/ Hx Tablets 800mg 30tab 1 tab by B00.52 Arcadio Kimble 2016 - s mouth Weisentha 02/19/ twice lRobin 2015 daily. Z94.7 Erythromycin 01/20/2015 Hx Ointment 5mg/GM 3.5units apply right H16.141 Arcadio Kimble - eye 3 times Weisenthal, 02/27/2016 daily. M.D. Acyclovir 10/27/2014 Hx Tablets 400mg 90tabs 1 tablet by Arcadio Kimble - mouth once Weisenthal, 02/02/2016 daily. M.D. Tobradex 01/15/2013 Hx Ointment 0.3%;0. OneTube Apply to 373.00 Arcadio Lamin - 1 % eye lid Weisenthal, 01/29/2013 margins OU M.D. qhs as directed Cosopt 12/24/2012 Hx Solution 22.3-6. 10ml 1 drop H40.013 Arcadio Kimble - 8mg/ml right eyes senthal, 04/26/2016 twice M.D. daily. (Preservati ve free) Simbrinza 08/06/2012 Hx Suspension 1-0.2% 1 drop in 365.01 Arcadio Kimble - the right Weisenthal, 12/23/2012 eye twice M.D. daily. Timolol 04/04/2012 Hx Solution 0.5% 5ml 1 gtts OD Arcadio Kimble [facility]2012 MBharathi Alphagan P 04/04/2012 Hx Solution 0.1% 15ml 1 gtts OD [facility]cadio [facility] 05/07/2012 M.DLara Neptazane 04/04/2012 Hx Tablets 50mg PO tid [facility] 05/07/2012 M.D. Acyclovir 04/04/2012 Hx Tablets 800mg 120tabs by mouth Chapin Perkins - twice a day Sveen M.DLara 10/26/2014 Lumigan 01/30/2012 Hx Solution 0.01% 2.500ml 1 drop in 365.01 Arcadio JordiLara - the left [facility] 12/23/2012 eye at M.D. bedtime Pred Forte 10/30/2011 Hx Suspension 1% 10cc 1 gtts OD V42.5 Arcadio Kimble - bid [facility], 02/06/2012 M.D. Tobradex 10/03/2011 Hx Suspension 0.3-0.1 10ml 1 gtt OD V42.5 Arcadio WLara - % qid for 1 Memo, 10/30/2011 week then M.D. discontinue and begin Prednisolon e. Tobradex 09/26/2011 Hx Suspension 0.3-0.1 10ml 1 gtt OD V42.5 Arcadio W. - % qid Weisenthal, 10/03/2011 M.D. Tobradex 08/10/2011 Hx Suspension 0.3-0.1 5ml 1 gtt od Arcadio W. - % qid, to christofersera, 09/25/2011 begin 3 M.D. days prior to surgery date Neptazane 12/10/2010 Hx Tablets 50mg PO bid Arcadio Hampton, 10/02/2011 M.D. Acyclovir 12/10/2008 Hx Tablets 800mg 30tabs 1 PO bid Arcadio Hampton, 10/02/2011 M.D. Reglan Hx Tablets 5mg Unknown - 03/28/2016 Tylenol/Codei Hx Tablets 300-30m Unknown ne #3 - g 05/07/2012 Folic Acid Hx Unknown - 03/28/2016 Anthony Oils Hx Unknown - 03/28/2016 Vitamin C W/ Hx Unknown Aniyah Hips - 03/28/2016 Zetia Hx Tablets 10mg Unknown - 03/28/[address] 20mg Unknown - 08/18/2017 Calcium/Magne Hx Unknown sium - 03/28/2016 Simvastatin Hx Tablets 10mg 1 by mouth Unknown - every day 05/07/2012 Boniva Hx Tablets 150mg Unknown - 03/28/2016 Procrit Hx Solution 64757Qs Unknown - it/ML 08/05/2016 Paxil Hx Unknown - 05/07/2012 Simvastatin Hx Tablets 10mg Unknown - 03/28/2016 Ferrous Hx Tablets 240(27F Unknown Gluconate - e) mg 03/28/2016 Wellbutrin Hx Tablets 75mg Unknown - 08/18/2017 Ferrous Hx Tablets 325mg 2 Unknown Sulfate - 08/18/2017 Insulin Beef Hx Crystals Novalog Unknown - 04/26/2016 Polymyxin B Hx Solution 12822-3 2 Unknown Sulfate/Trime - .1Unit/ thoprim 04/22/2016 ML-% Sulfate Amlodipine Hx Tablets 10mg 1 time Unknown Besylate - 10/15/2016 Humalog Hx Solution 100Unit Constant Unknown - /ML 08/05/2016 Immunizations Description No Information Available Vital Signs Date Vital Result Comment 08/19/2017 1:18pm Intraocular Pressure Right Eye 14 mmHg Intraocular Pressure Left Eye 13 mmHg Applanation ETHAN 01:20 PM 10/31/2016 1:10pm Intraocular Pressure Right Eye 17 mmHg Intraocular Pressure Left Eye 16 mmHg -CG, Applanation 01:11 PM 01/20/2015 11:03am Intraocular Pressure Left Eye 18 mmHg -Is, Applanation 11 :03 Am 08/31/2013 1:33pm Intraocular Pressure Right Eye 23 mmHg Intraocular Pressure Left Eye 19 mmHg -SM, Applanation 01:33 PM 04/27/2013 1:17pm Intraocular Pressure Right Eye 14 mmHg Intraocular Pressure Left Eye 18 mmHg Applanation CG 01:17 PM 01/15/2013 11:02am Intraocular Pressure Right Eye 16 mmHg Intraocular Pressure Left Eye 14 mmHg Applanation CG 11:02 Am 12/24/2012 11:15am Intraocular Pressure Right Eye 16 mmHg lid held Intraocular Pressure Left Eye 14 mmHg Applanation ML 11:16 Am 08/20/2012 1:30pm Intraocular Pressure Right Eye 17 mmHg 01:30 PM Is, tonopen 08/06/2012 1:39pm Intraocular Pressure Right Eye 29 mmHg 06/04/2012 10:40am Intraocular Pressure Right Eye 25 mmHg Intraocular Pressure Left Eye 16 mmHg 10:42 Am sc 05/26/2012 10:15am Intraocular Pressure Right Eye 20 mmHg Intraocular Pressure Left Eye 18 mmHg Applanation JAHAIRA 10:15 Am 04/09/2012 1:11pm Intraocular Pressure Right Eye 30 mmHg OD Lid Held Intraocular Pressure Left Eye 17 mmHg Applanation 01:11 PM Is Recheck IOP Right Eye 42 tonopen OD 02/06/2012 11:01am Intraocular Pressure Right Eye 38 mmHg Intraocular Pressure Left Eye 19 mmHg Applanation CG 11:02 Am 01/30/2012 11:16am Intraocular Pressure Right Eye 40 mmHg rww 11:17 Am 08/01/2011 9:31am Intraocular Pressure Right Eye 19 mmHg Intraocular Pressure Left Eye 16 mmHg Applanation 09:31 Am is OD Distorted Results Description No Information Available Procedures Date Code Description Status 04/07/2018 70864 Intermediate Exam-Established PT Completed 04/07/2018 56024 Closure Punctum Caut/Laser Completed 02/19/2018 46012 Intermediate Exam-Established PT Completed 08/19/2017 37346 Comprehensive Exam-Established Patient Completed 08/19/2017 1OZCL 1 [facility] Technologist Completed 08/06/2016 29711 Epilation-Forceps Lid Procedure Completed 04/23/2016 85392 Epilation-Forceps Lid Procedure Completed 03/26/2016 94333 Tarsorrphapy Completed 02/20/2016 61996 Tarsorrphapy Completed 08/31/2013 07950 Intermediate Exam-Established PT Completed 08/31/2013 40669 Epilation-Forceps Lid Procedure Completed 01/15/2013 59362 Punctum Closure By Plug - One Eye Completed 12/30/2012 86879 Laser Capsulotomy Completed 12/24/2012 35615 Refraction Completed 06/17/2012 21202 Tarsorrphapy Completed 05/26/2012 57385 Intermediate Exam-Established PT Completed 04/09/2012 99684 Intermediate Exam-Established PT Completed 02/06/2012 78377 Intermediate Exam-Established PT Completed 02/06/2012 12989 Epilation-Forceps Lid Procedure Completed 01/30/2012 86993 Intermediate Exam-Established PT Completed 09/25/2011 44119 Tarsorrphapy Completed 09/25/2011 42183 Keratoplasty Penetrating In Pseudophakia Completed 08/01/2011 05114 Intermediate Exam-Established PT Completed 12/11/2010 00017 Refraction Completed 12/11/2010 64611 Comprehensive Exam-Established Patient Completed 08/26/2008 53000 Intermediate Exam-Established PT Completed 05/19/2008 82849 Refraction Completed 05/19/2008 04284 Corneal Pachymetry Completed Encounters Type Date Location Provider Dx Diagnosis Office Visit 10/31/2016 Main Office Arcadio Kimble H17.89 Other corneal scars 1:15p Robin Hampton and opacities H40.013 Open angle with borderline findings, low risk, bilateral H04.123 Dry eye syndrome of bilateral lacrimal glands Z94.7 Corneal transplant status Office Visit 09/10/2016 1:15p Main Office Arcadio Kimble H16.141 Punctate Robin Hampton keratitis, right eye H02.051 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 H40.013 Open angle with borderline findings, low risk, bilateral H04.123 Dry eye syndrome of bilateral lacrimal glands Office Visit 08/06/2016 1:15p Main Office Arcadio Kimble H16.141 Punctate Robin Hampton keratitis, right eye H40.013 Open angle with borderline findings, low risk, bilateral H04.123 Dry eye syndrome of bilateral lacrimal glands H02.051 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 Office Visit 04/23/2016 10:30a Main Office Arcadio Kimble H16.141 Punctate Robin Hampton keratitis, right eye H40.013 Open angle with borderline findings, low risk, bilateral H04.123 Dry eye syndrome of bilateral lacrimal glands H02.051 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 Z94.7 Corneal transplant status Office Visit 02/29/2016 10:45a Main Office Arcadio Kimble H16.141 Punctate Robin Hampton keratitis, right eye H40.013 Open angle with borderline findings, low risk, bilateral H04.123 Dry eye syndrome of bilateral lacrimal glands Z94.7 Corneal transplant status Office Visit 01/20/2015 10:30a Main Office Arcadio Kimble H40.013 Open angle with Robin Hampton borderline findings, low risk, bilateral H04.123 Dry eye syndrome of bilateral lacrimal glands Z94.7 Corneal transplant status Office Visit 04/27/2013 1:15p Main Office Arcadio Kimble 996.51 Corneal Graft Robin Hampton Complication 375.15 Dry Eye Syndrome Tear Film Insufficiency Unspec 365.01 Borderline Glaucoma;Open Angle/Borderline Findings Low Risk V43.1 Lens Replaced By Other Means Office Visit 12/24/2012 10:15a Main Office Arcadio Kimble 366.53 Cataract After Robin Hampton Obscuring Vision 365.01 Borderline Glaucoma;Open Angle/Borderline Findings Low Risk 362.01 Diabetic Retinopathy Background V42.5 Transplant Cornea V43.1 Lens Replaced By Other Means Office Visit 08/20/2012 Main Office Arcadio Kimble 365.01 Borderline 1:15p Robin Hampton Glaucoma;Open Angle/Borderline Findings Low Risk V42.5 Transplant Cornea Office Visit 08/06/2012 1:15p Main Office Arcadio Kimble 996.51 Corneal Graft Robin Hampton Complication 365.01 Borderline Glaucoma;Open Angle/Borderline Findings Low Risk V42.5 Transplant Cornea Office Visit 06/04/2012 10:15a Main Office Arcadio Kimble 996.51 Corneal Graft Robin Hampton Complication 365.01 Borderline Glaucoma;Open Angle/Borderline Findings Low Risk Office Visit 07/15/2008 10:30a Main Office Arcadio Arambula.20 Joss Hampton M.D. Dermatitis Of Eyelid 371.00 Corneal Opacity Unspec 365.04 Glaucoma Hypertension Ocular Office Visit 05/19/2008 9:00a Main Office Arcadio Hampton M.D. Dermatitis Of Eyelid 371.00 Corneal Opacity Unspec Plan of Treatment Future Appointment(s):05/12/2018 1:45 pm - Arcadio Hampton M.D. at Main [id number]/30/2018 2:30 pm - Arcadio Hampton M.D. at Main Qhsrok3504/07/2018 - Arcadio Hampton M.D.T86.841 Corneal transplant failureNew Medication: Refresh Optive Gerhard-3 0.5-1-0.5 % - 1 drop both eyes 4 xdayComments:Increase Lotemax 1 drop right eye 4 xday.No rubbing the eye.Follow up:1 month onkepX77.89 Other corneal scars and rxvniimyxH64.013 Open angle with borderline findings, low risk, bilateralComments:Continue Cosopt and Zioptan as directed.H04.123 Dry eye syndrome of bilateral lacrimal glandsComments:Use Refresh Optive Anthony-3 tears 1 drop both eyes 4 xday.
--- OUTSIDE RECORDS SUMMARY | 2018-04-29 13:30 | XMS REPORT | Continuity of Care Document ---
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 Janelle Farrell MD Primary Care Physician Unavailable Payers Type Date Identification Numbers Payment Provider Subscriber Policy Number: [id number] Medicare Di Carvalho PayID: [id number] [address] [place] [address] Policy Number: [id number] Medicaid Di Carvalho PayID: [id number] [address] [place] [address] Advance Directives Description No Information Available Problems Date Description Provider Status Onset: 07/09/2016 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 [place] Tobacco Use Start: Unknown not smoking Tobacco Use Start: Unknown Quit in Smoking Status Reviewed: 03/31/18 Quit in ETOH Use Denies alcohol use Tobacco Use Start: Unknown End: Patient is a former Unknown smoker Recreational Drug Use Denies Drug Use Exercise Type/Frequency Does not exercise Allergies, Adverse Reactions, Alerts Date Description Reaction Status Severity Comments 03/30/2013 Crestor muscle aches Active 09/13/2010 NKDA Inactive Medications Medication Date Status Form Strength Qnty SIG Indications Ordering Provider Metrogel Active Gel 1% 55gm Apply L71.8 Janelle 019 twice Cotton, daily for M.D. rosacea Digital Scale Active Misc weight q Monique 018 day [place], M.D. Carvedilol Active Tablets 3.125mg 180tabs 1 by Monique 018 mouth [place], twice a M.D. day Zyrtec Allergy Active [...] 2% 30gm apply twice a Janelle day Bud, M.D. Nitrostat 03/21/2017 Active Tablets Sub 0.4mg 25tabs one sl q5min up Monique to 3 doses as [place], needed call 911 M.D. for CP no relieved after 3 NTG Ondansetron HCL 09/12/2016 Active Tablets 8mg 180tabs every 8 hours Janelle by mouth as Cotton, needed M.D. Levothyroxine 08/12/2016 Active Tablets 25mcg 1 by mouth Alberto, Sodium every day Am MD Santana Lovaza 07/20/2016 Active Capsules 1gm 90caps take 1 capsule Nik S. by mouth once a Rausch, DO day FACC Cilostazol 07/19/2016 Active Tablets 50mg 180tabs 1 by mouth I Marcis T. twice a day 7 Alon, 3 , FAC, . FSCAI 9 Praluent 04/02/2016 Active Solution 75mg/ 4ml 1 injection sc Monique Pen-Inject ml every 2 weeks Robin Salvador Fluticasone 09/12/2015 Active Suspension 50mcg 1units 2 sprays both Alberto, Propionate /Act nostrils every MD Santana day [place] 09/02/2014 Active Tablets 10-32 130tabs 1 tablet [...] daily /ml Tab-A-Marifer 10/14/2012 Active Tablets 90tabs Take One Tablet Janelle By Mouth Every Cotton, Day M.DLara Novolin R Pump 09/13/2010 Active Solution [...] HCL Active Tablets 50mg take 2 tablet Member, by mouth at Piyush, bedtime Calcitriol Active Capsules 0.25m 90caps take 1 capsule Janelle cg by mouth once Cotton, daily M.D. Parvin Contour Next Active Strips Unknown Blood Glucose Test Ketostix Active Strips Unknown Codeine Sulfate Active Tablets 30mg 2 po qd prn Unknown Lidocaine Active Patches 5% 180unit apply 1- 2 Janelle s patches up to Cotton, 12 hours once a M.D. day as needed for back pain - mylan qualitative researcher only Clopidogrel Active Tablets 75mg 90tabs take 1 tablet Monique Bisulfate by mouth once [place], daily at night M.D. Gabapentin Active Tablets 600mg 1 tablet po Unknown daily at night Acyclovir Active Tablets 400mg 1 by mouth po Unknown daily Fluoxetine HCL Active Capsules 20mg 1 by mouth Unknown every day Eszopiclone Active Tablets 2mg 1/2 tablet po Member, every night MD Piyush Imodium A-D Active Capsules 2mg 2 cap as needed Unknown Adderall Active Tablets 30mg 1 by mouth Member, twice a day MD Piyush Botox Active Solution 100Un Every 3 months Unknown Rec it Olopatadine HCL Active Solution 0.1% 1 drop in eyes Unknown twice a day Almaz 128 Active Ointment 5% at bed time Unknown Demadex Active Tablets 20mg 90tabs 1-2 t by mouth Monique as needed and [place], directed for M.D. swelling in the legs Doxycycline Active Tablets 10mg Weisenthal Hyclate Arcadio MD Dexilant Active Capsules DR 60mg Santana Alberto MD Losartan Potassium 09/30/2017 Hx Tablets 25mg 60tabs 1 by mouth Oj - twice a day. F. Mauser, 09/26/2017 M.D. Valsartan 04/30/2017 Hx Tablets 40mg 135tabs 1/2 tab but I Monique - mouth in the in 1 [place], 09/30/2017 the morning and 0 M.D. 1 tab by mouth at night Ramipril 10/26/2016 Hx Capsules 2.5mg 90caps 1 by mouth Monique - every day [place], 04/15/2017 M.D. Vitamin C 09/12/2016 Hx Chewtabs 500mg 3 by mouth Christy - every day [place], 05/12/2017 M.D. Propranolol HCL ER 07/03/2016 Hx Caps ER 60mg 90caps 1 by mouth G Janelle - 24HR daily 4 Cotton, 10/27/2017 3 M.D. . 9 0 1 Ra Cetirizine 05/20/2016 Hx Tablets 10mg 90tabs 1 by mouth Christy - daily [place], 06/10/2017 M.D. Ibuprofen 04/18/2016 Hx Tablets 600mg 30tabs 1 tab by mouth Christy - 2 times a day [place], 03/06/2018 as needed M.D. Omeprazole 04/11/[address] 20mg 120tabs 1 by mouth Christy - twice a day [place], 05/02/2016 M.D. Coreg 03/08/2016 Hx Tablets 6.25m 60tabs 1 tablet by I Monique - g mouth twice a 1 [place], 05/02/2016 day 0 M.D. Prilosec 02/28/[address] 20mg 90caps 1 by mouth Christy - twice a day [place], 04/11/2016 M.D. Ranitidine 150 02/28/2016 Hx Tablets 150mg 60tabs 1 po at Noon Christy Maximum Strength - (not taking) [place], 09/11/2016 M.D. Amlodipine 02/28/2016 Hx Tablets 10mg 90tabs 1 by mouth I Christy Besylate - every day ( has 1 , 08/02/2016 continue taking 0 M.D. since Rx was given) Ramipril 02/28/2016 Hx Capsules 10mg 180caps take one Christy - capsule qpm [place], 10/26/2016 only M.D. Ibuprofen 02/21/2016 Hx Tablets 600mg 30tabs 1 tab by mouth 7 Christy - as needed for 8 , 02/28/2016 severe 4 M.D. headaches . 0 Ferrous Fumarate 01/30/2016 Hx Tablets 324(1 60tabs 1 by mouth bid Christy - 06Fe) [place], 02/06/2016 mg M.D. Ferrous Sulfate 01/23/2016 Hx Tablets 325(6 180tabs take 1 tablet Star Carlotta Barajas 5Fe) by mouth twice Elo, 12/09/2016 mg a day M.D. Biotene Dry Mouth 12/22/2015 Hx Liquid 1units as needed Christy - [place], 05/02/2016 M.D. Colace 12/22/2015 Hx Capsules 100mg 60caps take one Christy - capsule by [place], 03/28/2016 mouth three M.D. times a day [...] 8 Christy Maleate - hrs as needed , 11/11/2014 M.D. Aspirin 08/09/2014 Hx Chewtabs 81mg 1 by mouth Christy - every day , 10/12/2015 M.D. Ibuprofen 08/09/2014 Hx Tablets 600mg [...] Christy Succinate - onset of the 8 10/11/2015 headache , can 4 M.D. repeat it once . in 24 hours 0 Lisinopril 08/02/2014 Hx Tablets 5mg 1 by mouth 4 Christy - every day 0 , 08/02/2014 1 M.D. . 1 Lisinopril 08/02/2014 [...] mouth E Christy Calcium - every day 1 , 07/21/2015 0 M.D. . 8 Lisinopril 06/22/2014 Hx Tablets 2.5mg 90tabs 2 by mouth 4 Monique - every day 0 [place], 08/02/2014 1 M.D. . 1 Vitamin D 06/10/2014 Hx Capsules 21265 8caps once a week 2 Christy (Ergocalciferol) [...] 10mg 90caps 1 po qd Monique - [place], 11/05/2013 M.D. Simvastatin 10/14/2012 Hx Tablets 10mg 90tabs take 1 tablet [facility] 06/21/2014 bedtime Lovaza 07/04/2012 Hx Capsules [...] 2 Monique - mouth 3 times 5 [place], 03/29/2013 per week 0 M.D. . 6 3 Zetia 04/16/2012 Hx Tablets 10mg 90tabs 1 tab by mouth Monique - every day (on , 07/13/2014 hold as of M.D. 06/28) Ipratropium 04/10/2012 Hx Solution 0.03% 30ml instill 2 4 Naomi [place] - sprays in each 7 Alba, 03/27/2013 nostril twice a 7 M.D., FACP day . 9 Calcium High 04/02/2012 Hx Tablets 600-2 180tabs take 1 tablet Naomi Potency + Vitamin - 00mg- twice a day Alba, D 11/05/2013 Unit M.D., FACP Ramipril 02/14/2012 Hx Capsules 5mg 90caps 1 po qd Monique - [place], 03/26/2013 M.D. Lovaza 10/06/2011 Hx Capsules 1gm [...] qd Naomi - Alba, 05/15/2011 M.D., FACP [place]-3 Fish Oil 09/13/2010 Hx Capsules 1000m 180caps [...] as M.D. Needed Procrit 05/11/2010 Hx Solution 20752 3bottle 1 cc. Naomi - Unit/ s subcutaneously Alba, 06/10/2014 ML every three M.D., FACP weeks. Folic Acid 04/25/2010 Hx Tablets 1mg 90tabs take 1 tablet 1 Christy - times a day. Pietro, 02/27/2016 M.D. Poly-Iron 150 03/26/2010 Hx Capsules 150-2 270caps take 3 capsules Liv Forte - 5-1mg every day Saige N.P. 08/09/2014 -mcg- mg Boniva 03/09/2010 Hx [...] 1 tab po wd Unknown - 12/22/[address] 3mg 2 cap po daily Unknown - Part 03/06/2018 Fluconazole Hx Tablets 150mg 2tabs once a day Christy [place], 02/22/2016 M.D. Cephalexin Hx Capsules 500mg take 1 capsule [...] In The Afternoon Polymyxin B Hx Solution 95769 gtt bid Oltz, Sulfate/Trimethopr - -0.1U Lindsey, im Sulfate 12/09/2016 nit/M L-% Novolog Hx Solution 100Un Unknown - it/ML 06/09/2016 Erythromycin Hx Ointment 5mg/G applied to Memo - M right eye 3 , Arcadio, [...] amphetamine - am as directed Piyush, 08/01/2016 Almaz 128 Hx Ointment 5% Unknown - 05/02/2016 Ondansetron Hx Tablets 4mg Dissolve One Unknown - Dispers Tablet Orally 11/09/2015 Every 12 Hours as Needed For Nausea Diazepam Hx Tablets 5mg take 1 tablet Unknown - by mouth a day 03/06/2018 if needed (patient almost never takes) Hyoscyamine Hx Tablets ER 0.375 Unknown Sulfate [...] Tablets 6.25m 180tabs 1 by mouth Monique penaloza twice a day [place], 12/13/2017 M.D. Furosemide Hx Tablets 20mg 90tabs 1 daily. you Monique - may take an [place], 08/27/2017 extra 20mg up M.D. to 2x week for > than a 3lb weight gain. Gabapentin Hx Capsules 300mg 1 cap po daily Unknown - ( taken along 12/10/2016 with 600mg tablet to make a [id number]) Amphetamine-Dextro Hx Tablets 30mg 2 tabs daily as Member, amphetamine - directed Piyush, 05/28/2017 Novalog Insulin Hx as needed Unknown Pump - 08/01/2016 Alprazolam Hx Tablets 0.25m 1 PO bid as Member, - g needed Piyush, 03/06/2018 Amphetamine-Dextro Hx Tablets 30mg Member, amphetamine - Piyush, 12/31/2016 Myrbetriq Hx Tablets ER 25mg 1 by mouth Unknown - 24HR every day 04/19/2017 Vesicare Hx Tablets 10mg 1 by mouth Unknown - every day 04/14/2017 Plavix Hx Tablets 75mg 1 by mouth Unknown - every day 05/28/2017 Meloxicam Hx Tablets 7.5mg as needed Karl Payne MD 03/30/2018 Medications Administered in Office Medication Date Status Form Strength Qnty SIG Indications Ordering Provider Inj, Administered Injection Chano Remy Regadenoson, 017 Rolan, 0.1 MG Robin, SUMMER, FASNC Technetium TC Administered Injection Chano Alberto 99M 017 Rolan TetrofosmRobin mo, FAC, Per Unit Dose FASNC Up To 40 Millicuries Depomedrol Administered Injection Kita 40MG Kendell Gonsalez M.D. Depomedrol Administered Injection Kita 40MG Kendell Gonsalez M.D. Immunizations CPT Code Status Date Vaccine Lot # [id number] Given 01/10/2018 Influenza Virus Vaccine, Quadrivalent, Split, Preservative Free 24977 Given 09/12/2016 Tdap - Tetanus/Diptheria/Acellular Pertussis [id number] 89572 Given 12/07/2015 Influ Virus Vaccine, Quadrivalent, Split Virus, [id number] [place] [address] Given 11/16/2014 Influenza Virus Vaccine, Quadrivalent, Split, Preservative Free 72692 Given 07/13/2014 Pneumococcal Conjugate Vaccine 13 Valent For [id number] Intramuscular Use Q2035 Given 01/29/2014 Afluria Vaccine Q2035 Given 12/04/2012 Afluria Vaccine 46774 Given 08/29/2011 Zoster (Zostavax) [id number] Q2035 Given 11/14/2010 Afluria Vaccine [id number] 76559 Given 12/23/2008 Influenza Virus 3Yrs & Over 03320 Given 12/11/2007 Influenza Virus 3Yrs & Over 88048 Given 12/11/2007 Influenza Virus 3Yrs & Over 35256 Given 01/03/2006 Influenza Virus 3Yrs & Over 68707 Given 01/03/2006 Influenza Virus 3Yrs & Over Vital Signs Date Vital Result Comment 03/31/2018 2:23pm Height 66.5 inches 5'6.50" Weight [...] Date Facility Test Result H/L Range Note Laboratory test 01/08/2018 [facility] Hemoglobin A1c 8.2 finding CBC Auto Diff 01/03/2018 [facility] White Blood 8.5 10^3/uL N 3.5-10.[address] [place] [address] [phone] Red Blood Count 3.47 10^6/uL Low 4.00-5.40 [...] Red Blood Cells % 0 Inr/Protime 01/03/2018 [facility] Inr 0.84 N 0.77-1.[address] [place] [address] [phone] Laboratory test 01/03/2018 [facility] Partial 29.2 N 26.0- 36.[address] [place] [address] [phone] Basic Metabolic 01/03/2018 [facility] Sodium 134 mmol/L Low 135-[address] [place] [address] [phone] Potassium 4.2 mmol/L N 3.5-5.0 Chloride 100 mmol/L Low 101-111 Co2 Carbon Dioxide 29 mmol/L N 22-32 Anion Gap 5 mmol/L N 2-11 Glucose 300 mg/dL High 70-100 Blood Urea Nitrogen 25 mg/dL High 6-24 Creatinine 1.33 mg/dL High 0.51-0.95 BUN/Creatinine Ratio 18.8 N 8-20 Calcium 8.9 mg/dL N 8.6-10.3 Egfr Non- 40.6 >60 Egfr 49.1 >60 1 Laboratory test 09/25/2017 Other [facility] Hemoglobin A1c 8.3 finding Comp Metabolic 08/23/2017 [facility] Sodium 136 mmol/L N 135- 145 Panel [address] [place] [address] [phone] Potassium 4.4 mmol/L N 3.5-5.0 Chloride 100 [...] Egfr Non- 49.1 >60 Egfr 59.4 >60 2 Lipid Profile 08/16/2017 [facility] Triglycerides 74 mg/dL 3 (Trig/Chol/HDL) [address] [place], [place] [id number] [phone] Cholesterol 163 mg/dL 4 HDL Cholesterol 97.0 mg/dL 5 LDL Cholesterol 51 mg/dL 6 Laboratory test 04/28/2017 [facility] Hemoglobin A1c 9.0 finding Lipid Profile 04/18/2017 [facility] Triglycerides 119 mg/dL 7 (Trig/Chol/HDL) [address] [place] [address] [phone] Cholesterol 156 mg/dL 8 HDL Cholesterol 86.7 mg/dL 9 LDL Cholesterol 46 mg/dL 10 Comp Metabolic Panel 02/28/2017 [facility] Sodium 135 mmol/L N 133-145 [address] [place] [address] [phone] Potassium 4.4 mmol/L N 3.5-5.0 Chloride 102 [...] Egfr Non- 59.3 >60 Egfr 76.2 >60 11 CBC Auto Diff 02/04/2017 [facility] White Blood 7.7 10^3/uL N 3.5-10.[address] [place] [address] [phone] Red Blood Count 3.60 10^6/uL Low 4.0-5.4 [...] Blood Cells % 0 Laboratory test 02/04/2017 [facility] TSH (Thyroid 1.66 mcIU/mL N 0.34-5.[address] Stim [place]) [place] [address] [phone] Ferritin 151.1 ng/mL N 11-307 Iron & Iron Binding 02/04/2017 [facility] Iron 84 g/dL N 50- [address] [place] [address] [phone] Unsaturated Iron Binding 213 g/dL Total Iron Binding Capacity 297 g/dL N 250-450 % Iron Saturation 28 % N 15-55 Urine Microalbumin 12/31/2016 [facility] Ur Microalbumin 293.1 mg/L N Random [address] (mg/L) [place] [address] [phone] Urine Creatinine 119.35 mg/dL N Urine Microalbumin/Creatinine 245.5 ug/mg High <31 Ua Routine 12/31/2016 [facility] Ua Specific Eddy 1.000 Ua PH 5 Ua Color YELLOW Ua Appera CLEAR Ua WBC NEG Ua Protein + Ua Glucose NORM Ua Ketones NEG Ua Bilirubin NEG Ua Urobilinogen NEG Ua Nitrite NEG Ua Occult Blood NEG Laboratory test 10/29/2016 [facility] LDL Cholesterol 40 mg/dL N [address] [place] [address] [phone] Laboratory test 09/12/2016 [facility] Cytology SEE RESULT [address] [place] [address] [phone] HPV Rna Ww/Reflex Genotype Negative N Negative 14 Creatinine 08/03/2016 [facility] Creatinine 1.13 mg/dL High 0.51-0.[address] [place] [address] [phone] Egfr Non- 49.3 N >60 Egfr 63.4 N >60 15 Laboratory test 08/03/2016 [facility] Prealbumin 27 mg/dL N 18 -[address] [place] [address] [phone] CBC Auto Diff 08/03/2016 [facility] White Blood 7.1 N 3.5- 10.[address] Count 10^3/[place] [address] [phone] Red Blood Count 3.80 10^6/uL Low 4.0-5.4 [...] Cells % 0 N Laboratory test 08/03/2016 [facility] Erythrocyte Sed 14 mm/Hr N 0-[address] [place] [address] [phone] Laboratory test 07/26/2016 [facility] TSH (Thyroid < 0.03 Low 0.34-5.[address] Stim Horm) mcIU/mL 0 [place] [address] [phone] Erythropoietin 9.8 mIU/mL N 2.6 - 18.5 16 LDH 239 U/L N 140-271 Iron & Iron Binding 07/26/2016 [facility] Iron 53 g/dL N 50- [address] [place] [address] [phone] Unsaturated Iron Binding 244 g/dL N Total Iron Binding Capacity 297 g/dL N 250-450 % Iron Saturation 18 % N 15-55 Protein 07/26/2016 [facility] Total 6.4 g/dL N 6.3 - Electrophoresis [address] Protein(Pep) 7.9 [place] [address] [phone] Albumin 3.6 g/dL N 3.4-4.7 Alpha-1 Globulin 0.3 g/dL N 0.1-0.3 Alpha-2 Globulin 1.0 g/dL N 0.6-1.0 Beta Globulin 0.9 g/dL N 0.7-1.2 Gamma Globulin 0.7 g/dL N 0.6-1.6 Albumin/Globulin Ratio 1.29 N Impression See Comment N 17 Laboratory test 07/26/2016 [facility] Vitamin B12 505 pg/mL N 180-914 18 finding [address] [place] [address] [phone] Lipid Profile 07/26/2016 [facility] Triglycerides 98 mg/dL N 19 (Trig/Chol/HDL) [address] [place] [address] [phone] Cholesterol 147 mg/dL N 20 HDL Cholesterol 78.4 mg/dL N 21 LDL Cholesterol 49 mg/dL N 22 Comp Metabolic Panel 07/26/2016 [facility] Sodium 135 mmol/L N 133-145 [address] [place] [address] [phone] Potassium 4.3 mmol/L N 3.5-5.0 Chloride 100 [...] 43.1 N >60 Egfr 55.4 N >60 23 Laboratory test 07/26/2016 [facility] Ferritin 146.1 ng/mL N 11-307 finding [address] [place] [address] [phone] Basic Metabolic 07/17/2016 [facility] Sodium 135 mmol/L N 133- 145 Panel [address] [place] [address] [phone] Potassium 4.0 mmol/L N 3.5-5.0 Chloride 98 mmol/L Low 101-111 Co2 Carbon Dioxide 32 mmol/L N 22-32 Anion Gap 5 mmol/L N 2-11 Glucose 208 mg/dL High 70-100 Blood Urea Nitrogen 24 mg/dL N 6-24 Creatinine 1.18 mg/dL High 0.51-0.95 BUN/Creatinine Ratio 20.3 High 8-20 Calcium 9.5 mg/dL N 8.6-10.3 Egfr Non- 46.9 N >60 Egfr 60.3 N >60 24 Laboratory test 07/11/2016 [facility] Point of 184 mg/dL High 74-106 25 finding 101 [facility] [place] [address] [phone] Laboratory test 07/11/2016 [facility] Point of 135 mg/dL High 74-106 26 finding 101 [facility] [place] [address] [phone] Laboratory test 07/11/2016 [facility] Point of 68 mg/dL Low 74 -106 27 finding 101 [facility] [place] [address] [phone] CBC Auto Diff 07/09/2016 [facility] White Blood 7.1 N 3.5- 10.[address] [facility] Count 10^3/[place] [address] [phone] Red Blood Count 3.32 10^6/uL Low 4.0-5.4 [...] % 0.1 N Basic Metabolic Panel 07/09/2016 [facility] Sodium 134 mmol/L N 133-145 [address] [place] [address] [phone] Potassium 4.6 mmol/L N 3.5-5.0 Chloride 98 mmol/L Low 101-111 Co2 Carbon Dioxide 31 mmol/L N 22-32 Anion Gap 5 mmol/L N 2-11 Glucose 350 mg/dL High 70-100 Blood Urea Nitrogen 24 mg/dL N 6-24 Creatinine 1.22 mg/dL High 0.51-0.95 BUN/Creatinine Ratio 19.7 N 8-20 Calcium 9.2 mg/dL N 8.6-10.3 Egfr Non- 45.1 N >60 Egfr 58.0 N >60 28 Basic Metabolic Panel 05/28/2016 [facility] Sodium 134 mmol/L N 133-[address] [place] [address] [phone] Potassium 5.0 mmol/L N 3.5-5.0 Chloride 99 mmol/L Low 101-111 Co2 Carbon Dioxide 31 mmol/L N 22-32 Anion Gap 4 mmol/L N 2-11 Glucose 200 mg/dL High 70-100 Blood Urea Nitrogen 31 mg/dL High 6-24 Creatinine 1.40 mg/dL High 0.51-0.95 BUN/Creatinine Ratio 22.1 High 8-20 Calcium 9.1 mg/dL N 8.6-10.3 Egfr Non- 38.5 N >60 Egfr 49.5 N >60 29 Laboratory test 05/28/2016 [facility] Hemoglobin A1c 8.8 % High Less than [address] (Glyco HGB) 6.0 [place] [address] [phone] Comp Metabolic 03/12/2016 [facility] Sodium 133 N 133-145 Panel 101 mmol/[place] [address] [phone] Potassium 4.2 mmol/L N 3.5-5.0 Chloride 97 [...] 56.7 N >60 Egfr 73.0 N >60 31 Laboratory test 2016 [facility] Lyme Disease Negative N Negative 32 finding [address] [place] [address] [phone] Hemoglobin/Jamie 12/13/2015 [facility] Hemoglobin 11.9 g/dL Low 12.0-16.0 tocrit [address] [place] [address] [phone] Hematocrit 36 % N 35-47 Iron & Iron Binding 12/13/2015 [facility] Iron 50 g/dL N 50- 212 Capacity [address] [place] [address] [phone] Unsaturated Iron Binding 203 g/dL N Total Iron Binding Capacity 253 g/dL N 250-450 % Iron Saturation 20 % N 15-55 Laboratory 12/13/2015 [facility] Erythropoietin 26.7 Abnormal 2.6 - 33 test finding 101 mIU/mL 18.5 [place] [address] [phone] Ferritin 119.6 ng/mL N 11-307 Myastehnia 12/05/2015 [facility] MG Lambert-Eaton See Comment N 34 [place] (), [address] [address] [phone] Acetylcholine Receptor Binding 0.00 nmol/L N <=0.02 35 Acetylcholine Recept Mod Ab 0 % N 36 Anti-Striated Muscle Antibody Negative titer N <1:120 37 Laboratory test finding 10/20/2014 [facility] Ast (Sgot) 23 U/L N 13-[address] [place] [address] [phone] Alt (SGPT) 19 U/L N 7-52 39 Vitamin B12 995 pg/mL High 180-914 40 Methylmalonic Acid Mma 0.14 nmol/mL N <=0.40 41 Ferritin 190.8 ng/mL N 11-307 42 Mitochondrial AB AMA M2 Igg <0.1 U N 43 Ceruloplasmin 16.9 mg/dL N 44 Laboratory test 08/26/2014 [facility] Surgical SEE RESULT [address] [place] [address] [phone] Laboratory test 08/26/2014 [facility] Point of Care 79 mg/dL N 74-106 [address] [place] [address] [phone] Laboratory test 08/26/2014 [facility] Clotest SEE RESULT [address] [place] [address] [phone] Laboratory test 08/26/2014 [facility] Point of Care 81 mg/dL N 74-106 [address] Gl[place], [place] [id number] [phone] Laboratory test 08/26/2014 [facility] Point of Care 78 mg/dL N 74-106 [address] [place] [address] [phone] Laboratory test 06/25/2014 [facility] Alt 44 U/L N 7-[address] [place] [address] [phone] Ast 38 U/L N 13-39 Laboratory test 06/25/2014 [facility] TSH (Thyroid 2.69 IU/mL N 0.34-5.[address] [place] [address] [facility]) [phone] HIV 1 2 AB Self Referred Nonreactive N Nonreactive 50 Lyme Disease Serology Negative N Negative 51 Paz (Anti-Nuclear AB) Screen Negative N Negative Hepatitis B Surface Antigen Nonreactive N Nonreactive Hepatitis C Antibody Nonreactive N Nonreactive Lipid Profile 06/25/2014 [facility] Triglycerides 91 mg/dL N 52 (Trig/Chol/HDL) [address] [place] [address] [phone] Cholesterol 191 mg/dL N 53 HDL Cholesterol 79.2 mg/dL N 54 LDL Cholesterol 94 mg/dL N 55 Comp Metabolic Panel 03/17/2014 Sodium 134 mmol/L [...] 49.6 N >60 Egfr 63.8 N >60 56 CBC Auto Diff 03/17/2014 White Blood Count [...] Nucleated Red Blood Cells % 0 N Iron & Iron Binding Capacity 03/17/2014 Iron 106 g/dL N 50-212 Unsaturated Iron Binding 160 g/dL N Total Iron Binding Capacity 266 g/dL N 250-450 % Iron Saturation 40 % N 15-55 Laboratory test finding 03/17/2014 TSH (Thyroid Stimulating 3.12 IU/mL N 0.34-5.60 Horm) Hemoglobin A1c 9.2 % High Less than 6.0 57 Comp Metabolic Panel 11/06/2013 [facility] Sodium 138 mmol/L N 133-145 58 [address] [place] [address] [phone] Potassium 4.1 mmol/L N 3.7-5.6 Chloride 104 [...] 50.3 N >60 Egfr 64.7 N >60 59 Laboratory test 11/06/2013 [facility] TSH (Thyroid 1.61 N 0.34 -5.60 [address] Stimulating IU/[place] [address] Horm) [phone] Lipase 8 U/L Low 11.0-82.0 61 Laboratory test 03/20/2013 [facility] Creatine Kinase 219 U/L High 0-[address] [place] [address] [phone] Lipid Profile 03/20/2013 [facility] Triglycerides 37 mg/dL Low 40-200 (Trig/Chol/HDL) [address] [place] [address] [phone] Cholesterol 215 mg/dL High Less than 200 HDL Cholesterol 125 mg/dL High 40-60 62 Cholesterol/HDL Ratio 1.7 Average 1-4.44 LDL Cholesterol 82.6 Less Than 100 63 CBC Auto Diff 03/20/2013 [facility] White Blood 6.5 10^3/uL 4.8-10.[address] [place] [address] [phone] Red Blood Count 3.73 10^6/uL Low 4.0-5.4 [...] Red Blood Cells % 0 Hemoglobin/Hematacrit 11/07/2012 [facility] Hemoglobin 11.2 Low 12.0-16.[address] g/[place] [address] [phone] Hematocrit 32 % Low 35-47 Laboratory test 10/07/2012 [facility] Hemoglobin A1c 7.8 High 5-7 finding Total Protein 24HR 06/24/2012 [facility] Urine Random Total 8 mg /dL Urine [address] [place] [address] [phone] Urine Total Protein/24HR 176 mg/24Hr High 0-165 Creatinine 06/24/2012 [facility] Urine Random 60.8 mg/dL Clearance [address] [place] [address] [phone] Creatinine 1.1 mg/dL 0.5-1.4 Creatinine Clearance 84 mL/min 80-125 Urine Collection Time 24 Urine Total Volume 2200 mL Comp Metabolic Panel 06/24/2012 [facility] Sodium 139 mmol/L 133-[address] [place] [address] [phone] Potassium 4.2 mmol/L 3.5-5.0 Chloride 105 mmol/L [...] Egfr Non- 51.6 >60 Egfr 66.3 >60 64 CBC Auto Diff 06/24/2012 [facility] White Blood 7.2 10^3/uL 4.8-10.[address] [place] [address] [phone] Red Blood Count 3.30 10^6/uL Low 4.0-5.4 [...] Nucleated Red Blood Cells % 0 Hemoglobin/Hematacrit 04/18/2012 [facility] Hemoglobin 10.5 Low 12.0-16.[address] g/[place] [address] [phone] Hematocrit 32 % Low 35-47 Laboratory test 04/18/2012 [facility] Creatine 190 U/L 0-[address] [place] [address] [phone] CBC With Manual 04/10/2012 [facility] White Blood 6.7 4.8- 10.[address] Count 10^3/[place] [address] [phone] Red Blood Count 3.17 10^6/uL Low 4.0-5.4 [...] 0-6 Hypochromasia 1+ Basic Metabolic Panel 04/10/2012 [facility] Sodium 134 mmol/L 133-[address] [place] [address] [phone] Potassium 4.3 mmol/L 3.5-5.0 Chloride 107 mmol/L 101-111 Co2 Carbon Dioxide 23.0 mmol/L 22-32 Anion Gap 4.0 mmol/L 2-11 Glucose 264 mg/dL High 70-100 Blood Urea Nitrogen 22 mg/dL 6-24 Creatinine 1.40 mg/dL 0.50-1.40 BUN/Creatinine Ratio 15.7 8-20 Calcium 9.1 mg/dL 8.1-9.9 Egfr Non- 39.0 >60 Egfr 50.2 >60 65 Laboratory test 02/19/2012 [facility] Hemoglobin A1c 7.1 High 5-7 finding CBC With Manual 02/19/2012 [facility] White Blood Count 10.6 4.8-10.[address] 10^3/[place] [address] [phone] Red Blood Count 3.45 10^6/uL Low 4.0-5.4 Hemoglobin 11.3 g/dL Low 12.0-16.0 Hematocrit 35 % 35-47 Mean Corpuscular Volume 101 fL High 80-97 66 Mean Corpuscular Hemoglobin 33 pg High 27-31 [...] Microcytosis 1+ Elliptocyte 1+ Laboratory test 02/19/2012 [facility] Prealbumin 37.1 mg/dL 18-[address] [place] [address] [phone] Creatine Kinase 219 U/L High 0-200 Vitamin D, 25 02/19/2012 [facility] 25-Hydroxy Vitamin <4.0 ng/ mL Hydroxy [address] [place] [address] [place] [address] [phone] 25-Hydroxy Vitamin D3 39 ng/mL 25-Hydroxy Vitamin D Total 39 ng/mL 67 Vitamin D 1,25 02/19/2012 [facility] Vitamin D 20 pg/mL 18- 78 68 And Vitamin D,[address] 1,[place] [address] [phone] Laboratory test 02/19/2012 [facility] TSH (Thyroid 1.33 0.34- 5.[address] Stimulating Horm) miu/[place] [address] [phone] Comp Metabolic 02/19/2012 [facility] Sodium 134 133-[address] mmol/[place] [address] [phone] Potassium 4.2 mmol/L 3.5-5.0 Chloride 102 mmol/L [...] Egfr Non- 39.0 >60 Egfr 50.2 >60 69 Pthi 01/15/2012 [facility] PTH Intact 1.6 PMOL/L 1.3-9.[address] [place] [address] [phone] Calcium (PTH Intact) 9.5 mg/dL 8.1-9.9 Hemoglobin/Hematacrit 01/15/2012 [facility] Hemoglobin 11.7 Low 12.0-16.[address] g/[place] [address] [phone] Hematocrit 35 % 35-47 Liver Function 12/27/2011 [facility] Direct Bilirubin 0.1 mg/dL 0.1-0.[address] [place] [address] [phone] Indirect Bilirubin 0.5 mg/dL 0.3-1.0 Total Protein 24HR 12/27/2011 [facility] Urine Random Total 7 mg /dL Urine [address] [place] [address] [phone] Urine Total Protein/24HR 66 MG/24HR 0-165 Creatinine 12/27/2011 [facility] Urine Random 110.0 mg/dL Clearance [address] [place] [address] [phone] Creatinine 1.4 mg/dL 0.5-1.4 Creatinine Clearance 52 mL/min Low 80-125 Urine Collection Time 24 Urine Total Volume 950 ML CBC Auto Diff 12/27/2011 [facility] White Blood 6.4 10^3/uL 4.8-10.[address] [place] [address] [phone] Red Blood Count 3.56 10^6/uL Low 4.0-5.4 [...] Cells % 0 Comp Metabolic Panel 12/27/2011 [facility] Sodium 136 mmol/L 133-[address] [place] [address] [phone] Potassium 4.2 mmol/L 3.5-5.0 Chloride 106 mmol/L [...] 1.8 1-3 Total Bilirubin 0.6 mg/dL 0.1-1.0 70 Alkaline Phosphatase 31 U/L 30-110 Alt 16 U/L 14-54 Ast 25 U/L 12-42 Egfr Non- 39.2 >60 Egfr 50.4 >60 71 Lipid Profile 12/27/2011 [facility] Triglycerides 35 mg/dL Low 40-200 (Trig/Chol/HDL) [address] [place] [address] [phone] Cholesterol 143 mg/dL Less than 200 72 HDL Cholesterol 98 mg/dL High 40-60 73 Cholesterol/HDL Ratio 1.5 AVERAGE 1-4.44 LDL Cholesterol 38.0 mg/dL Less Than 100 Surgical 11/06/2011 [facility] Surgical [address] Pathology <SEE NOTE> [place] [address] [phone] Laboratory test 10/05/2011 [facility] Stool Culture ---- [address] <SEE NOTE> [place] [address] [phone] Urine 08/29/2011 [facility] Microalbumin < 2.0 mg/L Microalbumin [address] (MG/L) [place] [address] [phone] Urine Creatinine 136.6 mg/dL 76 Laboratory test 08/29/2011 [facility] Hemoglobin A1c 8.4 High 5-7 finding Creatinine 06/12/2011 [facility] Creatinine Random 74.2 mg/dL Clearance [address] [place] [address] [phone] Creat Clearance 58 mL/min Low 80-125 Hours Of Collection 24 HR 24- Urine Volume Measurement 1700 ML CBC Auto Diff 06/12/2011 [facility] White Blood 6.1 CUMM 4.8- 10.[address] [place] [address] [phone] Red Cell Count 3.84 CUMM Low 4.2-5.4 [...] Abs Basophils 0 0-0.2 Total Protein 24HR 06/12/2011 [facility] Total Protein 7 mg/dL Urine [address] [place] [address] [phone] Urine Total Protein/24HR 119 MG/24HR High 50-100 Comp Metabolic Panel 06/12/2011 [facility] Sodium 129 mmol/L Low 135-[address] [place] [address] [phone] Potassium 4.2 mmol/L 3.5-5.0 Chloride 98 mmol/L Low 101-111 Co2 (Carbon Dioxide) 24.0 mmol/L 22-32 Anion Gap 7.0 mmol/L 2-11 77 Glucose 365 mg/dL High 70-100 BUN 22 mg/dL 6-24 Creatinine 1.5 mg/dL High 0.50-1.40 One Over Creatinine 0.66 BUN/Creatinine Ratio 14.7 8-20 Calcium 8.9 mg/dL 8.1-9.9 Total Protein 5.6 GM/DL Low 6.2-8.1 Albumin 3.7 GM/DL 3.6-5.4 Globulin 1.9 GM/DL Low 2-4 Albumin/Globulin Ratio 1.9 1-3 Bilirubin Total 0.9 mg/dL 0.4-1.5 78 Alkaline Phosphatase 36 U/L 30-110 Alt (SGPT) 31 U/L 14-54 Ast (Sgot) 41 U/L 12-42 eGFR Non- 36.2 > 60 eGFR 46.5 > 60 79 Lipid Profile 06/12/2011 [facility] Triglyceride 45 mg/dL 40- 200 (Trig/Chol/HDL) [address] [place] [address] [phone] Cholesterol 129 mg/dL Less Than 200 80 High Density Lipoprotein 78 mg/dL High 40-60 81 Cholesterol/HDL Ratio 1.65 AVERAGE 1-4.44 Low Density Lipoprotein 42 mg/dL Less Than 100 82 Liver Function 06/12/2011 [facility] Bilirubin Direct 0.2 mg/dL 0.1-0.5 Panel [address] [place] [address] [phone] Indirect Bilirubin 0.7 mg/dL 0.3-1.0 83 Laboratory test 05/15/2011 [facility] Hemoglobin A1c 6.8 5-7 finding Hemoglobin/Hematac 04/03/2011 [facility] Hemoglobin 11.2 g/dL Low 12.0-16.0 rit [address] [place] [address] [phone] Hematocrit 32 % Low 35-47 Comp Metabolic Panel 01/18/2011 [facility] Sodium 131 mmol/L Low 135-145 [address] [place] [address] [phone] Potassium 3.8 mmol/L 3.5-5.0 Chloride 94 mmol/L Low 101-111 Co2 (Carbon Dioxide) 26.0 mmol/L 22-32 Anion Gap 11.0 mmol/L 2-11 84 Glucose 280 mg/dL High 70-100 BUN 28 mg/dL High 6-24 Creatinine 1.5 mg/dL High 0.50-1.40 One Over Creatinine 0.66 BUN/Creatinine Ratio 18.7 8-20 Calcium 8.8 mg/dL 8.1-9.9 Total Protein 6.4 GM/DL 6.2-8.1 Albumin 3.5 GM/DL Low 3.6-5.4 Globulin 2.9 GM/DL 2-4 Albumin/Globulin Ratio 1.2 1-3 Bilirubin Total 0.7 mg/dL 0.4-1.5 85 Alkaline Phosphatase 36 U/L 30-110 Alt (SGPT) 19 U/L 14-54 Ast (Sgot) 30 U/L 12-42 eGFR Non- 36.2 > 60 eGFR 46.5 > 60 86 Lipid Profile 01/18/2011 [facility] Triglyceride 57 mg/dL 40- 200 (Trig/Chol/HDL) [address] [place] [address] [phone] Cholesterol 142 mg/dL Less Than 200 87 High Density Lipoprotein 84 mg/dL High 40-60 88 Cholesterol/HDL Ratio 1.69 AVERAGE 1-4.44 Low Density Lipoprotein 47 mg/dL Less Than 100 89 Liver Function 01/18/2011 [facility] Bilirubin Direct 0.1 mg/dL 0.1-0.[address] [place] [address] [phone] Indirect Bilirubin 0.6 mg/dL 0.3-1.0 90 Creatinine 01/18/2011 [facility] Creatinine Random 71.8 mg/dL Clearance [address] [place] [address] [phone] Creat Clearance 53 mL/min Low 80-125 Hours Of Collection 24 HR 24- Urine Volume Measurement 1600 ML Total Protein 24HR 01/18/2011 [facility] Total Protein 3 mg/dL Urine [address] [place] [address] [phone] Urine Total Protein/24HR 48 MG/24HR Low 50-100 Manual Differential 01/01/2011 [facility] Polysegmented 75 % 38-83 [address] [place] [address] [phone] Lymphocyte 23 % Low 25-47 Monocyte 1 % 0-13 Basophil 1 % 0-2 Absolute Neutrophil Count 7.1 Anisocytosis SLIGHT CBC Auto Diff 01/01/2011 [facility] White Blood 9.5 CUMM 4.8- 10.8 [address] [place] [address] [phone] Red Cell Count 4.00 CUMM Low 4.2-5.4 Hemoglobin 13.4 g/dL 12.0-16.0 Hematocrit 39 % 35-47 Mean Corpuscular Volume 97 um3 79-97 Mean Corpuscular Hemoglob 34 pg High 27-31 Mean Corpuscular HGB Cone 35 g/dL 32-36 Redcell Distribution WDTH 14 % 10.5-15 Platelet Count 296 CUMM 150-450 Mean Platelet Volume 7.7 um3 7.4-10.4 91 Laboratory test 01/01/2011 [facility] Troponin-I 0.01 NG/ML 0 -0.[address] [place] [address] [phone] Comp Metabolic 01/01/2011 [facility] Sodium 129 mmol/L Low 135 -[address] [place] [address] [phone] Potassium 3.7 mmol/L 3.5-5.0 Chloride 92 mmol/L Low 101-111 Co2 (Carbon Dioxide) 26.0 mmol/L 22-32 Anion Gap 11.0 mmol/L 2-11 93 Glucose 322 mg/dL High 70-100 BUN 36 mg/dL High 6-24 Creatinine 1.6 mg/dL High 0.50-1.40 One Over Creatinine 0.62 BUN/Creatinine Ratio 22.5 High 8-20 Calcium 9.5 mg/dL 8.1-9.9 Total Protein 6.5 GM/DL 6.2-8.1 Albumin 3.9 GM/DL 3.6-5.4 Globulin 2.6 GM/DL 2-4 Albumin/Globulin Ratio 1.5 1-3 Bilirubin Total 0.7 mg/dL 0.4-1.5 94 Alkaline Phosphatase 42 U/L 30-110 Alt (SGPT) 23 U/L 14-54 Ast (Sgot) 37 U/L 12-42 eGFR Non- 33.7 > 60 eGFR 43.4 > 60 95 Laboratory test 01/01/2011 [facility] PTT (Aptt) 23.6 Low 25.15-38.53 finding [address] [place] [address] [phone] International 01/01/2011 [facility] Inr 0.88 0.88-1.13 96 Normalized Ratio [address] [place] [address] [phone] Protime 10.3 SEC 10.3-13.5 97 Urinalysis 01/01/2011 [facility] Ua Color YELLOW Yellow [address] [place] [address] [phone] Appearance-Urine CLEAR Clear Specific Eddy-Ur 1.010 1.010-1.030 Esterase-Urine NEGATIVE Negative Nitrite NEGATIVE Negative [id number]-IPB NEGATIVE Negative Protein-Urine NEGATIVE Negative PH-Urine 5.5 5-9 Blood-Urine NEGATIVE Negative Ketones-Urine TRACE Abnormal Negative Bilirubin-Ur NEGATIVE Negative Glucose-Urine 2+ Abnormal Negative Hemoglobin/Hematacrit 12/07/2010 [facility] Hemoglobin 13.3 12.0-16.[address] g/[place] [address] [phone] Hematocrit 39 % 35-47 Laboratory test 11/14/2010 [facility] Hemoglobin A1c 9.5 High 5-7 finding Lipid Profile 11/10/2010 [facility] Triglyceride 28 mg/dL Low 40-200 98 (Trig/Chol/HDL) [address] [place] [address] [phone] Cholesterol 160 mg/dL Less Than 200 99 High Density Lipoprotein 114 mg/dL High 40-60 100 Cholesterol/HDL Ratio 1.40 AVERAGE 1-4.44 Low Density Lipoprotein 40 mg/dL Less Than 100 101 Comp Metabolic Panel 11/10/2010 [facility] Sodium 134 mmol/L Low 135-[address] [place] [address] [phone] Potassium 3.9 mmol/L 3.5-5.0 Chloride 96 mmol/L Low 101-111 Co2 (Carbon Dioxide) 28.0 mmol/L 22-32 Anion Gap 10.0 mmol/L 2-11 102 Glucose 265 mg/dL High 70-100 BUN 50 mg/dL High 6-24 Creatinine 1.7 mg/dL High 0.50-1.40 One Over Creatinine 0.58 BUN/Creatinine Ratio 29.4 High 8-20 Calcium 9.0 mg/dL 8.1-9.9 Total Protein 6.0 GM/DL Low 6.2-8.1 Albumin 3.6 GM/DL 3.6-5.4 Globulin 2.4 GM/DL 2-4 Albumin/Globulin Ratio 1.5 1-3 Bilirubin Total 0.4 mg/dL 0.4-1.5 103 Alkaline Phosphatase 43 U/L 30-110 Alt (SGPT) 29 U/L 14-54 Ast (Sgot) 45 U/L High 12-42 eGFR Non- 31.4 > 60 eGFR 40.4 > 60 104 Hemoglobin/Hematacrit 08/28/2010 [facility] Hemoglobin 11.5 Low 12.0-16.[address] g/[place] [address] [phone] Hematocrit 34 % Low 35-47 1 Because [...] 5 Kidney failure <15 (or dialysis) 2 Because ethnic data is not always readily [...] 15-29 5 Kidney failure <15 (or dialysis) 3 Desirable: <150 Borderline High: 150-199 High: 200-499 Very High: >500 4 Desirable: <200 Borderline High: 200-239 High: >239 5 Low: <40 Desirable: 40-60 High: >60 6 Desirable: <100 Near Optimal: 100-129 Borderline High: 130-159 High: 160-189 Very High: >189 7 Desirable: <150 Borderline High: 150-199 High: 200-499 Very High: >500 8 Desirable: <200 Borderline High: 200-239 High: >239 9 Low: <40 Desirable: 40-60 High: >60 10 Desirable: <100 Near Optimal: 100-129 Borderline High: 130-159 High: 160-189 Very High: >189 11 Because ethnic data is not always readily [...] 15-29 5 Kidney failure <15 (or dialysis) 12 Desirable: <100 mg/dL Near Optimal: 100-129 mg/dL Borderline High: 130-159 mg/dL High: 160-189 mg/dL Very High: >189 mg/dL 13 SEE RESULT BELOW Name: DI CARVALHO : [address]: Christy Westbrook MD Acct: [id number] Unit: [id number] AGE: 61 Location: [facility] Re09/12/16 SEX: F Status: REG REF SPEC: [id number] CIARA: 09/12/[address]: Christy Westbrook MD REQ: [id number] RECD: 09/12/16 STATUS: SOUT _ ORDERED: TP IMAGE ANAL, HPV/Thin Prep COMMENTS: [id number] FINAL DIAGNOSIS Negative for Intraepithelial lesion or [...] was evaluated with the assistance of the SnapversePrep Test Imaging System. Due to cytologic findings at the psychotherapist microscope, comprehensive manual rescreening by a Measuring Machine Operator may be required. The Pap Smear is [...] performed at Main Lab DEPARTMENT OF PATHOLOGY, [address] [place] [address] Venkat Dean M.D. Director [facility] # [id number] 14 The high-risk HPV types detected by the assay include: 16, 18, 31, 33, 35, 39, 45, 51, 52, 56, 58, 59, 66, and 68. 15 Because ethnic data is not always [...] 5 Kidney failure <15 (or dialysis) 16 Test Performed by: [place] [address] 17 RESULT: No apparent monoclonal protein on serum electrophoresis. Test Performed by: [place] [address] 18 Normal Range 180 to 914 Indeterminate Range 145 to 180 Deficient Range <145 19 Desirable <150 Borderline high 150-199 High 200-499 Very High >500 20 Desirable <200 Borderline high 200-239 High >239 21 Low <40 Desirable: 40-60 High: >60 22 Desirable: <100 mg/dL Near Optimal: 100-129 mg/dL Borderline High: 130-159 mg/dL High: 160-189 mg/dL Very High: >189 mg/dL 23 Because ethnic data is not always [...] 5 Kidney failure <15 (or dialysis) 24 Because ethnic data is not always readily [...] 15-29 5 Kidney failure <15 (or dialysis) 25 Grades 1 6 Tutor: [id number] 26 Grades 1 6 Tutor: [id number] 27 Grades 1 6 Tutor: [id number] 28 Because ethnic data is not always readily [...] 15-29 5 Kidney failure <15 (or dialysis) 29 Because ethnic data is not always [...] 5 Kidney failure <15 (or dialysis) 30 Therapeutic target for the treatment of diabetes Mellitus patients is <7% HBA1C, and in selective patients <6.0%.Please refer to [employer] Diabetic care guidelines for further information. 31 Because ethnic data is not always readily [...] 15-29 5 Kidney failure <15 (or dialysis) 32 Serologic response to B. burgdorferi infection is not detected, but cannot rule out early infection during which low or undetectable antibody levels to B. burgdorferi may be present. If clinically indicated, a new serum specimen should be submitted in 7-14 days. Test Performed by: [facility] [place] [address] First Dyer: Kayden Camacho II, M.D., Ph.D. 33 Test Performed by: [facility] [place] [address] First Dyer: Kayden Camacho II, M.D., Ph.D. 34 A negative result does not exclude the diagnosis of autoimmune myasthenia gravis. PDF Report available at: [email or web address] ADDITIONAL INFORMATION This test was developed and its performance characteristics determined by [facility] in a manner consistent with CLIA requirements. This test has not been cleared or approved by the U.S. Food and Drug Administration. 36 REFERENCE VALUE 0-20% (reported as _% loss of AChR) ADDITIONAL INFORMATION This test was developed and its performance characteristics determined by [facility] in a manner consistent with CLIA requirements. This test has not been cleared or approved by the U.S. Food and Drug Administration. 37 ADDITIONAL INFORMATION This test was developed and its performance characteristics determined by [facility] in a manner consistent with CLIA requirements. This test has not been cleared or approved by the U.S. Food and Drug Administration. Test Performed by: [place] [address] First Dyer: Kayden Camacho II, M.D., Ph.D. 38 ORDERED 07/13/14 EXPIRES 01/13/15 39 ORDERED 07/13/14 EXPIRES 01/13/15 40 Normal Range 180 to 914 Indeterminate Range 145 to 180 Deficient Range <145 41 Test Performed by: [place] [address] First Dyer: Kayden Camacho II, M.D., Ph.D. 42 ORDERED 07/13/14 EXPIRES 01/13/15 43 REFERENCE VALUE <0.1 (Negative) Test Performed by: [place] [address] First Dyer: Kayden Camacho II, M.D., Ph.D. 44 REFERENCE VALUE 16.0 - 45.0 Test Performed by: [place] [address] First Dyer: Kayden Camacho II, M.D., Ph.D. 45 SEE RESULT BELOW Name: DI CARVALHO : [address]: Joaquín Chand MD Acct: [id number] Unit: [id number] AGE: 59 Location: [facility] Re08/26/14 SEX: F Status: REG REF SPEC: [id number] CIARA: 08/26/14- SUBM DR: Joaquín Chand MD REQ: [id number] RECD: 08/26/141248 STATUS: CARMELINA ROBLES DR: Christy [...] performed at Main Lab DEPARTMENT OF PATHOLOGY, [address] [place] [address] Venkat Dean M.D. Director [facility] # [id number] 46 Grades 1 6 Tutor: [id number] CERVANTES 47 SEE RESULT BELOW Name: DI CARVALHO : [address]: Joaquín Chand MD Acct: [id number] Unit: [id number] AGE: 59 Location: [facility] Re08/26/14 SEX: F Status: REG REF SPEC: [id number] CIARA: 08/26/14-[address] [facility] [address]: Joaquín Chand MD REQ: [id number] RECD: 08/26/14-1228 STATUS: PHYLLIS ROBLES DR: Christy Westbrook MD _ SOURCE: PORSHA ANTRUM SPDESC: ORDERED: Clotest Procedure Result Verified Site Clotest Final 08/27/14- 928 ML Clotest Negative * ML - MAIN LAB ([facility]) . END OF REPORT * ML=Testing performed at Main Lab DEPARTMENT OF PATHOLOGY, [address] [place] [address] Venkat Dean M.D. Director [facility] # [id number] 48 Grades 1 6 Tutor: MONICA DEL VALLE 49 Grades 1 6 Tutor: MONICA DEL VALLE 50 It is recognized that currently available assays [...] 95% confidence interval of 99.78 to 99.96%. 51 Serologic response to B. burgdorferi infection is not detected, but cannot rule out early infection during which low or undetectable antibody levels to B. burgdorferi may be present. If clinically indicated, a new serum specimen should be submitted in 7-14 days. Test Performed by: [facility] - [address] [address] First Dyer: Kayden Camacho II, M.D., Ph.D. 52 Desirable <150 Borderline high 150-199 High 200-499 Very High >500 53 Desirable <200 Borderline high 200-239 High >239 54 Low <40 Desirable: 40-60 High: >60 55 Desirable: <100 mg/dL Near Optimal: 100-129 mg/dL Borderline High: 130-159 mg/dL High: 160-189 mg/dL Very High: >189 mg/dL 56 Because ethnic data is not always [...] 5 Kidney failure <15 (or dialysis) 57 Therapeutic target for the treatment of diabetes Mellitus patients is <7% HBA1C, and in selective patients <6.0%.Please refer to [place] [employer] Diabetic care guidelines for further information. 58 DM, 24 lb loss of weight. 59 Because ethnic data is not always readily [...] 15-29 5 Kidney failure <15 (or dialysis) 60 DM, 24 lb loss of weight. 61 DM, 24 lb loss of weight. 62 HDL Interpretation: Undesirable: High Risk: Less than 40 mg/dL Desirable: Low Risk: Greater than 60 mg/dL 63 LDL Interpretation: Low Risk Optimal Level: LDL Less than 100 mg/dL Near or Above Optimal: LDL 100-129 mg/dL Borderline High Risk: LDL 130-159 mg/dL High Risk: LDL 160-189 mg/dL Very High Risk: LDL Greater than 189 mg/dL 64 Because ethnic data is not always [...] 5 Kidney failure <15 (or dialysis) 65 Because ethnic data is not always [...] 5 Kidney failure <15 (or dialysis) 66 @consistent with previous results 67 -- REFERENCE VALUE -- 25-HYDROXY D TOTAL (D2+D3) Optimum levels in the normal population are 25-80 Test Performed by: [place] [address] First Dyer: José Luis Moralez III, M.D. 68 Test Performed by: [address] [address] First Dyer: José Luis Moralez III, M.D. 69 Because ethnic data is not always readily [...] 15-29 5 Kidney failure <15 (or dialysis) 70 A metabolite of Naproxen, O-desmethylnaproxen, has been shown to interfere with the Jendrassik-Hibbing method for measuring total bilirubin. Samples from patients who have taken Naproxen have shown spurious elevation in total bilirubin levels. 71 Because ethnic data is not always readily [...] 15-29 5 Kidney failure <15 (or dialysis) 72 Desirable: Less than 200 MG/DL Borderline-High Risk: 200-239 MG/DL High-Risk: 240 MG/DL and over 73 HDL Interpretation: Undesirable: High Risk: Less than 40 MG/DL Desirable: Low Risk: Greater than 60 MG/DL 74 ---- RUN DATE: 11/07/11 [facility] NMI LIVE PAGE 1 RUN TIME: 1450 Specimen Inquiry RUN USER: INTERFACE -- Name: DI CARVALHO Status: REG REF Re11/06/11 Age/Sex: 56/F Unit#: [id number] Location: [address] [place] [address].O.B. : [birth year] -- Specimen: [id number] SOUT Spec Date:11/06/11- [facility] Dr: Joaquín lo MD Spec Type: SURGICAL P Received:11/06/11-1340 Copies to: Naomi Willis MD SPECIMEN RANDOM COLON BIOPSIES HISTORY POST-OP DIAGNOSIS: To descending colon, numerous random biopsies CLINICAL INFORMATION: Diarrhea GROSS DESCRIPTION The specimen is received in formalin labelled Emmy Magana Colon Biopsies, and consists of several fragments of pink tissue measuring in aggregate 0.7 x 0.7 x 0.3 cm. Submitted entirely, one cassette. DIAGNOSIS Random, colon, biopsy: Fragments of large bowel mucosa with evidence of lymphocytic colitis. Signed Electronically by: STEVEN GOODE 11/07/11 1450 -- -- DEPARTMENT OF PATHOLOGY, [address] [place] [address] [facility] Permit #[id number] Venkat Dean M.D. Director Steven Goode M.D. Unit Supervisor Dir cheo -- 75 RUN DATE: 10/08/11 [facility] NMI LIVE PAGE 1 RUN TIME: 1157 Specimen Inquiry RUN USER: INTERFACE Name: DI CARVALHO Status: REG REF Re10/06/11 Age/Sex: 56/F Unit#: [id number] Location: [facility] : 59 SPEC #: [id number] CIARA: 10/05/11 STATUS: COMP REQ #: [id number] RECD: 10/06/[address] [facility] [address]: Naomi Willis MD SOURCE: STOOL ENTR: 10/06/[address]: Doreen Lopez SPDESC: Jagruti QUINN,Joaquín Morales ORDERED: STOOL CULTURE, C. DIFF AMP DNA, STL LACTOFERRIN QUERIES: MEDENT MEDICAL RECORD # MEDENT REQUISITION # [id number] ACT WKST: B 10/08/11 #1 Procedure Result Verified Site > STOOL CULT SENSITIVITY Final 10/08/11- 1157 ML NEGATIVE FOR THE ENTERIC PATHOGENS - SALMONELLA, SHIGELLA, AEROMONAS, PLESIOMONAS AND YERSINIA. VIBRIO AND E. COLI 0157 NOT ROUTINELY TESTED FOR IN A STOOL CULTURE. PLEASE SUBMIT SAMPLE WITH SPECIFIC REQUEST FOR DESIRED ORGANISM(S). > STOOL SPECIMEN DESCRIPTION Final 10/06/11 1448 ML STOOL COLOR GREENISH BROWN STOOL FORM NONFORMED STOOL CONSISTENCY PASTY > CAMPYLOBACTER CULTURE Final 10/08/11 1157 ML NO GROWTH OF CAMPYLOBACTER AFTER [...] Final 10/06/11- 1448 ML DEPARTMENT OF PATHOLOGY, [address] [place] [address] [facility] Permit #[id number] Venkat Dean M.D. Director Steven Goode M.D. Hatchery Helper RUN DATE: 10/08/11 [facility] NMI LIVE PAGE 2 RUN TIME: 1157 Specimen Inquiry RUN USER: INTERFACE Name: DI CARVALHO Accvirginie#: [id number] Status: REG REF Re10/06/11 Age/Sex: 56/F Unit#: [id number] Location: [facility]. : 59 -- -- CONTINU ED Procedure Result Verified Site FECAL LACTOFERRIN (STOOL WBC) Final (continued) 10/06/11- 1448 FECAL LACTOFERRIN NEGATIVE BY IMMUNOASSAY TEST LIMITATIONS: Assay detects elevated levels of lactoferrin released from fecal leukocytes as a marker of intestinal inflammation. The test may not be appropriate in immunocompromised persons. Fecal samples from breast fed infants should not be used with this assay. [facility] Permit #[id number] [address] [place] [id number] DEPARTMENT OF PATHOLOGY, [address] [place] [address] [facility] Permit #[id number] Venkat Dean M.D. Director Steven Goode M.D. Hatchery Helper 76 MICROALBUMINURIA IN A RANDOM SAMPLE IS DEFINED : MICROALBUMIN/CREATININE RATIO OF 30-299 ug/mg. . 77 Anion gap measurement may be of limited value in the presence of any alkalosis, especially in a combined acid base disorder. . 78 A metabolite of Naproxen, O-desmethylnaproxen, has been shown to interfere with the Jendrassik-Nidia method for measuring total bilirubin. Samples from patients who have taken Naproxen have shown spurious elevation in total bilirubin levels. 79 Because ethnic data is not always [...] 5 Kidney failure <15 (or dialysis) 80 CHOLESTEROL INTERPRETATION: Desirable: Less than 200 MG/DL Borderline-High Risk: 200-239 MG/DL High-Risk: 240 MG/DL and over 81 HDL INTERPRETATION: Undesirable: High Risk: Less than 40 MG/DL Desirable: Low Risk: Greater than 60 MG/DL 82 LDL INTERPRETATION: Low Risk Optimal Level: LDL Less than 100 MG/DL Near or Above Optimal: LDL 100-129 MG/DL Borderline High Risk: LDL 130-159 MG/DL High Risk: LDL 160-189 MG/DL Very High Risk: LDL Greater than 189 MG/DL 83 Please note updated reference range, effective 09/22/09 84 Anion gap measurement may be of limited value in the presence of any alkalosis, especially in a combined acid base disorder. . 85 A metabolite of Naproxen, O-desmethylnaproxen, has been shown to interfere with the Jendrassik-Hibbing method for measuring total bilirubin. Samples from patients who have taken Naproxen have shown spurious elevation in total bilirubin levels. 86 Because ethnic data is not always readily [...] 15-29 5 Kidney failure <15 (or dialysis) 87 CHOLESTEROL INTERPRETATION: Desirable: Less than 200 MG/DL Borderline-High Risk: 200-239 MG/DL High-Risk: 240 MG/DL and over 88 HDL INTERPRETATION: Undesirable: High Risk: Less than 40 MG/DL Desirable: Low Risk: Greater than 60 MG/DL 89 LDL INTERPRETATION: Low Risk Optimal Level: LDL Less than 100 MG/DL Near or Above Optimal: LDL 100-129 MG/DL Borderline High Risk: LDL 130-159 MG/DL High Risk: LDL 160-189 MG/DL Very High Risk: LDL Greater than 189 MG/DL 90 Please note updated reference range, effective 09/22/09 91 Lymphopenia % 92 New Reference Range and Interpretation effective 12/05/2001 TnI (ng/ml) INTERPRETATION Less Than 0.06 ng/mL NOT SUPPORTIVE OF DIAGNOSIS OF DE 0.06 - 0.50 ng/ml INDETERMINATE: SUGGEST SERIAL STUDIES IF CLINICALLY INDICATED. Greater than 0.5 ng/mL CONSISTENT WITH DIAGNOSIS OF DE . 93 Anion gap measurement may be of limited value in the presence of any alkalosis, especially in a combined acid base disorder. . 94 A metabolite of Naproxen, O-desmethylnaproxen, has been shown to interfere with the Jendrassik-Hibbing method for measuring total bilirubin. Samples from patients who have taken Naproxen have shown spurious elevation in total bilirubin levels. 95 Because ethnic data is not always readily [...] 15-29 5 Kidney failure <15 (or dialysis) 96 Recommended INR for Patients on Oral Anticoagulants Prophylaxis 2.0 - 3.0 Treatment of thrombosis 2.0 - 3.0 Prevention of embolism 2.0 - 3.0 Prevention of embolism from prosthetic heart valves 2.5 - 3.5 97 DIAGNOSIS,TREATMENT,AND THERAPY MUST BE BASED ON THE INR VALUE ALONE. [address] ANGELIKA SEPULVEDA AT FAX NUMBER [phone] CHOLESTEROL INTERPRETATION: Desirable: Less than 200 MG/DL Borderline-High Risk: 200-239 MG/DL High-Risk: 240 MG/DL and over 100 HDL INTERPRETATION: Undesirable: High Risk: Less than 40 MG/DL Desirable: Low Risk: Greater than 60 MG/DL 101 LDL INTERPRETATION: Low Risk Optimal Level: LDL Less than 100 MG/DL Near or Above Optimal: LDL 100-129 MG/DL Borderline High Risk: LDL 130-159 MG/DL High Risk: LDL 160-189 MG/DL Very High Risk: LDL Greater than 189 MG/DL 102 Anion gap measurement may be of limited value in the presence of any alkalosis, especially in a combined acid base disorder. . 103 A metabolite of Naproxen, O-desmethylnaproxen, has been shown to interfere with the Jendrassik-Hibbing method for measuring total bilirubin. Samples from patients who have taken Naproxen have shown spurious elevation in total bilirubin levels. 104 Because ethnic data is not always readily [...] Kidney failure <15 (or dialysis) Procedures Date Code Description Status 02/14/2018 408715200 Diabetic Retinal Eye Exam Completed 01/08/2018 [id number] Diabetic Foot Exam Completed 12/23/2017 64171 EKG Tracing & Interpretation Completed 09/25/2017 [id number] Diabetic Foot Exam Completed 03/01/2017 37122 ECHO Transthoracic, Real-Time 2D With Doppler And Completed Color Flow 03/01/2017 11001 ECHO Transthoracic, Real-Time 2D With Doppler And Completed Color Flow 02/12/2017 75846 Stress Test Completed 02/12/2017 83432 Myocardial Perfusion Imaging Tomographic (Spect) Completed Multiple Studies 02/06/2017 66543 Destruction Of Benign Lesions Any Method 1-14 lesions Completed 01/28/2017 [id number] Mammogram Completed 01/28/2017 543909867 Bone Mineral Density Test Completed 01/09/201724566 Inject Tendon Sheath Or Ligament Aponeurosis Eg Completed Plantar Fascia 01/09/201769297 Inject Tendon Sheath Or Ligament Aponeurosis Eg Completed Plantar Fascia 01/01/2017 38457 EKG Tracing & Interpretation Completed 12/11/2016 77992 Nerve Conduction 07-08 Studies Completed 10/04/2016 85580 Carotid Doppler,Bilateral Completed 09/13/2016 81838 EKG Tracing & Interpretation Completed 08/22/2016 69183 Destruction Of Benign Lesions Any Method 1-14 lesions Completed 08/22/2016 59456 Destruction ALL Benign Or Premalignant Lesion (Other Completed Than [place] 07/26/2016 51777 Removal Devitalization Tissue Wound Less Than Equal 20 Completed Square CM 07/11/2016 60693 Moderate Sedation Services; Same Phys Each Additional Completed 15 Mins 07/11/2016 42946 Moderate Sedation Services; Same Phys Intl 15 Mins; PT Completed >=5 Years 07/11/2016 88395 Iwult-Zlvzbggsi-Jjjncdcvhw Completed 07/11/2016 13253 Revascularization,Endovascular W/Transluminal Completed Angioplasty 07/11/2016 10442 Revascularization,Endovascular W/Atherectomy, Inc Completed Angioplasty 03/13/2016 71960 Mobile Cardiovascular Telemetry Over 24 HR Up To 30 Completed Days 03/08/2016 20446 EKG Tracing & Interpretation Completed 02/09/2015 36328 Polysomnography Sleep Staging 4+ Parameters Completed 09/10/2014 109821368 Diabetic Retinal Eye Exam Completed 07/06/2014 24325 EEG Recording Awake & Drowsy Completed 06/22/2014 91265 EKG Tracing & Interpretation Completed 12/23/2012 10828 Extremity Studies-Bilateral Completed 11/11/2012 30646 EKG Tracing & Interpretation Completed 04/10/2012 06900 EKG Tracing & Interpretation Completed 11/06/2011 77864100 Colonoscopy Completed 08/29/2011 12641 EKG Tracing & Interpretation Completed 01/06/2009 02193804 Mammogram Completed 12/23/2008 30675 EKG Tracing & Interpretation Completed 01/09/2007 47488 Destruction Of Benign Lesions Any Method 1-14 lesions Completed 01/09/2007 78595 Destruction Of Benign Lesions Any Method 1-14 lesions Completed 06/11/2006 08036 Destruction Of Benign Lesions Any Method 1-14 lesions Completed 06/12/2005 318427267 Bone Mineral Density Test Completed Encounters Type Date Location Provider Dx Diagnosis Office Visit 03/10/2018 [facility] Matt Saenz, F80.1 Expressive 1:30p Services Of [place] language disorder G43.019 Migraine w/o aura, intractable, without status migrainosus R42 Dizziness and giddiness R26.81 Unsteadiness on feet G62.9 Polyneuropathy, unspecified Office Visit 12/23/2017 2:10p [facility] Monique Salvador, R42 Dizziness and Of [place] giddiness I70.211 [facility] [place] arteries of extrm w intrmt alan, right leg I25.10 [facility] heart disease of [place] coronary artery w/o ang pctrs E10.8 Type 1 diabetes mellitus with unspecified complications R60.0 Localized edema Office Visit 11/27/2017 2:45p [facility] Mateo GLara I70.211 [place] [place] [facility] [place] Mancia M.D. arteries of extrm w intrmt alan, right leg Office Visit 08/16/2017 1:10p [facility] Monique Salvador, I25.10 Athscl heart Of [place] disease of [place] coronary artery w/o ang pctrs I70.235 [facility] [place] arteries of right leg w ulcer oth prt foot E10.8 Type 1 diabetes mellitus with unspecified complications R60.0 Localized edema E78.2 Mixed hyperlipidemia I10 Essential (primary) hypertension Office Visit 08/02/2017 2:00p [facility] Internal Janelle E10.40 Type 1 diabetes Medicine Karl Farrell M.D. mellitus with [place] diabetic neuropathy, unsp R07.89 Other chest pain R32 Unspecified urinary incontinence Office Visit 05/30/2017 1:00p [facility] Corinne SLara I70.235 [place] Of [place] Rae N.P. arteries of right leg w ulcer oth [...] functions and awareness Office Visit 04/15/2017 1:50p [facility] Monique Salvador, I70.235 [place] [place] Of [place] arteries of right leg w ulcer oth prt foot R05 Cough R19.7 Diarrhea, unspecified R68.2 Dry mouth, unspecified E78.2 Mixed hyperlipidemia Office Visit 04/04/2017 1:20p [facility] Arley Laguna I70.235 [place] Of [facility] MD Alon, arteries of right [facility] leg w ulcer oth prt foot Office Visit 03/11/2017 1:00p [place] [facility] Avis D64.9 Anemia, [facility] AT [place], unspecified Hayder Kelly R13.10 Dysphagia, unspecified R11.0 Nausea G62.9 Polyneuropathy, unspecified E11.622 Type 2 diabetes mellitus with other skin ulcer R53.83 Other fatigue Office Visit 02/28/2017 1:00p Wound Care Loretta Prince, E11.621 Type 2 diabetes Center AT [facility] SAGE, RN, CHAPERONE-BC mellitus with foot ulcer L97.511 Non-prs chronic ulcer oth prt r foot limited to brkdwn skin L84 Corns and callosities Office Visit 02/18/2017 2:20p [facility] Internal Janelle M85.852 Ot disrd of Medicine - Robin Farrell bone density and [place] structure, left thigh R53.83 Other fatigue Office Visit 02/06/2017 2:20p [facility] Dermatology Amaury Benitez MD L85.3 Xerosis cutis L97.519 Non-prs chronic ulcer oth prt right foot w unsp severity B07.8 Other viral warts L53.8 Other specified erythematous conditions Z78.9 Other specified health status Office Visit 01/21/2017 [facility] Herb Laguna I70.235 [place] 1:20p [facility] [employer] [employer] AT [facility] MD Alon, arteries of [facility] right leg w ulcer oth prt foot [...] left middle finger Office Visit 01/01/2017 1:15p [facility] Monique Salvador, I25.10 Athscl heart Of [facility] Robin disease of [place] coronary artery w/o ang pctrs I70.235 [place] arteries of right leg w ulcer oth prt foot E78.2 Mixed hyperlipidemia Z91.81 History of falling R42 Dizziness and giddiness E08.40 Diabetes due to underlying condition w diabetic neurop, unsp R06.02 Shortness of breath Office Visit 12/31/2016 [facility] Janelle E10.65 Type 1 diabetes 1:00p Vu - Robin Farrell mellitus with [place] hyperglycemia F41.9 Anxiety disorder, unspecified N39.41 Urge incontinence M65.331 Trigger finger, right middle finger M54.9 Dorsalgia, unspecified Z12.31 Encntr screen mammogram for malignant neoplasm of breast M81.0 Age-related osteoporosis w/o current pathological fracture Office Visit 12/27/2016 1:30p Wound Care Javid Fagan E10.621 Type 1 diabetes Center AT [facility] Robin Henderson mellitus with foot ulcer L97.511 Non-prs chronic ulcer oth prt r foot limited to brkdwn skin I70.235 [place] arteries of right leg w ulcer oth prt foot E78.2 Mixed hyperlipidemia I10 Essential (primary) hypertension F17.211 Nicotine dependence, cigarettes, in remission 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 Office Visit 11/02/2016 [facility] Era Vásquez, E78.2 Mixed hyperlipidemia 2:00p [facility] Of [place] I70.235 [place]cl [place] arteries of right leg w ulcer oth prt foot R42 Dizziness and giddiness I10 Essential (primary) hypertension Office Visit 11/01/2016 12:30p Wound Care Javid Fagan E10.621 Type 1 diabetes Center AT [facility] Robin Henderson mellitus with foot ulcer L97.511 Non-prs chronic ulcer oth prt r foot limited to brkdwn skin I70.235 [place] arteries of right leg w ulcer oth prt foot E78.2 Mixed hyperlipidemia I10 Essential (primary) hypertension F17.211 Nicotine dependence, cigarettes, in remission 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 E10.40 Type 1 diabetes mellitus with diabetic neuropathy, unsp E10.51 Type 1 diabetes w diabetic peripheral angiopath w/o gangrene Office Visit 10/11/2016 1:15p Wound Care Javid Fagan [id number] Type 1 diabetes Center AT [facility] Robin Henderson mellitus with foot ulcer L97.511 Non-prs chronic ulcer oth prt r foot limited to brkdwn skin I70.235 [place] arteries of right leg w ulcer oth prt foot E78.2 Mixed hyperlipidemia I10 Essential (primary) hypertension F17.211 Nicotine dependence, cigarettes, in remission 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 E10.40 Type 1 diabetes mellitus with diabetic neuropathy, unsp E10.51 Type 1 diabetes w diabetic peripheral angiopath w/o gangrene Office Visit 10/01/2016 1:45p [facility] Arley Laguna I70.235 [place] Of [employer] AT [facility] MD Alon, arteries of [facility] right leg w ulcer oth prt foot Office Visit 09/27/2016 1:15p Wound Care [place] Javid Fagan [id number] Type 1 diabetes AT [facility] Robin Henderson mellitus with foot ulcer L97.511 Non-prs chronic ulcer oth prt r foot limited to brkdwn skin I70.235 [place]cl [place] arteries of right leg w ulcer oth prt foot E78.2 Mixed hyperlipidemia I10 Essential (primary) hypertension F17.211 Nicotine dependence, cigarettes, in remission 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 E10.40 Type 1 diabetes mellitus with diabetic neuropathy, unsp E10.51 Type 1 diabetes w diabetic peripheral angiopath w/o gangrene Office Visit 09/14/2016 1:00p [place] [facility] Abbi Sophie, G44.201 Tension-type Services Of [facility] headache, unspecified, intractable R13.13 Dysphagia, pharyngeal phase E11.42 Type 2 diabetes mellitus with diabetic polyneuropathy Office Visit 09/13/2016 3:00p [facility] LINDSAY Harris R42 Dizziness and Of [facility] giddiness I73.9 Peripheral vascular disease, unspecified I25.10 Athscl heart disease of [place] coronary artery w/o ang pctrs I10 Essential (primary) hypertension Office Visit 09/06/2016 1:15p Wound Care Javid Fagan E10.621 Type 1 diabetes Center AT [facility] Robin Henderson mellitus with foot ulcer L97.511 Non-prs chronic ulcer oth prt r foot limited to brkdwn skin I70.235 Ath[place]cl [place] arteries of right leg w ulcer oth prt foot E78.2 Mixed hyperlipidemia I10 Essential (primary) hypertension F17.211 Nicotine dependence, cigarettes, in remission 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 I70.249 [place]cl [place] Of [facility] AT [facility] MD Alon, arteries of left FACC, FSCAI leg w ulceration of unsp site Office Visit 09/03/2016 2:20p [facility] Arley T. 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 E10.40 Type 1 diabetes mellitus with diabetic neuropathy, unsp E10.51 Type 1 diabetes w diabetic peripheral angiopath w/o gangrene Office Visit 08/10/2016 12:30p Wound Care Loretta Prince, E10.621 Type 1 diabetes Center AT [facility] SAGE, RN, CHAPERONE-BC mellitus with foot ulcer L97.511 Non-prs chronic ulcer oth prt r foot limited to brkdwn skin I70.235 [place]cl [place] arteries of right leg w ulcer oth prt foot E78.2 Mixed hyperlipidemia I10 Essential (primary) hypertension F17.211 Nicotine dependence, cigarettes, in remission 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 E10.40 Type 1 diabetes mellitus with diabetic neuropathy, unsp E10.51 Type 1 diabetes w diabetic peripheral angiopath w/o gangrene D53.9 Nutritional anemia, unspecified Office Visit 08/09/2016 [facility] Arley Laguna I73.9 Peripheral 2:40p Cardiology Of MD Alon, vascular disease, [facility] [employer] [employer] AT [facility], FSCAI unspecified Office Visit 08/03/2016 Wound Care Loretta E10.621 Type 1 diabetes 12:30p Center AT [facility] SAGE Prince, RN, mellitus with CHAPERONE-BC foot ulcer L97.511 Non-prs chronic ulcer oth prt r foot limited to brkdwn skin I70.235 [place] arteries of right leg w ulcer oth prt foot E78.2 Mixed hyperlipidemia I10 Essential (primary) hypertension F17.211 Nicotine dependence, cigarettes, in remission 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 E10.40 Type 1 diabetes mellitus with diabetic neuropathy, unsp E10.51 Type 1 diabetes w diabetic peripheral angiopath w/o gangrene Office Visit 08/02/2016 2:30p [facility] Monique Salvador, I25.10 Athscl heart Of [place] disease of [place] coronary artery w/o ang pctrs I10 Essential (primary) hypertension I73.9 Peripheral vascular disease, unspecified E78.2 Mixed hyperlipidemia R60.0 Localized edema E10.40 Type 1 diabetes mellitus with diabetic neuropathy, unsp I49.3 Ventricular premature depolarization I47.1 Supraventricular tachycardia Office Visit 07/26/2016 2:40p [facility] Arley Laguna L97.511 Non- prs chronic Of [facility] AT [facility] MD Alon, ulcer oth prt r FACC, FSCAI foot limited to brkdwn skin Office Visit 07/19/2016 2:15p [facility] Arley Laguna I73.9 Peripheral Of [facility] AT [facility] MD Alon, vascular disease, FACC, FSCAI unspecified N18.3 Chronic kidney disease, stage 3 (moderate) Office Visit 07/19/2016 4:32p Wound Care Javid Fagan E10.621 Type 1 diabetes Center AT [facility] Robin Henderson mellitus with foot ulcer L97.511 Non-prs chronic ulcer oth prt r foot limited to brkdwn skin Office Visit 07/09/2016 1:40p [facility] Arley Laguna E10.621 Type 1 diabetes Of [facility] AT [facility] MD Alon, mellitus with FACC, FSCAI foot ulcer N18.3 Chronic kidney disease, stage 3 (moderate) I73.9 Peripheral vascular disease, unspecified Office Visit 07/05/2016 2:40p Wound Care Loretta Prince L97.511 Non- prs chronic Center AT [facility] SAGE, RN, CHAPERONE- ulcer oth prt r foot limited to brkdwn skin E10.621 Type 1 diabetes mellitus with foot ulcer I70.235 [place]cl [place] arteries of right leg w ulcer oth prt foot Office Visit 06/28/2016 12:57p Wound Tray Fagan L97.511 Non-prs chronic Center AT [facility] Robin Henderson ulcer oth prt r foot limited to brkdwn skin E10.621 Type 1 diabetes mellitus with foot ulcer Office Visit 06/14/2016 1:50p Wound Care Javid Fagan L97.511 Non-prs chronic Center AT [facility] Robin Henderson ulcer oth prt r foot limited to brkdwn skin Office Visit 06/06/2016 3:00p Wound Care Destiney Rae E10.621 Type 1 diabetes Center AT [facility] MD mellitus with foot ulcer L97.511 Non-prs [...] Fagan E10.621 Type 1 diabetes Center AT [facility] Robin Henderson mellitus with foot ulcer L97.511 Non-prs chronic ulcer oth prt r foot limited to brkdwn skin Office Visit 05/22/2016 11:00a Wound Care Javid Fagan E10.621 Type 1 diabetes Center AT [facility] Robin Henderson mellitus with foot ulcer L97.511 Non-prs chronic ulcer oth prt r foot limited to brkdwn skin Office Visit 05/14/2016 2:30p [place] [facility] Abbi Barrios, G44.201 Tension-type Services Of [facility] headache, unspecified, intractable R13.13 Dysphagia, pharyngeal phase E10.9 Type 1 diabetes mellitus without complications Office Visit 03/28/2016 1:40p [facility] Christy I10 Essential (primary ) Medicine Karl Westbrook M.D. hypertension Marley Z12.31 Encntr screen mammogram for malignant neoplasm of breast R13.12 Dysphagia, oropharyngeal phase Office Visit 03/08/2016 1:00p [facility] Monique Salvador, I25.10 Athscl heart Of [place] Kelly disease of [place] coronary artery w/o ang pctrs R00.2 Palpitations I10 Essential (primary) hypertension E10.8 Type 1 diabetes mellitus with unspecified complications E78.2 Mixed hyperlipidemia Office Visit 02/28/2016 11:50a [facility] Christy I10 Essential (primary ) Medicine Karl Westbrook M.D. hypertension Marley Z79.899 Other detention (current) drug therapy R00.2 Palpitations Z91.14 Patient's other noncompliance with medication regimen Office Visit 12/22/2015 10:50a [facility] Christy Westbrook R11.0 Nausea Karl Roach M.D. R53.83 Other fatigue R40.0 Somnolence Z79.899 Other medical terminologist (current) drug therapy Office Visit 12/07/2015 12:10p [facility] Christ[facility] R13.13 Dysphagia, Medicine - Westbrook, M.D. pharyngeal phase [place] G44.201 Tension-type headache, unspecified, intractable D64.9 Anemia, unspecified R68.2 Dry mouth, unspecified Office Visit 12/05/2015 11:30a [facility] Abbinata Barrios, G43.901 Migraine, unsp, [facility] MD not intractable, with status migrainosus R13.13 Dysphagia, pharyngeal phase R53.83 Other fatigue R68.2 Dry mouth, unspecified Office Visit 10/12/2015 11:00a [place] Abbinata Barrios, G43.901 Migraine, unsp, Neurologic MD not intractable, [facility] with status migrainosus Office Visit 05/31/2015 11:50a [facility] Christy G44.201 Tension-type Vu Westbrook M.D. headache, [place] unspecified, intractable Office Visit 01/17/2015 1:00p [place] Jennifer F41.9 Anxiety disorder, Neurologic Robin Ochoa unspecified Services [facility] F33.9 Major depressive disorder, recurrent, unspecified G44.201 Tension-type headache, unspecified, intractable Office Visit 12/06/2014 2:45p [facility] Monique Salvador, I25.10 Athscl heart Of [facility] Robin disease of [place] coronary artery w/o ang pctrs E78.5 Hyperlipidemia, unspecified Office Visit 11/29/2014 10:00a [place] Nay Ochoa, F41.9 Anxiety disorder, [facility] Robin unspecified F33.9 Major depressive disorder, recurrent, unspecified G44.201 Tension-type headache, unspecified, intractable R25.1 Tremor, unspecified Office Visit 11/11/2014 2:30p [facility] Christy 346.92 Migraine Vu Westbrook M.D. Unspecified, W/Out [place] Mention Intractable Migraine 477.9 Rhinitis Allergic Cause Unspec 847.0 Sprains & Strains Neck Office Visit 09/02/2014 1:15p Pulmonology And Van SK. 780.53 Hypersomnia W/ Sleep Services Of Robin Valadez Sleep Apnea [facility] Unspecified Office Visit 08/09/2014 10:30a [facility] Christy 784.0 Headache Vu Westbrook M.D. [place] 787.02 Nausea Alone Office Visit 07/13/2014 2:10p [facility] Christy 780.54 Hypersomnia Vu - Robin Westbrook Unspecified [place] 272.4 Hyperlipidemia Other Unspec 781.0 Abnormal Involuntary Movements V03.82 Streptococcus Pneumoniae Vaccination Spec Other 780.79 Malaise And Fatigue Other 571.8 Liver Disease Chronic Nonalcoholic Other 401.1 Hypertension Benign Office Visit 06/22/2014 2:30p [facility] Monique Salvador, 412 Myocardial Of [facility] M.D. Infarction Old 272.4 Hyperlipidemia Other Unspec 401.1 Hypertension Benign 780.79 Malaise And Fatigue Other Office Visit 06/10/2014 1:50p [facility] Christy Pietro, 780.2 Syncope & Medicine - MChristina. Collapse [place] 780.79 Malaise And Fatigue Other 790.6 Abnormal Blood Chemistry Other 268.9 Vitamin D Deficiency Unspec Office Visit 03/17/2014 1:00p [facility] Liv Moulton, 780.79 Malaise And Medicine - N.P. Fatigue Other [place] 250.00 Diabetes Mellitus W/O Compl Type II Or Unspec Controlled Office Visit 11/06/2013 2:15p [facility] Monique Salvador, 401.9 Hypertension Of [facility] M.D. Unspec 412 Myocardial Infarction Old 783.21 Loss Of Weight 272.0 Hypercholesterolemia Pure 780.94 Early Satiety Office Visit 03/30/2013 2:00p [facility] Nurse Visit 401.9 Hypertension Unspec Of [facility] IC Office Visit 11/11/2012 2:00p [facility] Monique 412 Myocardial Of [facility] [place], Infarction Old M.D. 401.9 Hypertension Unspec 272.0 Hypercholesterolemia Pure 250.01 Diabetes Mellitus W/O Compl Type I Juvenile Controlled Office Visit 10/07/2012 1:20p [facility] Naomi Alba, 250.43 Diabetes W / Renal Medicine - M.D., FACP Manifestations Type [place] I Juvenile Uncontrol 300.00 Anxiety State Unspec Office Visit 04/10/2012 2:00p [facility] Naomi Alba, 365.9 Glaucoma Unspec Medicine - M.D., FACP [place] 250.43 Diabetes W/ Renal Manifestations Type I Juvenile Uncontrol 414.01 Coronary Atherosclerosis [place] V72.84 Examination Preoperative Unspec 477.9 Rhinitis Allergic Cause Unspec Office Visit 02/19/2012 10:40a [facility] Naomi Alba, 250.43 Diabetes W / Renal Medicine - Robin, FACP Manifestations Type [place] I Juvenile Uncontrol 783.21 Loss Of Weight 787.91 Diarrhea Office Visit 02/12/2012 12:45p [facility] Monique Salvador, 780.79 Malaise And Of [facility] Oskar.DLara Fatigue Other 780.4 Dizziness & Giddiness 414.01 Coronary Atherosclerosis [place] 272.0 Hypercholesterolemia Pure Office Visit 09/24/2011 12:00p [facility] Naomi Willis, 787.91 Diarrhea - Funmilayo Kelly, FACP 250.43 Diabetes W/ Renal Manifestations Type I Juvenile Uncontrol 250.63 Diabetes W/ Neurological Manifestations Type I Uncontrolled Office Visit 08/29/2011 9:20a [facility] Naomi Willis, V04.89 Need For Medicine - MBharathi, FACP Prophylactic [place] Vaccination & Inoculation Other Virus V72.84 Examination Preoperative Unspec 371.03 Corneal Opacity [place] 053.21 Herpes Zoster Keratoconjunctivitis 250.43 Diabetes W/ Renal Manifestations Type I Juvenile Uncontrol Office Visit 05/15/2011 11:00a [facility] Naomi Willis, 250.00 Diabetes Mellitus Medicine - MBharathi, FACP W/O Compl Type II [place] Or Unspec Controlled 564.5 Diarrhea Functional Office [...] Visit 03/08/2008 4:15p DO Not Use Liv Moulton, 382.9 Otitis Media Preet N.P. Unspec 696.1 [...] Office Visit 12/11/2007 11:00a DO Not Use Naomi Alba, 780.97 Altered Mental Preet Kelly, FACP Status 250.00 Diabetes Mellitus W/O Compl Type II Or Unspec Controlled V04.81 Need For Prophylactic Vaccination & Inoculation/Influenza Office Visit 12/02/2007 DO Not Use Naomi 414.00 Coronary 11:15a Preet Willis M.D., Atherosclerosis FACP Unspec Type Vessel [place]/Graft 250.01 Diabetes Mellitus W/O Compl Type I Juvenile Controlled Office Visit 11/26/2007 DO Not Use Liv Moulton, 053.9 Herpes Zoster W/O 2:15p Preet N.PLara Complication 386.11 Vertigo Benign Paroxysmal Position Office Visit 07/17/2007 DO Not Use Naomi Alba, 558.9 Gastroenteritis & 2:15p Preet Kelly, FACP Colitis Noninfectious Other Office Visit 05/27/2007 Neurosurgery Ion Stone 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 Site Office Visit 03/21/2007 DO Not Use Liv V72.31 Routine Individualized Education Plan Aide 1:45p Preet Moulton, N.PLara Examination 272.1 Hypertriglyceridemia Pure 250.01 Diabetes Mellitus [...] Use Naomi Willis, 250.63 Diabetes [facility] 3[facility], FACP Neurological Manifestations Type I Uncontrolled 724.3 Sciatica V04.81 Need For Prophylactic Vaccination & Inoculation/Influenza Office Visit 09/28/2005 DO Not Use Naomi Willis, 250.03 Diabetes Mellitus 1:15p Preet Kelly, FACP W/O Compl Type I Juvenile Uncontrolled 285.9 Anemia Unspec Plan of Treatment Future Appointment(s):04/28/2018 1:00 pm - Matt Saenz M.D. at [facility]09/29/2018 1:20 pm - Janelle Farrell M.D. at [facility] - Frjuvxoqb50/28/2019 - Janelle Farrell M.D.E10.8 Type 1 diabetes mellitus with unspecified complicationsComments:For your diabetes, you could see Dr. Alicea [id number] Other rosaceaNew Medication:Metrogel 1 % - Apply twice daily for rosaceaComments:Check your doxycyline bottle at home - Dr. Humphries wrote 50 mg in the note. Usually comes as 100 mg tablet. For dermatology you could see Dr. Kang Referral:Darlene Kang MD, OvqtsnicowpM26.4 Chronic pain ircgrrvnX23.40 Type 2 diabetes mellitus with diabetic neuropathy, unspecifiNew Orders:Sasha velarde, Ordered: 03/31Comments:Follow Dr. Kitchen's instructions for foot careFollow up:September for AWV
[2018-04-29 13:54] VITALS: BP 139/72
--- NOTE | 2018-04-29 14:32 | UC ---
General HPI - HPI Summary HPI Summary: 1. pt notes hx of chronic swelling to both lower legs. over the past 10 days, it has gotten worse and painful to the L easton area. pt states she took her torsemide then added a dose of left over lasix. she admits the area looks red and feels warm as well. no fever or calf pain. 2. pt c/o pain to her R middle toe where a "nail was growing into the back of the toe". she went to her environmental monitoring technician as directed by her pcp. she states they said removal of the nail was not indicated so the pt "pulled it off" herself about 1 week ago. she states that there is still a nail growing out the back and wants it removed. - History of Current Complaint Chief Complaint: UCLowerExtremity Stated Complaint: LEFT LEG(RED/WARM);TYPE 1 DIABETIC Time Seen by Provider: 04/29/18 13:36 Hx Obtained From: Patient Hx Last Menstrual Period: menapause Pain Intensity: 6 Associated Signs & Symptoms: Negative: Fever - Allergy/Home Medications Allergies/Adverse Reactions: Allergies Allergy/AdvReac Type Severity Reaction Status Date / Time Leqstis-Seh-Jmo Reductase Allergy Muscle Ache Verified 04/29/18 13:46 Inhibitor rosuvastatin [From Crestor] AdvReac Muscle Ache Verified 04/29/18 13:46 Home Medications: Home Medications DOXYcycline CAP(*) [DOXYcycline 100MG CAP(*)] 100 mg PO DAILY 04/29/18 [History Confirmed 04/29/18] PMH/Surg Hx/FS Hx/Imm Hx - Additional Past Medical History Additional PMH: IDDM, migraines, hyperlipidemia, chronic pain, neuropathy, PVD, thyroid dz, stage III renal dz, CAD, mild leg edema. - Surgical History Surgical History: Yes Surgery Procedure, Year, and Place: RIGHT EYE CORNEA TRANSPLANT;. BILAT CARPAL TUNNEL;. BILAT TRIGGER RELEASE;. HEART CATH (NO STENTS);. ;. RIGHT EYE CATARACT;. MINI - MED INSULIN PUMP. *DEXCOM SYSTEM PLACED. PT WILL TAKE ALL PARTS INCLUDING UNDER SKIN PIECE FOR MRI. PT CHANGES IT OUT EVERY 7 DAYS* - Family History Known Family History: Positive: Diabetes - Social History Alcohol Use: None Substance Use Type: None Substance Use Comment - Amount & Last Used: currently using vicoden Smoking Status (MU): Former Smoker Have You Smoked in the Last Year: No - Immunization History Most Recent Influenza Vaccination: utd Most Recent Tetanus Shot: utd Review of Systems All Other Systems Reviewed And Are Negative: No Constitutional: Negative: Fever Skin: Positive: Rash - L easton Eyes: Negative: Drainage ENT: Positive: Negative Respiratory: Positive: Negative Cardiovascular: Positive: Negative Gastrointestinal: Positive: Negative Genitourinary: Positive: Negative Motor: Negative: Decreased ROM Neurovascular: Positive: Decreased Sensation - chronic Physical Exam Triage Information Reviewed: Yes Appearance: Well-Appearing Vital Signs: Initial Vital Signs Temp 97.9 F 04/29/18 13:47 Pulse 85 04/29/18 13:47 Resp 16 04/29/18 13:47 BP 139/72 04/29/18 13:47 Pulse Ox 100 04/29/18 13:47 Vital Signs Reviewed: Yes Eyes: Positive: Conjunctiva Clear, Other: - opaque R cornea ENT: Positive: Normal ENT inspection Neck: Positive: Supple Respiratory: Positive: No respiratory distress Cardiovascular: Positive: RRR Abdomen Description: Positive: Nontender Bowel Sounds: Positive: Present Musculoskeletal: Positive: Other: - BLE's= mild edema from knees down with slight pitting. lower half of L anterior easton is pink, warm and tender to touch. neither calf has cords or tenderness. weak pedal pulses x2. Toes of R foot abhi in color(pt notes chronic). R middle toenail has been avulsed and a small piece of skin on lateral side is gone as well. no odor or discharge and I can not appreciate any residual nail. both feet have gross sensation/vascular and motor function. No streaking to either leg. Neurological: Positive: Alert Skin Exam: Normal Diagnostics - Radiology No standard instances Radiology Interpretation Completed By: Radiologist - R 3rd toe=IMPRESSION: No evidence of lytic lesion is noted in the third digit. Vascular calcifications are noted. Course/Dx - Course Course Of Treatment: I spoke to Dr Farrell, pt's pcp. I advised of her current hx and pE. We agree to tx with keflex 250mg tid x 10days(renal adjusted) and they will contact her with a f/u appt for a recheck of her cellulitis. - Differential Dx - Multi-Symptom Differential Diagnoses: Other - R 3rd toe has no lesions. No concern for LLE DVT. No concern for acute arterial occlusion. spoke to pt's pcp, will tx LLE for cellulitis and they clark arrange close f/u. - Diagnoses Provider Diagnosis: Nail avulsion of toe, Cellulitis of left leg Discharge - Sign-Out/Discharge Documenting (check all that apply): Patient Departure All imaging exams completed and their final reports reviewed: Yes - Discharge Plan Condition: Stable Disposition: HOME Prescriptions: Cephalexin CAP* [Keflex CAP*] 250 mg PO TID 10 Days #30 cap Patient Education Materials: Cellulitis (DC), Nail Avulsion (ED) Referrals: Janelle Farrell MD [Primary Care Provider] - Additional Instructions: THE OFFICE OF DR FARRELL WILL CALL YOU WITH AN APPOINTMENT TO BE SEEN WITHIN THE NEXT FEW DAYS. FOLLOW UP SOONER FOR ANY WORSENING. - Billing Disposition and Condition Condition: STABLE Disposition: Home
== END 2018-04-29 15:09 | disposition home or self-care (01) ==
LOC: UCCORT 12:37
DX: L03.116 Cellulitis of left lower limb (principal); S91.204A Unspecified open wound of right lesser toe(s) with damage to nail, initial encounter; R22.41 Localized swelling, mass and lump, right lower limb; E11.40 Type 2 diabetes mellitus with diabetic neuropathy, unspecified; E11.22 Type 2 diabetes mellitus with diabetic chronic kidney disease; N18.9 Chronic kidney disease, unspecified; Z87.891 Personal history of nicotine dependence; Z88.8 Allergy status to other drugs, medicaments and biological substances; X58.XXXA Exposure to other specified factors, initial encounter; Y92.9 Unspecified place or not applicable
CPT/HCPCS: 99212; G0463

== ENCOUNTER 2019-02-06 15:23 | Emergency (ER) | payer MEDICARE, MEDICAID ==
--- NOTE | 2019-02-06 16:11 | ED ---
HPI Diabetic - HPI Summary HPI Summary: This pt is a 64 y/o female, with hx of Type 1 DM on insulin pump, presenting to [facility] via EMS after being found unresponsive on the kitchen floor today. Pt reports she went to bed last night and this morning woke up to her dogs barking and someone knocking on the door. She notes she tried to get to the door but was unable to get to the door and had LOC. Pt does not know if she had head strike. Pt states the [employer] member called EMS. Per EMS, initial blood glucose was too low to register. EMS administered D10 x2 doses and blood glucose increased to 125. Pt c/o back pain currently. Pt reports these past few days she has been waking up in the morning with blood glucose in the 50s. Pt has hx of passing out in the past with low sugars in . - History Of Current Complaint Chief Complaint: EDDiabeticProb Time Seen by Provider: 02/06/19 16:08 Hx Obtained From: Patient Hx Last Menstrual Period: menapause Onset/Duration: Sudden Onset, Resolved Character: Other - LOC Aggravating: Nothing Alleviating: EMS Treatment Associated Signs & Symptoms: Negative Related History: DM I, Insulin Pump - Allergies/Home Medications Allergies/Adverse Reactions: Allergies Allergy/AdvReac Type Severity Reaction Status Date / Time Rhduhag-Ckl-Xas Reductase Allergy Muscle Ache Verified 02/06/19 15:59 Inhibitor rosuvastatin [From Crestor] AdvReac Muscle Ache Verified 02/06/19 15:59 PMH/Surg Hx/FS Hx/Imm Hx Endocrine/Hematology History: Reports: Hx Diabetes - TYPE 1, Hx Thyroid Disease , Hx Anemia Cardiovascular History: Reports: Hx Hypertension Denies: Hx Pacemaker/ICD Respiratory History: Reports: Hx Sleep Apnea Denies: Hx Asthma GI History: Reports: Hx Gastroesophageal Reflux Disease History: Reports: Hx Chronic Renal Failure, Hx Renal Disease Musculoskeletal History: Reports: Hx Arthritis, Hx Back Problems, Hx Osteoporosis Sensory History: Reports: Hx Cataracts, Hx Glaucoma, Hx Vision Problem Denies: Hx Hearing Aid Opthamlomology History: Reports: Hx Cataracts, Hx Glaucoma, Hx Vision Problem Neurological History: Reports: Hx Migraine Psychiatric History: Reports: Hx Anxiety, Hx Depression Denies: Hx Panic Disorder - Cancer History Cancer Type, Location and Year: atherosclerosis Hx Chemotherapy: No Hx Radiation Therapy: No - Surgical History Surgery Procedure, Year, and Place: RIGHT EYE CORNEA TRANSPLANT;. BILAT CARPAL TUNNEL;. BILAT TRIGGER RELEASE;. HEART CATH (NO STENTS);. ;. RIGHT EYE CATARACT;. MINI - MED INSULIN PUMP. *DEXCOM SYSTEM PLACED. PT WILL TAKE ALL PARTS INCLUDING UNDER SKIN PIECE FOR MRI. PT CHANGES IT OUT EVERY 7 DAYS* Infectious Disease History: No Infectious Disease History: Reports: Hx Shingles - currently in cornea transplant Denies: Hx Clostridium Difficile, Hx of Known/Suspected MRSA, Hx Tuberculosis , Hx Known/Suspected VRSA, Traveled Outside the [place] in Last 30 Days - Family History Known Family History: Positive: Diabetes - Social History Alcohol Use: None Substance Use Type: Reports: None Substance Use Comment - Amount & Last Used: currently using vicoden Smoking Status (MU): Former Smoker Have You Smoked in the Last Year: No Review of Systems Negative: Fever Cardiovascular: Negative Respiratory: Negative Musculoskeletal: Other - POSITIVE: back pain Neurological: Other - POSITIVE: LOC All Other Systems Reviewed And Are Negative: Yes Physical Exam - Summary Physical Exam Summary: GENERAL: Patient is a well-developed and nourished female who is lying comfortable in the stretcher. Patient is not in any acute respiratory distress. HEAD AND FACE: No signs of trauma. No ecchymosis, hematomas or skull depressions. No sinus tenderness. EYES: PERRLA, EOMI x 2, No injected conjunctiva, no nystagmus. EARS: Hearing grossly intact. Ear canals and tympanic membranes are within normal limits. MOUTH: Oropharynx within normal limits. NECK: Supple, trachea is midline, no adenopathy, no JVD, no carotid bruit, no c- spine tenderness, neck with full ROM. CHEST: Symmetric, no tenderness at palpation LUNGS: Clear to auscultation bilaterally. No wheezing or crackles. CVS: Regular rate and rhythm, S1 and S2 present, no murmurs or gallops appreciated. ABDOMEN: Soft, non-tender. No signs of distention. No rebound no guarding, and no masses palpated. Bowel sounds are normal. MSK: FROM in all major joints, no edema, no cyanosis or clubbing. Paraspinal muscle tenderness in the thoracic lumbar spine. NEURO: Alert and oriented x 3. No acute neurological deficits. Speech is normal and follows commands. SKIN: Dry and warm GCS: 15 Triage Information Reviewed: Yes Vital Signs On Initial Exam: Initial Vitals Temp Pulse Resp BP Pulse Ox 98.4 F 85 16 168/93 98 02/06/19 15:53 02/06/19 15:53 02/06/19 15:53 02/06/19 15:53 02/06/19 15:53 Vital Signs Reviewed: Yes Diagnostics - Vital Signs Vital Signs Temp Pulse Resp BP Pulse Ox 02/06/19 15:53 98.4 F 85 16 168/93 98 - Laboratory Result Diagrams: 02/06/19 16:50 02/06/19 16:50 Lab Statement: Any lab studies that have been ordered have been reviewed, and results considered in the medical decision making process. - Radiology Chest XR Radiology Interpretation Completed By: Radiologist Summary of Radiographic Findings: IMPRESSION: Stigmata of obstructive lung disease. No acute pulmonary or cardiac process evident. Dr. Connolly has reviewed this report. - CT Thoracic spine CT CT Interpretation Completed By: Radiologist Summary of CT Findings: IMPRESSION: No CT evidence for traumatic injury of the thoracic spine. Dr. Connolly has reviewed this report. Lumbar spine CT CT Interpretation Completed By: Radiologist Summary of CT Findings: IMPRESSION: Negative for lumbar sacral spine fracture or traumatic malalignment. Interval worsening of disc disease L2-L3 which may represent progression of degenerative spondylosis however osteomyelitis discitis could have a similar appearance. Correlate with clinical assessment and consider pre and postcontrast MRI for further evaluation if deemed appropriate. Dr. Connolly has reviewed this report. Brain CT CT Interpretation Completed By: Radiologist Summary of CT Findings: IMPRESSION: No CT evidence for traumatic brain injury or acute intracranial process. Dr. Connolly has reviewed this report. Diabetic Course/Dx - Course Assessment/Plan: This pt is a 64 y/o female, with hx of Type 1 DM on insulin pump, presenting to [facility] via EMS after being found unresponsive on the kitchen floor today. Pt reports she went to bed last night and this morning woke up to her dogs barking and someone knocking on the door. She notes she tried to get to the door but was unable to get to the door and had LOC. Pt does not know if she had head strike. Pt states the [employer] member called EMS. Per EMS, initial blood glucose was too low to register. EMS administered D10 x2 doses and blood glucose increased to 125. Pt c/o back pain currently. Pt reports these past few days she has been waking up in the morning with blood glucose in the 50s. Pt has hx of passing out in the past with low sugars in . CXR IMPRESSION: #. Stigmata of obstructive lung disease. No acute pulmonary or cardiac process evident. L spine CT IMPRESSION: #. Negative for lumbar sacral spine fracture or traumatic malalignment. #. Interval worsening of disc disease L2-L3 which may represent progression of degenerative spondylosis however osteomyelitis discitis could have a similar appearance. Correlate with clinical assessment and consider pre and post contrast MRI for further evaluation if deemed appropriate. T spine CT IMPRESSION: #. No CT evidence for traumatic injury of the thoracic spine. Head CT IMPRESSION: #. No CT evidence for traumatic brain injury or acute intracranial process. Blood work without a significant abnormality except for creatinine 1.14, glucose 201, AST 41, CPK is 291. In the ED, the patient was given [place] and Flexeril for her back pain. The patient was observed in the ED for couple hours and the patient seems to be alert oriented 3. I discussed all the findings and test results with the patient. Patient was instructed to return to the emergency room immediately if any of the symptoms return worsens. Plan of care was discussed with the patient and understands and agrees. All questions were answered at patient satisfaction. There were no further complaints or concerns. Lung exam before discharge: CTA B/L. Good air exchange. No wheezing or crackles heard. CVS : S1 and S2 present. No murmurs appreciated. Patient is alert and oriented x 3. Patient is hemodynamically stable. Patient will be discharged home with follow up from her PCP in the next 2-3 days. - Diagnoses Differential Dx: Diabetic Ketoacidosis, Gestational Diabetes, Hyperglycemia, Hypoglycemia Provider Diagnoses: Hypoglycemia, Fall Discharge ED - Sign-Out/Discharge Documenting (check all that apply): Patient Departure - Discharge home - Discharge Plan Condition: Stable Disposition: HOME Patient Education Materials: Hypoglycemia in a Person with Diabetes (ED), Back Pain (ED) Referrals: Janelle Farrell MD [Primary Care Provider] - Additional Instructions: FOLLOW UP WITH YOUR PRIMARY CARE PROVIDER IN 2-3 DAYS. RETURN TO THE EMERGENCY DEPARTMENT FOR ANY WORSENING OR NEW SYMPTOMS. - Billing Disposition and Condition Condition: STABLE Disposition: Home - Attestation Statements Document Initiated by Scribe: Yes Documenting Scribe: Anna Domingo Provider For Whom Scribleobardo is Documenting (Include Credential): Star Connolly MD Scribe Attestation: I, Anna Domingo, scribed for Star Connolly MD on 02/08/19 at 1847. Scribe Documentation Reviewed: Yes Provider Attestation: The documentation as recorded by the Anna antunez accurately reflects the service I personally performed and the decisions made by me, Star Connolly MD Status of Scribe Document: Viewed
--- OUTSIDE RECORDS SUMMARY | 2019-02-06 16:26 | XMS REPORT | Continuity of Care Document ---
:1955 External Reference #:[id number] Author Name Arcadio Hampton M.D. Address [address] [place] [address] Care Team Providers Name Role Phone Janelle Farrell M.D. 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 Onset: 08/01/2011 Corneal neovascularization Arcadio Hampton M.D. Onset: 08/01/2011 Corneal transplant Arcadio Hampton M.D. Onset: 09/26/2011 Type 2 diabetes mellitus Arcadio Hampton M.D. Onset: 01/30/2012 Ocular hypertension Arcadio Hampton M.D. 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 Onset: 02/06/2012 Open angle with borderline findings Arcadio Hampton M.D. 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 Onset: 08/2012 graft After-cataract with vision obscured Arcadio Hampton M.D. Onset: 2012 Nonproliferative diabetic retinopathy Arcadio Hampton M.D. Onset: 12/24 Lens Replaced By Other Means Arcadio Hampton M.D. Onset: 12/24/2012 Blepharitis Arcadio Hampton M.D. Onset: 01/15/2013 Tear film insufficiency Arcadio Hampton M.D. Onset: 01/15/2013 Open-angle glaucoma - borderline Arcadio Hampton M.D. Onset: 02/20/2016 Herpes simplex keratitis Arcadio Hampton M.D. Onset: 02/20/2016 Superficial punctate keratitis Arcadio Hampton M.D. Onset: 02/20/2016 Keratitis Arcadio Hampton M.D. Onset: 11/10/2018 Social History Type Date Description Comments Sex Unknown ETOH Use Rarely consumes alcohol Tobacco Use Start: Unknown End: Unknown Patient is a former smoker Smoking Status Reviewed: 11/10/18 Patient is a former smoker Allergies, Adverse Reactions, Alerts Active Allergies Reaction Severity Comments Date Seasonal Runny nose, eye irratation 03/28/2016 Lovaza 02/17/2018 Fluoxetine 02/17/2018 Inactive Allergies NKDA 08/23/2008 Medications Active Medications SIG Qnty Indications Ordering Date Provider Coreen With Neutrox clean eye lids 2 40ml H04.123 Arcadio Kimble 12/17/2018 x day Raymundo Hampton M.D. Systane Nighttime apply small 10.5gm Arcadio Kimble 12/03/2018 amount to left Memo, Ointment eye 3-4 times per M.D. day. Olopatadine HCL 1 drop once 2.500ml Z94.7 Arcadio Kimble 08/28/2018 0.2% daily, both eyes Memo, Solution M.DLara Doxycycline 1 by mouth every 60caps Arcadio Kimble 07/24/2018 Monohydrate day Jermainesensera, 100mg M.D. Capsules Erythromycin apply left eye at 3.500gm Arcadio Kimble 07/23/2018 5mg/GM bedtime. Memo Ointment M.Andrew Prednisolone Acetate 1 drop right eye 10ml Z94.7 Arcadio Kimble 06/25/2018 1% twice daily. Memo, Suspension M.DLara Refresh Optive Gerhard-3 Instill 1 Drop 90units Z94.7 Arcadio Kimble 04/07/2018 Into Both Eyes Memo 0.5-1-0.5% Solution Four Times A Day M.DLara Humidifier 1units H04.123 Arcadio Kimble 02/19/2018 2Gallon Raymundo Hampton M.D. Almaz 128 apply at bedtime, 7gm Arcadio Kimble 08/19/2017 5% Ointment left eye Robin Hampton Cosopt PF 1 drop right eye H40.013 Arcadio WLara 09/09/2016 22.3-6.8mg/ml twice daily. Andrés Hampton M.D. Adderall Unknown 08/05/2016 20mg Tablets Acyclovir 1 tablet by mouth 90tabs Z94.7 Arcadio WLara 02/19/2016 400mg Tablets once daily Robin Hampton Refresh Plus instill 1 drop in 70units Z94.7 Arcadio WLara 01/20/2015 0.5% both eyes 6 times Andrés Hampton a day Robin Restasis 1 drop right eye 180units H04.123 Arcadio WLara 04/27/2013 0.05% Emulsion 2x day Robin Hampton Zioptan 1 drop both eyes H40.013 Arcadio WLara 12/24/2012 0.0015% twice daily. Andrés Hampton M.D. Novolog 100 units via Unknown 100Unit/ML pump daily Solution B Complex Unknown Tablets Lidocaine apply one patch Unknown 5% Patches to affected area 12 hours on and 12 hours off Zyrtec Allergy Unknown Prozac Unknown Levothyroxine Sodium Unknown Plavix Unknown Cilostazol Unknown Wellbutrin XL Unknown Parvin Contour Unknown Botox Cosmetic for migraines Unknown 50Unit Solution Rec Ondansetron 1 X 2 Unknown 8mg Tablets Dispers Hydrocodone-Acetamino 2 Unknown phen 10-325mg Tablets Gabapentin 1 Unknown 600mg Tablets Calcitriol 1 Unknown 0.25mcg Capsules Carvedilol 1/2 tab Unknown 6.25mg Tablets Trazodone HCL Unknown Aspirin Unknown 325mg Tablets B Vitamins Unknown History Medications Polytrim 1 drop left 10ml Z94.7 Arcadio WLara 07/23/2018 - 49738-6.1Unit/ML-% eye 2 xday Robin Hampton 08/08/2018 Solution Immunizations Description No Information Available Vital Signs Date Vital Result Comment 11/10/2018 11:29am Intraocular Pressure Right Eye 15 mmHg Intraocular Pressure Left Eye 14 mmHg -JAHAIRA, Applanation 11:29 Am 08/28/2018 11:12am Intraocular Pressure Right Eye 13 mmHg Intraocular Pressure Left Eye 19 mmHg Al-, Applanation 11:14 Am Results Description No Information Available Procedures Date Code Description Status 12/17/2018 45031 Intermediate Exam-Established PT Completed 12/03/2018 86201 Closure Punctum Caut/Laser Completed 11/10/2018 44479 Intermediate Exam-Established PT Completed 11/10/2018 49894 Punctum Closure By Plug - One Eye Completed 07/24/2018 37779 Punctum Closure By Plug - One Eye Completed 07/23/2018 63698 Punctum Closure By Plug - One Eye Completed Medical Devices Description No Information Available Encounters Description No Information Available Assessments Date Code Description Provider 12/17/2018 H16.9 Unspecified keratitis Arcadio Hampton M.D. 12/17/2018 H04.123 Dry eye syndrome of bilateral lacrimal Arcadio Hampton M.D. glands 12/17/2018 H01.00A Unspecified blepharitis right eye, Arcadio Hampton M.D. upper and lower eyelids 12/17/2018 H01.00B Unspecified blepharitis left eye, upper Arcadio Hampton M.D. and lower eyelids 12/17/2018 H40.013 Open angle with borderline findings, Arcadio Hampton M.D. low risk, bilateral 12/17/2018 Z94.7 Corneal transplant status Arcadio Hampton M.D. 12/03/2018 H16.9 Unspecified keratitis Arcadio Hampton M.D. 12/03/2018 H04.123 Dry eye syndrome of bilateral lacrimal Arcadio Hampton M.D. glands 11/10/2018 H16.9 Unspecified keratitis Arcadio Hampton M.D. 11/10/2018 H04.123 Dry eye syndrome of bilateral lacrimal Arcadio Hampton M.D. glands 11/10/2018 Z94.7 Corneal transplant status Arcadio Hampton M.D. 08/28/2018 Z94.7 Corneal transplant status Arcadio Hampton M.D. 08/28/2018 H40.013 Open angle with borderline findings, Arcadio Hampton M.D. low risk, bilateral 08/28/2018 H04.123 Dry eye syndrome of bilateral lacrimal Arcadio Hampton M.D. glands 08/08/2018 Z94.7 Corneal transplant status Arcadio Hampton M.D. 08/08/2018 H40.013 Open angle with borderline findings, Arcadio Hampton M.D. low risk, bilateral 08/04/2018 Z94.7 Corneal transplant status Arcadio Hampton M.D. 08/04/2018 H40.013 Open angle with borderline findings, Arcadio Hampton M.D. low risk, bilateral 08/04/2018 H04.123 Dry eye syndrome of bilateral lacrimal Arcadio Hampton M.D. glands 07/24/2018 Z94.7 Corneal transplant status Arcadio Hampton M.D. 07/24/2018 H40.013 Open angle with borderline findings, Arcadio Hampton M.D. low risk, bilateral 07/24/2018 H04.123 Dry eye syndrome of bilateral lacrimal Arcadio Hampton M.D. glands 07/23/2018 Z94.7 Corneal transplant status Arcadio Hampton M.D. 07/23/2018 H40.013 Open angle with borderline findings, Arcadio Hampton M.D. low risk, bilateral 07/23/2018 H04.123 Dry eye syndrome of bilateral lacrimal Arcadio Hampton M.D. glands 06/25/2018 Z94.7 Corneal transplant status Arcadio Hampton M.D. 06/25/2018 H40.013 Open angle with borderline findings, Arcadio Hampton M.D. low risk, bilateral 06/18/2018 Z94.7 Corneal transplant status Arcadio Hampton M.D. Plan of Treatment 12/17/2018 - Arcadio Hampton M.D.H16.9 Unspecified keratitisComments: Continue current treatment.H04.123 Dry eye syndrome of bilateral lacrimal glandsNew Medication:Avenova With Neutrox - clean eye lids 2 x dayComments: Continue use of artificial tears 3-4 times daily.H01.00A Unspecified blepharitis right eye, upper and lower eyelidsComments:Begin Avenova. Hand out given to patient.H01.00B Unspecified blepharitis left eye, upper and lower eyelidsComments:see plan 2H40.013 Open angle with borderline findings, low risk , bilateralComments:Continue same meds.Z94.7 Corneal transplant statusComments: Prednisolone 1 drop right eye 2 times daily. Continue the use of Emycin ointment 2-3 times daily. Continue Acyclovir as directed. No rubbing the eye. Discussed with patient importance of drop compliance. Discontinuing topical steroids may result in graft complications. Functional Status Description No Information Available Mental Status Description No Information Available Referrals Refer to Dr Reason for Referral Status Appt Date Arcadio Hampton M.D. Created [address] [place] [address] 25661 [phone] Arcadio Hampton M.D. Created [address] [place] [address] 52585 [phone] Arcadio Hampton M.D. Created [address] [place] [address] 08471 [phone] Arcadio Hampton M.D. Created [address] [place] [address] 38196 [phone] Arcadio Hampton M.D. Created [address] [place] [address] 34368 [phone] Arcadio Hampton M.D. Created [address] [place] [address] 88497 [phone] Arcadio Hampton M.D. Created [address] [place] [address] 13927 [phone] Arcadio Hampton M.D. Created [address] [place] [address] [phone] Arcadio Hampton M.D. Created [address] [place] [address] 87613 [phone]
--- OUTSIDE RECORDS SUMMARY | 2019-02-06 16:26 | XMS REPORT | Summary of Care ---
:1955 Author Organization [facility] Address [address] [place] [address] Care Team Providers Name Role Phone Janelle Farrell MD Primary Care Provider Reason for Visit Reason Comments Follow-up Surgical (Routine) Status Reason Specialty Diagnoses / Referred By Referred To Procedures Contact Contact Authorized Specialty Vascular Diagnoses Type 1 diabetes mellitus with peripheral artery disease Ike Camilo Palma M, Services Surgery MD [place] Self Required [id number] [place], [place] [address] [address] [place], [place] Phone: [phone] Phone: Fax: Email: [phone] [email or web address] Email: [email or web address] Encounter Details Date Type Department Care Team Description 01/16/2019 Office Visit [facility] Kelli Ramires, PVD (peripheral vascular disease) (Primary Dx); Associates MD CINDY Ischemic foot pain at rest Department of Surgery, [address] [place] [address] Division of Vascular Room [address] [place], [place] Endovascular Services [id number] [address] [facility] [phone] [place] [address] (Fax) [phone] Allergies Active Allergy Reactions Severity Noted Date Comments Atorvastatin 02/01/2016 Muscle pain Cholestatin 08/01/2011 documented as of this encounter (statuses as of 01/16/2019) Medications Medication Sig Dispensed Refills Start Date End Date Status Insulin Infusion Pump Use as directed. 0 Active (MINIMED INSULIN PUMP) FAY acyclovir (ZOVIRAX) 400 Take 400 mg by 0 Active MG tablet mouth daily. LOTEMAX 0.5 % Place into both 0 05/04/2014 Active ophthalmic suspension eyes nightly COSOPT PF 22.3-6.8 Both eyes twice 0 05/04/2014 Active MG/ML SOLN a day per tp RESTASIS 0.05 % Place into both 0 05/03/2014 Active ophthalmic emulsion eyes every 12 (twelve) hours buPROPion (WELLBUTRIN Take 300 mg by 0 04/20/2014 Active SR) 150 MG 12 hr tablet mouth daily. ZIOPTAN 0.0015 % SOLN Two Times Daily 0 05/04/2014 Active Both eyes CALCITRIOL PO take 1 capsule 0 01/09/2016 Active by mouth once daily 325 mg trazodone (DESYREL) 50 take 2 tablets 0 11/10/2015 Active MG tablet by mouth daily at bedtime clopidogrel (PLAVIX) 75 Take 75 mg by 0 Active MG tablet mouth daily levothyroxine Take 25 mcg by 0 Active (SYNTHROID, LEVOTHROID) mouth Daily 25 MCG tablet omega-3 acid ethyl Take 1 g by 0 Active esters (LOVAZA) 1 g mouth daily capsule ondansetron Take 8 mg by 0 Active (ZOFRAN-ODT) 8 MG mouth every 8 disintegrating tablet (eight) hours as needed for Nausea or Vomiting fluoxetine (PROZAC) 20 Take 20 mg by 0 Active MG capsule mouth daily Cetirizine HCl 10 MG Take 10 mg by 0 Active CAPS mouth cilostazol (PLETAL) 50 Take 50 mg by 0 Active MG tablet mouth Two Times Daily fluticasone (FLONASE) 1 spray by Nasal 0 Active 50 MCG/ACT nasal spray route lidocaine (LIDODERM) 5 apply 1 patch 0 10/05/2016 Active % topically daily ; 12 HOURS ON AND 12 HOURS OFF Vitamins/Minerals TABS Take 1 each by 0 Active mouth gabapentin (NEURONTIN) Take 600 mg by 0 Active 600 MG tablet mouth daily amphetamine-dextroamphe Take 60 mg by 0 11/02/2016 Active tamine (ADDERALL) 30 MG mouth daily tablet Dexlansoprazole 60 MG Take 60 mg by 0 Active capsule mouth daily torsemide (DEMADEX) 20 Take 20 mg by 0 Active MG tablet mouth daily silver sulfADIAZINE Apply to wound 50 g 0 09/27/2017 Active (SILVADENE) 1 % cream daily as directed aspirin 325 MG tablet Take 325 mg by 0 Active mouth daily Takes 1/2 of a 325 mg tablet onabotulinumtoxin type Inject into the 0 Active A (BOTOX) 100 units muscle once Dose SOLR injection unknown, used for migraines every 3 months HYDROcodone-acetaminoph Take 2 tablets 0 Active en (VICODIN) 10-325 MG by mouth Two per tablet times daily as needed for Pain nitroglycerin Place 0.4 mg 0 Active (NITROSTAT) 0.4 MG SL under the tongue tablet every 5 (five) minutes as needed for Chest pain Continuous Blood Gluc by Does not 0 Active Insurance Law Specialist (DEXCOM G6 apply route PRODUCER DIRECTOR) FAY Continuous Blood Gluc by Does not 0 Active Sensor (DEXCOM G5 apply route MOB/G4 PLAT SENSOR) Continuous MISC glucose monitor erythromycin (ROMYCIN) Place 1 cm into 0 Active ophthalmic ointment both eyes nightly sodium chloride (MARGIE Place 1 drop 0 Active 128) 5 % ophthalmic into both eyes solution nightly doxycycline 0 06/25/2018 Active (VIBRA-TABS) 100 MG tablet prednisoLONE acetate 1 drop Four 0 Active (PRED FORTE) 1 % times daily ophthalmic suspension insulin aspart Use as directed 80 mL 3 07/09/2018 Active (NOVOLOG) 100 UNIT/ML via pump. Total vialIndications: Type 1 daily dose not Diabetes Mellitus to exceed 85 units with titration and priming.Indicati ons: Insulin-Dependen t Diabetes glucose blood (MERRITT Use as 300 each 5 07/29/2018 12/03/2019 Active CONTOUR NEXT TEST) test instructed to stripIndications: Type check blood 1 diabetes mellitus glucose up to 10 with hyperglycemia, times daily. Insulin long-term use, DX:E10.65 Type 1 diabetes mellitus with hypoglycemia and without coma DOXYCYCLINE PO Take 100 mg by 0 Active mouth hydrocortisone 2.5 % APPLY DAILY FOR 1 11/05/2018 Active ointment 1 WEEK mupirocin (BACTROBAN) 2 APPLY TO 0 10/15/2018 Active % ointment AFFECTED AREA S RASH ONCE DAILY acetone, urine, test Use as directed 50 each 3 11/19/2018 Active (KETOSTIX) stripIndications: Type 1 diabetes mellitus with hyperglycemia Additional information Patient not taking. Reported on 01/16/2019 1:52 PM glucagon (GLUCAGON Use as directed for 2 each 3 11/19/2018 11/18/2019 Active EMERGENCY) 1 MG severe injectionIndications: Type 1 hypoglycemia. diabetes mellitus with DX:E10.65 hypoglycemia and without coma eszopiclone (LUNESTA) 1 MG TAKE ONE TABLET BY 5 11/03/2018 Active TABS MOUTH AT BEDTIME MAXIMUM DAILY DOSE 1MG carvedilol (COREG) 3.125 MG Take 3.125 mg by 3 09/20/2018 Active tablet mouth Two Times Daily PRALUENT 75 MG/ML SOPN 0 11/12/2018 Active Olopatadine HCl 0.2 % SOLN 0 08/28/2018 Active polyethylene glycol TAKE 17G BY MOUTH 3 11/06/2018 Active (GLYCOLAX) powder DAILY NEEDED FOR CONSTIPATION SM GAS RELIEF EXTRA STRENGTH TAKE ONE CAPSULE BY 3 09/24/2018 Active 125 MG CAPS MOUTH THREE TIMES A DAY NEEDED FOR GAS documented as of this encounter (statuses as of 01/16/2019) Active Problems Patient Care Coordination Note Pt was contacted in light of weight loss at yesterdays visit.Pt states that since May she has had no appetite and her sense of taste has changed..She notes that she had a bunch of tests and that shaheed jenkins knows what these symptoms are from. She indicated that she has gastroparsis. Pt only eating dinner which consists of soup, fudgies, eggs or crackers. WE talked about the guidelines for gastroparesis which is 6 small meals per day. We also discussed the role of nutritional products such as ensure. Pt states she is familiar with them and doesn't really like them but agreed again. Written information Re; high calorie, high protein , how to deal with change of taste will be mailed to pt. I am off next week but will check back with pt the following week. Problem Noted Date Chronic constipation 11/23/2016 Type 1 diabetes mellitus with peripheral artery disease 05/28/2016 Overview: ABIs on 05/28/2016 (noncompressible ankle arteries, advanced calcified atherosclerosis of infrapopliteal arteries right>left) ABIs on 07/17/2016 (for nonhealing right foot ulcers): noncompressible infrapopliteal arteries likely due to calcified atherosclerosis. ABIs at toes consistent with rest pain on the right and claudication on the left 07/11/2016: angiography with intervention on right: Short segment highly calcified SFA occlusion, excellent angiographic result with orbital atherectomy followed by DCB; diffuse severe disease of dorsali s pedia and post tibial pedal circulation with incomplete pedal loop. Anatomic variant with peroneal supplying post tib circulation. Transient probable embolic occlusion of ant tib resolved with aspir ation thrombectomy and balloon dilatation, and probable microembolization of PT /pedal branches. Pedal circulation remains tenuous. CTA 07/21/2016: moderate proximal right SFA stenosis, with a small post tibial, perhaps congenital with peroneal post tibial territory. Ultrasound 10/16/2017: 30-50% stenosis of right fem artery, 50% stenosis of superficial right fem artery, 75% stenosis of left profunda fem artery, reduced velocity flow to ant tib 11/05/2017: LFA angiogram with balloon 11/21/2017: Angioplasty of right superficial fem artery Cervical spondylosis without myelopathy 02/21/2015 Bilateral shoulder pain 02/21/2015 Neck pain 02/21/2015 Sleep disorder 10/06/2014 Vitamin D deficiency 10/06/2014 Swallowing problem 03/11/2014 Other specified disease of nail 06/10/2013 Lymphocytic colitis 11/06/2011 Overview: "Collagenous colitis" per [facility] History of cornea transplant 03/04/2008 Osteoporosis 06/02/2005 Overview: Menopause age 52 Fosamax 07/04/2005; changed to Boniva by 10/23/2006, treated by Dr. Willis (not taking Boniva very often - stopped in 2011) DXA (in [place]) 01/28/2017 T scores L1-4 -2.1, left and right hip -2.2 Multiple thyroid nodules 03/04/1999 Overview: FNA 12/06/1999 (left) benign 07/20/2008 USG ([place]): Left nodule size unchanged (mixed cystic/solid 0.9x0.6x0.6 cm); right nodule (0.7x0.6x0.5 cm) 10/03/2012 USG ([place]): Left nodule size unchanged (complex hypoechogenic 0.6x1.0x0.6 cm); right (calcified solid 0.6x0.8x0.5 cm) unchanged 03/11/2017 USG ([place]): unchanged - not suspicious 11/06/2013 TSH 1.61; 03/18/2014 TSH 3.12 07/03/2016: TSH <0.03 Diabetic peripheral neuropathy associated with type 1 diabetes mellitus 1998 Overview: Poor balance; ?gastroparesis 07/26/2016: vitamin B12 505 12/11/2016: Moderate to severe generalized sensorimotor polyneuropathy, likely mixed axonal and demyelinating in nature (Regla Emery MD) Neurology note 01/16/2017: diabetic polyneuropathy, confirmed by nerve conduction study Back pain, chronic 03/04/1997 Diabetic nephropathy, type I 03/04/1985 Overview: Biopsy 1987 showed diabetic nephropathy 12/27/2011 Hct 35, BUN 19, Cr 1.4, 24 hr urine 66 mg protein/24 hr, CrCl 52 ml/ min 06/24/2012: BUN 23, Cr 1.1, CrCl 84 ml/min, urine 176 mg protein/24 hr; 2013: CrCl 80, urine protein 285 mg/24 hr, BUN 27, Cr 1.3; 11/06/2013 BUN 7, Cr 1.12; 03/17/2014: BUN 25, Cr 1.13 05/28/2016: BUN 31, Cr 1.4; 08/03/2016: Cr 1.13; 12/31/2016: urine microalb 246 mg /G Cr; 02/28/2017: BUN 21, Cr 0.96 08/23/2017: BUN 24, Cr 1.13 08/08/2018 Hct 30, eGFR 36, BUN 32, Cr 1.61, urine protein 105 mg/day Nonproliferative diabetic retinopathy 03/04/1985 Overview: Corneal transplant on right 09/25/2011 (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) Eye exam: 12/24/2012, 09/10/2014, 01/11/2017 Very poor vision: in 2014 suggested lighted magnifier which has helped Eye exam 01/11/2017 Type 1 diabetes mellitus with hyperglycemia 03/04/1967 Overview: Diagnosis May 1965 08/01/2011: C-peptide undetectable; GAD65 positive; IA2 and ZnT8 negative Celiac screen and TPO negative (09/2010) ALMA Negative (06/30/2014) A1c: 10/07/2012 7.8%; 11/06/2013 TSH 1.61, 03/17/2014: A1c 9.2%, TSH 3.12, Hct 37, BUN 25, Cr 1.13; 06/25/2014 TSH 2.69 05/28/2016: A1c 8.8%; 07/17/2016 BUN 24, Cr 1.2 Last Assessment & Plan: Basal rates: Midnight 0.8 units/hour, 8 am 0.9 units/hour, 1 pm 1.3 unit/hour, 6 pm 0.375 unit/hour Carbohydrate ratio 20 except at bedtime 30 Correction factor 75 Active insulin 4 hours Target glucose 150 mg/dl Hypercholesterolemia Overview: 12/27/2011 LDL 38, HDL 98, triglyceride 35; 03/20/2013: triglyceride 37, HDL 125 , LDL 83 06/25/2014: triglyceride 91, HDL 79, LDL 94; 07/26/2016: triglyceride 98, HDL 78 , LDL 49 10/29/2016: Direct LDL 40; 04/18/2017: triglyceride 119, HDL 87, LDL 46 08/23/2017: Triglyceride 74, HDL 97, LDL 51 08/08/2018 triglyceride 70, HDL 101, LDL 67 Essential hypertension Overview: Beginning in August,, has had syncope. Evaluated by manufacturing lab technician and told that blood pressure was too low. Antihypertensive medications were stopped. Coronary artery disease with history of myocardial infarction without history of CABG Overview: Inferior/posterior wall myocardial infarction 1998: followed by Cardiology in [place] 06/06/2016: CTA: diffuse calcified atherosclerosis thoughout Glaucoma Anemia Overview: 11/07/2012: Hct 32; 03/20/2013 Hct 37; 03/17/2014: Hct 37 GE reflux Insulin long-term use Last Assessment & Plan: Basal rates: Midnight 1.1 units/hr, 3:00 am (bedtime) 0.75 units/hr, 16:00 0.925 units/hr, 20:00 1.4 units/hr Insulin:Carb: 1:14 Sensitivity 55 Target 120 Active insulin 4 hrs Alarms 70, [address] Type 1 diabetes mellitus with hypoglycemia and without coma Depression Overview: Sees a psychiatrist Diabetic gastroparesis associated with type 1 diabetes mellitus Open wound of right foot Overview: Foot ulcers: 04/04/2016: right great toe dorsal grade 1, right toe plantar grade 1, right second toe - dorsal, right 5th toe, metatarsal head - lateral (grade 1), right foot - lateral Cellulitis of finger of left hand Overview: 10/09/2016: Cellulitis of left middle finger, treated with Keflex 500 mg 4 times daily for 7 days (by [facility]) Spinal stenosis of lumbar region with radiculopathy Overview: MRI on 08/23/2017 documented as of this encounter (statuses as of 01/16/2019) Resolved Problems Problem Noted Date Resolved Date 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 documented as of this encounter Last Filed Vital Signs Vital Sign Reading Time Taken Comments Blood Pressure 137/79 01/16/2019 1:49 PM EST Pulse 89 01/16/2019 1:49 PM EST Temperature 36.4 01/16/2019 1:49 PM EST C (97.6 F) Respiratory Rate 18 01/16/2019 1:49 PM EST Oxygen Saturation 99% 01/16/2019 1:49 PM EST Inhaled Oxygen Concentration - - Weight 62.1 kg (137 lb) 01/16/2019 1:49 PM EST Height 167.6 cm (5' 6") 01/16/2019 1:49 PM EST Body Mass Index 22.11 01/16/2019 1:49 PM EST documented in this encounter Progress Notes Kelli Ramires MD - 01/16/2019 1:30 PM EST Subjective: Patient ID: Di Carvalho is a 64 y.o. female with past medical history of CAD ( coronary artery disease), Diabetes mellitus type I, Diabetic peripheral neuropathy associated with type 1 diabetes mellitus, Diabetic retinopathy associated with type 1 diabetes mellitus, Hypercholesterolemia, Hypertension, followed by Dr. Miles for PAD. 11/21/17 PROCEDURE: 1. Bilateral lower extremity angiogram. 2. Angioplasty of superficial femoral artery narrowing on the right side using a 6 mm x 10 cm balloon. She has moderate PAD and had OJSE R. She follows up today. She complains of pain in the right foot and a problem with her toe that has been present since before his angiogram. She gets rest pain at night in her foot that wakes her up. She is very concerned about her right 3rdtoe. It is painful all of the time. She had some callus trimmed by a Senior Game Designer but it still hurts. She also said she had some worsened renal function last May to CKD 3 and is followed by Dr. Rueda. She had a RLE revascularization performed previously in [address] Abdalla at [facility]. She is followedby Dr. Camilo for her DM and last HgbA1C was 10. She denies neuropathy but then admits that the tips of her toes are painful bilaterally. She is on ASA, Plavix, Pletal. Chief Complaint: HPI Di has a past medical history of Abnormal liver enzymes (2007), Anemia (1999) , Arthritis, CAD (coronary artery disease), Carpal tunnel syndrome, Cataracts, both eyes (2008), Depression, Diabetes mellitus type I, Diabetic peripheral neuropathy associated with type 1 diabetes mellitus, Diabetic retinopathy associated with type 1 diabetes mellitus, Enlarged liver, GE reflux, Glaucoma ( 2008), Goiter, Hypercholesterolemia, Hypertension, Myalgia, Myositis, Osteoporosis, Osteoporosis, Syncope (2013), Tendinitis, Tendonitis of shoulder, right (2010), TMJ (temporomandibular joint disorder) (2008), and Type 1 diabetes mellitus with diabetic nephropathy. Di has Type 1 diabetes mellitus with hyperglycemia; Diabetic peripheral neuropathy associated withtype 1 diabetes mellitus; Diabetic nephropathy, type I ; Nonproliferative diabetic retinopathy; Hypercholesterolemia; Essential hypertension; Coronary artery disease with history of myocardial infarction without history of CABG; Multiple thyroid nodules; Osteoporosis; Lymphocytic colitis; Glaucoma; Anemia; Other specified disease of nail; GE reflux; Sleep disorder; Vitamin D deficiency; Insulin long-term use; Insulin pump in place; Type 1 diabetes mellitus with hypoglycemia and without coma; Depression; Type 1 diabetes mellitus with peripheral artery disease; Diabetic gastroparesis associated with type 1 diabetes mellitus; Open wound of right foot; Cellulitis of finger of left hand; Spinal stenosisof lumbar region with radiculopathy; History of cornea transplant; Swallowing problem; Cervical spondylosis without myelopathy; Chronic constipation; Bilateral shoulder pain; Back pain, chronic; and Neck pain on their problem list. Di has a past surgical history that includes Cataract extraction (2009); Carpal tunnel release (1997); Trigger finger release (2001); section ( 1979); Therapeutic (1985, 1988); Corneal transplant (Right, 09/25/2011, 06/10/2018); Glaucoma surgery (04/2012); Upper gastrointestinal endoscopy (2014); and art extremity lower or upper (Right, 11/05/2017). Her family history includes Dementia in her mother; Heart disease in her father ; Kidney disease in her maternal grandmother; Leukemia in her brother; Lupus in her sister; Stroke in her mother. Di reports that she quit smoking about 19 years ago. She has a 34.00 pack- year smoking history. She has never used smokeless tobacco. She reports that she does not drink alcohol or use drugs. Di has a current medication list which includes the following prescription(s) : acyclovir, amphetamine-dextroamphetamine, aspirin, bupropion, calcitriol, carvedilol, cetirizine hcl, cilostazol, clopidogrel, dexcom g6 agency operator, dexcom g5 mob/g4 plat sensor, cosopt pf, doxycycline, doxycycline, erythromycin, eszopiclone, fluoxetine, fluticasone, gabapentin, glucagon, glucose blood, hydrocodone-acetaminophen, hydrocortisone, insulin aspart, minimed insulin pump , levothyroxine, lidocaine, mupirocin, nitroglycerin, olopatadine hcl, omega-3 acid ethyl esters, onabotulinumtoxin type a, ondansetron, polyethylene glycol, praluent, prednisolone acetate, restasis, silver sulfadiazine, sm gas relief extra strength, sodium chloride, torsemide, trazodone, vitamins/minerals, zioptan, acetone (urine) test, dexlansoprazole, and lotemax. Current Outpatient Medications on File Prior to Visit Medication Sig Dispense Refill acyclovir (ZOVIRAX) 400 MG tablet Take 400 mg by mouth daily. amphetamine-dextroamphetamine (ADDERALL) 30 MG tablet Take 60 mg by mouth daily 0 aspirin 325 MG tablet Take 325 mg by mouth daily Takes 1/2 of a 325 mg tablet buPROPion (WELLBUTRIN SR) 150 MG 12 hr tablet Take 300 mg by mouth daily. CALCITRIOL PO take 1 capsule by mouth once daily 325 mg 0 carvedilol (COREG) 3.125 MG tablet Take 3.125 mg by mouth Two Times Daily 3 Cetirizine HCl 10 MG CAPS Take 10 mg by mouth cilostazol (PLETAL) 50 MG tablet Take 50 mg by mouth Two Times Daily clopidogrel (PLAVIX) 75 MG tablet Take 75 mg by mouth daily Continuous Blood Gluc Insurance Law Specialist (DEXCOM G6 PRODUCER DIRECTOR) FAY by Does not apply route Continuous Blood Gluc Sensor (DEXCOM G5 MOB/G4 PLAT SENSOR) MISC by Does not apply route Continuous glucose monitor COSOPT PF 22.3-6.8 MG/ML SOLN Both eyes twice a day per tp doxycycline (VIBRA-TABS) 100 MG tablet DOXYCYCLINE PO Take 100 mg by mouth erythromycin (ROMYCIN) ophthalmic ointment Place 1 cm into both eyes nightly eszopiclone (LUNESTA) 1 MG TABS TAKE ONE TABLET BY MOUTH AT BEDTIME MAXIMUM DAILY DOSE 1MG5 fluoxetine (PROZAC) 20 MG capsule Take 20 mg by mouth daily fluticasone (FLONASE) 50 MCG/ACT nasal spray 1 spray by Nasal route gabapentin (NEURONTIN) 600 MG tablet Take 600 mg by mouth daily glucagon (GLUCAGON EMERGENCY) 1 MG injection Use as directed for severe hypoglycemia. DX:E10.65 2 each 3 glucose blood (MERRITT CONTOUR NEXT TEST) test strip Use as instructed to check blood glucose up to 10 times daily. DX:E10.65 300 each 5 HYDROcodone-acetaminophen (VICODIN) 10-325 MG per tablet Take 2 tablets by mouth Two times daily as needed for Pain hydrocortisone 2.5 % ointment APPLY DAILY FOR 1 WEEK 1 insulin aspart (NOVOLOG) 100 UNIT/ML vial Use as directed via pump. Total daily dose not to exceed 85 units with titration and priming.Indications: Insulin-Dependent Diabetes 80 mL 3 Insulin Infusion Pump (MINIMED INSULIN PUMP) FAY Use as directed. levothyroxine (SYNTHROID, LEVOTHROID) 25 MCG tablet Take 25 mcg by mouth Daily lidocaine (LIDODERM) 5 % apply 1 patch topically daily ; 12 HOURS ON AND 12 HOURS OFF mupirocin (BACTROBAN) 2 % ointment APPLY TO AFFECTED AREA S RASH ONCE DAILY 0 nitroglycerin (NITROSTAT) 0.[address] 0.4 mg under the tongue every 5 (five) minutes as needed for Chest pain Olopatadine HCl 0.2 % SOLN omega-3 acid ethyl esters (LOVAZA) 1 g capsule Take 1 g by mouth daily onabotulinumtoxin type A (BOTOX) 100 units SOLR injection Inject into the muscle once Dose unknown, used for migraines every 3 months ondansetron (ZOFRAN-ODT) 8 MG disintegrating tablet Take 8 mg by mouth every 8 (eight) hours as needed for Nausea or Vomiting polyethylene glycol (GLYCOLAX) powder TAKE 17G BY MOUTH DAILY NEEDED FOR CONSTIPATION 3 PRALUENT 75 MG/ML SOPN prednisoLONE acetate (PRED FORTE) 1 % ophthalmic suspension 1 drop Four times daily RESTASIS 0.05 % ophthalmic emulsion Place into both eyes every 12 (twelve ) hours silver sulfADIAZINE (SILVADENE) 1 % cream Apply to wound daily as directed 50 g 0 SM GAS RELIEF EXTRA STRENGTH 125 MG CAPS TAKE ONE CAPSULE BY MOUTH THREE TIMES A DAY NEEDED FOR GAS 3 sodium chloride (MARGIE 128) 5 % ophthalmic solution Place 1 drop into both eyes nightly torsemide (DEMADEX) 20 MG tablet Take 20 mg by mouth daily trazodone (DESYREL) 50 MG tablet take 2 tablets by mouth daily at bedtime 0 Vitamins/Minerals TABS Take 1 each by mouth ZIOPTAN 0.0015 % SOLN Two Times Daily Both eyes acetone, urine, test (KETOSTIX) strip Use as directed (Patient not taking : Reported on 01/16/2019) 50 each 3 Dexlansoprazole 60 MG capsule Take 60 mg by mouth daily LOTEMAX 0.5 % ophthalmic suspension Place into both eyes nightly No current facility-administered medications on file prior to visit. Di is allergic to atorvastatin and cholestatin. Review of Systems All other systems reviewed and are negative. Objective: Physical Exam Constitutional: She appears well-developed and well-nourished. HENT: Head: Normocephalic. Neck: Normal range of motion. Neck supple. No bruits Cardiovascular: Normal rate. Femoral 2+ bilaterally No pulses distally. Left DP, peroneal triphasic; PT biphasic Right DP, PT, Peroneal monophasic Pulmonary/Chest: Effort normal. Abdominal: Soft. Skin: Skin is warm and dry. Right 3rd toe a little dusky but no ulcer present. Some thin callus. Psychiatric: She has a normal mood and affect. Her behavior is normal. Judgment and thought content normal. Nursing note and vitals reviewed. Lab Review: 01/09/19 [facility]: Right PT 0.71; DP 0.90; TBI 0.23 Left PT, DP non-compressible; TBI 0.37 Values have decreased. Assessment: 1. PVD (peripheral vascular disease) 2. Ischemic foot pain at rest Plan: PAD, DM, Neuropathy RLE CLI with rest pain. She would benefit from CO2 angiography with limited use of contrast to see if flow can be improved. I don't see any ulcers and I suspect that the pain may be compounded by neuopathic pain. I will schedule this in [facility] at [facility]. documented in this encounter Plan of Treatment Date Type Specialty Care Team Description 02/09/2019 Office Visit Endocrinology Clair Camilo MD [id number] [phone] Health Maintenance Due Date Last Done Comments Hepatitis C Screening (B. 1955 [id number]) MMR Vaccines (1 of 1 - 1958 Standard series) Pneumococcal Vaccine: 1961 Pediatrics (0 to 5 Years) and At-Risk Patients (6 to 64 Years) (1 of 3 - PCV13) DTaP,Tdap,and Td Vaccines (1 01/03/1964 - Tdap) HIV Screening 1970 Hepatitis B Vaccines (1 of 3 01/03/1976 - Risk 3-dose series) Cervical Cancer Screening 5 1978 years Colon Cancer Screening 10 yrs 2007 Zoster Vaccines (1 of 2) 2007 Influenza Vaccine 12/02/2018 Breast Cancer Screening 2 01/28/2019 01/28/2017, years 01/28/2017 Pneumococcal Vaccine: 65+ 2022 Years (1 of 2 - PCV13) HIB Vaccines Aged Out No longer eligible based on patient's age to complete this topic Hepatitis A Vaccines Aged Out No longer eligible based on patient's age to complete this topic IPV Vaccines Aged Out No longer eligible based on patient's age to complete this topic Varicella Vaccines Aged Out No longer eligible based on patient's age to complete this topic documented as of this encounter Goals Goal Patient Goal Associated Recent Patient-Stated? Author Type Problems Progress Blood Pressure < Blood Pressure 137/79 No Ton, 130/80 (01/16/2019 MD Clair 1:49 PM EST) HEMOGLOBIN A1C < Result 10.1 No Ton, 7.5 Component (11/19/2018 MD Clair 3:11 PM EDT) LDL CALC,LDL Result 51 No Ton, CHOLESTEROL,LDLC Component (06/27/2018 MD Clair HOLESTEROL,LDL 12:00 AM EDT) DIRECT,LDLCHOLES TEROL,DIRECT < 70 documented as of this encounter Implants Implanted Type Area Route Sales Associate Device Shelf Model / Identifier Expiration Serial / Date Lot Vas Marie - Proglide Perclose - [id number] Right: Cipio 06/02/2019 [id number] / Implanted: Qty: 1 on 11/05/2017 by Sage Miles MD at OR [facility] Arterial [id number] / [id number] documented as of this encounter Results Not on filedocumented in this encounter Visit Diagnoses Diagnosis PVD (peripheral vascular disease) - Primary Peripheral vascular disease, unspecified Ischemic foot pain at rest documented in this encounter
--- OUTSIDE RECORDS SUMMARY | 2019-02-06 16:26 | XMS REPORT | Continuity of Care Document ---
:1955 External Reference #:[id number] Author Name Arcadio Hampton M.D. Address [address] [place] [address] Care Team Providers Name Role Phone Janelle Farrell M.D. 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 Onset: 2012 following extraction of cataract Nonproliferative diabetic retinopathy Arcadio Hampton M.D. Onset: [...] is a former smoker Smoking Status Reviewed: 01/12/19 Patient is a former smoker Allergies, Adverse Reactions, Alerts Active Allergies Reaction Severity Comments Date Seasonal Runny nose, eye irratation 03/28/2016 Lovaza 02/17/2018 Fluoxetine 02/17/2018 Inactive Allergies NKDA 08/23/2008 Medications Active Medications SIG Qnty Indications Ordering Date Provider Ocusoft Lid Scrub Clean eyelids 2units Arcadio Kimble 01/06/2019 Original both eyes twice a Memo, Liquid day M.DLara Avenova With Neutrox clean eye lids 2 40ml H04.123 Arcadio Kimble 12/17/2018 x day Carmen Hamptonc M.DLara Systane Nighttime apply small 10.5gm Arcadio Kimble 12/03/2018 amount to left Weisenthal, Ointment eye 3-4 times per M.D. day. Olopatadine HCL 1 drop once 2.500ml Z94.7 Arcadio Kimble 08/28/2018 0.2% daily, both eyes Jermainesensera, Solution M.DLara Doxycycline 1 by mouth every 60caps Arcadio Kimble 07/24/2018 Monohydrate day Jermainesenthal, 100mg M.D. Capsules Erythromycin apply left eye at 3.500gm Arcadio Kimble 07/23/2018 5mg/GM bedtime. Jermainesenthal, Ointment M.DLara Prednisolone Acetate 1 drop right eye 10ml Z94.7 Arcadoi Kimble 06/25/2018 1% twice daily. Jermainesensera, Suspension M.DLara Refresh Optive Gerhard-3 Instill 1 Drop 90units Z94.7 Arcadio Kimble 04/07/2018 Into Both Eyes Jermainesensera, 0.5-1-0.5% Solution Four Times A Day M.DLara Humidifier 1units H04.123 Arcadio Kimble 02/19/2018 2Gallon Oskar Wick.D. Alma[address] 128 apply at bedtime, 7gm Arcadio [...] Polytrim 1 drop left 10ml Z94.7 Arcadio Kimble 07/23/2018 - 61459-5.1Unit/ML-% eye 2 xday Robin Hampton 08/08/2018 Solution Immunizations Description No Information Available Vital Signs Date Vital Result Comment 01/12/2019 3:06pm Intraocular Pressure Right Eye 11 mmHg Intraocular Pressure Left Eye 11 mmHg -CG, Applanation 03:07 PM 11/10/2018 11:29am Intraocular Pressure Right Eye 15 mmHg Intraocular Pressure Left Eye 14 mmHg -JAHAIRA, Applanation 11:29 Am Results Description No Information Available Procedures Date Code Description Status 12/17/2018 68265 Intermediate Exam-Established PT Completed 12/03/2018 08383 Closure Punctum Caut/Laser Completed 11/10/2018 38522 Intermediate Exam-Established PT Completed 11/10/2018 16493 Punctum Closure By Plug - One Eye Completed 07/24/2018 77304 Punctum Closure By Plug - One Eye Completed 07/23/2018 44395 Punctum Closure By Plug - One Eye Completed Medical Devices Description No Information Available Encounters Description No Information Available Assessments Date Code Description Provider 01/12/2019 H04.123 Dry eye syndrome of bilateral lacrimal Arcadio Hampton M.D. glands 01/12/2019 H01.00A Unspecified blepharitis right eye, Arcadio Hampton M.D. upper and lower eyelids 01/12/2019 H01.00B Unspecified blepharitis left eye, upper Arcadio Hampton M.D. and lower eyelids 01/12/2019 H16.9 Unspecified keratitis rAcadio Hampton M.D. 01/12/2019 H40.013 Open angle with borderline findings, Arcadio Hampton M.D. low risk, bilateral 01/12/2019 Z94.7 Corneal transplant status Arcadio Hampton M.D. 12/17/2018 H16.9 Unspecified keratitis Arcadio Hampton M.D. [...] of bilateral lacrimal Arcadio Hampton M.D. glands Plan of Treatment 01/12/2019 - Arcadio Hampton M.D.H04.123 Dry eye syndrome of bilateral lacrimal glandsComments:Continue use of artificial tears 3-4 times daily.H01.00A Unspecified blepharitis right eye, upper and lower eyelidsComments :Discussed eyelid hygiene, warm compresses and tears.H01.00B Unspecified blepharitis left eye, upper and lower kovxzarB91.9 Unspecified keratitisComments :CmfhpoI30.013 Open angle with borderline findings, low risk, bilateralComments: Continue same meds.Z94.7 Corneal transplant statusComments:Prednisolone 1 drop right eye 2 times daily. [...] Date Arcadio Hampton M.D. Created [address] [place] [id number] [phone] Arcadio Hampton M.D. Created [address] [place] [address] 99193 [phone] Arcadio Hampton M.D. Created [address] [place] [address] 30675 [phone] Arcadio Hampton M.D. Created [address] [place] [address] [phone] Arcadio Hampton M.D. Created [address] [place] [address] 31578 [phone] Arcadio Hampton M.D. Created [address] [place] [address] [phone] Arcadio Hampton M.D. Created [address] [place] [address]371 [phone] Arcadio Hampton M.D. Created [address] [place] [address] 57871 [phone]
--- OUTSIDE RECORDS SUMMARY | 2019-02-06 16:26 | XMS REPORT | Continuity of Care Document ---
:1955 External Reference #:[id number] Author Name aSntana Alberto M.D. (transmitted by agent of provider Regla Limon) Address [address] [place] [address] Care Team Providers Name Role Phone Janelle Farrell M.D. 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 04/09/2016 Medications Active Medications SIG Qnty Indications Ordering Date Provider Lidocaine Viscous 5 milliliters four 200ml Santana Alberto, 10/13/2018 HCL times daiy as M.D. 2% Solution needed for pain Claritin 1 by mouth every 30tabs Santana Alberto, 09/16/2018 10mg day M.D. Tablets Azelastine HCL 2 sprays each 1units Santana Alberto, 10/28/2017 (Nasal) nostril once a day M.D. 0.15% Solution Zyrtec Allergy one tab daily for 90tabs Santana Alberto, 06/26/2017 10mg 90 days M.D. Tablets Mupirocin apply around the 1units Santana Alberto, 06/12/2017 2% nose twice daily 2 M.D. Ointment weeks Ipratropium [place] 2 sprays each side QS Santana Alberto, 06/12/2017 nostril everyday 2 M.D. 0.03% Solution months Dexilant one tab daily 90caps Santana Alberto, 06/12/[address] Synthroid pt takes 1/2 by 60tabs Santana Alberto, 06/27/2016 50mcg mouth every day M.D. Tablets Singulair 1 by mouth every 30tabs Santana Alberto, 03/30/2016 10mg day M.D. Tablets Fluticasone 2 sprays both 16units Santana Alberto, 09/12/2015 Propionate nostrils every day M.D. MDD 1 50mcg/Act Suspension Celexa 1 tab po qd Unknown 40mg Tablets Lisinopril 1 by mouth every Unknown 5mg day Tablets Remeron 1/2 tab po qd Unknown 15mg Tablets Vicodin 1 -2 tab every 6h Unknown 5-300mg Tablets Novolin N via pump Unknown 100Unit/ML Suspension Lasix 1 by mouth every Unknown 20mg Tablets day Omeprazole 1 by mouth every Santana Alberto, 40mg day M.D. Capsules Acyclovir Unknown 400mg Tablets Adderall 2 po in am Unknown 30mg Tablets Xanax prn Unknown 0.25mg Tablets Prozac 1 by mouth every Unknown 20mg day Capsules Trazodone HCL 1 every night at Unknown 150mg bedtime Tablets Gabapentin 1 by mouth three Unknown 600mg times a day Tablets Aspirin as needed pain Unknown 325mg Tablets Lunesta 1 by mouth every Unknown 2mg Tablets night at bedtime as needed insomnia Vitamin B Complex 1 tab po qd Unknown Tablets Iron (Ferrous 1 tab po qd Unknown Gluconate) 256(28Fe) mg Tablets Vitamin D 1 by mouth every Unknown 1000Unit day Tablets Folic Acid 1 by mouth every Unknown 1mg day Tablets Cosopt PF 1 gtt 2 times a day Unknown 22.3-6.8mg/ml Solution Zioptan 1 gtt 1 time a day Unknown 0.0015% Solution Lotamax 1 gtt 2 times a day Unknown in each eye Immunizations Description No Information Available Vital Signs Date Vital Result Comment 12/15/2018 2:27pm Weight 137.00 lb Height 66 inches 5'6" BMI (Body Mass Index) 22.1 kg/m2 BP Systolic 108 mmHg BP Diastolic 77 mmHg Heart Rate 78 /min O2 % BldC Oximetry 97 % Body Temperature 97.3 F Pain Level 0 10/28/2017 2:12pm Weight 137.00 lb Height 66 inches 5'6" BMI (Body Mass Index) 22.1 kg/m2 BP Systolic 120 mmHg BP Diastolic 84 mmHg Heart Rate 78 /min O2 % BldC Oximetry 99 % Body Temperature 98.2 F Pain Level 0 Results Description No Information Available Procedures Description No Information Available Medical Devices Description No Information Available Encounters Description No Information Available Assessments Description No Information Available Plan of Treatment No Information Available Functional Status Description No Information Available Mental Status Description No Information Available Referrals Description No Information Available
[2019-02-06 17:09] LABS: ABS Lymphocytes 0.9 10^3/ul (1.0-4.8); ABS Monocytes 0.2 10^3/ul (0-0.8); ABS Neutrophils 2.7 10^3/ul (1.5-7.7); Eosinophil % 0.1 %; Hematocrit 40 % (35-47); Hemoglobin 13.3 g/dL (12.0-16.0); Lymphocyte % 24.6 %; Mean Corpuscular HGB Conc 33 g/dL (31-36); Mean Corpuscular Hemoglobin 31 pg (27-31); Mean Corpuscular Volume 92 fL (80-97); Nucleated Red Blood Cells % 0.1; Platelet Count 258 10^3/uL (150-450); Red Blood Count 4.37 10^6 /uL (3.70-4.87); Red Cell Distribution Width 14 % (10-15); White Blood Count 3.8 10^3/uL (3.5-10.8)
[2019-02-06 17:21] LABS: ALT 37 U/L (7-52); AST 41 U/L (13-39); Albumin 3.5 g/dL (3.2-5.2); Albumin/Globulin Ratio 1.5 (1-3); Alkaline Phosphatase 69 U/L (34-104); Anion Gap 7 mmol/L (2-11); BUN/Creatinine Ratio 20.2 (8-20); Blood Urea Nitrogen 23 mg/dL (6-24); C Reactive Protein < 1.00 mg/L (<8.01); CO2 Carbon Dioxide 28 mmol/L (22-32); Calcium 9.3 mg/dL (8.6-10.3); Chloride 103 mmol/L (101-111); Creatine Kinase 291 U/L (10-223); EGFR African American 58.4 (>60); EGFR Non-African American 48.3 (>60); Globulin 2.4 g/dL (2-4); Glucose 201 mg/dL (70-100); Potassium 3.9 mmol/L (3.5-5.0); Sodium 138 mmol/L (135-145); Total Protein 5.9 g/dL (6.4-8.9)
[2019-02-06] MEDS ORDERED: HYDROcodone/ACETAMIN 5-325 MG* 1 TAB PO ONE (17:48)
[2019-02-06] MEDS ORDERED: Cyclobenzaprine TAB* 10 MG PO ONE (17:48)
[2019-02-06 17:50] LABS: Urine Appearance Clear; Urine Bilirubin Negative (Negative); Urine Blood 1+ (Negative); Urine Color Colorless; Urine Glucose 3+(>=500 mg/dL) (Negative); Urine Ketones Negative (Negative); Urine Nitrite Negative (Negative); Urine Protein Negative (Negative); Urine Specific Gravity 1.002 (1.010-1.030); Urine Urobilinogen Negative (Negative)
[2019-02-06 17:53] LABS: Urine Bacteria 1+ (Absent); Urine Red Blood Cell Trace(0-2/hpf) (Absent); Urine White Blood Cell Absent (Absent)
[2019-02-06 19:18] VITALS: BP 148/72
== END 2019-02-06 20:06 | disposition home or self-care (01) ==
LOC: ED 15:23
DX: E10.649 Type 1 diabetes mellitus with hypoglycemia without coma (principal); Z96.41 Presence of insulin pump (external) (internal); M54.9 Dorsalgia, unspecified; W19.XXXA Unspecified fall, initial encounter; Y92.000 Kitchen of unspecified non-institutional (private) residence as the place of occurrence of the external cause; I10 Essential (primary) hypertension; Z88.8 Allergy status to other drugs, medicaments and biological substances; Z87.891 Personal history of nicotine dependence
CPT/HCPCS: 36415; 70450; 71045; 72128; 72131; 80053; 81003; 81015; 82550; 83605; 83690; 83880; 85025; 86140; 87086; 99283; A9270-GY

== ENCOUNTER 2023-09-04 12:32 | Inpatient (IN) ==
[2023-09-04 13:49] LABS: ABS Lymphocytes 0.6 10^3/uL (1.0-4.8); ABS Monocytes 0.4 10^3/uL (0.0-0.9); ABS Neutrophils 7.2 10^3/uL (1.5-7.6); ABS Nucleated RBC 0.01 10^3/ul; Hematocrit 20.4 % (35-45); Hemoglobin 6.9 g/dL (11.5-14.3); Lymphocyte % 7.4 %; Mean Corpuscular Hgb Conc 33.9 g/dL (31-36); Mean Corpuscular Volume 94.3 fL (80-97); Mean Platelet Volume 7.4 fL (7.5-11.2); Nucleated Red Blood Cells % 0.1 %/100WBC (0.0-0.8); Platelet Count 245 10^3/uL (150-450); Red Blood Count 2.16 10^6/uL (3.63-4.92); Red Cell Distribution Width 13.1 % (12-17); White Blood Count 8.2 10^3/uL (3.8-11.8)
[2023-09-04] MEDS: Acetaminophen IV 1 GM/100ML 1,000 MG/100 ML BAG IV ONE (14:26)
[2023-09-04 14:31] LABS: Albumin 3.3 g/dL (3.2-5.2); Albumin/Globulin Ratio 1.8 (1-3); C Reactive Protein 2.7 mg/L (<8.01); Calcium 7.5 mg/dL (8.6-10.3); Creatinine, Serum 10.34 mg/dL (0.51-0.95); Globulin 1.8 g/dL (2-4); Magnesium 2.4 mg/dL (1.9-2.7); Potassium 6.1 mmol/L (3.5-5.0); Total Bilirubin 0.3 mg/dL (0.2-1.0); Total Protein 5.1 g/dL (6.4-8.9); eGFR CKD-EPI 3.8 (>60)
[2023-09-04 14:45] LABS: Venous Bicarbonate HCO3 12.9 mmol/L (24-28)
[2023-09-04] MEDS: Dextrose 50% Syringe 50 ml 25 GM/50 ML SYRINGE IV PUSH ONE (14:54)
[2023-09-04] MEDS: CALCIUM GLUCONATE 1GM/50ML NS 1 GM/50 ML BAG IV ONE (14:55)
[2023-09-04] MEDS: Lactated Ringers 1000 ml BAG 1,000 ML IV ONE (15:25)
[2023-09-04] MEDS: Sodium Bicarb 8.4% Vial 50 ML 150 MEQ in D5W 1000 ml BAG 850 ML IV ONE (15:58)
[2023-09-04] MEDS: SODIUM ZIRCONIUM CYCLOSILICATE 10 GM PACKET PO ONE (17:43)
[2023-09-04 17:50] LABS: Ferritin 136.7 ng/mL (11-307)
[2023-09-04 18:00] LABS: Urine Appearance Clear; Urine Bilirubin Negative (Negative); Urine Blood Negative (Negative); Urine Color Light-Yellow; Urine Glucose Trace (Negative); Urine Ketones Negative (Negative); Urine Nitrite Negative (Negative); Urine Protein 1+ (>=30 mg/dL) (Negative); Urine Specific Gravity 1.013 (1.002-1.030); Urine Urobilinogen Negative (Negative)
[2023-09-04 18:08] LABS: Urine Bacteria 1+ /HPF (Absent); Urine Red Blood Cell Trace(0-2/hpf) /HPF (0-Trace); Urine White Blood Cell Trace(0-5/hpf) /HPF (0-Trace)
[2023-09-04] MEDS ORDERED: Erythromycin OPTH OINT APPLIC OINT RIGHT EYE PRN (18:45)
[2023-09-04] MEDS ORDERED: Neomycin/Polymy/Dex OPHTH.OIN 3.5 GM BOTH EYES PRN (18:45)
[2023-09-04] MEDS ORDERED: Albuterol HFA INHALER 8 gm MDI INH PRN (18:45)
[2023-09-04] MEDS ORDERED: TAZAROTENE 0.1% TOPICAL PRN (18:45)
[2023-09-04] MEDS ORDERED: Insulin ASPART (NF) 1 UNIT SUBCUT SCH (19:00)
[2023-09-04] MEDS ORDERED: Insulin LISPRO FOR INSULIN PUMP SUBCUT SCH (19:00)
[2023-09-04] MEDS ORDERED: Silver Sulfadiazine 1% 20 gm TUBE TOPICAL PRN (19:28)
[2023-09-04] MEDS: HYDROcodone/Acetamin 10/325 TAB (NF) PO SCH (20:13)
[2023-09-04] MEDS: Latanoprost 0.005% 2.5 ml BTL BOTH EYES SCH (22:45)
[2023-09-04 22:54] LABS: Calcium 7.5 mg/dL (8.6-10.3); Creatinine, Serum 10.31 mg/dL (0.51-0.95); Potassium 5.2 mmol/L (3.5-5.0); eGFR CKD-EPI 3.8 (>60)
[2023-09-04] MEDS: Heparin 5000 UNITS/ML 1 mL VIAL SUBCUT SCH (23:10)
[2023-09-04 23:54] LABS: Hematocrit 24.4 % (35-45); Hemoglobin 8.3 g/dL (11.5-14.3)
[2023-09-05 01:39] LABS: Calcium 7.2 mg/dL (8.6-10.3); Creatinine, Serum 10.55 mg/dL (0.51-0.95); eGFR CKD-EPI 3.7 (>60)
[2023-09-05 07:41] LABS: Hematocrit 23.3 % (35-45); Hemoglobin 8.2 g/dL (11.5-14.3); Mean Corpuscular Hemoglobin 32.3 pg (27-33); Mean Corpuscular Hgb Conc 35.1 g/dL (31-36); Mean Platelet Volume 7.3 fL (7.5-11.2); Platelet Count 231 10^3/uL (150-450); Red Blood Count 2.54 10^6/uL (3.63-4.92); Red Cell Distribution Width 13.9 % (12-17); White Blood Count 6.8 10^3/uL (3.8-11.8)
[2023-09-05] MEDS: Amphetamine MIXED SALT 10mgTAB PO SCH (08:22)
[2023-09-05] MEDS: CMCS: Cyclosporine 0.05% OPHTH (NF) 0.4 ML VIAL BOTH EYES SCH (08:24)
[2023-09-05] MEDS: EVOLOCUMAB 140 MG/ML SUBCUT SCH (08:28)
[2023-09-05 08:29] LABS: Calcium 7.3 mg/dL (8.6-10.3); Creatinine, Serum 11.04 mg/dL (0.51-0.95); Potassium 5.2 mmol/L (3.5-5.0); eGFR CKD-EPI 3.5 (>60)
[2023-09-05] MEDS: CMCS: Brimonidine/Timolol 0.2%/0.5% OPTH(NF) SOL 5 ML LEFT EYE SCH (09:32)
[2023-09-05] MEDS: NF: ICOSAPENT ETHYL 1 GM CAPSULE (NF) PO SCH (09:35)
[2023-09-05] MEDS: Ondansetron ODT 4 mg TAB 4 MG TAB PO PRN (10:53)
[2023-09-05] MEDS: NS 0.9% 1000 ml BAG 1,000 ML IV SCH (10:53)
[2023-09-05] MEDS: Fluticasone NASAL SPRAY 50MCG 16 gm SPRAY BTL INTRANASAL SCH (12:44)
[2023-09-05 13:50] LABS: Hematocrit 23.5 % (35-45); Hemoglobin 7.9 g/dL (11.5-14.3)
[2023-09-05 21:18] LABS: Calcium 7.3 mg/dL (8.6-10.3); Creatinine, Serum 11.01 mg/dL (0.51-0.95); Potassium 5.6 mmol/L (3.5-5.0); eGFR CKD-EPI 3.5 (>60)
[2023-09-06 06:22] LABS: ABS Basophils 0.1 10^3/uL (0.0-0.1); ABS Lymphocytes 1.2 10^3/uL (1.0-4.8); ABS Monocytes 0.7 10^3/uL (0.0-0.9); ABS Neutrophils 5.1 10^3/uL (1.5-7.6); ABS Nucleated RBC 0.01 10^3/ul; Eosinophil % 0.3 %; Hematocrit 24.6 % (35-45); Hemoglobin 8.4 g/dL (11.5-14.3); Lymphocyte % 17.4 %; Mean Corpuscular Hemoglobin 31.7 pg (27-33); Mean Corpuscular Hgb Conc 34.1 g/dL (31-36); Mean Corpuscular Volume 92.9 fL (80-97); Mean Platelet Volume 7.3 fL (7.5-11.2); Nucleated Red Blood Cells % 0.1 %/100WBC (0.0-0.8); Platelet Count 222 10^3/uL (150-450); Red Blood Count 2.65 10^6/uL (3.63-4.92); White Blood Count 7.1 10^3/uL (3.8-11.8)
[2023-09-06 06:46] LABS: Creatinine, Serum 11.01 mg/dL (0.51-0.95); Potassium 5.2 mmol/L (3.5-5.0); eGFR CKD-EPI 3.5 (>60)
[2023-09-06 09:34] LABS: INR 0.85 (0.83-1.13)
[2023-09-06] MEDS ORDERED: NS 0.9% 1000 ml BAG 100 ML IV PRN (10:37)
[2023-09-06] MEDS ORDERED: NS 0.9% 1000 ml BAG 200 ML IV PRN (10:37)
[2023-09-06] MEDS ORDERED: Albumin Human 25% 25 GM/100 ML BTL IV PRN (10:37)
[2023-09-06] MEDS ORDERED: Heparin 1,000 UNIT/ML 10 ml (10,000 UNITS) CATHLAB/DIALYSIS ONE (12:50)
[2023-09-06] MEDS: fentaNYL 100 mcg/2 ml 50 MCG/ML VIAL ONE (14:26)
[2023-09-06] MEDS: Ondansetron 4 mg VIAL 2 MG/ML 2 ml VIAL ONE (14:26)
[2023-09-06 15:16] LABS: Hepatitis B Surface Antigen Nonreactive (Nonreactive)
[2023-09-06 15:33] LABS: Hepatitis B Surface Ab Not Immune (Immune)
[2023-09-06] MEDS: Heparin 1,000 UNIT/ML 10 ml (10,000 UNITS) CATHLAB/DIALYSIS DIALYSIS PRN (17:31)
[2023-09-07 05:17] LABS: ABS Basophils 0.1 10^3/uL (0.0-0.1); ABS Lymphocytes 0.6 10^3/uL (1.0-4.8); ABS Monocytes 0.8 10^3/uL (0.0-0.9); ABS Neutrophils 5.8 10^3/uL (1.5-7.6); Eosinophil % 0.2 %; Hemoglobin 7.6 g/dL (11.5-14.3); Lymphocyte % 8.5 %; Mean Corpuscular Hemoglobin 31.9 pg (27-33); Mean Corpuscular Hgb Conc 34.6 g/dL (31-36); Mean Corpuscular Volume 92.1 fL (80-97); Platelet Count 199 10^3/uL (150-450); Red Blood Count 2.38 10^6/uL (3.63-4.92); Red Cell Distribution Width 13.7 % (12-17); White Blood Count 7.4 10^3/uL (3.8-11.8)
[2023-09-07 05:51] LABS: Creatinine, Serum 9.08 mg/dL (0.51-0.95); Potassium 4.7 mmol/L (3.5-5.0); eGFR CKD-EPI 4.4 (>60)
[2023-09-07] MEDS: Heparin 1,000 UNIT/ML 10 ml (10,000 UNITS) CATHLAB/DIALYSIS DIALYSIS PRN (11:35)
[2023-09-07 16:37] LABS: Hematocrit 22.3 % (35-45); Hemoglobin 7.6 g/dL (11.5-14.3)
[2023-09-07] MEDS: Morphine 2 MG/ML SYRINGE IV ONE (18:03)
[2023-09-08 05:29] LABS: ABS Basophils 0.1 10^3/uL (0.0-0.1); ABS Monocytes 0.9 10^3/uL (0.0-0.9); ABS Neutrophils 7.9 10^3/uL (1.5-7.6); ABS Nucleated RBC 0.01 10^3/ul; Eosinophil % 0.3 %; Hemoglobin 7.5 g/dL (11.5-14.3); Lymphocyte % 10.4 %; Mean Corpuscular Hemoglobin 31.8 pg (27-33); Mean Corpuscular Hgb Conc 33.9 g/dL (31-36); Mean Platelet Volume 7.2 fL (7.5-11.2); Nucleated Red Blood Cells % 0.1 %/100WBC (0.0-0.8); Platelet Count 200 10^3/uL (150-450); Red Blood Count 2.34 10^6/uL (3.63-4.92); Red Cell Distribution Width 14.1 % (12-17)
[2023-09-08 05:52] LABS: Calcium 7.4 mg/dL (8.6-10.3); Creatinine, Serum 7.79 mg/dL (0.51-0.95); Potassium 4.4 mmol/L (3.5-5.0); eGFR CKD-EPI 5.3 (>60)
[2023-09-08] MEDS ORDERED: INSULIN ASPART SUBCUT SCH (13:21)
[2023-09-08 18:12] LABS: Urine Appearance Clear; Urine Bilirubin Negative (Negative); Urine Blood 3+ (Negative); Urine Color Colorless; Urine Glucose Negative (Negative); Urine Ketones Negative (Negative); Urine Nitrite Negative (Negative); Urine Protein Negative (Negative); Urine Specific Gravity 1.005 (1.002-1.030); Urine Urobilinogen Negative (Negative); Urine pH 5.5 (5.0-8.0)
[2023-09-08 18:15] LABS: Urine Bacteria Absent /HPF (Absent); Urine Red Blood Cell 3+(>10/hpf) /HPF (0-Trace); Urine White Blood Cell 3+(>20/hpf) /HPF (0-Trace)
[2023-09-09] MEDS: Mupirocin 2% OINT TUBE TOPICAL PRN (03:33)
[2023-09-09 08:07] LABS: ABS Basophils 0.1 10^3/uL (0.0-0.1); ABS Lymphocytes 0.9 10^3/uL (1.0-4.8); ABS Monocytes 1.1 10^3/uL (0.0-0.9); ABS Neutrophils 7.3 10^3/uL (1.5-7.6); ABS Nucleated RBC 0.01 10^3/ul; Eosinophil % 0.2 %; Hematocrit 20.7 % (35-45); Hemoglobin 7.1 g/dL (11.5-14.3); Lymphocyte % 9.9 %; Mean Corpuscular Hemoglobin 31.9 pg (27-33); Mean Corpuscular Hgb Conc 34.5 g/dL (31-36); Mean Corpuscular Volume 92.7 fL (80-97); Mean Platelet Volume 7.2 fL (7.5-11.2); Nucleated Red Blood Cells % 0.1 %/100WBC (0.0-0.8); Platelet Count 217 10^3/uL (150-450); Red Blood Count 2.23 10^6/uL (3.63-4.92); Red Cell Distribution Width 13.9 % (12-17); White Blood Count 9.4 10^3/uL (3.8-11.8)
[2023-09-09 08:59] LABS: Albumin 2.9 g/dL (3.2-5.2); Albumin/Globulin Ratio 1.6 (1-3); Calcium 7.7 mg/dL (8.6-10.3); Creatinine, Serum 8.6 mg/dL (0.51-0.95); Globulin 1.8 g/dL (2-4); Potassium 4.8 mmol/L (3.5-5.0); Total Bilirubin 0.3 mg/dL (0.2-1.0); Total Protein 4.7 g/dL (6.4-8.9); eGFR CKD-EPI 4.7 (>60)
[2023-09-09] MEDS: Heparin 1,000 UNIT/ML 10 ml (10,000 UNITS) CATHLAB/DIALYSIS DIALYSIS PRN (10:20)
[2023-09-09] MEDS: Heparin 1,000 UNIT/ML 10 ml (10,000 UNITS) CATHLAB/DIALYSIS DIALYSIS ONE (12:10)
[2023-09-10] MEDS: Lidocaine PATCH 5% PATCH TRANSDERM SCH (16:17)
[2023-09-11 06:14] LABS: Hematocrit 21.2 % (35-45); Hemoglobin 7.3 g/dL (11.5-14.3); Mean Corpuscular Hemoglobin 32.1 pg (27-33); Mean Corpuscular Hgb Conc 34.5 g/dL (31-36); Mean Corpuscular Volume 93.1 fL (80-97); Mean Platelet Volume 6.9 fL (7.5-11.2); Platelet Count 272 10^3/uL (150-450); Red Blood Count 2.27 10^6/uL (3.63-4.92); White Blood Count 10.1 10^3/uL (3.8-11.8)
[2023-09-11 07:06] LABS: Calcium 8.3 mg/dL (8.6-10.3); Creatinine, Serum 7.83 mg/dL (0.51-0.95); Magnesium 1.7 mg/dL (1.9-2.7); Phosphorus 7.5 mg/dL (2.5-5.0); Potassium 4.7 mmol/L (3.5-5.0); eGFR CKD-EPI 5.3 (>60)
[2023-09-11] MEDS: Heparin 1,000 UNIT/ML 10 ml (10,000 UNITS) CATHLAB/DIALYSIS DIALYSIS PRN (08:45)
[2023-09-13 06:18] LABS: ABS Basophils 0.1 10^3/uL (0.0-0.1); ABS Lymphocytes 1.3 10^3/uL (1.0-4.8); ABS Monocytes 1.2 10^3/uL (0.0-0.9); ABS Neutrophils 7.7 10^3/uL (1.5-7.6); ABS Nucleated RBC 0.02 10^3/ul; Eosinophil % 0.1 %; Hematocrit 22.8 % (35-45); Hemoglobin 7.6 g/dL (11.5-14.3); Lymphocyte % 12.4 %; Mean Corpuscular Hemoglobin 31.1 pg (27-33); Mean Corpuscular Hgb Conc 33.2 g/dL (31-36); Mean Corpuscular Volume 93.6 fL (80-97); Mean Platelet Volume 6.9 fL (7.5-11.2); Nucleated Red Blood Cells % 0.2 %/100WBC (0.0-0.8); Platelet Count 360 10^3/uL (150-450); Red Blood Count 2.44 10^6/uL (3.63-4.92); Red Cell Distribution Width 14.4 % (12-17); White Blood Count 10.2 10^3/uL (3.8-11.8)
[2023-09-13 06:27] LABS: Calcium 8.9 mg/dL (8.6-10.3); Creatinine, Serum 6.79 mg/dL (0.51-0.95); Potassium 4.5 mmol/L (3.5-5.0); eGFR CKD-EPI 6.2 (>60)
[2023-09-13] MEDS ORDERED: Albumin Human 25% 25 GM/100 ML BTL IV PRN (08:53)
[2023-09-13] MEDS ORDERED: NS 0.9% 1000 ml BAG 200 ML IV PRN (08:53)
[2023-09-13] MEDS ORDERED: NS 0.9% 1000 ml BAG 100 ML IV PRN (08:53)
[2023-09-13] MEDS: Heparin 1,000 UNIT/ML 10 ml (10,000 UNITS) CATHLAB/DIALYSIS DIALYSIS PRN (10:16)
[2023-09-13] MEDS: PTO:Polyethyl Glycol/Propylene Gly OPHTH.SOLN BOTH EYES PRN (13:59)
[2023-09-13] MEDS: Heparin 5000 UNITS/ML 1 mL VIAL SUBCUT SCH (21:50)
[2023-09-14 05:24] LABS: ABS Basophils 0.1 10^3/uL (0.0-0.1); ABS Lymphocytes 1.2 10^3/uL (1.0-4.8); ABS Nucleated RBC 0.02 10^3/ul; Eosinophil % 0.2 %; Hematocrit 20.6 % (35-45); Hemoglobin 7.1 g/dL (11.5-14.3); Mean Corpuscular Hemoglobin 31.9 pg (27-33); Mean Corpuscular Hgb Conc 34.2 g/dL (31-36); Mean Corpuscular Volume 93.3 fL (80-97); Mean Platelet Volume 6.8 fL (7.5-11.2); Nucleated Red Blood Cells % 0.2 %/100WBC (0.0-0.8); Platelet Count 299 10^3/uL (150-450); Red Blood Count 2.21 10^6/uL (3.63-4.92); Red Cell Distribution Width 13.8 % (12-17); White Blood Count 9.4 10^3/uL (3.8-11.8)
[2023-09-15 08:08] LABS: Hematocrit 22.1 % (35-45); Hemoglobin 7.3 g/dL (11.5-14.3)
[2023-09-16] MEDS: Heparin 1,000 UNIT/ML 10 ml (10,000 UNITS) CATHLAB/DIALYSIS DIALYSIS PRN (10:50)
[2023-09-16] MEDS ORDERED: NS 0.9% 1000 ml BAG 200 ML IV PRN (10:51)
[2023-09-16] MEDS ORDERED: NS 0.9% 1000 ml BAG 100 ML IV PRN (10:51)
[2023-09-16] MEDS ORDERED: Albumin Human 25% 25 GM/100 ML BTL IV PRN (10:51)
[2023-09-17 10:34] VITALS: BP 163/75
== END 2023-09-17 13:20 | DRG 673 ==
LOC: ED 12:32 → EDHOLD 12:32 → MEDTELE 20:40 → SUATTDRO 09-05 14:00 → SSU 09-07 21:39
PROVIDERS: ADMIT Internal Medicine; ATTEND Hospitalist

== ENCOUNTER 2023-09-19 01:50 | Inpatient (IN) ==
[2023-09-19 03:08] LABS: ABS Basophils 0.1 10^3/uL (0.0-0.1); ABS Lymphocytes 0.8 10^3/uL (1.0-4.8); ABS Monocytes 0.8 10^3/uL (0.0-0.9); Hematocrit 27.6 % (35-45); Hemoglobin 8.9 g/dL (11.5-14.3); Lymphocyte % 4.1 %; Mean Corpuscular Hemoglobin 30.1 pg (27-33); Mean Corpuscular Hgb Conc 32.1 g/dL (31-36); Mean Corpuscular Volume 93.6 fL (80-97); Mean Platelet Volume 6.2 fL (7.5-11.2); Platelet Count 413 10^3/uL (150-450); Red Blood Count 2.94 10^6/uL (3.63-4.92); Red Cell Distribution Width 14.1 % (12-17); White Blood Count 18.6 10^3/uL (3.8-11.8)
[2023-09-19 03:22] LABS: Activated Partial Thrombo Time 30.1 seconds (26.0-38.0); INR 0.95 (0.83-1.13)
[2023-09-19 03:32] LABS: Albumin 3.9 g/dL (3.2-5.2); Albumin/Globulin Ratio 1.5 (1-3); C Reactive Protein 28.4 mg/L (<8.01); Calcium 9.3 mg/dL (8.6-10.3); Creatinine, Serum 8.17 mg/dL (0.51-0.95); Globulin 2.6 g/dL (2-4); Potassium 5.9 mmol/L (3.5-5.0); Total Bilirubin 0.5 mg/dL (0.2-1.0); Total Protein 6.5 g/dL (6.4-8.9)
[2023-09-19] MEDS: cefTRIAXone 1 gm/50 mL D5W 1 GM/50 ML BAG IV ONE (04:06)
[2023-09-19] MEDS: Azithromycin 500 mg/250 ml NS 500 MG/250 ML BAG IVPB ONE (04:07)
[2023-09-19 04:43] LABS: High Sensitivity Troponin 1 Hr 251 pg/mL (<15)
[2023-09-19] MEDS ORDERED: Vancomycin per Pharmacy 1 EA NOTE FOLLOW UP PRN (05:34)
[2023-09-19] MEDS: Cefepime 1 GM in Dextrose 1 GM/50 ML BAG IV SCH ×2 (07:03→18:02)
[2023-09-19] MEDS: Furosemide 40 mg/4 ml IV VIAL IV SLOW PU SCH (07:04)
[2023-09-19] MEDS: Vancomycin 1,000 MG in NS 0.9% 250 ml 250 ML IVPB ONE (07:11)
[2023-09-19 08:00] LABS: Urine Appearance Clear; Urine Bilirubin Negative (Negative); Urine Blood 1+ (Negative); Urine Color Light-Yellow; Urine Glucose 1+ (>=70 mg/dL) (Negative); Urine Ketones Trace (Negative); Urine Nitrite Negative (Negative); Urine Protein 2+ (>=100 mg/dL) (Negative); Urine Specific Gravity 1.009 (1.002-1.030); Urine Urobilinogen Negative (Negative)
[2023-09-19 08:03] LABS: Urine Bacteria 1+ /HPF (Absent); Urine Red Blood Cell 2+(6-10/hpf) /HPF (0-Trace); Urine Squamous Epithelial Cell Present /HPF (Absent); Urine White Blood Cell 2+(11-20/hpf) /HPF (0-Trace)
[2023-09-19] MEDS: Heparin 5000 UNITS/ML 1 mL VIAL SUBCUT SCH (08:38)
[2023-09-19] MEDS ORDERED: Albumin Human 25% 25 GM/100 ML BTL IV PRN ×3 (10:28→20:25)
[2023-09-19] MEDS ORDERED: NS 0.9% 1000 ml BAG 200 ML IV PRN ×3 (10:28→20:25)
[2023-09-19] MEDS ORDERED: NS 0.9% 1000 ml BAG 100 ML IV PRN ×3 (10:28→20:25)
[2023-09-19] MEDS: Heparin 1,000 UNIT/ML 10 ml (10,000 UNITS) CATHLAB/DIALYSIS DIALYSIS PRN ×2 (10:58→15:18)
[2023-09-19] MEDS ORDERED: Dextrose 50% Syringe 50 ml 25 GM/50 ML SYRINGE IV PUSH PRN (11:23)
[2023-09-19 11:56] LABS: INR 1.13 (0.83-1.13)
[2023-09-19] MEDS ORDERED: Albuterol HFA INHALER 8 gm MDI INH PRN (11:59)
[2023-09-19 12:02] LABS: Activated Partial Thrombo Time >400.0 seconds (26.0-38.0)
[2023-09-19 13:05] LABS: PCO2 Arterial 28 mmHg (35-45); PO2 Arterial 107 mmHg (80-100)
[2023-09-19] MEDS: Sulfur Hexaflouride MICROSPHR 25 MG VIAL IV ONE (14:00)
[2023-09-19] MEDS: prednisoLONE 1% OPHTH.SUSP 5 ML OPHTH.SUSP RIGHT EYE SCH (15:15)
[2023-09-19] MEDS ORDERED: Sulfur Hexaflouride MICROSPHR 25 MG VIAL ONE (15:33)
[2023-09-19] MEDS ORDERED: Heparin 5000 UNITS/ML 1 mL VIAL SUBCUT SCH (16:00)
[2023-09-19] MEDS ORDERED: Heparin 1,000 UNIT/ML 10 ml (10,000 UNITS) CATHLAB/DIALYSIS DIALYSIS PRN (20:25)
[2023-09-19] MEDS: HYDROcodone/Acetamin 10/325 TAB (NF) PO PRN (20:42)
[2023-09-20] MEDS ORDERED: Azithromycin 500 mg/250 ml NS 500 MG/250 ML BAG IVPB SCH (09:00)
[2023-09-20] MEDS: Ondansetron 4 mg VIAL 2 MG/ML 2 ml VIAL IV PRN (09:08)
[2023-09-20 09:18] LABS: ABS Lymphocytes 0.6 10^3/uL (1.0-4.8); ABS Monocytes 0.9 10^3/uL (0.0-0.9); ABS Neutrophils 19.2 10^3/uL (1.5-7.6); Hematocrit 23.2 % (35-45); Hemoglobin 7.2 g/dL (11.5-14.3); Lymphocyte % 3.1 %; Mean Corpuscular Hemoglobin 30.3 pg (27-33); Mean Corpuscular Hgb Conc 31.1 g/dL (31-36); Mean Corpuscular Volume 97.6 fL (80-97); Mean Platelet Volume 7.2 fL (7.5-11.2); Platelet Count 303 10^3/uL (150-450); Red Blood Count 2.37 10^6/uL (3.63-4.92); Red Cell Distribution Width 14.6 % (12-17); White Blood Count 20.8 10^3/uL (3.8-11.8)
[2023-09-20 09:54] LABS: ABS Lymphocytes 0.7 10^3/uL (1.0-4.8); ABS Neutrophils 18.2 10^3/uL (1.5-7.6); Hematocrit 23.4 % (35-45); Hemoglobin 7.3 g/dL (11.5-14.3); Mean Corpuscular Hemoglobin 30.1 pg (27-33); Mean Corpuscular Hgb Conc 31.3 g/dL (31-36); Mean Corpuscular Volume 96.1 fL (80-97); Mean Platelet Volume 7.1 fL (7.5-11.2); Platelet Count 290 10^3/uL (150-450); Red Blood Count 2.43 10^6/uL (3.63-4.92); Red Cell Distribution Width 14.2 % (12-17); White Blood Count 19.9 10^3/uL (3.8-11.8)
[2023-09-20 09:55] LABS: ABS Nucleated RBC 0.01 10^3/ul; Lymphocyte % 3.5 %; Potassium 5.6 mmol/L (3.5-5.0)
[2023-09-20 09:56] LABS: Albumin 3.1 g/dL (3.2-5.2); Albumin/Globulin Ratio 1.6 (1-3); Calcium 8.3 mg/dL (8.6-10.3); Creatinine, Serum 5.08 mg/dL (0.51-0.95); Magnesium 1.9 mg/dL (1.9-2.7); Total Bilirubin 0.4 mg/dL (0.2-1.0); Total Protein 5.1 g/dL (6.4-8.9); eGFR CKD-EPI 8.8 (>60)
[2023-09-20] MEDS ORDERED: Cefepime 1 GM in Dextrose 1 GM/50 ML BAG IV SCH (10:00)
[2023-09-20 10:12] LABS: Calcium 8.2 mg/dL (8.6-10.3); Creatinine, Serum 5.43 mg/dL (0.51-0.95); eGFR CKD-EPI 8.2 (>60)
[2023-09-20 10:38] LABS: High Sensitivity Troponin 1 Hr 1351 pg/mL (<15)
[2023-09-20 11:10] LABS: PO2 Arterial 95 mmHg (80-100)
[2023-09-20 11:16] LABS: PCO2 Arterial <20 mmHg (35-45)
[2023-09-20] MEDS: Heparin 5000 UNITS/ML 1 mL VIAL IV SCH (11:25)
[2023-09-20] MEDS: Heparin DRIP 25,000 UNITS BAG 25,000 UNITS/250 ML BAG IV SCH (11:26)
[2023-09-20 12:10] LABS: Creatinine, Serum 5.5 mg/dL (0.51-0.95)
[2023-09-20] MEDS: Insulin Infusion 100unit/100mL 100 UNIT/100 ML BAG IV SCH (12:32)
[2023-09-20 13:01] LABS: High Sensitivity Troponin 3 Hr 1690 pg/mL (<15)
[2023-09-20] MEDS: fentaNYL 100 mcg/2 ml 50 MCG/ML VIAL IV SLOW PU ONE (13:56)
[2023-09-20 13:57] LABS: Glucose Confirmatory 472 mg/dL (70-100)
[2023-09-20] MEDS: Norepinephrine 4 MG/250mL D5W 0 MCG/0 ML BAG IV ONE (14:03)
[2023-09-20] MEDS: Norepinephrine 4 MG/250mL NS 4,000 MCG/250 ML BAG IV SCH (14:20)
[2023-09-20] MEDS: fentaNYL 100 mcg/2 ml 50 MCG/ML VIAL ONE (14:40)
[2023-09-20] MEDS ORDERED: NS 0.9% 1000 ml BAG 100 ML IV PRN (14:51)
[2023-09-20] MEDS ORDERED: Albumin Human 25% 25 GM/100 ML BTL IV PRN (14:51)
[2023-09-20] MEDS ORDERED: NS 0.9% 1000 ml BAG 200 ML IV PRN (14:51)
[2023-09-20] MEDS: Heparin 1,000 UNIT/ML 10 ml (10,000 UNITS) CATHLAB/DIALYSIS DIALYSIS PRN (16:34)
[2023-09-20 18:39] LABS: Calcium 8.2 mg/dL (8.6-10.3); Creatinine, Serum 3.21 mg/dL (0.51-0.95); Magnesium 1.6 mg/dL (1.9-2.7); Phosphorus 4.1 mg/dL (2.5-5.0); Potassium 3.8 mmol/L (3.5-5.0); eGFR CKD-EPI 15.3 (>60)
[2023-09-20] MEDS ORDERED: Sodium Chloride CONC. 4 MEQ/ML 77 MEQ in D10W 1000 ml BAG 1,000 ML IV SCH (20:00)
[2023-09-20] MEDS: Sodium Chloride CONC. 4 MEQ/ML 77 MEQ in D10W 1000 ml BAG 1,000 ML IV SCH (20:12)
[2023-09-20 20:51] LABS: Calcium 8.1 mg/dL (8.6-10.3); Creatinine, Serum 3.58 mg/dL (0.51-0.95); Magnesium 1.7 mg/dL (1.9-2.7); Potassium 3.7 mmol/L (3.5-5.0); eGFR CKD-EPI 13.4 (>60)
[2023-09-21 01:14] LABS: Calcium 7.7 mg/dL (8.6-10.3); Creatinine, Serum 3.92 mg/dL (0.51-0.95); Magnesium 1.7 mg/dL (1.9-2.7); Phosphorus 3.8 mg/dL (2.5-5.0); Potassium 3.7 mmol/L (3.5-5.0); eGFR CKD-EPI 12.1 (>60)
[2023-09-21] MEDS: Insulin GLARGINE 100 un/ml 10 ml VIAL SUBCUT SCH ×2 (01:57→20:02)
[2023-09-21 04:49] LABS: ABS Basophils 0.1 10^3/uL (0.0-0.1); ABS Lymphocytes 1.3 10^3/uL (1.0-4.8); ABS Monocytes 1.3 10^3/uL (0.0-0.9); ABS Neutrophils 11.9 10^3/uL (1.5-7.6); Eosinophil % 0.2 %; Hematocrit 24.1 % (35-45); Mean Corpuscular Hemoglobin 29.9 pg (27-33); Mean Corpuscular Volume 90.7 fL (80-97); Platelet Count 276 10^3/uL (150-450); Red Blood Count 2.66 10^6/uL (3.63-4.92); Red Cell Distribution Width 14.7 % (12-17); White Blood Count 14.6 10^3/uL (3.8-11.8)
[2023-09-21 06:11] LABS: Calcium 7.6 mg/dL (8.6-10.3); Creatinine, Serum 4.16 mg/dL (0.51-0.95); Magnesium 1.7 mg/dL (1.9-2.7); Phosphorus 4.6 mg/dL (2.5-5.0); Potassium 4.1 mmol/L (3.5-5.0); eGFR CKD-EPI 11.2 (>60)
[2023-09-21] MEDS: Aspirin EC 81 mg TAB.EC (enteric coated) PO SCH (08:28)
[2023-09-21] MEDS ORDERED: Acetaminophen IV 1 GM/100ML 1,000 MG/100 ML BAG IV PRN (09:22)
[2023-09-21 10:27] LABS: High Sensitivity Troponin 1 Hr 7222 pg/mL (<15)
[2023-09-21] MEDS: Nitro 2% OINT (Nitroglycerin) 1 INCH/PAK TOPICAL ONE ×2 (10:39→10:56)
[2023-09-21 10:42] LABS: Calcium 7.8 mg/dL (8.6-10.3); Creatinine, Serum 4.36 mg/dL (0.51-0.95); Magnesium 1.8 mg/dL (1.9-2.7); Phosphorus 4.5 mg/dL (2.5-5.0); Potassium 4.1 mmol/L (3.5-5.0); eGFR CKD-EPI 10.6 (>60)
[2023-09-21] MEDS ORDERED: HYDROcodone/ACETAMIN 5/325 mg TAB PO PRN (12:17)
[2023-09-21] MEDS ORDERED: NS 0.9% 1000 ml BAG 100 ML IV PRN (12:19)
[2023-09-21] MEDS ORDERED: Albumin Human 25% 25 GM/100 ML BTL IV PRN (12:19)
[2023-09-21] MEDS ORDERED: Heparin 1,000 UNIT/ML 10 ml (10,000 UNITS) CATHLAB/DIALYSIS DIALYSIS PRN (12:19)
[2023-09-21] MEDS ORDERED: NS 0.9% 1000 ml BAG 200 ML IV PRN (12:19)
[2023-09-21 12:36] LABS: High Sensitivity Troponin 3 Hr 5873 pg/mL (<15)
[2023-09-21 12:51] LABS: Calcium 7.9 mg/dL (8.6-10.3); Creatinine, Serum 4.64 mg/dL (0.51-0.95); Magnesium 1.8 mg/dL (1.9-2.7); Phosphorus 4.5 mg/dL (2.5-5.0); eGFR CKD-EPI 9.9 (>60)
[2023-09-21] MEDS: cefTRIAXone 1 gm/50 mL D5W 1 GM/50 ML BAG IV SCH ×2 (14:37→17:28)
[2023-09-21] MEDS: HYDROmorphone 0.5 MG/0.5 ML SYRINGE IV PRN (15:25)
[2023-09-21] MEDS: HYDROmorphone 0.5 MG/0.5 ML SYRINGE ONE (17:17)
[2023-09-21] MEDS: Al Hydrox/Mg Hydrox/Simet LIQ 30 ML UDC PO ONE (17:40)
[2023-09-21] MEDS: HYDROcodone/Acetamin 10/325 TAB (NF) PO PRN (20:32)
[2023-09-22] MEDS: Norepinephrine 4 MG/250mL D5W 4,000 MCG/250 ML BAG IV SCH (00:20)
[2023-09-22] MEDS: Magnesium Sulfate 2 gm BAG 2 GM/50 ML BAG IVPB ONE (00:29)
[2023-09-22] MEDS: Norepinephrine 4 MG/250mL D5W 4,000 MCG/250 ML BAG IV ONE (00:43)
[2023-09-22] MEDS: Digoxin IV 0.5 MG/2 ML AMP (0.25 MG/ML) IV SLOW PU SCH (02:44)
[2023-09-22 04:34] LABS: ABS Basophils 0.1 10^3/uL (0.0-0.1); ABS Monocytes 1.4 10^3/uL (0.0-0.9); ABS Neutrophils 11.5 10^3/uL (1.5-7.6); ABS Nucleated RBC 0.01 10^3/ul; Eosinophil % 0.3 %; Hematocrit 30.2 % (35-45); Hemoglobin 10.2 g/dL (11.5-14.3); Mean Corpuscular Hemoglobin 30.4 pg (27-33); Mean Corpuscular Hgb Conc 33.7 g/dL (31-36); Mean Corpuscular Volume 90.4 fL (80-97); Nucleated Red Blood Cells % 0.1 %/100WBC (0.0-0.8); Platelet Count 256 10^3/uL (150-450); Red Blood Count 3.34 10^6/uL (3.63-4.92); Red Cell Distribution Width 14.8 % (12-17); White Blood Count 14.1 10^3/uL (3.8-11.8)
[2023-09-22 05:59] LABS: Calcium 8.1 mg/dL (8.6-10.3); Creatinine, Serum 4.07 mg/dL (0.51-0.95); Magnesium 2.5 mg/dL (1.9-2.7); Potassium 4.4 mmol/L (3.5-5.0); eGFR CKD-EPI 11.5 (>60)
[2023-09-22] MEDS: prednisoLONE 1% OPHTH.SUSP 5 ML OPHTH.SUSP RIGHT EYE SCH (08:30)
[2023-09-22] MEDS ORDERED: NS 0.9% 1000 ml BAG 200 ML IV PRN (12:20)
[2023-09-22] MEDS ORDERED: Albumin Human 25% 25 GM/100 ML BTL IV PRN (12:20)
[2023-09-22] MEDS ORDERED: NS 0.9% 1000 ml BAG 100 ML IV PRN (12:20)
[2023-09-22 15:48] LABS: C Reactive Protein 115.28 mg/L (<8.01)
[2023-09-22 16:53] LABS: Erythrocyte Sed Rate 19 mm/Hr (0-29)
[2023-09-22] MEDS: Aspirin EC 325 mg TAB.EC PO SCH (20:38)
[2023-09-22] MEDS: Insulin GLARGINE 100 un/ml 10 ml VIAL SUBCUT SCH (20:45)
[2023-09-23 06:20] LABS: ABS Basophils 0.2 10^3/uL (0.0-0.1); ABS Eosinophils 0.1 10^3/uL (0.0-0.5); ABS Lymphocytes 1.3 10^3/uL (1.0-4.8); ABS Monocytes 1.2 10^3/uL (0.0-0.9); ABS Neutrophils 8.3 10^3/uL (1.5-7.6); Hematocrit 28.2 % (35-45); Hemoglobin 9.4 g/dL (11.5-14.3); Lymphocyte % 11.4 %; Mean Corpuscular Hemoglobin 30.6 pg (27-33); Mean Corpuscular Hgb Conc 33.3 g/dL (31-36); Mean Corpuscular Volume 91.8 fL (80-97); Mean Platelet Volume 7.3 fL (7.5-11.2); Platelet Count 197 10^3/uL (150-450); Red Blood Count 3.07 10^6/uL (3.63-4.92); Red Cell Distribution Width 15.1 % (12-17); White Blood Count 11.1 10^3/uL (3.8-11.8)
[2023-09-23 07:16] LABS: Calcium 7.9 mg/dL (8.6-10.3); Creatinine, Serum 5.49 mg/dL (0.51-0.95); Potassium 4.1 mmol/L (3.5-5.0); eGFR CKD-EPI 8.1 (>60)
[2023-09-23 07:34] LABS: Magnesium 2.5 mg/dL (1.9-2.7)
[2023-09-23] MEDS ORDERED: fentaNYL 100 mcg/2 ml 50 MCG/ML VIAL ONE (08:49)
[2023-09-23] MEDS ORDERED: Midazolam 5 mg/5 ml VIAL 1 mg/ml 5 ml VIAL (5 mg) ONE (08:49)
[2023-09-23] MEDS ORDERED: niCARdipine 0.1MG/ML IVPREMIX 20 MG/200 ML BAG IV ONE (08:50)
[2023-09-23] MEDS ORDERED: nitroGLYCERIN DRIP 25,000 MCG/250 ML BTL ONE (08:50)
[2023-09-23] MEDS ORDERED: Lidocaine 1% MPF 5 ML VIAL ONE (08:50)
[2023-09-23] MEDS ORDERED: Heparin 1,000 UNIT/ML 10 ml (10,000 UNITS) CATHLAB/DIALYSIS ONE (08:50)
[2023-09-23] MEDS ORDERED: Iohexol 350 (CONTRAST) 200 ML MDV IV ONE (08:50)
[2023-09-23] MEDS ORDERED: Heparin 2 UNITS/ML 1000 mls 2,000 ML IV ONE (08:50)
[2023-09-23] MEDS ORDERED: Flumazenil 0.5 mg/5 ml 0.1 MG/ML 5 ml VIAL IV PRN (08:56)
[2023-09-23] MEDS ORDERED: Naloxone 0.4 mg VIAL 0.4 mg/ml 1 ml VIAL IV PUSH PRN (08:56)
[2023-09-23 09:47] LABS: POC SO2 43 %
[2023-09-23 09:47] LABS: POC SO2 87 %
[2023-09-23] MEDS: fentaNYL 100 mcg/2 ml 50 MCG/ML VIAL IV SLOW PU ONE (10:24)
[2023-09-23] MEDS: Midazolam 10 mg/10 ml VIAL 1 mg/ml 10 ml VIAL (10 mg) IV SLOW PU ONE (10:24)
[2023-09-23 20:50] LABS: Hematocrit 31.6 % (35-45); Hemoglobin 10.4 g/dL (11.5-14.3)
[2023-09-23] MEDS ORDERED: Magic MouthWash2-BEN/MAAL/LIDO/NYST 240 ML BTL (alt formulation) SWISH SWAL PRN (23:06)
[2023-09-23] MEDS: Sucralfate 1 gm SUSP 1 GM/10 ML UDC PO SCH (23:21)
[2023-09-23] MEDS: Magic MouthWash1-BEN/MAAL/LIDO 180 ML BTL SWISH SWAL PRN (23:33)
[2023-09-24] MEDS: Dextrose 50% Syringe 50 ml 25 GM/50 ML SYRINGE IV PUSH PRN (04:25)
[2023-09-24 04:36] LABS: ABS Basophils 0.2 10^3/uL (0.0-0.1); ABS Eosinophils 0.1 10^3/uL (0.0-0.5); ABS Lymphocytes 1.2 10^3/uL (1.0-4.8); ABS Monocytes 1.3 10^3/uL (0.0-0.9); ABS Neutrophils 8.9 10^3/uL (1.5-7.6); Eosinophil % 0.6 %; Hematocrit 29.9 % (35-45); Lymphocyte % 10.3 %; Mean Corpuscular Hemoglobin 30.6 pg (27-33); Mean Corpuscular Hgb Conc 33.6 g/dL (31-36); Mean Corpuscular Volume 91.1 fL (80-97); Mean Platelet Volume 7.5 fL (7.5-11.2); Platelet Count 245 10^3/uL (150-450); Red Blood Count 3.28 10^6/uL (3.63-4.92); White Blood Count 11.6 10^3/uL (3.8-11.8)
[2023-09-24 05:00] LABS: Calcium 8.3 mg/dL (8.6-10.3); Creatinine, Serum 3.98 mg/dL (0.51-0.95); HDL Cholesterol 91.7 mg/dL; Magnesium 2.1 mg/dL (1.9-2.7); eGFR CKD-EPI 11.8 (>60)
[2023-09-24] MEDS: Magic MouthWash2-BEN/MAAL/LIDO/NYST 240 ML BTL (alt formulation) SWISH SWAL ONE (07:50)
[2023-09-24] MEDS: Aspirin EC 81 mg TAB.EC (enteric coated) PO SCH (07:53)
[2023-09-24] MEDS: Pantoprazole VIAL 40 MG VIAL IV SCH (17:42)
[2023-09-24] MEDS: Polyethylene Glycol 3350 17 GM PACKET PO SCH (21:50)
[2023-09-24] MEDS: Senna TAB 8.6 mg TAB PO SCH (21:51)
[2023-09-24] MEDS: Insulin GLARGINE 100 un/ml 10 ml VIAL SUBCUT SCH (22:01)
[2023-09-24 22:10] LABS: Glucose Confirmatory 483 mg/dL (70-100)
[2023-09-25 00:27] LABS: Glucose Confirmatory 454 mg/dL (70-100)
[2023-09-25 04:35] LABS: ABS Basophils 0.1 10^3/uL (0.0-0.1); ABS Lymphocytes 0.9 10^3/uL (1.0-4.8); ABS Monocytes 1.4 10^3/uL (0.0-0.9); ABS Neutrophils 8.9 10^3/uL (1.5-7.6); ABS Nucleated RBC 0.01 10^3/ul; Eosinophil % 0.2 %; Hematocrit 28.1 % (35-45); Hemoglobin 9.2 g/dL (11.5-14.3); Lymphocyte % 8.3 %; Mean Corpuscular Hemoglobin 30.1 pg (27-33); Mean Corpuscular Hgb Conc 32.9 g/dL (31-36); Mean Corpuscular Volume 91.6 fL (80-97); Mean Platelet Volume 7.6 fL (7.5-11.2); Nucleated Red Blood Cells % 0.1 %/100WBC (0.0-0.8); Platelet Count 271 10^3/uL (150-450); Red Blood Count 3.07 10^6/uL (3.63-4.92); Red Cell Distribution Width 14.9 % (12-17); White Blood Count 11.4 10^3/uL (3.8-11.8)
[2023-09-25 05:11] LABS: Albumin 2.7 g/dL (3.2-5.2); Creatinine, Serum 3.62 mg/dL (0.51-0.95); Phosphorus 1.9 mg/dL (2.5-5.0); eGFR CKD-EPI 13.3 (>60)
[2023-09-25] MEDS: Heparin 1,000 UNIT/ML 10 ml (10,000 UNITS) CATHLAB/DIALYSIS DIALYSIS PRN (11:20)
[2023-09-26 05:41] LABS: ABS Basophils 0.1 10^3/uL (0.0-0.1); ABS Eosinophils 0.1 10^3/uL (0.0-0.5); ABS Lymphocytes 1.2 10^3/uL (1.0-4.8); ABS Nucleated RBC 0.01 10^3/ul; Eosinophil % 0.6 %; Hematocrit 27.9 % (35-45); Hemoglobin 9.4 g/dL (11.5-14.3); Lymphocyte % 11.2 %; Mean Corpuscular Hemoglobin 31.1 pg (27-33); Mean Corpuscular Hgb Conc 33.8 g/dL (31-36); Mean Corpuscular Volume 91.8 fL (80-97); Nucleated Red Blood Cells % 0.1 %/100WBC (0.0-0.8); Platelet Count 294 10^3/uL (150-450); Red Blood Count 3.04 10^6/uL (3.63-4.92); White Blood Count 10.4 10^3/uL (3.8-11.8)
[2023-09-26 05:51] LABS: Calcium 8.2 mg/dL (8.6-10.3); Creatinine, Serum 3.28 mg/dL (0.51-0.95); Magnesium 1.7 mg/dL (1.9-2.7); Potassium 3.6 mmol/L (3.5-5.0); eGFR CKD-EPI 14.9 (>60)
[2023-09-26] MEDS: Erythromycin OPTH OINT APPLIC OINT BOTH EYES SCH (09:24)
[2023-09-26] MEDS ORDERED: Insulin LISPRO FOR INSULIN PUMP SUBCUT SCH (10:00)
[2023-09-26] MEDS ORDERED: INSULIN PUMP CONTROLLER SCH (11:30)
[2023-09-28 06:36] LABS: ABS Basophils 0.1 10^3/uL (0.0-0.1); ABS Eosinophils 0.1 10^3/uL (0.0-0.5); ABS Lymphocytes 1.5 10^3/uL (1.0-4.8); ABS Monocytes 1.2 10^3/uL (0.0-0.9); ABS Neutrophils 5.6 10^3/uL (1.5-7.6); Eosinophil % 0.9 %; Hematocrit 29.6 % (35-45); Lymphocyte % 17.6 %; Mean Corpuscular Hemoglobin 30.9 pg (27-33); Mean Corpuscular Hgb Conc 33.8 g/dL (31-36); Mean Corpuscular Volume 91.3 fL (80-97); Mean Platelet Volume 6.9 fL (7.5-11.2); Platelet Count 378 10^3/uL (150-450); Red Blood Count 3.24 10^6/uL (3.63-4.92); Red Cell Distribution Width 14.6 % (12-17); White Blood Count 8.5 10^3/uL (3.8-11.8)
[2023-09-28 06:55] LABS: Calcium 8.5 mg/dL (8.6-10.3); Creatinine, Serum 4.88 mg/dL (0.51-0.95); Magnesium 1.8 mg/dL (1.9-2.7); Potassium 4.4 mmol/L (3.5-5.0); eGFR CKD-EPI 9.3 (>60)
[2023-09-28 12:17] VITALS: BP 147/57
== END 2023-09-28 14:47 | disposition home or self-care (01) | DRG 871 ==
LOC: EDHOLD 01:50 → ED 01:50 → OBSVTOIN 03:58 → SUATTDRO 03:58 → MED 10:17 → MEDTELE 10:36 → ICU 11:09 → MEDTELE 09-26 16:36
PROVIDERS: ADMIT Internal Medicine; ATTEND Student in an Organized Health Care Education/Training Program

== ENCOUNTER 2023-10-23 18:45 | Inpatient (IN) ==
[2023-10-23 19:40] LABS: ABS Lymphocytes 1.1 10^3/uL (1.0-4.8); ABS Monocytes 0.5 10^3/uL (0.0-0.9); ABS Neutrophils 13.3 10^3/uL (1.5-7.6); Hematocrit 33.1 % (35-45); Hemoglobin 10.6 g/dL (11.5-14.3); Lymphocyte % 7.4 %; Mean Corpuscular Hemoglobin 30.6 pg (27-33); Mean Corpuscular Hgb Conc 32.1 g/dL (31-36); Mean Corpuscular Volume 95.4 fL (80-97); Mean Platelet Volume 7.9 fL (7.5-11.2); Platelet Count 339 10^3/uL (150-450); Red Blood Count 3.47 10^6/uL (3.63-4.92); Red Cell Distribution Width 15.9 % (12-17); White Blood Count 14.9 10^3/uL (3.8-11.8)
[2023-10-23 19:49] LABS: INR 0.96 (0.85-1.14)
[2023-10-23 19:59] LABS: High Sens Troponin Baseline 62 pg/mL (<15)
[2023-10-23 20:20] LABS: ALT 64 U/L (7-52); AST 44 U/L (13-39); Albumin 3.7 g/dL (3.2-5.2); Albumin/Globulin Ratio 1.6 (1-3); Alcohol, S < 13 mg/dL (<13); Alkaline Phosphatase 105 U/L (35-149); Anion Gap 25 mmol/L (2-16); Blood Urea Nitrogen 53 mg/dL (6-24); CO2 Carbon Dioxide 13 mmol/L (22-32); Calcium 9.2 mg/dL (8.6-10.3); Chloride 90 mmol/L (101-111); Creatine Kinase 123 U/L (10-223); Creatinine, Serum 5.31 mg/dL (0.51-0.95); Globulin 2.3 g/dL (2-4); Glucose 455 mg/dL (70-100); Lipase < 10 U/L (11.0-82.0); Magnesium 2.3 mg/dL (1.9-2.7); Potassium 5.3 mmol/L (3.5-5.0); Sodium 128 mmol/L (135-145); Total Bilirubin 0.5 mg/dL (0.2-1.0); eGFR CKD-EPI 8.4 (>60)
[2023-10-23 20:31] LABS: TSH Ultra Thyroid Stim Horm 2.46 mcIU/mL (0.34-5.60)
[2023-10-23 20:46] LABS: High Sensitivity Troponin 1 Hr 57 pg/mL (<15)
[2023-10-23] MEDS ORDERED: Dextrose 50% Syringe 50 ml 25 GM/50 ML SYRINGE IV PUSH PRN (20:56)
[2023-10-23] MEDS ORDERED: Vancomycin per Pharmacy 1 EA NOTE FOLLOW UP SCH (21:00)
[2023-10-23] MEDS ORDERED: Zosyn per Pharmacy NOTE FOLLOW UP SCH (21:00)
[2023-10-23] MEDS ORDERED: Vancomycin 1,000 MG in NS 0.9% 250 ml 250 ML IVPB SCH (21:00)
[2023-10-23] MEDS: Piperacillin/Tazobac 3.375 BAG 3.375 GM/100 ML BAG IV ONE (21:01)
[2023-10-23] MEDS: NS 0.9% 1000 ml BAG 1,000 ML IV ONE (21:05)
[2023-10-23 21:19] LABS: Urine Appearance Turbid; Urine Bilirubin Negative (Negative); Urine Blood 1+ (Negative); Urine Color Light-Yellow; Urine Glucose 3+ (>=300 mg/dL) (Negative); Urine Ketones 1+ (Negative); Urine Nitrite Negative (Negative); Urine Protein 2+ (>=100 mg/dL) (Negative); Urine Specific Gravity 1.011 (1.002-1.030); Urine Urobilinogen Negative (Negative); Urine pH 5.5 (5.0-8.0)
[2023-10-23 21:33] LABS: Urine Amorphous Crystals Present /HPF (Absent); Urine Bacteria 1+ /HPF (Absent); Urine Red Blood Cell 1+(3-5/hpf) /HPF (0-Trace); Urine White Blood Cell 2+(11-20/hpf) /HPF (0-Trace)
[2023-10-23] MEDS: Insulin Infusion 100unit/100mL 100 UNIT/100 ML BAG IV SCH (21:38)
[2023-10-23 21:45] LABS: Urine Benzodiazepine Screen None Detected (None Detect); Urine Cannabinoids Screen None Detected (None Detect); Urine Opiates Screen Presumptive Positive (None Detect)
[2023-10-23 21:46] LABS: Venous Bicarbonate HCO3 11.7 mmol/L (24-28)
[2023-10-23 21:59] LABS: Glucose Confirmatory 468 mg/dL (70-100)
[2023-10-23] MEDS: NORMOSOL-R pH 7.4 1000 mL BAG 1,000 ML IV SCH (22:28)
[2023-10-23 22:35] LABS: Phosphorus 6.7 mg/dL (2.5-5.0)
[2023-10-23] MEDS: Vancomycin 1,000 MG - ED ONCE IVPB ONE (22:37)
[2023-10-23] MEDS ORDERED: Albuterol HFA INHALER 8 gm MDI INH PRN (23:43)
[2023-10-24] MEDS: HYDROcodone/Acetamin 10/325 TAB (NF) PO SCH (00:10)
[2023-10-24] MEDS: Ondansetron ODT 4 mg TAB 4 MG TAB PO PRN (00:19)
[2023-10-24 00:38] LABS: Calcium 8.7 mg/dL (8.6-10.3); Creatinine, Serum 5.61 mg/dL (0.51-0.95); Magnesium 2.2 mg/dL (1.9-2.7); Phosphorus 6.4 mg/dL (2.5-5.0); Potassium 4.4 mmol/L (3.5-5.0); eGFR CKD-EPI 7.8 (>60)
[2023-10-24] MEDS: D5W 1/2 NS 1000 ml BAG 1,000 ML IV SCH (01:13)
[2023-10-24] MEDS: Norepinephrine *QUAD STRENGTH* 16 mg/250 mL NS PREMIX (ICU ONLY) IV SCH (02:29)
[2023-10-24] MEDS: Sodium Chloride CONC. 4 MEQ/ML 77 MEQ in D10W 1000 ml BAG 1,000 ML IV SCH (04:23)
[2023-10-24 05:45] LABS: Venous Bicarbonate HCO3 20.5 mmol/L (24-28)
[2023-10-24 05:57] LABS: ABS Lymphocytes 1.9 10^3/uL (1.0-4.8); ABS Monocytes 1.1 10^3/uL (0.0-0.9); ABS Neutrophils 8.8 10^3/uL (1.5-7.6); Eosinophil % 0.3 %; Hematocrit 25.6 % (35-45); Hemoglobin 8.5 g/dL (11.5-14.3); Lymphocyte % 15.7 %; Mean Corpuscular Hemoglobin 30.4 pg (27-33); Mean Corpuscular Hgb Conc 33.1 g/dL (31-36); Mean Corpuscular Volume 91.8 fL (80-97); Mean Platelet Volume 7.3 fL (7.5-11.2); Platelet Count 318 10^3/uL (150-450); Red Blood Count 2.79 10^6/uL (3.63-4.92); Red Cell Distribution Width 15.4 % (12-17); White Blood Count 11.9 10^3/uL (3.8-11.8)
[2023-10-24] MEDS: Vancomycin Random Level NOTE FOLLOW UP ONE (06:20)
[2023-10-24] MEDS: Glucose ORAL 15 GM TUBE PO ONE (06:21)
[2023-10-24 06:27] LABS: Calcium 8.2 mg/dL (8.6-10.3); Creatinine, Serum 5.73 mg/dL (0.51-0.95); Magnesium 2.1 mg/dL (1.9-2.7); Phosphorus 6.8 mg/dL (2.5-5.0); Potassium 4.5 mmol/L (3.5-5.0); eGFR CKD-EPI 7.6 (>60)
[2023-10-24] MEDS ORDERED: Albumin Human 25% 25 GM/100 ML BTL IV PRN (09:24)
[2023-10-24] MEDS ORDERED: NS 0.9% 1000 ml BAG 100 ML IV PRN (09:24)
[2023-10-24] MEDS ORDERED: NS 0.9% 1000 ml BAG 200 ML IV PRN (09:24)
[2023-10-24] MEDS: Heparin 1,000 UNIT/ML 10 ml (10,000 UNITS) CATHLAB/DIALYSIS DIALYSIS PRN (10:04)
[2023-10-24] MEDS: cefTRIAXone 1 gm/50 mL D5W 1 GM/50 ML BAG IV SCH (13:52)
[2023-10-24] MEDS: Insulin GLARGINE 100 un/ml 10 ml VIAL SUBCUT SCH (15:40)
[2023-10-24 16:55] LABS: Calcium 8.1 mg/dL (8.6-10.3); Creatinine, Serum 2.86 mg/dL (0.51-0.95); Magnesium 1.8 mg/dL (1.9-2.7); Phosphorus 4.3 mg/dL (2.5-5.0); eGFR CKD-EPI 17.6 (>60)
[2023-10-24] MEDS ORDERED: Dextrose 50% Syringe 50 ml 25 GM/50 ML SYRINGE IV PUSH PRN (18:03)
[2023-10-24] MEDS: Insulin GLARGINE 100 un/ml 10 ml VIAL ONE ×2 (18:23→18:24)
[2023-10-24 19:08] LABS: Hepatitis B Surface Ab Not Immune (Immune); Hepatitis B Surface Antigen Nonreactive (Nonreactive)
[2023-10-24] MEDS: ZOSYN 3.375 GM Q12H per EXTENDED INFUSION IV SCH (19:17)
[2023-10-24] MEDS: Magnesium Sulfate IV 1GM/100ML 1 GM/100 ML BAG IV ONE (19:27)
[2023-10-24] MEDS: Artificial Tear OPHTH.OINT 3.5 GM BOTH EYES PRN (23:58)
[2023-10-25 05:02] LABS: ABS Basophils 0.1 10^3/uL (0.0-0.1); ABS Eosinophils 0.3 10^3/uL (0.0-0.5); ABS Monocytes 0.7 10^3/uL (0.0-0.9); ABS Neutrophils 4.8 10^3/uL (1.5-7.6); Eosinophil % 3.5 %; Hemoglobin 8.1 g/dL (11.5-14.3); Mean Corpuscular Hemoglobin 31.2 pg (27-33); Mean Corpuscular Hgb Conc 33.7 g/dL (31-36); Mean Corpuscular Volume 92.6 fL (80-97); Platelet Count 255 10^3/uL (150-450); Red Blood Count 2.59 10^6/uL (3.63-4.92); Red Cell Distribution Width 15.9 % (12-17); White Blood Count 7.8 10^3/uL (3.8-11.8)
[2023-10-25 05:33] LABS: Creatinine, Serum 3.96 mg/dL (0.51-0.95); Magnesium 2.2 mg/dL (1.9-2.7); Potassium 4.3 mmol/L (3.5-5.0); eGFR CKD-EPI 11.9 (>60)
[2023-10-25] MEDS: Dextrose 50% Syringe 50 ml 25 GM/50 ML SYRINGE IV PUSH PRN (05:39)
[2023-10-25] MEDS: CMC:Cyclosporine 0.05% OPHTH (NF) 0.4 ML VIAL BOTH EYES SCH (19:01)
[2023-10-25] MEDS: prednisoLONE 1% OPHTH.SUSP 5 ML OPHTH.SUSP RIGHT EYE SCH ×2 (20:01→20:59)
[2023-10-25] MEDS: Dextran 70/Hypromellose Tears Eye Drops 15 ml BTL (for Artificials Tears) BOTH EYES PRN (20:39)
[2023-10-25] MEDS: PTO:Bimatoprost 0.01% OPHTH (NF) 2.5 ML BTL BOTH EYES SCH (20:55)
[2023-10-25] MEDS: BRIMONID BOTH EYES SCH (20:57)
[2023-10-25] MEDS: TIMOLOL BOTH EYES SCH (20:57)
[2023-10-25] MEDS ORDERED: Latanoprost 0.005% 2.5 ml BTL BOTH EYES SCH (21:00)
[2023-10-25] MEDS ORDERED: prednisoLONE 1% OPHTH.SUSP 5 ML OPHTH.SUSP RIGHT EYE SCH (21:00)
[2023-10-26 06:23] LABS: ABS Basophils 0.1 10^3/uL (0.0-0.1); ABS Eosinophils 0.2 10^3/uL (0.0-0.5); ABS Lymphocytes 1.6 10^3/uL (1.0-4.8); ABS Monocytes 0.7 10^3/uL (0.0-0.9); ABS Neutrophils 3.6 10^3/uL (1.5-7.6); Eosinophil % 3.7 %; Hematocrit 23.3 % (35-45); Hemoglobin 7.7 g/dL (11.5-14.3); Lymphocyte % 25.6 %; Mean Corpuscular Hemoglobin 30.6 pg (27-33); Mean Corpuscular Hgb Conc 33.1 g/dL (31-36); Mean Corpuscular Volume 92.5 fL (80-97); Nucleated Red Blood Cells % 0.1 %/100WBC (0.0-0.8); Platelet Count 236 10^3/uL (150-450); Red Blood Count 2.52 10^6/uL (3.63-4.92); Red Cell Distribution Width 15.7 % (12-17); White Blood Count 6.1 10^3/uL (3.8-11.8)
[2023-10-26 07:12] LABS: Calcium 7.6 mg/dL (8.6-10.3); Creatinine, Serum 3.14 mg/dL (0.51-0.95); Magnesium 1.8 mg/dL (1.9-2.7); Potassium 4.4 mmol/L (3.5-5.0); eGFR CKD-EPI 15.7 (>60)
[2023-10-26 14:25] VITALS: BP 164/79
== END 2023-10-26 15:55 | disposition home or self-care (01) | DRG 637 ==
LOC: ED 18:45 → EDHOLD 21:02 → ICU 21:44
PROVIDERS: ADMIT Internal Medicine; ATTEND Internal Medicine Critical Care Medicine

== ENCOUNTER 2023-11-12 19:01 | Inpatient (IN) ==
[2023-11-12] MEDS: fentaNYL 100 mcg/2 ml 50 MCG/ML VIAL IV SLOW PU ONE (21:30)
[2023-11-12 21:41] LABS: ABS Basophils 0.2 10^3/uL (0.0-0.1); ABS Lymphocytes 1.8 10^3/uL (1.0-4.8); ABS Monocytes 1.1 10^3/uL (0.0-0.9); ABS Neutrophils 8.8 10^3/uL (1.5-7.6); Eosinophil % 0.3 %; Hematocrit 22.5 % (35-45); Hemoglobin 7.2 g/dL (11.5-14.3); Mean Corpuscular Hemoglobin 29.8 pg (27-33); Mean Corpuscular Hgb Conc 31.9 g/dL (31-36); Mean Corpuscular Volume 93.4 fL (80-97); Mean Platelet Volume 7.1 fL (7.5-11.2); Platelet Count 277 10^3/uL (150-450); Red Cell Distribution Width 16.3 % (12-17); White Blood Count 11.9 10^3/uL (3.8-11.8)
[2023-11-12 22:28] LABS: Albumin 3.5 g/dL (3.2-5.2); Albumin/Globulin Ratio 1.8 (1-3); Calcium 8.5 mg/dL (8.6-10.3); Creatinine, Serum 6.77 mg/dL (0.51-0.95); Globulin 1.9 g/dL (2-4); Potassium 4.9 mmol/L (3.5-5.0); Total Bilirubin 0.3 mg/dL (0.2-1.0); Total Protein 5.4 g/dL (6.4-8.9); eGFR CKD-EPI 6.3 (>60)
[2023-11-13] MEDS ORDERED: Albuterol HFA INHALER 8 gm MDI INH PRN (00:48)
[2023-11-13] MEDS: HYDROmorphone 0.5 MG/0.5 ML SYRINGE IV SLOW PU PRN (01:50)
[2023-11-13] MEDS: HYDROmorphone 0.5 MG/0.5 ML SYRINGE IV ONE (04:50)
[2023-11-13] MEDS: Dextrose 50% Syringe 50 ml 25 GM/50 ML SYRINGE IV PUSH PRN (05:09)
[2023-11-13] MEDS ORDERED: Dextrose 50% Syringe 50 ml 25 GM/50 ML SYRINGE IV PUSH PRN (06:06)
[2023-11-13 06:34] LABS: ABS Basophils 0.2 10^3/uL (0.0-0.1); ABS Eosinophils 0.1 10^3/uL (0.0-0.5); ABS Lymphocytes 1.9 10^3/uL (1.0-4.8); ABS Monocytes 1.4 10^3/uL (0.0-0.9); ABS Neutrophils 7.1 10^3/uL (1.5-7.6); Eosinophil % 0.9 %; Hematocrit 21.2 % (35-45); Hemoglobin 7.1 g/dL (11.5-14.3); Lymphocyte % 17.8 %; Mean Corpuscular Hemoglobin 31.2 pg (27-33); Mean Corpuscular Hgb Conc 33.7 g/dL (31-36); Mean Corpuscular Volume 92.6 fL (80-97); Mean Platelet Volume 7.2 fL (7.5-11.2); Platelet Count 276 10^3/uL (150-450); Red Blood Count 2.29 10^6/uL (3.63-4.92); Red Cell Distribution Width 16.2 % (12-17); White Blood Count 10.7 10^3/uL (3.8-11.8)
[2023-11-13 06:54] LABS: Calcium 8.6 mg/dL (8.6-10.3); Creatinine, Serum 7.35 mg/dL (0.51-0.95); Potassium 4.7 mmol/L (3.5-5.0); eGFR CKD-EPI 5.7 (>60)
[2023-11-13] MEDS: CMCS: Brimonidine/Timolol 0.2%/0.5% OPTH(NF) SOL 5 ML BOTH EYES SCH (10:33)
[2023-11-13] MEDS: CMCS: Cyclosporine 0.05% OPHTH (NF) 0.4 ML VIAL BOTH EYES SCH (10:33)
[2023-11-13] MEDS: Fluticasone NASAL SPRAY 50MCG 16 gm SPRAY BTL INTRANASAL SCH (10:35)
[2023-11-13] MEDS: Polyethyl Glycol/Propylene Gly OPHTH.SOLN BOTH EYES PRN (10:36)
[2023-11-13] MEDS: prednisoLONE 1% OPHTH.SUSP 5 ML OPHTH.SUSP RIGHT EYE SCH (12:00)
[2023-11-13] MEDS ORDERED: NS 0.9% 1000 ml BAG 100 ML IV PRN (12:29)
[2023-11-13] MEDS ORDERED: NS 0.9% 1000 ml BAG 200 ML IV PRN (12:29)
[2023-11-13] MEDS: Heparin 1,000 UNIT/ML 10 ml (10,000 UNITS) CATHLAB/DIALYSIS DIALYSIS PRN (14:26)
[2023-11-13 15:05] LABS: Hepatitis B Surface Antigen Nonreactive (Nonreactive)
[2023-11-13 15:23] LABS: Hepatitis B Surface Ab Not Immune (Immune)
[2023-11-13] MEDS: Latanoprost 0.005% 2.5 ml BTL BOTH EYES SCH (23:13)
[2023-11-14 00:42] LABS: Magnesium 2.1 mg/dL (1.9-2.7)
[2023-11-14 01:00] LABS: Ferritin 687.5 ng/mL (11-307)
[2023-11-14 05:14] LABS: ABS Basophils 0.1 10^3/uL (0.0-0.1); ABS Eosinophils 0.2 10^3/uL (0.0-0.5); ABS Lymphocytes 2.1 10^3/uL (1.0-4.8); ABS Monocytes 1.4 10^3/uL (0.0-0.9); ABS Neutrophils 7.5 10^3/uL (1.5-7.6); Eosinophil % 1.4 %; Hematocrit 24.9 % (35-45); Hemoglobin 8.5 g/dL (11.5-14.3); Lymphocyte % 18.8 %; Mean Corpuscular Hemoglobin 30.7 pg (27-33); Mean Corpuscular Hgb Conc 34.1 g/dL (31-36); Mean Platelet Volume 7.1 fL (7.5-11.2); Platelet Count 251 10^3/uL (150-450); Red Blood Count 2.77 10^6/uL (3.63-4.92); White Blood Count 11.4 10^3/uL (3.8-11.8)
[2023-11-14 06:09] LABS: Calcium 8.1 mg/dL (8.6-10.3); Creatinine, Serum 5.08 mg/dL (0.51-0.95); Magnesium 1.9 mg/dL (1.9-2.7); eGFR CKD-EPI 8.8 (>60)
[2023-11-14] MEDS: Insulin GLARGINE 100 un/ml 10 ml VIAL SUBCUT ONE (08:59)
[2023-11-14] MEDS ORDERED: Ondansetron 4 mg VIAL 2 MG/ML 2 ml VIAL IV PRN (09:29)
[2023-11-14] MEDS ORDERED: Naloxone 0.4 mg VIAL 0.4 mg/ml 1 ml VIAL IV PRN (09:29)
[2023-11-14] MEDS ORDERED: NS 0.45% 1000 ml BAG 1,000 ML IV SCH (10:00)
[2023-11-14] MEDS ORDERED: Lidocaine 2% PF 5 ML VIAL ONE (17:28)
[2023-11-14] MEDS ORDERED: Propofol 10 MG/ML 20 ML BTL ONE (17:28)
[2023-11-14] MEDS ORDERED: fentaNYL 100 mcg/2 ml 50 MCG/ML VIAL ONE ×2 (17:28→21:12)
[2023-11-14] MEDS ORDERED: Midazolam 2 mg/2 ml VIAL 1 mg/ml 2 ml VIAL (2 mg) ONE (17:28)
[2023-11-14] MEDS ORDERED: Ondansetron 4 mg VIAL 2 MG/ML 2 ml VIAL ONE (17:28)
[2023-11-14] MEDS ORDERED: Bupivacaine 0.5% SDV PF 30ML VIAL ONE (17:42)
[2023-11-14] MEDS ORDERED: ceFAZolin 2 GM PREMIX 2 GM/50 ML BAG ONE (18:36)
[2023-11-14] MEDS ORDERED: Acetaminophen IV 1 GM/100ML 1,000 MG/100 ML BAG IV ONE (20:04)
[2023-11-14] MEDS ORDERED: Senna TAB 8.6 mg TAB PO PRN (20:56)
[2023-11-14] MEDS ORDERED: Polyethylene Glycol 3350 17 GM PACKET PO PRN (20:56)
[2023-11-14] MEDS: fentaNYL 100 mcg/2 ml 50 MCG/ML VIAL IV PRN (21:13)
[2023-11-14] MEDS: Buffered Lidocaine 1% SYRIN 1 ml INTRADERM ONE (22:18)
[2023-11-14] MEDS: Scopolamine 1 mg/72hr PATCH TRANSDERM ONE (22:19)
[2023-11-14] MEDS: Acetaminophen IV 1 GM/100ML 1,000 MG/100 ML BAG IV ONE (22:21)
[2023-11-15 06:51] LABS: ABS Basophils 0.1 10^3/uL (0.0-0.1); ABS Eosinophils 0.1 10^3/uL (0.0-0.5); ABS Lymphocytes 1.8 10^3/uL (1.0-4.8); ABS Monocytes 1.1 10^3/uL (0.0-0.9); ABS Neutrophils 6.1 10^3/uL (1.5-7.6); Eosinophil % 0.9 %; Hematocrit 24.1 % (35-45); Hemoglobin 8.3 g/dL (11.5-14.3); Lymphocyte % 19.9 %; Mean Corpuscular Hemoglobin 31.5 pg (27-33); Mean Corpuscular Hgb Conc 34.4 g/dL (31-36); Mean Corpuscular Volume 91.5 fL (80-97); Mean Platelet Volume 7.3 fL (7.5-11.2); Platelet Count 262 10^3/uL (150-450); Red Blood Count 2.64 10^6/uL (3.63-4.92); Red Cell Distribution Width 16.8 % (12-17); White Blood Count 9.1 10^3/uL (3.8-11.8)
[2023-11-15 07:21] LABS: Calcium 8.3 mg/dL (8.6-10.3); Creatinine, Serum 6.98 mg/dL (0.51-0.95); Magnesium 1.9 mg/dL (1.9-2.7); Potassium 6.2 mmol/L (3.5-5.0)
[2023-11-15 13:34] LABS: Calcium 8.1 mg/dL (8.6-10.3); Creatinine, Serum 3.31 mg/dL (0.51-0.95); Potassium 4.2 mmol/L (3.5-5.0); eGFR CKD-EPI 14.8 (>60)
[2023-11-15 13:41] LABS: ABS Basophils 0.1 10^3/uL (0.0-0.1); ABS Eosinophils 0.1 10^3/uL (0.0-0.5); ABS Lymphocytes 1.6 10^3/uL (1.0-4.8); ABS Monocytes 0.7 10^3/uL (0.0-0.9); ABS Neutrophils 5.1 10^3/uL (1.5-7.6); ABS Nucleated RBC 0.01 10^3/ul; Eosinophil % 1.2 %; Hematocrit 24.6 % (35-45); Hemoglobin 8.6 g/dL (11.5-14.3); Lymphocyte % 21.5 %; Mean Corpuscular Hemoglobin 31.5 pg (27-33); Mean Corpuscular Hgb Conc 34.9 g/dL (31-36); Mean Platelet Volume 6.8 fL (7.5-11.2); Nucleated Red Blood Cells % 0.1 %/100WBC (0.0-0.8); Platelet Count 287 10^3/uL (150-450); Red Blood Count 2.73 10^6/uL (3.63-4.92); Red Cell Distribution Width 16.3 % (12-17); White Blood Count 7.6 10^3/uL (3.8-11.8)
[2023-11-15 13:49] LABS: Activated Partial Thrombo Time 32.7 seconds (26.0-38.0); INR 0.95 (0.85-1.14)
[2023-11-15 14:09] LABS: Creatinine, Serum 3.5 mg/dL (0.51-0.95); eGFR CKD-EPI 13.8 (>60)
[2023-11-15] MEDS: HYDROcodone/ACETAMIN 5/325 mg TAB PO PRN (18:29)
[2023-11-15] MEDS: Heparin 5000 UNITS/ML 1 mL VIAL SUBCUT SCH (21:25)
[2023-11-15] MEDS: ceFAZolin 1 GM in Dextrose 1 GM/50 ML BAG IVPB SCH (21:25)
[2023-11-16] MEDS: HYDROcodone/ACETAMIN 5/325 mg TAB PO PRN (06:44)
[2023-11-16 07:33] LABS: ABS Basophils 0.1 10^3/uL (0.0-0.1); ABS Eosinophils 0.1 10^3/uL (0.0-0.5); ABS Lymphocytes 2.3 10^3/uL (1.0-4.8); ABS Monocytes 1.5 10^3/uL (0.0-0.9); ABS Neutrophils 6.9 10^3/uL (1.5-7.6); ABS Nucleated RBC 0.01 10^3/ul; Eosinophil % 0.8 %; Hematocrit 21.8 % (35-45); Hemoglobin 7.4 g/dL (11.5-14.3); Lymphocyte % 21.3 %; Mean Corpuscular Hemoglobin 31.4 pg (27-33); Mean Corpuscular Hgb Conc 34.1 g/dL (31-36); Mean Corpuscular Volume 91.9 fL (80-97); Mean Platelet Volume 6.9 fL (7.5-11.2); Nucleated Red Blood Cells % 0.1 %/100WBC (0.0-0.8); Platelet Count 285 10^3/uL (150-450); Red Blood Count 2.37 10^6/uL (3.63-4.92); Red Cell Distribution Width 16.7 % (12-17); White Blood Count 10.9 10^3/uL (3.8-11.8)
[2023-11-16 08:27] LABS: Albumin 2.9 g/dL (3.2-5.2); Albumin/Globulin Ratio 1.5 (1-3); Calcium 8.4 mg/dL (8.6-10.3); Creatinine, Serum 5.37 mg/dL (0.51-0.95); Globulin 1.9 g/dL (2-4); Magnesium 1.9 mg/dL (1.9-2.7); Potassium 5.4 mmol/L (3.5-5.0); Total Bilirubin 0.3 mg/dL (0.2-1.0); Total Protein 4.8 g/dL (6.4-8.9); eGFR CKD-EPI 8.3 (>60)
[2023-11-16] MEDS ORDERED: Enoxaparin 40 MG/0.4 ML SYR SUBCUT SCH (09:00)
[2023-11-17 05:52] LABS: ABS Basophils 0.1 10^3/uL (0.0-0.1); ABS Eosinophils 0.2 10^3/uL (0.0-0.5); ABS Lymphocytes 2.1 10^3/uL (1.0-4.8); ABS Monocytes 1.1 10^3/uL (0.0-0.9); ABS Neutrophils 5.7 10^3/uL (1.5-7.6); ABS Nucleated RBC 0.07 10^3/ul; Eosinophil % 1.9 %; Hemoglobin 7.3 g/dL (11.5-14.3); Lymphocyte % 23.5 %; Mean Corpuscular Hemoglobin 30.8 pg (27-33); Mean Corpuscular Hgb Conc 33.4 g/dL (31-36); Mean Corpuscular Volume 92.2 fL (80-97); Mean Platelet Volume 6.8 fL (7.5-11.2); Nucleated Red Blood Cells % 0.7 %/100WBC (0.0-0.8); Platelet Count 292 10^3/uL (150-450); Red Blood Count 2.38 10^6/uL (3.63-4.92); Red Cell Distribution Width 16.7 % (12-17); White Blood Count 9.1 10^3/uL (3.8-11.8)
[2023-11-17 06:20] LABS: Calcium 8.6 mg/dL (8.6-10.3); Creatinine, Serum 6.81 mg/dL (0.51-0.95); Phosphorus 5.5 mg/dL (2.5-5.0); Potassium 5.6 mmol/L (3.5-5.0); eGFR CKD-EPI 6.2 (>60)
[2023-11-17] MEDS: Sodium Polystyrene ORAL.SUSP 15 GM/60 ML BTL PO ONE (11:28)
[2023-11-18 06:17] LABS: Hematocrit 22.4 % (35-45); Hemoglobin 7.7 g/dL (11.5-14.3); Mean Corpuscular Hemoglobin 31.4 pg (27-33); Mean Corpuscular Hgb Conc 34.2 g/dL (31-36); Mean Corpuscular Volume 91.8 fL (80-97); Mean Platelet Volume 6.8 fL (7.5-11.2); Platelet Count 263 10^3/uL (150-450); Red Blood Count 2.44 10^6/uL (3.63-4.92); Red Cell Distribution Width 16.5 % (12-17); White Blood Count 9.9 10^3/uL (3.8-11.8)
[2023-11-18 07:17] LABS: ABS Basophils 0.1 10^3/uL (0.0-0.1); ABS Eosinophils 0.2 10^3/uL (0.0-0.5); ABS Lymphocytes 2.2 10^3/uL (1.0-4.8); ABS Monocytes 1.1 10^3/uL (0.0-0.9); ABS Neutrophils 6.2 10^3/uL (1.5-7.6); ABS Nucleated RBC 0.05 10^3/ul; Eosinophil % 1.9 %; Lymphocyte % 22.5 %; Nucleated Red Blood Cells % 0.5 %/100WBC (0.0-0.8)
[2023-11-18 08:13] LABS: Anion Gap 16 mmol/L (2-16); Blood Urea Nitrogen 67 mg/dL (6-24); CO2 Carbon Dioxide 24 mmol/L (22-32); Calcium 8.4 mg/dL (8.6-10.3); Chloride 95 mmol/L (101-111); Creatinine, Serum 7.67 mg/dL (0.51-0.95); Glucose 82 mg/dL (70-100); Sodium 135 mmol/L (135-145); eGFR CKD-EPI 5.4 (>60)
[2023-11-18 13:28] LABS: Phosphorus 3.4 mg/dL (2.5-5.0); Potassium Redraw 4.1 mmol/L (3.5-5.0)
[2023-11-19 01:05] LABS: Calcium 8.8 mg/dL (8.6-10.3); Creatinine, Serum 5.56 mg/dL (0.51-0.95); Potassium 4.3 mmol/L (3.5-5.0); eGFR CKD-EPI 7.9 (>60)
[2023-11-19 08:00] LABS: Hematocrit 26.5 % (35-45); Mean Corpuscular Hemoglobin 31.6 pg (27-33); Mean Corpuscular Hgb Conc 34.2 g/dL (31-36); Mean Corpuscular Volume 92.4 fL (80-97); Mean Platelet Volume 6.9 fL (7.5-11.2); Platelet Count 245 10^3/uL (150-450); Red Blood Count 2.86 10^6/uL (3.63-4.92); Red Cell Distribution Width 16.7 % (12-17); White Blood Count 10.2 10^3/uL (3.8-11.8)
[2023-11-19 08:16] LABS: Calcium 8.7 mg/dL (8.6-10.3); Creatinine, Serum 5.93 mg/dL (0.51-0.95); Magnesium 1.9 mg/dL (1.9-2.7); Potassium 4.2 mmol/L (3.5-5.0); eGFR CKD-EPI 7.3 (>60)
[2023-11-20 06:20] LABS: Hematocrit 27.1 % (35-45); Mean Corpuscular Hemoglobin 31.2 pg (27-33); Mean Corpuscular Hgb Conc 33.2 g/dL (31-36); Mean Platelet Volume 6.9 fL (7.5-11.2); Platelet Count 238 10^3/uL (150-450); Red Blood Count 2.88 10^6/uL (3.63-4.92); Red Cell Distribution Width 16.4 % (12-17); White Blood Count 11.8 10^3/uL (3.8-11.8)
[2023-11-20 06:53] LABS: Anion Gap 16 mmol/L (2-16); Blood Urea Nitrogen 66 mg/dL (6-24); CO2 Carbon Dioxide 23 mmol/L (22-32); Calcium 8.8 mg/dL (8.6-10.3); Chloride 97 mmol/L (101-111); Creatinine, Serum 7.66 mg/dL (0.51-0.95); Glucose 148 mg/dL (70-100); Potassium 5.2 mmol/L (3.5-5.0); Sodium 136 mmol/L (135-145); eGFR CKD-EPI 5.4 (>60)
[2023-11-20 07:18] LABS: ALT < 3 U/L (7-52); AST 16 U/L (13-39); Albumin/Globulin Ratio 1.6 (1-3); Alkaline Phosphatase 68 U/L (35-149); Globulin 1.9 g/dL (2-4); Indirect Bilirubin 0.3 mg/dL (0.3-1.0); Total Bilirubin 0.3 mg/dL (0.2-1.0); Total Protein 4.9 g/dL (6.4-8.9)
[2023-11-20] MEDS ORDERED: Dextrose 50% Syringe 50 ml 25 GM/50 ML SYRINGE IV PUSH PRN ×2 (17:42→17:44)
[2023-11-20] MEDS: Insulin GLARGINE 100 un/ml 10 ml VIAL SUBCUT ONE (17:52)
[2023-11-20 18:45] LABS: Calcium 8.6 mg/dL (8.6-10.3); Creatinine, Serum 4.57 mg/dL (0.51-0.95); Potassium 4.9 mmol/L (3.5-5.0)
[2023-11-20 22:14] LABS: Glucose Confirmatory 479 mg/dL (70-100)
[2023-11-20 23:56] LABS: Potassium 5.1 mmol/L (3.5-5.0)
[2023-11-20 23:57] LABS: Calcium 8.3 mg/dL (8.6-10.3); Creatinine, Serum 4.83 mg/dL (0.51-0.95); eGFR CKD-EPI 9.4 (>60)
[2023-11-21 07:21] LABS: Hemoglobin 9.5 g/dL (11.5-14.3); Mean Corpuscular Hemoglobin 31.7 pg (27-33); Mean Corpuscular Hgb Conc 33.9 g/dL (31-36); Mean Corpuscular Volume 93.7 fL (80-97); Mean Platelet Volume 7.3 fL (7.5-11.2); Platelet Count 217 10^3/uL (150-450); Red Blood Count 2.98 10^6/uL (3.63-4.92); Red Cell Distribution Width 16.6 % (12-17); White Blood Count 13.4 10^3/uL (3.8-11.8)
[2023-11-21 07:25] LABS: Calcium 8.8 mg/dL (8.6-10.3); Creatinine, Serum 5.28 mg/dL (0.51-0.95); Potassium 4.4 mmol/L (3.5-5.0); eGFR CKD-EPI 8.4 (>60)
[2023-11-21] MEDS: Amphetamine MIXED SALT 10mgTAB PO SCH (09:13)
[2023-11-21] MEDS: prednisoLONE 1% OPHTH.SUSP 5 ML OPHTH.SUSP RIGHT EYE SCH (09:25)
[2023-11-21] MEDS ORDERED: Dextrose 50% Syringe 50 ml 25 GM/50 ML SYRINGE IV PUSH PRN (15:29)
[2023-11-21] MEDS: Insulin GLARGINE 100 un/ml 10 ml VIAL SUBCUT ONE (17:59)
[2023-11-21] MEDS: HYDROmorphone 0.5 MG/0.5 ML SYRINGE IV SLOW PU ONE (18:00)
[2023-11-21 21:47] LABS: Glucose Confirmatory 444 mg/dL (70-100)
[2023-11-22 06:26] LABS: Hematocrit 29.8 % (35-45); Hemoglobin 9.8 g/dL (11.5-14.3); Mean Corpuscular Hemoglobin 31.1 pg (27-33); Mean Corpuscular Hgb Conc 32.7 g/dL (31-36); Mean Corpuscular Volume 94.9 fL (80-97); Mean Platelet Volume 7.1 fL (7.5-11.2); Platelet Count 250 10^3/uL (150-450); Red Blood Count 3.14 10^6/uL (3.63-4.92); Red Cell Distribution Width 17.8 % (12-17); White Blood Count 15.6 10^3/uL (3.8-11.8)
[2023-11-22 06:43] LABS: Calcium 9.2 mg/dL (8.6-10.3); Creatinine, Serum 7.3 mg/dL (0.51-0.95); Potassium 4.8 mmol/L (3.5-5.0); eGFR CKD-EPI 5.7 (>60)
[2023-11-22] MEDS ORDERED: HYDROmorphone 0.5 MG/0.5 ML SYRINGE IV SLOW PU PRN (10:21)
[2023-11-22] MEDS ORDERED: Naloxone Nasal Spray 4 MG/0.1 ML NASAL.SPR INTRANASAL PRN (10:46)
[2023-11-22 13:37] LABS: ABS Basophils 0.1 10^3/uL (0.0-0.1); ABS Eosinophils 0.4 10^3/uL (0.0-0.5); ABS Lymphocytes 4.1 10^3/uL (1.0-4.8); ABS Monocytes 1.5 10^3/uL (0.0-0.9); ABS Neutrophils 9.2 10^3/uL (1.5-7.6); ABS Nucleated RBC 0.68 10^3/ul; Anisocytosis 1+; Eosinophil % 2.4 %; Hypochromasia 1+; Lymphocyte % 26.6 %; Nucleated Red Blood Cells % 4.5 %/100WBC (0.0-0.8); Polychromasia 1+; Tear Drop Cells 1+
[2023-11-23 07:10] LABS: Calcium 9.1 mg/dL (8.6-10.3); Creatinine, Serum 5.53 mg/dL (0.51-0.95); Potassium 4.7 mmol/L (3.5-5.0)
[2023-11-23 09:37] LABS: ABS Basophils 0.1 10^3/uL (0.0-0.1); ABS Eosinophils 0.5 10^3/uL (0.0-0.5); ABS Lymphocytes 3.3 10^3/uL (1.0-4.8); ABS Monocytes 1.5 10^3/uL (0.0-0.9); ABS Neutrophils 9.1 10^3/uL (1.5-7.6); Anisocytosis 1+; Eosinophil % 3.1 %; Hematocrit 30.8 % (35-45); Hemoglobin 10.1 g/dL (11.5-14.3); Lymphocyte % 22.8 %; Mean Corpuscular Hemoglobin 31.5 pg (27-33); Mean Corpuscular Hgb Conc 32.7 g/dL (31-36); Mean Corpuscular Volume 96.2 fL (80-97); Mean Platelet Volume 7.3 fL (7.5-11.2); Nucleated Red Blood Cells % 4.1 %/100WBC (0.0-0.8); Platelet Count 222 10^3/uL (150-450); Polychromasia 2+; Red Cell Distribution Width 17.6 % (12-17); White Blood Count 14.6 10^3/uL (3.8-11.8)
[2023-11-23 18:40] LABS: Glucose Confirmatory 462 mg/dL (70-100)
[2023-11-24 06:26] LABS: C Reactive Protein 17.09 mg/L (<8.01); Creatinine, Serum 7.05 mg/dL (0.51-0.95); Potassium 4.7 mmol/L (3.5-5.0)
[2023-11-24 06:31] LABS: Hematocrit 29.5 % (35-45); Hemoglobin 9.7 g/dL (11.5-14.3); Mean Corpuscular Hemoglobin 31.3 pg (27-33); Mean Corpuscular Hgb Conc 32.7 g/dL (31-36); Mean Corpuscular Volume 95.6 fL (80-97); Mean Platelet Volume 7.4 fL (7.5-11.2); Platelet Count 215 10^3/uL (150-450); Red Blood Count 3.08 10^6/uL (3.63-4.92); Red Cell Distribution Width 18.2 % (12-17); White Blood Count 13.6 10^3/uL (3.8-11.8)
[2023-11-24 07:29] LABS: ABS Basophils 0.1 10^3/uL (0.0-0.1); ABS Eosinophils 0.4 10^3/uL (0.0-0.5); ABS Lymphocytes 3.6 10^3/uL (1.0-4.8); ABS Monocytes 1.4 10^3/uL (0.0-0.9); ABS Neutrophils 8.1 10^3/uL (1.5-7.6); ABS Nucleated RBC 0.48 10^3/ul; Anisocytosis 1+; Eosinophil % 2.9 %; Lymphocyte % 26.6 %; Nucleated Red Blood Cells % 3.6 %/100WBC (0.0-0.8); Polychromasia 2+
[2023-11-24] MEDS ORDERED: NS 0.9% 1000 ml BAG 100 ML IV PRN (15:12)
[2023-11-24] MEDS ORDERED: Albumin Human 25% 25 GM/100 ML BTL IV PRN (15:12)
[2023-11-24] MEDS ORDERED: NS 0.9% 1000 ml BAG 200 ML IV PRN (15:12)
[2023-11-24] MEDS ORDERED: Dextrose 50% Syringe 50 ml 25 GM/50 ML SYRINGE IV PUSH PRN (17:22)
[2023-11-24] MEDS: Insulin GLARGINE 100 un/ml 10 ml VIAL SUBCUT SCH (21:20)
[2023-11-25 07:46] LABS: Calcium 8.4 mg/dL (8.6-10.3); Creatinine, Serum 8.65 mg/dL (0.51-0.95); Potassium 6.8 mmol/L (3.5-5.0); eGFR CKD-EPI 4.7 (>60)
[2023-11-25] MEDS: Sodium Polystyrene ORAL.SUSP 15 GM/60 ML BTL PO SCH (08:55)
[2023-11-25] MEDS: Dextrose 50% Syringe 50 ml 25 GM/50 ML SYRINGE IV PUSH ONE (08:56)
[2023-11-25] MEDS: CALCIUM GLUCONATE 1GM/50ML NS 1 GM/50 ML BAG IV ONE (09:43)
[2023-11-25] MEDS: Albumin Human 25% 25 GM/100 ML BTL IV PRN (11:59)
[2023-11-25 15:24] LABS: Calcium 8.8 mg/dL (8.6-10.3); Creatinine, Serum 4.51 mg/dL (0.51-0.95); Potassium 4.5 mmol/L (3.5-5.0); eGFR CKD-EPI 10.2 (>60)
[2023-11-26 05:40] LABS: Calcium 8.9 mg/dL (8.6-10.3); Creatinine, Serum 5.92 mg/dL (0.51-0.95); Potassium 4.5 mmol/L (3.5-5.0); eGFR CKD-EPI 7.4 (>60)
[2023-11-26 06:26] LABS: ABS Basophils 0.2 10^3/uL (0.0-0.1); ABS Eosinophils 0.3 10^3/uL (0.0-0.5); ABS Lymphocytes 3.1 10^3/uL (1.0-4.8); ABS Monocytes 1.6 10^3/uL (0.0-0.9); ABS Neutrophils 8.3 10^3/uL (1.5-7.6); Anisocytosis 2+; Eosinophil % 2.1 %; Hemoglobin 10.3 g/dL (11.5-14.3); Lymphocyte % 23.2 %; Mean Corpuscular Hgb Conc 32.3 g/dL (31-36); Mean Corpuscular Volume 99.3 fL (80-97); Mean Platelet Volume 7.4 fL (7.5-11.2); Nucleated Red Blood Cells % 2.3 %/100WBC (0.0-0.8); Platelet Count 241 10^3/uL (150-450); Polychromasia 2+; Red Blood Count 3.23 10^6/uL (3.63-4.92); White Blood Count 13.5 10^3/uL (3.8-11.8)
[2023-11-26] MEDS: Clindamycin 600 MG/D5W BAG 600 MG/50 ML BAG IV ONE (12:13)
[2023-11-26] MEDS ORDERED: Midazolam 5 mg/5 ml VIAL 1 mg/ml 5 ml VIAL (5 mg) ONE (12:46)
[2023-11-26] MEDS ORDERED: Heparin 1,000 UNIT/ML 10 ml (10,000 UNITS) CATHLAB/DIALYSIS ONE (12:46)
[2023-11-26] MEDS ORDERED: fentaNYL 100 mcg/2 ml 50 MCG/ML VIAL ONE ×2 (12:46→13:41)
[2023-11-26] MEDS ORDERED: Iohexol 180 (CONTRAST) 10 ML SDV IV ONE (12:47)
[2023-11-26] MEDS ORDERED: Heparin 2 UNITS/ML 1000 mls 1,000 ML IV ONE (12:47)
[2023-11-26] MEDS ORDERED: Lidocaine 1% MPF 5 ML VIAL ONE (12:47)
[2023-11-27 06:43] LABS: Potassium 5.6 mmol/L (3.5-5.0); eGFR CKD-EPI 5.1 (>60)
[2023-11-27 07:13] LABS: Hematocrit 31.3 % (35-45); Mean Corpuscular Hgb Conc 31.8 g/dL (31-36); Mean Corpuscular Volume 100.5 fL (80-97); Mean Platelet Volume 7.7 fL (7.5-11.2); Platelet Count 229 10^3/uL (150-450); Red Blood Count 3.12 10^6/uL (3.63-4.92); Red Cell Distribution Width 24.4 % (12-17); White Blood Count 11.4 10^3/uL (3.8-11.8)
[2023-11-27] MEDS ORDERED: Dextrose 50% Syringe 50 ml 25 GM/50 ML SYRINGE IV PUSH PRN (14:20)
[2023-11-27] MEDS: Heparin 5000 UNITS/ML 1 mL VIAL SUBCUT SCH (20:30)
[2023-11-27] MEDS: Lactated Ringers 1000 ml BAG 500 ML IV ONE (23:23)
[2023-11-27 23:40] LABS: Hematocrit 35.4 % (35-45); Hemoglobin 11.2 g/dL (11.5-14.3); Mean Corpuscular Hemoglobin 31.6 pg (27-33); Mean Corpuscular Hgb Conc 31.7 g/dL (31-36); Mean Corpuscular Volume 99.9 fL (80-97); Mean Platelet Volume 7.4 fL (7.5-11.2); Platelet Count 217 10^3/uL (150-450); Red Blood Count 3.54 10^6/uL (3.63-4.92); Red Cell Distribution Width 25.6 % (12-17)
[2023-11-27 23:56] LABS: Calcium 8.9 mg/dL (8.6-10.3); Creatinine, Serum 5.6 mg/dL (0.51-0.95); eGFR CKD-EPI 7.9 (>60)
[2023-11-28] MEDS: Lactated Ringers 1000 ml BAG 1,000 ML IV ONE (00:06)
[2023-11-28 01:14] LABS: ABS Basophils 0.2 10^3/uL (0.0-0.1); ABS Eosinophils 0.2 10^3/uL (0.0-0.5); ABS Lymphocytes 2.3 10^3/uL (1.0-4.8); ABS Monocytes 1.3 10^3/uL (0.0-0.9); ABS Nucleated RBC 0.35 10^3/ul; Anisocytosis 3+; Eosinophil % 1.3 %; Lymphocyte % 17.9 %; Nucleated Red Blood Cells % 2.7 %/100WBC (0.0-0.8); Polychromasia 2+
[2023-11-28 06:38] LABS: Hematocrit 34.7 % (35-45); Hemoglobin 11.1 g/dL (11.5-14.3); Mean Corpuscular Hemoglobin 32.1 pg (27-33); Mean Corpuscular Hgb Conc 32.1 g/dL (31-36); Mean Platelet Volume 7.7 fL (7.5-11.2); Platelet Count 227 10^3/uL (150-450); Red Blood Count 3.47 10^6/uL (3.63-4.92); Red Cell Distribution Width 25.6 % (12-17); White Blood Count 11.8 10^3/uL (3.8-11.8)
[2023-11-28 06:45] LABS: Calcium 8.9 mg/dL (8.6-10.3); Creatinine, Serum 5.82 mg/dL (0.51-0.95); Potassium 4.6 mmol/L (3.5-5.0); eGFR CKD-EPI 7.5 (>60)
[2023-11-28 07:37] LABS: ABS Basophils 0.1 10^3/uL (0.0-0.1); ABS Eosinophils 0.2 10^3/uL (0.0-0.5); ABS Lymphocytes 2.8 10^3/uL (1.0-4.8); ABS Monocytes 1.3 10^3/uL (0.0-0.9); ABS Neutrophils 7.4 10^3/uL (1.5-7.6); Eosinophil % 1.4 %; Lymphocyte % 23.4 %; Nucleated Red Blood Cells % 2.5 %/100WBC (0.0-0.8)
[2023-11-28] MEDS: Dextrose 50% Syringe 50 ml 25 GM/50 ML SYRINGE IV PUSH PRN (15:41)
[2023-11-28] MEDS: Erythromycin OPTH OINT APPLIC OINT RIGHT EYE PRN (21:59)
[2023-11-29 07:12] LABS: Calcium 8.9 mg/dL (8.6-10.3); Creatinine, Serum 7.75 mg/dL (0.51-0.95); Potassium 5.7 mmol/L (3.5-5.0); eGFR CKD-EPI 5.3 (>60)
[2023-11-29] MEDS: Heparin 1,000 UNIT/ML 10 ml (10,000 UNITS) CATHLAB/DIALYSIS DIALYSIS PRN (08:54)
[2023-11-29] MEDS: Ondansetron ODT 4 mg TAB 4 MG TAB PO PRN (16:39)
[2023-11-29 17:03] VITALS: BP 140/62
== END 2023-11-29 18:31 | disposition swing bed (61) | DRG 480 ==
LOC: ED 19:01 → SUATTDRO 11-13 00:11 → EDHOLD 11-13 00:11 → SSU 11-13 12:48 → MED 11-21 23:24
PROVIDERS: ADMIT Hospitalist; ATTEND Internal Medicine

== ENCOUNTER 2024-01-19 23:39 | Inpatient (IN) ==
[2024-01-20 00:21] LABS: ABS Basophils 0.1 10^3/uL (0.0-0.1); ABS Eosinophils 0.1 10^3/uL (0.0-0.5); ABS Lymphocytes 1.3 10^3/uL (1.0-4.8); ABS Monocytes 0.7 10^3/uL (0.0-0.9); ABS Neutrophils 7.9 10^3/uL (1.5-7.6); ABS Nucleated RBC 0.02 10^3/ul; Eosinophil % 1.3 %; Hemoglobin 9.4 g/dL (11.5-14.3); Mean Corpuscular Hemoglobin 31.9 pg (27-33); Mean Corpuscular Hgb Conc 32.6 g/dL (31-36); Mean Corpuscular Volume 97.9 fL (80-97); Mean Platelet Volume 6.6 fL (7.5-11.2); Nucleated Red Blood Cells % 0.2 %/100WBC (0.0-0.8); Platelet Count 235 10^3/uL (150-450); Red Blood Count 2.96 10^6/uL (3.63-4.92); Red Cell Distribution Width 18.1 % (12-17); White Blood Count 10.1 10^3/uL (3.8-11.8)
[2024-01-20] MEDS: Lactated Ringers 1000 ml BAG 1,000 ML IV ONE (00:22)
[2024-01-20 00:38] LABS: Glucose Confirmatory 487 mg/dL (70-100)
[2024-01-20 00:58] LABS: ALT 37 U/L (7-52); AST 46 U/L (13-39); Albumin/Globulin Ratio 2.1 (1-3); Alcohol, S < 13 mg/dL (<13); Alkaline Phosphatase 101 U/L (35-149); Anion Gap 15 mmol/L (2-16); Blood Urea Nitrogen 44 mg/dL (6-24); CO2 Carbon Dioxide 25 mmol/L (22-32); Calcium 8.9 mg/dL (8.6-10.3); Chloride 96 mmol/L (101-111); Creatinine, Serum 6.92 mg/dL (0.51-0.95); Globulin 1.9 g/dL (2-4); Glucose 485 mg/dL (70-100); Magnesium 2.1 mg/dL (1.9-2.7); Potassium 3.5 mmol/L (3.5-5.0); Sodium 136 mmol/L (135-145); Total Bilirubin 0.5 mg/dL (0.2-1.0); Total Protein 5.9 g/dL (6.4-8.9); eGFR CKD-EPI 6.1 (>60)
[2024-01-20] MEDS: KCL 10 MEQ/50 ML IVPREMIX 10 MEQ/50 ML BAG IV ONE (02:10)
[2024-01-20 02:46] LABS: Urine Appearance Clear; Urine Bacteria Absent /HPF (Absent); Urine Bilirubin Negative (Negative); Urine Blood Trace (Negative); Urine Color Light-Yellow; Urine Glucose 4+ (>=1000 mg/dL) (Negative); Urine Ketones Negative (Negative); Urine Nitrite Negative (Negative); Urine Protein 2+ (>=100 mg/dL) (Negative); Urine Red Blood Cell Trace(0-2/hpf) /HPF (0-Trace); Urine Urobilinogen Negative (Negative); Urine White Blood Cell Trace(0-5/hpf) /HPF (0-Trace); Urine pH 7.5 (5.0-8.0)
[2024-01-20 02:58] LABS: Urine Benzodiazepine Screen None Detected (None Detect); Urine Cannabinoids Screen None Detected (None Detect); Urine Opiates Screen Presumptive Positive (None Detect)
[2024-01-20 03:12] LABS: High Sensitivity Troponin 1 Hr 23 pg/mL (<15)
[2024-01-20] MEDS ORDERED: Albuterol HFA INHALER 8 gm MDI INH PRN (03:34)
[2024-01-20 04:48] LABS: Creatinine, Serum 6.87 mg/dL (0.51-0.95); Potassium 3.6 mmol/L (3.5-5.0); eGFR CKD-EPI 6.1 (>60)
[2024-01-20] MEDS: HYDROcodone/Acetamin 10/325 TAB (NF) PO PRN (06:25)
[2024-01-20 07:29] LABS: HDL Cholesterol 60.5 mg/dL
[2024-01-20] MEDS ORDERED: NS 0.9% 1000 ml BAG 200 ML IV PRN (07:47)
[2024-01-20] MEDS ORDERED: Albumin Human 25% 25 GM/100 ML BTL IV PRN (07:47)
[2024-01-20] MEDS ORDERED: NS 0.9% 1000 ml BAG 100 ML IV PRN (07:47)
[2024-01-20] MEDS: Amphetamine MIXED SALT 10mgTAB PO SCH (09:06)
[2024-01-20] MEDS: Insulin GLARGINE 100 un/ml 10 ml VIAL SUBCUT SCH (09:20)
[2024-01-20] MEDS: CMCS: Cyclosporine 0.05% OPHTH (NF) 0.4 ML VIAL BOTH EYES SCH (09:29)
[2024-01-20] MEDS: CMCS: Brimonidine/Timolol 0.2%/0.5% OPTH(NF) SOL 5 ML BOTH EYES SCH (11:20)
[2024-01-20] MEDS: prednisoLONE 1% OPHTH.SUSP 5 ML OPHTH.SUSP RIGHT EYE SCH (11:23)
[2024-01-20] MEDS: Ondansetron 4 mg VIAL 2 MG/ML 2 ml VIAL IV PRN (14:14)
[2024-01-20] MEDS: Heparin 1,000 UNIT/ML 10 ml (10,000 UNITS) CATHLAB/DIALYSIS DIALYSIS PRN (14:14)
[2024-01-20] MEDS: Dextrose 50% Syringe 50 ml 25 GM/50 ML SYRINGE IV PUSH PRN (15:24)
[2024-01-20 15:40] LABS: PCO2 Arterial 47 mmHg (35-45)
[2024-01-20 15:45] LABS: PO2 Arterial 43 mmHg (80-100)
[2024-01-20] MEDS: Tranexamic Acid 1,000 MG/10 ML SDV INH ONE (16:16)
[2024-01-20] MEDS ORDERED: Bimatoprost 0.01% OPHTH (NF) 2.5 ML BTL BOTH EYES SCH (21:00)
[2024-01-20] MEDS: Latanoprost 0.005% 2.5 ml BTL BOTH EYES SCH (21:31)
[2024-01-21 08:10] LABS: ABS Basophils 0.1 10^3/uL (0.0-0.1); ABS Eosinophils 0.1 10^3/uL (0.0-0.5); ABS Lymphocytes 1.6 10^3/uL (1.0-4.8); ABS Monocytes 0.9 10^3/uL (0.0-0.9); ABS Neutrophils 7.1 10^3/uL (1.5-7.6); ABS Nucleated RBC 0.02 10^3/ul; Eosinophil % 1.1 %; Hematocrit 25.9 % (35-45); Hemoglobin 8.6 g/dL (11.5-14.3); Lymphocyte % 16.7 %; Mean Corpuscular Hemoglobin 32.2 pg (27-33); Mean Corpuscular Hgb Conc 33.2 g/dL (31-36); Mean Platelet Volume 6.9 fL (7.5-11.2); Nucleated Red Blood Cells % 0.2 %/100WBC (0.0-0.8); Platelet Count 183 10^3/uL (150-450); Red Blood Count 2.67 10^6/uL (3.63-4.92); Red Cell Distribution Width 18.6 % (12-17); White Blood Count 9.8 10^3/uL (3.8-11.8)
[2024-01-21 08:54] LABS: Calcium 8.3 mg/dL (8.6-10.3); Creatinine, Serum 4.87 mg/dL (0.51-0.95); Potassium 4.2 mmol/L (3.5-5.0); eGFR CKD-EPI 9.2 (>60)
[2024-01-21 10:14] LABS: Hepatitis B Surface Ab Not Immune (Immune)
[2024-01-21 11:50] LABS: Hepatitis B Surface Antigen Reactive (Nonreactive)
[2024-01-21 22:47] LABS: Glucose Confirmatory 473 mg/dL (70-100)
[2024-01-22 00:12] LABS: Hepatitis B Surface Antigen Nonreactive (Nonreactive)
[2024-01-22] MEDS: Dextran 70/Hypromellose Tears Eye Drops 15 ml BTL (for Artificials Tears) BOTH EYES PRN (02:27)
[2024-01-22 06:52] LABS: ABS Basophils 0.1 10^3/uL (0.0-0.1); ABS Eosinophils 0.3 10^3/uL (0.0-0.5); ABS Lymphocytes 2.2 10^3/uL (1.0-4.8); ABS Monocytes 0.9 10^3/uL (0.0-0.9); ABS Neutrophils 4.5 10^3/uL (1.5-7.6); ABS Nucleated RBC 0.01 10^3/ul; Eosinophil % 3.9 %; Hematocrit 25.9 % (35-45); Hemoglobin 8.7 g/dL (11.5-14.3); Lymphocyte % 27.3 %; Mean Corpuscular Hemoglobin 32.6 pg (27-33); Mean Corpuscular Hgb Conc 33.4 g/dL (31-36); Mean Corpuscular Volume 97.6 fL (80-97); Mean Platelet Volume 7.4 fL (7.5-11.2); Nucleated Red Blood Cells % 0.1 %/100WBC (0.0-0.8); Platelet Count 158 10^3/uL (150-450); Red Blood Count 2.66 10^6/uL (3.63-4.92); Red Cell Distribution Width 18.2 % (12-17)
[2024-01-22 07:06] LABS: Calcium 8.4 mg/dL (8.6-10.3); Creatinine, Serum 4.82 mg/dL (0.51-0.95); Magnesium 1.8 mg/dL (1.9-2.7); Potassium 3.8 mmol/L (3.5-5.0); eGFR CKD-EPI 9.4 (>60)
[2024-01-22 13:06] LABS: Glucose Confirmatory 465 mg/dL (70-100)
[2024-01-22] MEDS: Magnesium Sulfate IV 1GM/100ML 1 GM/100 ML BAG IV ONE (16:07)
[2024-01-22 16:44] LABS: Hepatitis B Surface AG Reactive (Negative)
[2024-01-23 08:56] LABS: ABS Eosinophils 0.2 10^3/uL (0.0-0.5); ABS Lymphocytes 1.7 10^3/uL (1.0-4.8); ABS Monocytes 0.7 10^3/uL (0.0-0.9); ABS Neutrophils 5.3 10^3/uL (1.5-7.6); Eosinophil % 2.5 %; Hematocrit 29.7 % (35-45); Hemoglobin 9.7 g/dL (11.5-14.3); Mean Corpuscular Hemoglobin 31.8 pg (27-33); Mean Corpuscular Hgb Conc 32.8 g/dL (31-36); Mean Corpuscular Volume 96.9 fL (80-97); Mean Platelet Volume 7.2 fL (7.5-11.2); Platelet Count 190 10^3/uL (150-450); Red Blood Count 3.06 10^6/uL (3.63-4.92); Red Cell Distribution Width 18.6 % (12-17); White Blood Count 7.9 10^3/uL (3.8-11.8)
[2024-01-23 09:22] LABS: Calcium 8.9 mg/dL (8.6-10.3); Creatinine, Serum 6.63 mg/dL (0.51-0.95); Magnesium 2.5 mg/dL (1.9-2.7); Potassium 4.4 mmol/L (3.5-5.0); eGFR CKD-EPI 6.4 (>60)
[2024-01-23] MEDS: LORazepam 2 MG/ML 1 mL Syringe IM ONE (17:37)
[2024-01-23] MEDS: Dextrose 50% Syringe 50 ml 25 GM/50 ML SYRINGE IV PUSH PRN (18:12)
[2024-01-23] MEDS: LORazepam 2 mg VIAL 1 ml ONE (18:12)
[2024-01-23] MEDS: LORazepam 2 mg VIAL 1 ml IM ONE (18:29)
[2024-01-23] MEDS ORDERED: Haloperidol 5 mg/ml SDV IV/IM 5 MG/ML AMP IM PRN (22:57)
[2024-01-24] MEDS: HYDROcodone/ACETAMIN 5/325 mg TAB PO ONE ×2 (01:26→09:45)
[2024-01-24 06:29] LABS: ABS Basophils 0.1 10^3/uL (0.0-0.1); ABS Eosinophils 0.1 10^3/uL (0.0-0.5); ABS Lymphocytes 1.7 10^3/uL (1.0-4.8); ABS Monocytes 0.8 10^3/uL (0.0-0.9); ABS Neutrophils 6.4 10^3/uL (1.5-7.6); ABS Nucleated RBC 0.01 10^3/ul; Eosinophil % 0.6 %; Hematocrit 30.3 % (35-45); Hemoglobin 9.9 g/dL (11.5-14.3); Lymphocyte % 19.4 %; Mean Corpuscular Hemoglobin 31.8 pg (27-33); Mean Corpuscular Hgb Conc 32.6 g/dL (31-36); Mean Corpuscular Volume 97.4 fL (80-97); Mean Platelet Volume 7.8 fL (7.5-11.2); Nucleated Red Blood Cells % 0.1 %/100WBC (0.0-0.8); Platelet Count 179 10^3/uL (150-450); Red Blood Count 3.12 10^6/uL (3.63-4.92); Red Cell Distribution Width 18.4 % (12-17)
[2024-01-24 06:45] LABS: Calcium 8.4 mg/dL (8.6-10.3); Creatinine, Serum 5.36 mg/dL (0.51-0.95); Potassium 4.7 mmol/L (3.5-5.0); eGFR CKD-EPI 8.2 (>60)
[2024-01-24] MEDS ORDERED: Dextrose 50% Syringe 50 ml 25 GM/50 ML SYRINGE IV PUSH PRN ×2 (08:00→21:36)
[2024-01-24 09:11] LABS: Glucose Confirmatory 450 mg/dL (70-100)
[2024-01-24] MEDS: Insulin GLARGINE 100 un/ml 10 ml VIAL SUBCUT SCH (09:15)
[2024-01-24 14:03] LABS: Hepatitis B DNA Quantitative Undetected IU/mL (Undetected)
[2024-01-24] MEDS: HYDROcodone/ACETAMIN 5/325 mg TAB PO PRN (21:36)
[2024-01-25 06:36] LABS: ABS Basophils 0.1 10^3/uL (0.0-0.1); ABS Eosinophils 0.2 10^3/uL (0.0-0.5); ABS Lymphocytes 2.3 10^3/uL (1.0-4.8); ABS Monocytes 0.9 10^3/uL (0.0-0.9); ABS Neutrophils 5.3 10^3/uL (1.5-7.6); Eosinophil % 2.4 %; Hematocrit 28.4 % (35-45); Hemoglobin 9.5 g/dL (11.5-14.3); Lymphocyte % 26.2 %; Mean Corpuscular Hemoglobin 32.2 pg (27-33); Mean Corpuscular Hgb Conc 33.4 g/dL (31-36); Mean Corpuscular Volume 96.5 fL (80-97); Mean Platelet Volume 7.9 fL (7.5-11.2); Platelet Count 189 10^3/uL (150-450); Red Blood Count 2.94 10^6/uL (3.63-4.92); Red Cell Distribution Width 18.4 % (12-17); White Blood Count 8.9 10^3/uL (3.8-11.8)
[2024-01-25 06:54] LABS: Calcium 8.5 mg/dL (8.6-10.3); Creatinine, Serum 4.98 mg/dL (0.51-0.95); Magnesium 2.1 mg/dL (1.9-2.7); Potassium 4.2 mmol/L (3.5-5.0)
[2024-01-25] MEDS ORDERED: Dextrose 50% Syringe 50 ml 25 GM/50 ML SYRINGE IV PUSH PRN ×2 (12:07→15:17)
[2024-01-25] MEDS: Insulin GLARGINE 100 un/ml 10 ml VIAL SUBCUT ONE ×2 (12:16→16:43)
[2024-01-25 17:32] LABS: Calcium 8.4 mg/dL (8.6-10.3); Creatinine, Serum 6.08 mg/dL (0.51-0.95); Potassium 4.6 mmol/L (3.5-5.0); eGFR CKD-EPI 7.1 (>60)
[2024-01-25] MEDS: Senna TAB 8.6 mg TAB PO PRN (20:30)
[2024-01-25] MEDS: Polyethylene Glycol 3350 17 GM PACKET PO PRN (20:31)
[2024-01-25] MEDS: HYDROcodone/ACETAMIN 5/325 mg TAB PO PRN (20:39)
[2024-01-26] MEDS: Heparin 5000 UNITS/ML 1 mL VIAL SUBCUT SCH (05:59)
[2024-01-26] MEDS: Insulin GLARGINE 100 un/ml 10 ml VIAL SUBCUT SCH (08:43)
[2024-01-26 08:51] LABS: Calcium 8.3 mg/dL (8.6-10.3); Creatinine, Serum 6.92 mg/dL (0.51-0.95); Potassium 4.5 mmol/L (3.5-5.0); eGFR CKD-EPI 6.1 (>60)
[2024-01-26] MEDS ORDERED: Insulin GLARGINE 100 un/ml 10 ml VIAL SUBCUT SCH (09:00)
[2024-01-26 12:13] LABS: Glucose Confirmatory 444 mg/dL (70-100)
[2024-01-26] MEDS ORDERED: Dextrose 50% Syringe 50 ml 25 GM/50 ML SYRINGE IV PUSH PRN ×2 (13:10→18:23)
[2024-01-26 18:11] LABS: Glucose Confirmatory 437 mg/dL (70-100)
[2024-01-26] MEDS: Insulin GLARGINE 100 un/ml 10 ml VIAL SUBCUT ONE (19:46)
[2024-01-27 06:54] LABS: Calcium 8.1 mg/dL (8.6-10.3); Creatinine, Serum 8.55 mg/dL (0.51-0.95); Potassium 5.2 mmol/L (3.5-5.0); eGFR CKD-EPI 4.7 (>60)
[2024-01-27] MEDS: Insulin GLARGINE 100 un/ml 10 ml VIAL SUBCUT SCH (10:00)
[2024-01-28] MEDS: Dextrose 50% Syringe 50 ml 25 GM/50 ML SYRINGE IV PUSH PRN (05:35)
[2024-01-28 06:32] LABS: Hematocrit 30.3 % (35-45); Hemoglobin 9.9 g/dL (11.5-14.3); Mean Corpuscular Hemoglobin 31.9 pg (27-33); Mean Corpuscular Hgb Conc 32.8 g/dL (31-36); Mean Corpuscular Volume 97.5 fL (80-97); Mean Platelet Volume 8.4 fL (7.5-11.2); Platelet Count 236 10^3/uL (150-450); Red Blood Count 3.11 10^6/uL (3.63-4.92); Red Cell Distribution Width 18.4 % (12-17)
[2024-01-28 07:23] LABS: Calcium 8.4 mg/dL (8.6-10.3); Creatinine, Serum 5.89 mg/dL (0.51-0.95); eGFR CKD-EPI 7.4 (>60)
[2024-01-28 13:36] VITALS: BP 150/81
== END 2024-01-28 14:50 | disposition home or self-care (01) | DRG 917 ==
LOC: ED 23:39 → SUATTDRO 01-20 03:18 → EDHOLD 01-20 03:18 → MED 01-20 13:52
PROVIDERS: ADMIT Internal Medicine; ATTEND Hospitalist

== ENCOUNTER 2024-01-31 10:48 | Inpatient (IN) ==
[2024-01-31] MEDS ORDERED: Heparin 1,000 UNIT/ML 10 ml (10,000 UNITS) CATHLAB/DIALYSIS DIALYSIS PRN (11:35)
[2024-01-31] MEDS ORDERED: NS 0.9% 1000 ml BAG 100 ML IV PRN ×2 (11:35→11:36)
[2024-01-31] MEDS ORDERED: NS 0.9% 1000 ml BAG 200 ML IV PRN ×2 (11:35→11:36)
[2024-01-31] MEDS ORDERED: Albumin Human 25% 25 GM/100 ML BTL IV PRN ×2 (11:35→11:36)
[2024-01-31 12:32] LABS: ABS Basophils 0.2 10^3/uL (0.0-0.1); ABS Eosinophils 0.1 10^3/uL (0.0-0.5); ABS Lymphocytes 1.2 10^3/uL (1.0-4.8); ABS Monocytes 1.5 10^3/uL (0.0-0.9); ABS Neutrophils 12.3 10^3/uL (1.5-7.6); ABS Nucleated RBC 0.01 10^3/ul; Eosinophil % 0.9 %; Hematocrit 29.2 % (35-45); Hemoglobin 9.5 g/dL (11.5-14.3); Lymphocyte % 7.8 %; Mean Corpuscular Hemoglobin 31.2 pg (27-33); Mean Corpuscular Hgb Conc 32.4 g/dL (31-36); Mean Corpuscular Volume 96.2 fL (80-97); Nucleated Red Blood Cells % 0.1 %/100WBC (0.0-0.8); Platelet Count 293 10^3/uL (150-450); Red Blood Count 3.04 10^6/uL (3.63-4.92); Red Cell Distribution Width 17.9 % (12-17); White Blood Count 15.3 10^3/uL (3.8-11.8)
[2024-01-31] MEDS ORDERED: Polyethylene Glycol 3350 17 GM PACKET PO PRN (13:01)
[2024-01-31] MEDS ORDERED: Dextrose 50% Syringe 50 ml 25 GM/50 ML SYRINGE IV PUSH PRN (13:01)
[2024-01-31] MEDS ORDERED: Albuterol HFA INHALER 8 gm MDI INH PRN (13:01)
[2024-01-31 13:03] LABS: Albumin 3.4 g/dL (3.2-5.2); Albumin/Globulin Ratio 1.6 (1-3); Calcium 8.4 mg/dL (8.6-10.3); Creatinine, Serum 7.82 mg/dL (0.51-0.95); Globulin 2.1 g/dL (2-4); Potassium 5.6 mmol/L (3.5-5.0); Total Bilirubin 0.4 mg/dL (0.2-1.0); Total Protein 5.5 g/dL (6.4-8.9); eGFR CKD-EPI 5.2 (>60)
[2024-01-31] MEDS ORDERED: Ondansetron ODT 4 mg TAB 4 MG TAB PO PRN (13:09)
[2024-01-31] MEDS: HYDROcodone/Acetamin 10/325 TAB (NF) PO PRN (13:35)
[2024-01-31] MEDS: Heparin 1,000 UNIT/ML 10 ml (10,000 UNITS) CATHLAB/DIALYSIS DIALYSIS PRN (15:45)
[2024-01-31] MEDS: buPROPion SR 100 mg TAB.SR PO SCH (17:52)
[2024-01-31] MEDS: CMC:Brimonidine/Timolol 0.2%/0.5% OPTH(NF) SOL 5 ML BOTH EYES SCH (22:31)
[2024-01-31] MEDS: Latanoprost 0.005% 2.5 ml BTL BOTH EYES SCH (22:35)
[2024-01-31] MEDS: BIMATOPROST 0.01% BOTH EYES SCH (22:37)
[2024-01-31] MEDS: Cyclosporine 0.05% OPHTH (NF) 0.4 ML VIAL BOTH EYES SCH (22:39)
[2024-01-31] MEDS: Insulin GLARGINE 100 un/ml 10 ml VIAL SUBCUT SCH (22:49)
[2024-02-01] MEDS: Lidocaine PATCH 5% PATCH TRANSDERM SCH (08:25)
[2024-02-01] MEDS: Amphetamine MIXED SALT 10mgTAB PO SCH (08:42)
[2024-02-01 10:48] LABS: ABS Basophils 0.1 10^3/uL (0.0-0.1); ABS Eosinophils 0.2 10^3/uL (0.0-0.5); ABS Lymphocytes 1.2 10^3/uL (1.0-4.8); ABS Monocytes 1.1 10^3/uL (0.0-0.9); ABS Neutrophils 6.3 10^3/uL (1.5-7.6); Eosinophil % 2.1 %; Hematocrit 27.3 % (35-45); Hemoglobin 9.1 g/dL (11.5-14.3); Lymphocyte % 13.5 %; Mean Corpuscular Hemoglobin 32.5 pg (27-33); Mean Corpuscular Hgb Conc 33.4 g/dL (31-36); Mean Corpuscular Volume 97.4 fL (80-97); Mean Platelet Volume 7.7 fL (7.5-11.2); Platelet Count 283 10^3/uL (150-450); Red Cell Distribution Width 18.2 % (12-17); White Blood Count 8.9 10^3/uL (3.8-11.8)
[2024-02-01 12:17] LABS: Glucose Confirmatory 432 mg/dL (70-100)
[2024-02-01] MEDS: prednisoLONE 1% OPHTH.SUSP 5 ML OPHTH.SUSP RIGHT EYE SCH (15:01)
[2024-02-01] MEDS: Fluticasone NASAL SPRAY 50MCG 16 gm SPRAY BTL INTRANASAL SCH (15:03)
[2024-02-01 18:25] LABS: Glucose Confirmatory 413 mg/dL (70-100)
[2024-02-01] MEDS ORDERED: Insulin GLARGINE 100 un/ml 10 ml VIAL SUBCUT SCH (21:00)
[2024-02-02 10:23] LABS: Glucose Confirmatory 485 mg/dL (70-100)
[2024-02-02] MEDS: Senna TAB 8.6 mg TAB PO PRN (12:00)
[2024-02-02] MEDS: Polyethylene Glycol 3350 17 GM PACKET PO SCH (20:43)
[2024-02-02 22:03] LABS: Glucose Confirmatory 451 mg/dL (70-100)
[2024-02-03] MEDS: Senna TAB 8.6 mg TAB PO SCH (08:12)
[2024-02-04] MEDS: Insulin GLARGINE 100 un/ml 10 ml VIAL SUBCUT SCH (08:46)
[2024-02-04 10:37] LABS: Hematocrit 26.2 % (35-45); Hemoglobin 8.6 g/dL (11.5-14.3); Mean Corpuscular Hemoglobin 31.7 pg (27-33); Mean Corpuscular Hgb Conc 32.7 g/dL (31-36); Mean Corpuscular Volume 96.9 fL (80-97); Mean Platelet Volume 7.8 fL (7.5-11.2); Platelet Count 287 10^3/uL (150-450); Red Blood Count 2.71 10^6/uL (3.63-4.92); Red Cell Distribution Width 18.2 % (12-17); White Blood Count 11.7 10^3/uL (3.8-11.8)
[2024-02-04 10:49] LABS: C Reactive Protein 135.45 mg/L (<8.01); Calcium 8.8 mg/dL (8.6-10.3); Creatinine, Serum 6.23 mg/dL (0.51-0.95); Potassium 5.1 mmol/L (3.5-5.0); eGFR CKD-EPI 6.9 (>60)
[2024-02-05 08:07] LABS: ABS Basophils 0.2 10^3/uL (0.0-0.1); ABS Eosinophils 0.1 10^3/uL (0.0-0.5); ABS Lymphocytes 1.2 10^3/uL (1.0-4.8); ABS Monocytes 0.9 10^3/uL (0.0-0.9); ABS Neutrophils 14.3 10^3/uL (1.5-7.6); Eosinophil % 0.9 %; Hematocrit 28.5 % (35-45); Hemoglobin 9.5 g/dL (11.5-14.3); Lymphocyte % 7.4 %; Mean Corpuscular Hgb Conc 33.4 g/dL (31-36); Mean Corpuscular Volume 95.8 fL (80-97); Mean Platelet Volume 7.3 fL (7.5-11.2); Platelet Count 306 10^3/uL (150-450); Red Blood Count 2.98 10^6/uL (3.63-4.92); Red Cell Distribution Width 17.1 % (12-17); White Blood Count 16.8 10^3/uL (3.8-11.8)
[2024-02-05 08:27] LABS: Calcium 8.9 mg/dL (8.6-10.3); Creatinine, Serum 7.52 mg/dL (0.51-0.95); eGFR CKD-EPI 5.5 (>60)
[2024-02-05] MEDS ORDERED: Vancomycin per Pharmacy 1 EA NOTE FOLLOW UP PRN (18:18)
[2024-02-05] MEDS: Acetaminophen IV 1 GM/100ML 1,000 MG/100 ML BAG IV PRN (18:27)
[2024-02-05] MEDS: cefTRIAXone 2 gm/50 mL D5W 2 GM/50 ML BAG IV SCH (18:49)
[2024-02-05] MEDS: Vancomycin 1,000 MG in NS 0.9% 250 ml 250 ML IVPB ONE (20:46)
[2024-02-06] MEDS: Vancomycin Random Level NOTE FOLLOW UP ONE (06:14)
[2024-02-06 06:39] LABS: ABS Basophils 0.2 10^3/uL (0.0-0.1); ABS Eosinophils 0.3 10^3/uL (0.0-0.5); ABS Lymphocytes 1.5 10^3/uL (1.0-4.8); ABS Monocytes 1.5 10^3/uL (0.0-0.9); ABS Neutrophils 19.3 10^3/uL (1.5-7.6); ABS Nucleated RBC 0.01 10^3/ul; Eosinophil % 1.2 %; Hematocrit 27.1 % (35-45); Hemoglobin 8.9 g/dL (11.5-14.3); Lymphocyte % 6.6 %; Mean Corpuscular Hemoglobin 31.8 pg (27-33); Mean Corpuscular Volume 96.5 fL (80-97); Mean Platelet Volume 7.3 fL (7.5-11.2); Platelet Count 264 10^3/uL (150-450); Red Cell Distribution Width 17.7 % (12-17); White Blood Count 22.7 10^3/uL (3.8-11.8)
[2024-02-06] MEDS: Insulin GLARGINE 100 un/ml 10 ml VIAL SUBCUT SCH (09:09)
[2024-02-06] MEDS: Morphine 2 MG/ML SYRINGE IV PRN (18:46)
[2024-02-07 08:26] LABS: ABS Basophils 0.1 10^3/uL (0.0-0.1); ABS Eosinophils 0.3 10^3/uL (0.0-0.5); ABS Lymphocytes 1.6 10^3/uL (1.0-4.8); ABS Monocytes 0.8 10^3/uL (0.0-0.9); ABS Nucleated RBC 0.01 10^3/ul; Eosinophil % 2.2 %; Hematocrit 25.6 % (35-45); Hemoglobin 8.4 g/dL (11.5-14.3); Lymphocyte % 10.7 %; Mean Corpuscular Hemoglobin 31.7 pg (27-33); Mean Corpuscular Volume 96.1 fL (80-97); Mean Platelet Volume 7.3 fL (7.5-11.2); Platelet Count 238 10^3/uL (150-450); Red Blood Count 2.66 10^6/uL (3.63-4.92); Red Cell Distribution Width 17.6 % (12-17); White Blood Count 14.9 10^3/uL (3.8-11.8)
[2024-02-07 08:44] LABS: Calcium 8.2 mg/dL (8.6-10.3); Creatinine, Serum 7.37 mg/dL (0.51-0.95); Magnesium 2.1 mg/dL (1.9-2.7); eGFR CKD-EPI 5.6 (>60)
[2024-02-07] MEDS: Vancomycin 500 MG in NS 0.9% 250 ML IVPB ONE (17:24)
[2024-02-08 09:56] LABS: ABS Basophils 0.1 10^3/uL (0.0-0.1); ABS Eosinophils 0.2 10^3/uL (0.0-0.5); ABS Lymphocytes 1.3 10^3/uL (1.0-4.8); ABS Neutrophils 9.3 10^3/uL (1.5-7.6); ABS Nucleated RBC 0.01 10^3/ul; Eosinophil % 2.1 %; Hematocrit 27.3 % (35-45); Hemoglobin 8.9 g/dL (11.5-14.3); Mean Corpuscular Hemoglobin 30.9 pg (27-33); Mean Corpuscular Hgb Conc 32.6 g/dL (31-36); Mean Corpuscular Volume 94.8 fL (80-97); Mean Platelet Volume 7.4 fL (7.5-11.2); Nucleated Red Blood Cells % 0.1 %/100WBC (0.0-0.8); Platelet Count 246 10^3/uL (150-450); Red Blood Count 2.88 10^6/uL (3.63-4.92); Red Cell Distribution Width 17.3 % (12-17); White Blood Count 11.9 10^3/uL (3.8-11.8)
[2024-02-09 08:17] LABS: ABS Basophils 0.1 10^3/uL (0.0-0.1); ABS Eosinophils 0.3 10^3/uL (0.0-0.5); ABS Lymphocytes 1.2 10^3/uL (1.0-4.8); ABS Neutrophils 6.7 10^3/uL (1.5-7.6); Eosinophil % 2.9 %; Hemoglobin 8.7 g/dL (11.5-14.3); Mean Corpuscular Hemoglobin 31.8 pg (27-33); Mean Corpuscular Hgb Conc 33.3 g/dL (31-36); Mean Corpuscular Volume 95.7 fL (80-97); Mean Platelet Volume 7.3 fL (7.5-11.2); Platelet Count 229 10^3/uL (150-450); Red Blood Count 2.72 10^6/uL (3.63-4.92); Red Cell Distribution Width 17.4 % (12-17); White Blood Count 9.3 10^3/uL (3.8-11.8)
[2024-02-09 08:33] LABS: Glucose Confirmatory 449 mg/dL (70-100)
[2024-02-09] MEDS: Morphine 2 MG/ML SYRINGE IV ONE (11:03)
[2024-02-09] MEDS: Cyclosporine 0.05% OPHTH (NF) 0.4 ML VIAL BOTH EYES SCH (23:36)
[2024-02-10] MEDS ORDERED: Vancomycin Random Level NOTE FOLLOW UP ONE (06:00)
[2024-02-10 06:28] LABS: Hematocrit 24.4 % (35-45); Hemoglobin 8.1 g/dL (11.5-14.3); Mean Corpuscular Hemoglobin 31.6 pg (27-33); Mean Corpuscular Hgb Conc 33.2 g/dL (31-36); Mean Corpuscular Volume 95.4 fL (80-97); Mean Platelet Volume 7.6 fL (7.5-11.2); Platelet Count 238 10^3/uL (150-450); Red Blood Count 2.55 10^6/uL (3.63-4.92); Red Cell Distribution Width 17.7 % (12-17); White Blood Count 8.7 10^3/uL (3.8-11.8)
[2024-02-10 06:49] LABS: C Reactive Protein 88.34 mg/L (<8.01); Calcium 8.1 mg/dL (8.6-10.3); Creatinine, Serum 8.79 mg/dL (0.51-0.95); Potassium 3.9 mmol/L (3.5-5.0); eGFR CKD-EPI 4.5 (>60)
[2024-02-10 07:27] LABS: ABS Basophils 0.1 10^3/uL (0.0-0.1); ABS Eosinophils 0.3 10^3/uL (0.0-0.5); ABS Lymphocytes 1.5 10^3/uL (1.0-4.8); ABS Monocytes 0.9 10^3/uL (0.0-0.9); ABS Neutrophils 5.9 10^3/uL (1.5-7.6); Eosinophil % 3.3 %; Lymphocyte % 17.5 %
[2024-02-10] MEDS ORDERED: Dextrose 50% Syringe 50 ml 25 GM/50 ML SYRINGE IV PUSH PRN (07:49)
[2024-02-10] MEDS: Insulin GLARGINE 100 un/ml 10 ml VIAL SUBCUT SCH (08:35)
[2024-02-10] MEDS ORDERED: Insulin GLARGINE 100 un/ml 10 ml VIAL SUBCUT SCH (09:00)
[2024-02-10 09:07] LABS: Calcium 8.2 mg/dL (8.6-10.3); Creatinine, Serum 9.21 mg/dL (0.51-0.95); Potassium 4.2 mmol/L (3.5-5.0); eGFR CKD-EPI 4.3 (>60)
[2024-02-10 12:42] LABS: INR 0.95 (0.85-1.14)
[2024-02-10] MEDS: Morphine 2 MG/ML SYRINGE IV PRN (15:00)
[2024-02-12 06:25] LABS: Hemoglobin 7.7 g/dL (11.5-14.3); Mean Corpuscular Hemoglobin 31.4 pg (27-33); Mean Corpuscular Hgb Conc 33.4 g/dL (31-36); Mean Corpuscular Volume 94.2 fL (80-97); Mean Platelet Volume 7.6 fL (7.5-11.2); Platelet Count 277 10^3/uL (150-450); Red Blood Count 2.44 10^6/uL (3.63-4.92); Red Cell Distribution Width 17.3 % (12-17); White Blood Count 10.4 10^3/uL (3.8-11.8)
[2024-02-12 06:45] LABS: Calcium 8.4 mg/dL (8.6-10.3); Creatinine, Serum 8.17 mg/dL (0.51-0.95); Potassium 3.8 mmol/L (3.5-5.0)
[2024-02-12] MEDS ORDERED: NS 0.9% 1000 ml BAG 200 ML IV PRN (11:27)
[2024-02-12] MEDS ORDERED: Albumin Human 25% 25 GM/100 ML BTL IV PRN (11:27)
[2024-02-12] MEDS ORDERED: Heparin 1,000 UNIT/ML 10 ml (10,000 UNITS) CATHLAB/DIALYSIS DIALYSIS PRN (11:27)
[2024-02-12] MEDS ORDERED: NS 0.9% 1000 ml BAG 100 ML IV PRN (11:27)
[2024-02-13 06:04] LABS: ABS Basophils 0.1 10^3/uL (0.0-0.1); ABS Eosinophils 0.2 10^3/uL (0.0-0.5); ABS Lymphocytes 1.4 10^3/uL (1.0-4.8); ABS Monocytes 0.7 10^3/uL (0.0-0.9); ABS Neutrophils 6.1 10^3/uL (1.5-7.6); Eosinophil % 2.5 %; Hematocrit 25.7 % (35-45); Lymphocyte % 16.9 %; Mean Corpuscular Hgb Conc 31.1 g/dL (31-36); Mean Corpuscular Volume 93.3 fL (80-97); Mean Platelet Volume 8.5 fL (7.5-11.2); Platelet Count 377 10^3/uL (150-450); Red Blood Count 2.76 10^6/uL (3.63-4.92); Red Cell Distribution Width 17.9 % (12-17); White Blood Count 8.5 10^3/uL (3.8-11.8)
[2024-02-13 06:36] LABS: Calcium 8.3 mg/dL (8.6-10.3); Creatinine, Serum 7.13 mg/dL (0.51-0.95); Magnesium 1.8 mg/dL (1.9-2.7); Potassium 4.1 mmol/L (3.5-5.0); eGFR CKD-EPI 5.8 (>60)
[2024-02-13] MEDS: fentaNYL 100 mcg/2 ml 50 MCG/ML VIAL ONE (14:59)
[2024-02-13] MEDS: HYDROcodone/Acetamin 10/325 TAB (NF) PO PRN (15:11)
[2024-02-14 06:16] LABS: ABS Basophils 0.1 10^3/uL (0.0-0.1); ABS Eosinophils 0.3 10^3/uL (0.0-0.5); ABS Lymphocytes 1.5 10^3/uL (1.0-4.8); ABS Monocytes 0.8 10^3/uL (0.0-0.9); ABS Neutrophils 4.6 10^3/uL (1.5-7.6); Eosinophil % 3.5 %; Hematocrit 24.2 % (35-45); Hemoglobin 8.2 g/dL (11.5-14.3); Lymphocyte % 20.4 %; Mean Corpuscular Hemoglobin 31.9 pg (27-33); Mean Corpuscular Hgb Conc 33.8 g/dL (31-36); Mean Corpuscular Volume 94.5 fL (80-97); Mean Platelet Volume 7.8 fL (7.5-11.2); Platelet Count 287 10^3/uL (150-450); Red Blood Count 2.56 10^6/uL (3.63-4.92); Red Cell Distribution Width 17.4 % (12-17); White Blood Count 7.2 10^3/uL (3.8-11.8)
[2024-02-14 06:43] LABS: Calcium 8.3 mg/dL (8.6-10.3); Creatinine, Serum 8.31 mg/dL (0.51-0.95); Magnesium 1.9 mg/dL (1.9-2.7); Potassium 4.6 mmol/L (3.5-5.0); eGFR CKD-EPI 4.9 (>60)
[2024-02-14 11:15] VITALS: BP 106/56
== END 2024-02-14 13:20 | DRG 477 ==
LOC: ED 10:48 → SUATTDRO 12:27 → EDHOLD 12:27 → MED 13:55
PROVIDERS: ADMIT Student in an Organized Health Care Education/Training Program; ATTEND Student in an Organized Health Care Education/Training Program

== ENCOUNTER 2024-03-09 17:15 | Inpatient (IN) ==
[2024-03-09 18:55] LABS: Activated Partial Thrombo Time 38.4 seconds (26.0-38.0); INR 1.22 (0.85-1.14)
[2024-03-09 19:00] LABS: Hematocrit 31.1 % (35-45); Mean Corpuscular Hemoglobin 29.9 pg (27-33); Mean Corpuscular Volume 93.3 fL (80-97); Mean Platelet Volume 6.6 fL (7.5-11.2); Platelet Count 262 10^3/uL (150-450); Red Blood Count 3.34 10^6/uL (3.63-4.92); Red Cell Distribution Width 17.8 % (12-17)
[2024-03-09 19:57] LABS: ABS Basophils 0.1 10^3/uL (0.0-0.1); ABS Eosinophils 0.1 10^3/uL (0.0-0.5); ABS Lymphocytes 1.1 10^3/uL (1.0-4.8); ABS Neutrophils 7.7 10^3/uL (1.5-7.6); Anisocytosis 1+; Eosinophil % 1.2 %; Hypochromasia 1+; Lymphocyte % 10.9 %; Schistocytes 1+; Tear Drop Cells 1+
[2024-03-09 20:14] LABS: ALT 21 U/L (7-52); Albumin 3.5 g/dL (3.5-5.7); Albumin/Globulin Ratio 1.5 (1-3); Alkaline Phosphatase 100 U/L (35-149); Blood Urea Nitrogen 18 mg/dL (6-24); CO2 Carbon Dioxide 25 mmol/L (22-32); Calcium 8.5 mg/dL (8.6-10.3); Chloride 92 mmol/L (101-111); Creatinine, Serum 3.79 mg/dL (0.51-0.95); Globulin 2.4 g/dL (2-4); Glucose 142 mg/dL (70-100); Sodium 133 mmol/L (135-145); Total Bilirubin 0.4 mg/dL (0.2-1.0); Total Protein 5.9 g/dL (6.4-8.9); eGFR CKD-EPI 12.5 (>60)
[2024-03-09 20:15] LABS: Anion Gap 16 mmol/L (2-16)
[2024-03-09 22:35] LABS: High Sens Troponin Baseline 13 pg/mL (<15)
[2024-03-09 23:47] LABS: Potassium Redraw 3.6 mmol/L (3.5-5.0)
[2024-03-09 23:48] LABS: High Sensitivity Troponin 1 Hr 12 pg/mL (<15)
[2024-03-10 00:04] LABS: Urine Color Light-Yellow
[2024-03-10 00:06] LABS: Urine Appearance Extra Turbid; Urine Bacteria 2+ /HPF (Absent); Urine Bilirubin Negative (Negative); Urine Blood 3+ (Negative); Urine Glucose Negative (Negative); Urine Ketones Negative (Negative); Urine Nitrite Negative (Negative); Urine Protein 3+ (>=300 mg/dL) (Negative); Urine Red Blood Cell 3+(>10/hpf) /HPF (0-Trace); Urine Specific Gravity 1.012 (1.002-1.030); Urine Squamous Epithelial Cell Present /HPF (Absent); Urine Urobilinogen Negative (Negative); Urine White Blood Cell 3+(>20/hpf) /HPF (0-Trace); Urine pH 6.5 (5.0-8.0)
[2024-03-10 00:33] LABS: Urine Benzodiazepine Screen None Detected (None Detect); Urine Buprenorphine Screen None Detected (None Detect); Urine Cannabinoids Screen None Detected (None Detect); Urine Fentanyl Screen None Detected (None Detect); Urine Hydrocodone Screen Presumptive Positive (None Detect); Urine Opiates Screen Presumptive Positive (None Detect)
[2024-03-10] MEDS ORDERED: Dextrose 50% Syringe 50 ml 25 GM/50 ML SYRINGE IV PUSH PRN (03:37)
[2024-03-10] MEDS: Tetan/Diph/Pertus SYR(Tdap) 0.5 ML SYR(BOOSTRIX) use SYR contains LATEX IM ONE (04:26)
[2024-03-10] MEDS ORDERED: Mupirocin 2% OINT TUBE TOPICAL PRN (04:31)
[2024-03-10] MEDS ORDERED: Senna TAB 8.6 mg TAB PO PRN (04:31)
[2024-03-10] MEDS ORDERED: Albuterol HFA INHALER 8 gm MDI INH PRN (04:31)
[2024-03-10 06:11] LABS: ABS Basophils 0.1 10^3/uL (0.0-0.1); ABS Eosinophils 0.1 10^3/uL (0.0-0.5); ABS Lymphocytes 1.3 10^3/uL (1.0-4.8); ABS Monocytes 0.7 10^3/uL (0.0-0.9); ABS Neutrophils 4.2 10^3/uL (1.5-7.6); ABS Nucleated RBC 0.01 10^3/ul; Eosinophil % 1.8 %; Hematocrit 25.7 % (35-45); Hemoglobin 8.5 g/dL (11.5-14.3); Lymphocyte % 20.6 %; Mean Corpuscular Hemoglobin 31.3 pg (27-33); Mean Corpuscular Hgb Conc 33.1 g/dL (31-36); Mean Corpuscular Volume 94.7 fL (80-97); Mean Platelet Volume 6.4 fL (7.5-11.2); Nucleated Red Blood Cells % 0.1 %/100WBC (0.0-0.8); Platelet Count 211 10^3/uL (150-450); Red Blood Count 2.71 10^6/uL (3.63-4.92); Red Cell Distribution Width 17.9 % (12-17); White Blood Count 6.3 10^3/uL (3.8-11.8)
[2024-03-10 06:31] LABS: Calcium 7.5 mg/dL (8.6-10.3); Creatinine, Serum 4.25 mg/dL (0.51-0.95); Magnesium 1.9 mg/dL (1.9-2.7); Potassium 3.6 mmol/L (3.5-5.0); eGFR CKD-EPI 10.9 (>60)
[2024-03-10] MEDS: Cyclosporine 0.05% OPHTH (NF) 0.4 ML VIAL BOTH EYES SCH (07:35)
[2024-03-10] MEDS: Lidocaine PATCH 5% PATCH TRANSDERM SCH (09:24)
[2024-03-10] MEDS: Insulin GLARGINE 100 un/ml 10 ml VIAL SUBCUT SCH (09:25)
[2024-03-10 09:41] LABS: TSH Ultra Thyroid Stim Horm 16.03 mcIU/mL (0.34-5.60)
[2024-03-10] MEDS: prednisoLONE 1% OPHTH.SUSP 5 ML OPHTH.SUSP RIGHT EYE SCH (09:43)
[2024-03-10] MEDS: Fluticasone NASAL SPRAY 50MCG 16 gm SPRAY BTL INTRANASAL SCH (09:43)
[2024-03-10] MEDS: buPROPion SR 100 mg TAB.SR PO SCH (09:43)
[2024-03-10] MEDS: Brimonidine/Timolol 0.2%/0.5% OPTH(NF) SOL 5 ML BOTH EYES SCH (09:44)
[2024-03-10] MEDS: Acetaminophen IV 1 GM/100ML 1,000 MG/100 ML BAG IV SCH (11:52)
[2024-03-10] MEDS: cefTRIAXone 1 gm/50 mL D5W 1 GM/50 ML BAG IV SCH (11:56)
[2024-03-10] MEDS ORDERED: NS 0.9% 1000 ml BAG 100 ML IV PRN (12:47)
[2024-03-10] MEDS ORDERED: NS 0.9% 1000 ml BAG 200 ML IV PRN (12:47)
[2024-03-10] MEDS ORDERED: Insulin LISPRO FOR INSULIN PUMP SUBCUT SCH (13:00)
[2024-03-10 14:26] LABS: Hepatitis B Surface Ab Not Immune (Immune)
[2024-03-10] MEDS: HYDROcodone/Acetamin 10/325 TAB (NF) PO PRN (15:49)
[2024-03-10 15:57] LABS: Hepatitis B Surface Antigen Nonreactive (Nonreactive)
[2024-03-10] MEDS: Latanoprost 0.005% 2.5 ml BTL BOTH EYES SCH (20:16)
[2024-03-10] MEDS ORDERED: Bimatoprost 0.01% OPHTH (NF) 2.5 ML BTL BOTH EYES SCH (21:00)
[2024-03-11] MEDS: Dextrose 50% Syringe 50 ml 25 GM/50 ML SYRINGE IV PUSH PRN (05:53)
[2024-03-11] MEDS ORDERED: Levothyroxine 100 MCG/5 ML VIAL IV SCH (06:00)
[2024-03-11] MEDS: Dextrose 50% Syringe 50 ml 25 GM/50 ML SYRINGE ONE (06:15)
[2024-03-11 06:17] LABS: ABS Basophils 0.1 10^3/uL (0.0-0.1); ABS Eosinophils 0.2 10^3/uL (0.0-0.5); ABS Lymphocytes 1.7 10^3/uL (1.0-4.8); ABS Monocytes 0.9 10^3/uL (0.0-0.9); ABS Neutrophils 5.5 10^3/uL (1.5-7.6); ABS Nucleated RBC 0.01 10^3/ul; Eosinophil % 2.3 %; Hematocrit 25.6 % (35-45); Hemoglobin 8.4 g/dL (11.5-14.3); Lymphocyte % 20.3 %; Mean Corpuscular Hemoglobin 30.9 pg (27-33); Mean Corpuscular Volume 93.9 fL (80-97); Mean Platelet Volume 6.6 fL (7.5-11.2); Nucleated Red Blood Cells % 0.2 %/100WBC (0.0-0.8); Platelet Count 245 10^3/uL (150-450); Red Blood Count 2.72 10^6/uL (3.63-4.92); Red Cell Distribution Width 18.1 % (12-17); White Blood Count 8.4 10^3/uL (3.8-11.8)
[2024-03-11 07:21] LABS: Calcium 7.7 mg/dL (8.6-10.3); Creatinine, Serum 5.89 mg/dL (0.51-0.95); Magnesium 2.1 mg/dL (1.9-2.7); Potassium 3.9 mmol/L (3.5-5.0); eGFR CKD-EPI 7.4 (>60)
[2024-03-11] MEDS: Heparin 1,000 UNIT/ML 10 ml (10,000 UNITS) CATHLAB/DIALYSIS DIALYSIS PRN (08:34)
[2024-03-11] MEDS: ACETAMIN PO PRN (13:12)
[2024-03-11] MEDS: HYDROCODONE PO PRN (13:12)
[2024-03-12] MEDS: Ondansetron ODT 4 mg TAB 4 MG TAB PO PRN (09:28)
[2024-03-12] MEDS: Polyethylene Glycol 3350 17 GM PACKET PO PRN (09:30)
[2024-03-12] MEDS: Cefepime 1 GM in Dextrose 1 GM/50 ML BAG IV ONE (11:01)
[2024-03-13] MEDS: Dextrose 50% Syringe 50 ml 25 GM/50 ML SYRINGE IV PUSH ONE (01:33)
[2024-03-13 07:50] LABS: Albumin 2.7 g/dL (3.5-5.7); Albumin/Globulin Ratio 1.4 (1-3); C Reactive Protein 107.86 mg/L (<8.01); Calcium 7.5 mg/dL (8.6-10.3); Creatinine, Serum 5.24 mg/dL (0.51-0.95); Globulin 1.9 g/dL (2-4); Phosphorus 4.5 mg/dL (2.5-5.0); Total Bilirubin 0.3 mg/dL (0.2-1.0); Total Protein 4.6 g/dL (6.4-8.9); eGFR CKD-EPI 8.5 (>60)
[2024-03-13 08:21] LABS: ABS Lymphocytes 0.7 10^3/uL (1.0-4.8); ABS Monocytes 0.4 10^3/uL (0.0-0.9); ABS Nucleated RBC 0.01 10^3/ul; Eosinophil % 0.5 %; Hematocrit 27.7 % (35-45); Hemoglobin 9.1 g/dL (11.5-14.3); Mean Corpuscular Hemoglobin 31.2 pg (27-33); Mean Corpuscular Hgb Conc 32.8 g/dL (31-36); Mean Corpuscular Volume 95.3 fL (80-97); Nucleated Red Blood Cells % 0.1 %/100WBC (0.0-0.8); Platelet Count 211 10^3/uL (150-450); Red Cell Distribution Width 18.8 % (12-17); White Blood Count 5.1 10^3/uL (3.8-11.8)
[2024-03-13] MEDS: Ondansetron 4 mg VIAL 2 MG/ML 2 ml VIAL IV ONE (14:24)
[2024-03-13] MEDS: Albumin Human 25% 25 GM/100 ML BTL IV PRN (14:32)
[2024-03-14 06:18] LABS: ABS Eosinophils 0.1 10^3/uL (0.0-0.5); ABS Monocytes 0.7 10^3/uL (0.0-0.9); Eosinophil % 1.3 %; Hematocrit 24.9 % (35-45); Hemoglobin 8.3 g/dL (11.5-14.3); Lymphocyte % 17.9 %; Mean Corpuscular Hemoglobin 31.5 pg (27-33); Mean Corpuscular Hgb Conc 33.1 g/dL (31-36); Mean Corpuscular Volume 95.1 fL (80-97); Mean Platelet Volume 7.3 fL (7.5-11.2); Nucleated Red Blood Cells % 0.1 %/100WBC (0.0-0.8); Platelet Count 183 10^3/uL (150-450); Red Blood Count 2.62 10^6/uL (3.63-4.92); Red Cell Distribution Width 18.8 % (12-17); White Blood Count 5.8 10^3/uL (3.8-11.8)
[2024-03-14 06:43] LABS: Calcium 7.7 mg/dL (8.6-10.3); Creatinine, Serum 3.61 mg/dL (0.51-0.95); Magnesium 1.9 mg/dL (1.9-2.7); Potassium 3.9 mmol/L (3.5-5.0); eGFR CKD-EPI 13.2 (>60)
[2024-03-14] MEDS: Lidocaine PATCH 5% PATCH TRANSDERM SCH (17:16)
[2024-03-15 06:05] LABS: Calcium 7.5 mg/dL (8.6-10.3); Creatinine, Serum 5.06 mg/dL (0.51-0.95); Magnesium 1.9 mg/dL (1.9-2.7); Potassium 4.5 mmol/L (3.5-5.0); eGFR CKD-EPI 8.8 (>60)
[2024-03-15] MEDS: fentaNYL 100 mcg/2 ml 50 MCG/ML VIAL IV SLOW PU ONE (10:12)
[2024-03-16 05:34] LABS: ABS Eosinophils 0.1 10^3/uL (0.0-0.5); ABS Monocytes 0.7 10^3/uL (0.0-0.9); ABS Neutrophils 5.2 10^3/uL (1.5-7.6); Eosinophil % 2.1 %; Hematocrit 23.8 % (35-45); Hemoglobin 7.8 g/dL (11.5-14.3); Lymphocyte % 13.5 %; Mean Corpuscular Hemoglobin 30.9 pg (27-33); Mean Corpuscular Hgb Conc 32.8 g/dL (31-36); Mean Corpuscular Volume 94.1 fL (80-97); Mean Platelet Volume 7.3 fL (7.5-11.2); Platelet Count 219 10^3/uL (150-450); Red Blood Count 2.53 10^6/uL (3.63-4.92); Red Cell Distribution Width 17.9 % (12-17); White Blood Count 7.1 10^3/uL (3.8-11.8)
[2024-03-16 05:52] LABS: Calcium 7.6 mg/dL (8.6-10.3); Creatinine, Serum 6.69 mg/dL (0.51-0.95); Phosphorus 4.1 mg/dL (2.5-5.0); Potassium 4.9 mmol/L (3.5-5.0); eGFR CKD-EPI 6.3 (>60)
[2024-03-16] MEDS: Lidocaine PATCH 5% PATCH TRANSDERM ONE (16:41)
[2024-03-17] MEDS ORDERED: Dextrose 50% Syringe 50 ml 25 GM/50 ML SYRINGE IV PUSH PRN (03:46)
[2024-03-17 06:26] LABS: Hematocrit 25.3 % (35-45); Hemoglobin 8.2 g/dL (11.5-14.3); Mean Corpuscular Hemoglobin 30.7 pg (27-33); Mean Corpuscular Hgb Conc 32.3 g/dL (31-36); Mean Corpuscular Volume 95.1 fL (80-97); Mean Platelet Volume 7.3 fL (7.5-11.2); Platelet Count 240 10^3/uL (150-450); Red Blood Count 2.66 10^6/uL (3.63-4.92); Red Cell Distribution Width 18.2 % (12-17); White Blood Count 7.4 10^3/uL (3.8-11.8)
[2024-03-17 06:53] LABS: Calcium 7.8 mg/dL (8.6-10.3); Creatinine, Serum 4.13 mg/dL (0.51-0.95); Magnesium 2.1 mg/dL (1.9-2.7); Potassium 4.7 mmol/L (3.5-5.0); eGFR CKD-EPI 11.3 (>60)
[2024-03-17] MEDS: Insulin GLARGINE 100 un/ml 10 ml VIAL SUBCUT ONE (09:43)
[2024-03-17] MEDS: HYDROcodone/ACETAMIN 5/325 mg TAB PO PRN (16:21)
[2024-03-19 05:36] LABS: Hematocrit 25.7 % (35-45); Hemoglobin 8.5 g/dL (11.5-14.3); Mean Corpuscular Hemoglobin 30.9 pg (27-33); Mean Corpuscular Hgb Conc 32.9 g/dL (31-36); Mean Corpuscular Volume 93.9 fL (80-97); Mean Platelet Volume 7.1 fL (7.5-11.2); Platelet Count 296 10^3/uL (150-450); Red Blood Count 2.74 10^6/uL (3.63-4.92); Red Cell Distribution Width 18.2 % (12-17); White Blood Count 7.7 10^3/uL (3.8-11.8)
[2024-03-19 05:51] LABS: Calcium 7.7 mg/dL (8.6-10.3); Creatinine, Serum 4.68 mg/dL (0.51-0.95); Potassium 4.1 mmol/L (3.5-5.0); eGFR CKD-EPI 9.7 (>60)
[2024-03-19] MEDS: Cetirizine 5 mg CHEW TAB PO SCH (10:54)
[2024-03-19] MEDS ORDERED: HYDROmorphone 0.5 MG/0.5 ML SYRINGE IV SLOW PU PRN (13:18)
[2024-03-19 13:40] VITALS: BP 144/71
[2024-03-19] MEDS: HYDROmorphone 1 MG/1 ML SYRINGE IV SLOW PU PRN (14:03)
[2024-03-20] MEDS: HYDROmorphone 1 MG/1 ML SYRINGE IV SLOW PU PRN (10:34)
[2024-03-22] MEDS: Morphine ORAL CONCENTRATE 5 MG/0.25 ML ORAL.SYRIN PO PRN (00:22)
== END 2024-03-22 12:54 | disposition expired | DRG 102 ==
LOC: EDHOLD 17:15 → ED 17:15 → MEDTELE 03-10 04:09 → SUATTDRO 03-11 10:08 → MED 03-12 23:17
PROVIDERS: ADMIT Internal Medicine; ATTEND Internal Medicine